=== PATIENT | female | born 1960 | race Caucasian/White ===

== ENCOUNTER → 2017-08-06 16:23 | Outpatient (CLI) | payer OTHER, SELFPAY ==
--- NOTE | 2017-08-06 16:29 | HPBI_ITS ---
MAMMOGRAPHY - BILATERAL SCREENING REASON FOR EXAM: Female, 57 years old. Routine annual screening examination. PERTINENT HISTORY: Sister with breast cancer. Mother with breast cancer. TECHNIQUE: Digital bilateral breast karina (3D mammographic acquisition) in the CC and MLO projections. 2-D mediolateral oblique (MLO) and craniocaudad (CC) views of both breasts were obtained. CAD: Full Field Digital Mammography with Computer Added Detection was performed. COMPARISON: Comparison is made with prior study dated April 19, 2016 and April 17, 2015. FINDINGS: Breast Composition: There are scattered areas of fibroglandular density. There are no dominant masses or suspicious calcifications. No other significant abnormalities are identified. There has been no significant change since the prior study. HPBI/SCREENING MAMM (CAD), BILAT IMPRESSION: Stable bilateral screening mammogram. Yearly follow-up mammogram recommended. (A) ASSESSMENT CATEGORY: BIRADS Category 1: Negative. A letter regarding these results will be sent to the patient by the facility within 30 days. Approximately 10% of breast cancers are not detected by mammography. A normal mammogram should not delay biopsy of a clinically suspicious abnormality. [id number] Electronically Signed: Jimi Castañeda MD at 8:53 EDT Tel [phone], Service support ,
== END ==
PROVIDERS: Family Provider Family Medicine; PCP Family Medicine; Visit Provider Obstetrics & Gynecology
DX: Z12.31 Encounter for screening mammogram for malignant neoplasm of breast (principal)
CPT/HCPCS: 77063; 77067

== ENCOUNTER → 2017-12-29 07:30 | Outpatient (CLI) | payer OTHER, SELFPAY ==
[2017-12-29 10:34] LABS: AST(SGOT) 52 U/L (15-37); Alanine Aminotransfer ALT/SGPT 69 U/L (13-56); Albumin, Serum 3.9 g/dL (3.2-5.0); Alkaline Phosphatase 132 U/L (45-117); Anion Gap 10 (5-15); BUN 11 mg/dL (7-18); Bilirubin, Direct 0.14 mg/dL (0.00-0.30); Calcium,Total 9.1 mg/dL (8.5-10.1); Chloride 103 mmol/L (98-107); Cholesterol 162 mg/dL (200); Creatinine, Serum 0.85 mg/dL (0.55-1.02); EST Glomerular Filtration Rate 74 mL/min (>60); Est Glom Filt Rate - Afr Amer 89 mL/min (>60); Globulin 3.8 g/dL (2.2-4.2); Glucose 133 mg/dL (74-106); High Density Lipoprotein 34 mg/dL; Potassium 4.2 mmol/L (3.5-5.1); Protein, Total 7.7 g/dL (6.4-8.2); Sodium Level 142 mmol/L (136-145); Triglycerides 146 mg/dL; Very Low Density Lipoprotein 29 mg/dL (5-40)
[2017-12-29 10:52] LABS: Microalbumin,Random Urine 16.4 mg/L (NO RANGE EST.); Microalbumin:Creatinine Ratio 16.4 mg/g CRE (<30 mg/g CRE)
== END ==
PROVIDERS: Family Provider Family Medicine; PCP Family Medicine; Visit Provider Family Medicine
DX: E11.9 Type 2 diabetes mellitus without complications (principal); Z79.4 Long term (current) use of insulin
CPT/HCPCS: 36415; 80048; 80061; 80076; 82043; 82570

== ENCOUNTER → 2018-01-01 08:51 | Outpatient (CLI) | payer OTHER, SELFPAY ==
[2018-01-01 10:27] LABS: Thyroid Stim Hormone (TSH) 0.17 uIU/mL (0.358-3.74)
[2018-01-02 08:54] LABS: Vitamin D,25 Hydroxy 26.3 ng/mL (29.95-100.01)
== END ==
PROVIDERS: Family Provider Family Medicine; PCP Family Medicine; Visit Provider Family Medicine
DX: E03.9 Hypothyroidism, unspecified (principal); E55.9 Vitamin D deficiency, unspecified
CPT/HCPCS: 36415; 82306; 84443

== ENCOUNTER → 2018-07-01 08:57 | Outpatient (CLI) | payer OTHER, SELFPAY ==
[2018-07-01 11:16] LABS: Hemoglobin A1c 8.3 % (4.2-6.3)
[2018-07-01 11:20] LABS: AST(SGOT) 122 U/L (15-37); Alanine Aminotransfer ALT/SGPT 143 U/L (13-56); Albumin, Serum 3.7 g/dL (3.2-5.0); Alkaline Phosphatase 143 U/L (45-117); Anion Gap 11 (5-15); BUN 14 mg/dL (7-18); BUN/Creat Ratio 19.1 RATIO (10-20); Bilirubin, Direct 0.14 mg/dL (0.00-0.30); Calcium,Total 9.1 mg/dL (8.5-10.1); Chloride 105 mmol/L (98-107); Cholesterol 193 mg/dL (200); Creatinine, Serum 0.73 mg/dL (0.55-1.02); EST Glomerular Filtration Rate 87 mL/min (>60); Est Glom Filt Rate - Afr Amer 105 mL/min (>60); Free T3 2.9 pg/mL (2.18-3.98); Globulin 3.6 g/dL (2.2-4.2); Glucose 107 mg/dL (74-106); High Density Lipoprotein 33 mg/dL; Potassium 4.2 mmol/L (3.5-5.1); Protein, Total 7.3 g/dL (6.4-8.2); Sodium Level 140 mmol/L (136-145); T4 Total, Thyroxin 11.2 ug/dL (4.8-13.9); Thyroid Stim Hormone (TSH) 2.25 uIU/mL (0.358-3.74); Triglycerides 152 mg/dL; Very Low Density Lipoprotein 30 mg/dL (5-40)
[2018-07-02 13:20] LABS: ANTINUCLEAR ANTIBODIES DIRECT Negative (Negative)
== END ==
PROVIDERS: Family Provider Family Medicine; PCP Family Medicine; Visit Provider Family Medicine
DX: E11.9 Type 2 diabetes mellitus without complications (principal); E03.9 Hypothyroidism, unspecified; L43.9 Lichen planus, unspecified
CPT/HCPCS: 36415; 80048; 80061; 80076; 83036; 84436; 84443; 84481; 86038

== ENCOUNTER → 2018-09-02 08:01 | Outpatient (CLI) | payer OTHER, SELFPAY ==
--- NOTE | 2018-09-02 08:03 | BI_ITS ---
MAMMOGRAPHY - BILATERAL SCREENING REASON FOR EXAM: Female, 58 years old. Routine annual screening examination. PERTINENT HISTORY: Sister with breast cancer. Mother with breast cancer. TECHNIQUE: Digital bilateral breast karina (3D mammographic acquisition) in the CC and MLO projections. 2-D mediolateral oblique (MLO) and craniocaudad (CC) views of both breasts were obtained. CAD: Full Field Digital Mammography with Computer Added Detection was performed. COMPARISON: Comparison is made with prior study dated August 06, 2017 and April 19, 2016. FINDINGS: Breast Composition: There are scattered areas of fibroglandular density. Focal architectural distortion seen in the upper lateral aspect of the left breast. The patient will be recalled for additional views including 90 degree lateral and compression spot views. Stable small bilateral axillary lymph nodes. No other significant abnormalities are identified. BI/SCREENING MAMM (CAD), BILAT IMPRESSION: Focal architectural distortion in the upper lateral aspect of the left breast as described. The patient will be recalled for additional views including 90 degree lateral and compression spot views. Recall Side: Left Breast ASSESSMENT CATEGORY: BIRADS Category 0: Incomplete. Need additional imaging evaluation. A letter regarding these results will be sent to the patient by the facility within 30 days. Approximately 10% of breast cancers are not detected by mammography. A normal mammogram should not delay biopsy of a clinically suspicious abnormality. [id number] Electronically Signed: Jimi Castañeda, at 12:48 EDT , Service support ,
== END ==
PROVIDERS: Family Provider Family Medicine; PCP Family Medicine; Referring Provider Obstetrics & Gynecology; Visit Provider Obstetrics & Gynecology
DX: Z12.31 Encounter for screening mammogram for malignant neoplasm of breast (principal)
CPT/HCPCS: 77063; 77067

== ENCOUNTER → 2018-09-08 08:50 | Outpatient (CLI) | payer OTHER, SELFPAY ==
--- NOTE | 2018-09-08 08:51 | BI_ITS ---
MAMMOGRAPHY - BILATERAL DIAGNOSTIC REASON FOR EXAM: Female, 58 years old. Abnormal screening mammogram. PERTINENT HISTORY: Sister with breast cancer. Mother with breast cancer. TECHNIQUE: Compression spot views of the left breast in the mediolateral oblique and craniocaudad views were obtained. CAD: Full Field Digital Mammography with Computer Added Detection was performed. COMPARISON: Comparison is made with prior study dated September 02, 2018. FINDINGS: Breast Composition: There are scattered areas of fibroglandular density. Persistent architectural distortion is seen in the upper lateral portion of the left breast. Correlation with ultrasound is recommended. No other significant abnormalities are identified. BI/DIAG MAMM W/CAD, BILAT IMPRESSION: Stable architectural distortion in the left breast as described. Correlation with ultrasound is recommended. ASSESSMENT CATEGORY: BIRADS Category 0: Incomplete. Need additional imaging evaluation. A letter regarding these results will be sent to the patient by the facility within 30 days. Approximately 10% of breast cancers are not detected by mammography. A normal mammogram should not delay biopsy of a clinically suspicious abnormality. Electronically Signed: Jimi Castañeda, at 11:17 EDT , Service support ,
--- NOTE | 2018-09-08 08:54 | US_ITS ---
STUDY: ULTRASOUND BREAST - LEFT REASON FOR EXAM: Female, 58 years old. Abnormal screening mammogram. TECHNIQUE: Axial and longitudinal images of the LEFT breast were performed with a high resolution ultrasound transducer. COMPARISON: Comparison is made with prior mammogram dated September 02, 2018 and September 08, 2018. FINDINGS: LEFT Breast: There is a 4 mm x 3 mm x 3 mm cyst at the 2:00 position of the breast at 4 cm from nipple. There is evidence of a 3 mm x 5 mm x 5 mm hypoechoic ill-defined nodular density at the 3:00 position of the breast at 8 cm from the nipple. There is posterior acoustical shadowing. A biopsy is recommended. US/Breast Limited Unilateral IMPRESSION: Suspicious nodule measuring 3 mm x 5 mm x 5 mm at the 3:00 position of the breast at 8 cm from nipple. A biopsy is recommended for further evaluation. ASSESSMENT CATEGORY: BIRADS Category 4: Suspicious - Biopsy Should Be Considered. A letter regarding these results will be sent to the patient by the facility within 30 days. Electronically Signed: Jimi Castañeda, at 11:15 EDT , Service support ,
== END ==
PROVIDERS: Family Provider Family Medicine; PCP Family Medicine; Referring Provider Obstetrics & Gynecology; Visit Provider Obstetrics & Gynecology
DX: R92.8 Other abnormal and inconclusive findings on diagnostic imaging of breast (principal)
CPT/HCPCS: 76642; 77066

== ENCOUNTER → 2018-09-22 11:42 | Outpatient (CLI) | payer OTHER, SELFPAY ==
[2018-09-15 07:35] VITALS: BMI 32.5
--- NOTE | 2018-09-22 | IMM_PTH ---
PATIENT: CLAUDY BAIRD LOC: [facility] U#:[id number] AGE/SX: 65/F ROOM: RE09/22/[address]: Dr. Man Olguin MD : 1960 BED: DIS: SPEC #: [id number] RECD: 09/23/18 15:12 STATUS: HOMERO REQ #: [id number] NICOLE: 09/22/18 00:[address]: Man Olguin DEPT: IMMUNOHISTOCHEMISTRY RECD BY: Kimberly Kimble ENTERED: 09/23/18 15:13 SP TYPE: IMMUNO OTHR DR: Dr. Magdiel Montilla MD Tissues: Left breast, NOS Procedures: CALPONIN-1 (add) CK5-6 (add) CK8 (add) E-CAD (add) HER2 YANG (add) KI-67 (add) P53 (add) AK (add) P40 (add) ER (initial) PHYSICIAN & INSTITUTION [facility] [phone] SPECIMEN INFORMATION: Tissue Source: Left breast biopsy Clinical Info: Abnormal left breast ultrasound Specimen Number: [id number] CPT code: 71692, 59870 x6, 87704 x3 METHODOLOGY: Deparaffinized sections of prefer/formalin-fixed tissue or PAP/DQ stained slides are incubated with monoclonal/polyclonal antibodies/oligonucleotide probes. Localization is made via biotin free immunoperoxidase method. Appropriate controls are performed and reacted as expected. Results on target cell population are indicated in the following table: RESULTS: ANTIBODY / CLONE RESULT E-Cad (ECH-6) positive CK8 (30mzquW81) positive CK5-6 (D5 & 1684) negative * Ki-67 (30-9) positive, low P53 (DO-7) negative P40 (BC28) negative * Calponin-1 (KD842S) negative * *?Positive in the area of ductal carcinoma in situ. MORPHOMETRIC ANALYSIS ER (clone 6F11) >95%, strong AK (clone 16/1E2) >95%, moderate Her-2Neu (clone CB11) 0 The prognostic test for HER2 is performed on formalin-fixed paraffin embedded tissue. A 3+ (positive) staining pattern is defined as intense, homogeneous, complete, circumferential membranous staining in >10% of contiguous tumor cells. A similar weak (2+) staining pattern is interpreted as equivocal. TALITA follow-up testing is recommended for all equivocal cases. Positivity/negativity for ER/AK is reported if > or < 1% of the tumor cells are immuno- reactive, respectively. The ASCO/CAP criteria is used for scoring. Reference: Journal of Clinical Oncology, 2013; 31:0222-4131 & 2010; 16:3015-6554. Duration of fixation: 6.5 Hrs; Sample Adequate: Yes. These assays have not been validated on decalcified tissues. Results should be interpreted with caution given the likelihood of false negativity on decalcified specimens. These tests were developed and their performance characteristics determined by [facility]. They may not have been cleared or approved by the U.S. Food and Drug Administration. The FDA has determined that such clearance or approval is not necessary. INTERPRETATION: Left breast, biopsy: Invasive ductal carcinoma. Ductal carcinoma in situ. Positive for estrogen receptors (favorable prognostic indicator). Positive for progesterone receptors (favorable prognostic indicator). Negative for overexpression of MYT7xjy. SJ:mitesh 09/24/18
--- NOTE | 2018-09-22 | BRBX_PTH ---
PATIENT: CLAUDY BAIRD LOC: [facility] U#:[id number] AGE/SX: 65/F ROOM: RE09/22/[address]: Dr. Man Olguin MD : 1960 BED: DIS: SPEC #: [id number] RECD: 09/22/18 13:07 STATUS: HOMERO NIDIA #: [id number] NICOLE: 09/22/18 00:[address]: Man Olguin DEPT: SURGICAL PATHOLOGY RECD BY: Sukumar Wright ENTERED: 09/22/18 13:26 SP TYPE: BREAST BX OTHR DR: Dr. Magdiel Montilla MD Tissues: Left breast, NOS Procedures: Surgery Specimen Level IV HEADER OPERATION: Left breast biopsy PRE-OP DIAGNOSIS: Left breast abnormal ultrasound TISSUE SUBMITTED: Left breast 3 o'clock, 8 cm from nipple - shadowing present on ultrasound ISCHEMIC TIME: 1 minute FIXATION TIME: 6.5 hours MICROSCOPIC DIAGNOSIS Left breast, 3 o'clock, 8 cm from nipple, core biopsy: Invasive ductal carcinoma, nuclear grade 1 (0.5 cm in greatest length). Ductal carcinoma in situ. See comment. MACHELLE:mitesh 09/23/18 COMMENT Ductal carcinoma in situ shows cribriform pattern, nuclear grade 1 and focal comedo necrosis and comprise about 5% of the total tumor. Immunohistochemistry ([id number]) supports the above diagnosis. ER/NH/Gdn2jvt studies are being performed on sections of tumor and the results from this study will be reported separately ([id number]). MICROSCOPIC DESCRIPTION Slides are reviewed. GROSS DESCRIPTION Received in fixative is one container labeled with the patient's name and designated left breast. The specimen consists of multiple elongated fragments of anaya-yellow fibroadipose tissue that in aggregate measure 2.5 x 1 x 0.1 cm. The entire specimen is submitted in one cassette. / MACHELLE:mitesh 09/22/18 TC:0 CPT: 01526 ADDENDUM ADDENDUM ADDENDUM ADDENDUM ADDENDUM ADDENDUM ADDENDUM ADDENDUM ADDENDUM ADDENDUM ADDENDUM 10/28/2018 10:57 ADDENDUM 10/28/2018 10:57 ADDENDUM 10/28/2018 10:57 ADDENDUM 10/28/2018 10:57 ADDENDUM 10/28/2018 10:57 This addendum is added to incorporate an outside pathology consultation report. The case was examined at [facility] (#[id number]) and the following diagnosis was rendered. Left breast, 3 o'clock, 8 cm from nipple, core biopsy: Invasive ductal carcinoma, nuclear grade 1. Ductal carcinoma in situ, cribriform type, nuclear grade 1. Please see complete above mentioned consultation report in EMR
--- NOTE | 2018-09-22 12:10 | US_ITS ---
STUDY: ULTRASOUND BREAST - LEFT REASON FOR EXAM: Female, 58 years old. Ultrasound guided biopsy of the hypoechoic nodule. TECHNIQUE: Axial and longitudinal images of the LEFT breast were performed with a high resolution ultrasound transducer. COMPARISON: Comparison is made with prior sonogram dated September 08, 2018 and prior mammogram dated September 08, 2018. FINDINGS: LEFT Breast: Under direct sonographic guidance, the surgeon performed core biopsies of the 3 mm x 5 mm x 5 mm hypoechoic solid nodule at the 3:00 position of the breast at 8 cm from the nipple. US/US Breast Biopsy 1st Lesion IMPRESSION: Successful ultrasound-guided core biopsy. ASSESSMENT CATEGORY: BIRADS Category 2: Benign. A letter regarding these results will be sent to the patient by the facility within 30 days. Electronically Signed: Jimi Castañeda, at 8:50 EDT , Service support ,
--- NOTE | 2018-09-22 15:11 | PCM.OPRPT ---
Problem List (1) Abnormal mammogram of left breast Status: Acute Report of Operation Date of Procedure: 09/22/18 Pre-Operative Diagnosis: Abnormal mammogram left breast Post-Operative Diagnosis: Same Surgery/Procedure Performed:: ultrasound-guided hand-held mammotome breast biopsy left breast Type of Anesthesia:: Local Description of Procedure: Chlorhexidine. 1% lidocaine plain was injected. Under ultrasound guidance local was injected posterior to the lesion. Under ultrasound guidance hand-held mammotome needle was directed posterior to the lesion. Under ultrasound guidance numerous biopsies of this lesion were obtained. Under ultrasound guidance a small titanium clip was placed. Steri-Strips were applied. Sterile dressings were placed. Patient tolerated the procedure well. - Admit VTE Documentation VTE Present on Admission: No VTE Mechan Device Prophylaxis: None VTE Pharm Prophylaxis ordered?: No Reason prophylaxis not ordered:: Treatment Not Indicated
== END ==
PROVIDERS: Family Provider Family Medicine; PCP Family Medicine; Referring Provider Surgery; Visit Provider Surgery
DX: R92.8 Other abnormal and inconclusive findings on diagnostic imaging of breast (principal)
CPT/HCPCS: 19083; 88305; 88341; 88342

== ENCOUNTER 2019-05-03 09:27 | Emergency (ER) | payer OTHER, SELFPAY ==
[2018-09-15 07:35] VITALS: BMI 32.5
[2019-05-03 09:28] VITALS: BP 156/72; PULSE 96; RESP 15; TEMP 37; O2SAT 98; BMI 31.4
--- NOTE | 2019-05-03 09:47 | ED.VISSUMM ---
- ER Visit Summary Date of Service: 05/03/19 Chief Complaint: Recurrent right breast infection History of Present Illness: The patient is a 59 F history of left breast cancer, diabetes, hypertension. Patient had bilateral mastectomies with implants. She developed a right breast infection. She has had multiple recurrent surgeries and implant removed. She has been on IV antibiotics including Cipro and vancomycin. And had the implant replaced in the right. Since Friday she has not felt well developed a fever on Friday and now has redness and swelling to her right breast and believes it is infected again. Physical Examination: Middle-aged female no acute distress vital signs stable afebrile. H EENT exam unremarkable. Neck nontender no lymphadenopathy. Lungs clear to auscultation bilaterally. Heart regular rhythm no murmur. Abdomen soft nontender normal bowel sounds no peritoneal signs. Extremities moves all 4. Neurovascular intact. Neurologically she is awake and alert with no focal motor deficits. Her left breast is unremarkable her right breast was examined with a nurse present in the room it is red and swollen is mildly tender. There is an incision on the undersurface of the breast. The breast appears to be infected with cellulitis. No obvious abscess. Test Results: CBC shows an elevated white blood cell count of 22,000. Normal hemoglobin. No bands. Blood cultures have been sent. Emergency Department Course and Treatment: Patient be started on IV vancomycin. Prior to IV antibiotics labs and blood cultures to be obtained. I will page the [facility] physician who took care of the patient to see if they would like her transferred there since they have been involved in her care extensively for the last several months. Treatment Plan: IV antibiotics and transfer the [facility]. I spoke to the patient's plastic surgeon at the [facility] and they have accepted her in transfer. On repeat exam patient is doing well at 10:38 AM. Disposition: Transfer Impression: Recurrent right breast infection with cellulitis History of breast CA with bilateral mastectomies and implants History of diabetes This note was generated with [employer] dictation software. It may contain incorrect words, spelling, and punctuation that were not noted in review of the chart prior to signing ED Disposition - Plan for ED Patient: Referrals: Magdiel Montilla MD [Primary Care Provider] -
[2019-05-03 10:22] LABS: Absolute Lymphocyte Count 2.07 X10^3/uL (0.83-4.51); Absolute Neutrophil Count 18.9 X10^3/uL (2.0-7.7); Basophil# 0.07 X10^3/uL; Basophil% 0.3 % (0-1); Eosinophil# 0.22 X10^3/uL; Hematocrit 41.8 % (37-47); Lymphocyte # 2.07 X10^3/ul (4.0); Lymphocyte % 9.2 % (19-41); Mean Corp Hgb Conc 33.5 g/dL (32-36); Mean Corpuscular Hgb 30.8 pg (27.0-32.0); Mean Corpuscular Volume 92.1 fL (81-99); Mean Platelet Vol. 10.7 fl (6.2-12.0); Monocyte# 1.03 X10^3/uL; Monocyte% 4.6 % (0-10); NRBC Flagged by Analyzer 0 % (0-5); Neutrophil # 18.87 X10^3/uL (2.7-7.7); Neutrophil % 84.4 % (47-70); Platelet Count 208 K/mm3 (150-450); RBC Distribution Width CV 12.7 % (11.6-14.6); RBC Distribution Width SD 42.8 fl (35.1-43.9); Red Blood Count 4.54 M/mm3 (4.2-5.4); White Blood Count 22.4 K/mm3 (4.4-11.0)
[2019-05-03] MEDS: Acetaminophen 500 MG Tablet 1000 MG PO (10:32)
[2019-05-03 10:38] LABS: Anion Gap 5 (5-15); BUN 12 mg/dL (7-18); BUN/Creat Ratio 13.3 RATIO (10-20); Calcium,Total 9.5 mg/dL (8.5-10.1); Chloride 103 mmol/L (98-107); EST Glomerular Filtration Rate 69 mL/min (>60); Est Glom Filt Rate - Afr Amer 83 mL/min (>60); Estimated Creatinine Clearance 59.55 ml/min; Glucose 199 mg/dL (74-106); Potassium 4.5 mmol/L (3.5-5.1); Sodium Level 137 mmol/L (136-145)
== END 2019-05-03 11:02 | disposition short-term general hospital (02) ==
LOC: ED 10:03
PROVIDERS: Emergency Provider Emergency Medicine; Family Provider Family Medicine; PCP Family Medicine
DX: N61.0 Mastitis without abscess (principal); Z85.3 Personal history of malignant neoplasm of breast; Z90.13 Acquired absence of bilateral breasts and nipples; I10 Essential (primary) hypertension; E11.9 Type 2 diabetes mellitus without complications; Z79.4 Long term (current) use of insulin; Z79.84 Long term (current) use of oral hypoglycemic drugs; Z79.899 Other long term (current) drug therapy
CPT/HCPCS: 80048; 85025; 87040; 96365; 99282; J7040; J7050; A4216

== ENCOUNTER → 2019-09-16 07:10 | Outpatient (CLI) | payer OTHER, SELFPAY ==
--- NOTE | 2019-09-16 14:19 | STRESSREP_ITS ---
Stress Test Report Date: 09/16/2019 Procedure: Pharmacologic stress nuclear imaging study Indications: Chest pain Consent: Per the patient Procedure: Patient initially started as an exercise nuclear stress test. She walked for 6 minutes on the Arias protocol achieving a work level of 7 METs. Patient had chest discomfort with exertion. Her maximal heart rate was 131 bpm which represents 80% of maximal age-predicted heart rate. Resting blood pressure was 144/72 which lyndon to 150/72. Since patient did not reach target heart rate she was switched to a Lexiscan stress test. The patient underwent pharmacologic (Regadenoson) evaluation with a peak heart rate of 126 beats per minute (77 %predicted maximal heart rate) and a peak blood pressure of 160/88 mmHg. The baseline ECG demonstrated normal sinus rhythm, possible prior inferior infarction. During peak exercise patient had significant ST depressions (horizontal) in leads I, aVL and V2. There was also increase in the amplitude of the T waves in the inferior leads in the recovery. Eventually the ST changes return to baseline. EKG during lexiscan infusion revealed upsloping ST depressions in the inferior leads. EKG post infusion revealed return of ST segments to baseline [There were no cardiac dysrhythmias pretest, during pharmacologic infusion, or recovery]. Patient had chest pain with exercise. The examination was discontinued secondary to completion of protocol. Impression: 1. Lexiscan stress test test is negative for Lexiscan infusion induced EKG changes of ischemia. However the stress test was positive for exercise-induced chest pain and EKG changes of ischemia. 2. Lexiscan stress test test negative for Lexiscan infusion induced chest pain. 3. Results of the nuclear portion of the test is as below Myocardial perfusion imaging study: Technique: The patient was injected with 13.5 millicuries of technetium 99m Cardiolite and subsequently rest SPECT Cardiolite nuclear imaging was obtained in the horizontal long, vertical long, and short axis views. The patient underwent pharmacologic (Regadenoson) evaluation. Please see above for details. The patient was injected with 41 millicuries of technetium 99m Cardiolite and subsequently stress SPECT Cardiolite nuclear imaging was obtained in the horizontal long, vertical long, and short axis views. A gated Cardiolite study at peak stress was obtained. Interpretation: Rest and stress SPECT Cardiolite nuclear imaging status post realignment, normalization, and attenuation correction demonstrate mildly decreased radioisotope uptake in the inferior wall on the rest images. There is severe decrease in the radioisotope uptake in the inferior wall and inferolateral wall on the stress images. These findings are suggestive of inferior and inferolateral ischemia with possible prior inferior myocardial infarction. Gated images reveal inferior hypokinesis. The reported LVEF is 49 %. Impression: 1. There is moderate to severe inferior and inferolateral ischemia. 2. Estimated ejection fraction is 49%. This note was generated with [employer] software. It may contain incorrect words, spelling, and punctuation that were not noted in checking the note before signing.
== END ==
PROVIDERS: PCP Family Medicine; Referring Provider Family Medicine; Visit Provider Family Medicine
DX: R07.9 Chest pain, unspecified (principal)
CPT/HCPCS: 78452; 93017; A9500; A4216; J2785

== ENCOUNTER → 2019-09-23 07:53 | Outpatient (CLI) | payer OTHER, SELFPAY ==
[2019-09-21 14:36] VITALS: BMI 32.1
--- NOTE | 2019-09-23 07:54 | ECHOCS_ITS ---
Reason For Study: CHEST PAIN Procedure This was a 2D Doppler, Color Flow transthoracic echocardiogram. The study was technically difficult. The exam was of poor technical quality due to Bilateral brest reconstruction. Contrast injection was performed. Exam performed in department. Left Ventricle Normal LV size. Sigmoid septum. Segmental dysfunction with preserved ejection fraction (see wall motion). The estimated ejection fraction is 60 %. Transmitral doppler flow suggestive of impaired relaxation of left ventricle. Posterior-Basal: Hypokinetic. Infero-Basal: Hypokinetic. Right Ventricle Normal RV size. Normal systolic function. Atria Normal left atrium. Normal right atrium. No doppler evidence for ASD. Mitral Valve There is mild mitral annular calcification. Normal mitral valve. Trivial mitral valve insufficiency. Tricuspid Valve Normal tricuspid valve. Trivial tricuspid valve insufficiency. Right ventricular systolic pressure estimated to be 26 mmHg. Aortic Valve Trisinus/trileaflet aortic valve. Mild focal aortic valve thickening. Pulmonic Valve The pulmonic valve is not well visualized. Great Vessels Normal sized aortic root. Pericardium/Pleural No pericardial effusion. Medication 22 gauge I.V. with prn adaptor inserted into right arm. Diluted definity 5.0ml given slow IV push to enhance endocardial definition. MMode/2D Measurements & Calculations LVIDd: 3.6 cm IVSd: 1.2 cm Ao root diam: 2.4 cm LVIDs: 2.6 cm LVPWd: 1.2 cm RVDd: 3.5 cm FS: 27.4 % LAV(MOD-bp): 24.5 ml LVAd ap4: 28.9 cm2 SV(MOD-sp4): 53.5 ml LAV(MOD-bp) Indexed: 12.9 ml/m2 EDV(MOD-sp4): 86.4 ml LAV(MOD-sp2): 23.3 ml EDV(sp4-el): 89.5 ml LAV(MOD-sp4): 18.2 ml LVAs ap4: 15.3 cm2 ESV(MOD-sp4): 32.9 ml ESV(sp4-el): 33.3 ml EF(MOD-sp4): 61.9 % EF(sp4-el): 62.8 % SV(sp4-el): 56.2 ml LA A4 area: 10.7 cm2 LA dimension(2D): 3.4 cm RA A4 area: 10.3 cm2 Time Measurements MV dec time: 0.17 sec Doppler Measurements & Calculations MV E max dale: 68.0 cm/sec Lat Peak E' Dale: 11.3 cm/sec Med Peak E' Dale: 5.0 cm/sec MV A max dale: 80.5 cm/sec E/E' lat: 6.0 E/E' med: 13.5 MV E/A: 0.85 Ao V2 max: 122.1 cm/sec LV V1 max: 108.8 cm/sec PA V2 max: 110.6 cm/sec Ao max P.0 mmHg LV V1 max P.7 mmHg TR max dale: 240.7 cm/sec TR max P.2 mmHg Interpretation Summary The study was technically difficult. Contrast injection was performed. Segmental dysfunction with preserved ejection fraction (see wall motion). The estimated ejection fraction is 60 %. There is mild mitral annular calcification. Trivial tricuspid valve insufficiency. Mild focal aortic valve thickening. Right ventricular systolic pressure estimated to be 26 mmHg. Transmitral doppler flow suggestive of impaired relaxation of left ventricle Ordering Physician: Magdiel Wheeler Referring Physician: MAGDIEL BOLAÑOS Performed By: Barbara Yoon, RDCS, RVT
--- NOTE | 2019-09-23 09:19 | RAD_ITS ---
STUDY: X-RAY CHEST REASON FOR EXAM: Female, 59 years old. 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 COMPARISON: None. FINDINGS: The patient is status post right mastectomy and axillary node dissection. 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 A fluid fluid level is seen in the right breast in keeping with the recent surgery. The lungs are clear and expanded. There is no demonstrated pleural abnormality. Normal size heart. Normal mediastinum and raz. Normal visualized pulmonary arteries. There is atherosclerotic tortuosity of the aortic arch and descending thoracic aorta. There are mild degenerative changes of the visualized thoracic spine. Normal visualized ribs, clavicles, and shoulders. There is no demonstrated abnormality of the visualized soft tissue structures of the upper abdomen. RAD/Chest PA and Lateral IMPRESSION: Status post right breast surgery. The lungs are clear. Electronically Signed: Jimi Castañeda, at 11:21 EDT , Service support ,
[2019-09-23 10:28] LABS: Absolute Lymphocyte Count 2.04 X10^3/uL (0.83-4.51); Absolute Neutrophil Count 5.5 X10^3/uL (2.0-7.7); Basophil# 0.07 X10^3/uL; Basophil% 0.8 % (0-1); Eosinophil# 0.19 X10^3/uL; Eosinophils% 2.3 % (0-5); Hematocrit 43.1 % (37-47); Lymphocyte # 2.04 X10^3/ul (4.0); Lymphocyte % 24.4 % (19-41); Mean Corp Hgb Conc 32.5 g/dL (32-36); Mean Corpuscular Hgb 29.9 pg (27.0-32.0); Mean Corpuscular Volume 91.9 fL (81-99); Mean Platelet Vol. 10.8 fl (6.2-12.0); Monocyte# 0.53 X10^3/uL; Monocyte% 6.3 % (0-10); NRBC Flagged by Analyzer 0 % (0-5); Neutrophil # 5.49 X10^3/uL (2.7-7.7); Neutrophil % 65.8 % (47-70); Platelet Count 217 K/mm3 (150-450); RBC Distribution Width CV 12.9 % (11.6-14.6); RBC Distribution Width SD 43.2 fl (35.1-43.9); Red Blood Count 4.69 M/mm3 (4.2-5.4); White Blood Count 8.4 K/mm3 (4.4-11.0)
[2019-09-23 10:37] LABS: International Normalized Ratio 1.1
[2019-09-23 10:38] LABS: Partial Thromboplast Time 31.3 Seconds (24.1-36.2)
[2019-09-23 10:39] LABS: Anion Gap 5 (5-15); BUN 9 mg/dL (7-18); BUN/Creat Ratio 12.2 RATIO (10-20); Calcium,Total 9.1 mg/dL (8.5-10.1); Chloride 101 mmol/L (98-107); Creatinine, Serum 0.74 mg/dL (0.55-1.02); EST Glomerular Filtration Rate 86 mL/min (>60); Est Glom Filt Rate - Afr Amer 104 mL/min (>60); Glucose 135 mg/dL (74-106); Potassium 4.1 mmol/L (3.5-5.1); Sodium Level 137 mmol/L (136-145)
== END ==
PROVIDERS: PCP Family Medicine; Referring Provider Internal Medicine Cardiovascular Disease; Visit Provider Internal Medicine Cardiovascular Disease
DX: R07.9 Chest pain, unspecified (principal); R06.02 Shortness of breath; R94.39 Abnormal result of other cardiovascular function study; E78.00 Pure hypercholesterolemia, unspecified; I10 Essential (primary) hypertension
CPT/HCPCS: 36415; 71046; 80048; 85025; 85610; 85730; 93306; Q9957; A4216; C8929

== ENCOUNTER 2019-09-24 08:48 | Day surgery (SDC) | payer OTHER, SELFPAY ==
--- NOTE | 2019-09-21 03:45 | HP_ITS ---
HPI HPI History of Present Illness Surgical H&P: Yes Details: This is a 59-year-old white female with concerns of chest discomfort, shortness of breath/dyspnea, and abnormal stress nuclear imaging study, superimposed upon hyperlipidemia, hypertension, diabetes mellitus, and a history of breast carcinoma status post bilateral mastectomies and reconstructive surgery who presents for cardiovascular consultation. She states that she has been noticing, mainly with exertional activity, chest discomfort. She states originally she had paresthesias in the left upper extremity. Then she began having a burning sensation in her chest. This was associated with shortness of breath and dyspnea. It was not necessarily associated with nausea, emesis, or diaphoresis. There has been no orthopnea or PND or peripheral pitting edema. There has been no near syncope or syncope. She notes that she can also have, with exertion, separate from her chest burning, shortness of breath and dyspnea. Her symptoms do appear to improve when she stops and rests. She states that potentially 10+ years ago she had a transthoracic echocardiogram performed. To the best of her knowledge this was unremarkable. She has not had one since that time. She does not recall any other cardiovascular testing. She states she has undergone her breast carcinoma bilateral mastectomy surgery and reconstructive surgery. She had recurrent infectious related issues more so with the right breast. She states she underwent 5 general anesthesia surgeries based upon her breast carcinoma history. To the best of her knowledge she had no adverse cardiovascular events from her surgeries. Recently she had an exercise tolerance test performed. The results are as noted below. She was then referred for outpatient cardiovascular consultation. It appears that on 08-27-2019 she had a lipid profile performed. Her total cholesterol was 188 with an LDL of 119 and an HDL of 27. Her triglycerides were 206. She had an ECG in the office today. She was noted to be in sinus rhythm. She has an inferior CO pattern of indeterminate age. Intake Vital Signs 09/21/19 Height 5 ft 4 in 09/21/19 Weight: 187 lb 3 oz 09/21/19 BMI 32.1 09/21/19 BP 142/78 H 09/21/19 Blood Pressure Location Rt brachial 09/21/19 Position Sitting 09/21/19 Respiration 16 09/21/19 Pulse 72 09/21/19 Pulse Source Auscultation 09/21/19 BMI 31.4 Intake Visit Reasons: BOLAÑOS REF. POSITIVE STRESS TEST. CP Rpg Programmer Required: No Accompanied by: Self Allergies hydroxychloroquine [From Plaquenil] Allergy (Severe, Verified 09/21/19 14:36) face and eye swelling Penicillins [PCN] Allergy (Verified 09/21/19 14:36) Other Medications atenolol 50 mg tablet 50 mg PO BID 09/14/18 [History Confirmed 09/21/19] insulin glargine 100 unit/mL (3 mL) subcutaneous pen 50 unit SC DAILY 09/14/18 [History Confirmed 09/21/19] insulin lispro 100 unit/mL subcutaneous half-unit pen 30.5 unit SC TID ml 09/14/18 [History Confirmed 09/21/19] levothyroxine 125 mcg capsule 125 mcg PO DAILY 09/14/18 [History Confirmed 09/21/19] lisinopril 30 mg tablet 30 mg PO DAILY 09/14/18 [History Confirmed 09/21/19] metformin 500 mg tablet 500 mg PO DAILY tab 09/14/18 [History Confirmed 09/21/19] modafinil 200 mg tablet 200 mg PO DAILY 09/14/18 [History Confirmed 09/21/19] anastrozole 1 mg tablet 1 mg PO DAILY 09/16/19 [History Confirmed 09/21/19] dulaglutide 1.5 mg/0.5 mL subcutaneous pen injector 1.5 mg SC QWEEK 09/16/19 [History Confirmed 09/21/19] pravastatin 80 mg tablet 80 mg PO QHS 09/16/19 [History Confirmed 09/21/19] trazodone 50 mg tablet 50 mg PO QHS PRN 09/16/19 [History Confirmed 09/21/19] aspirin 81 mg tablet,delayed release 81 mg PO DAILY #1 tab 09/21/19 [Rx Confirmed 09/21/19] clopidogrel 75 mg tablet 75 mg PO DAILY #30 tab 09/21/19 [Rx Confirmed 09/21/19] [facility] Medical History (Updated 09/21/19 @ 15:[address] Magdiel Wheeler MD) Type 2 diabetes mellitus (Chronic) Pure hypercholesterolemia (Chronic) Hypothyroidism (Chronic) Chest pain (Acute) Essential hypertension (Chronic) Abnormal stress test (Acute) History of left breast cancer (Chronic ~09/2018) Abnormal mammogram of left breast (Acute) Arthritis (Chronic) Hypertension (Inactive) Surgical History (Updated 09/21/19 @ 14:39 by Alley Perkins) History of bilateral mastectomy (Resolved) History of laparoscopic cholecystectomy (Resolved) History of left breast biopsy (Resolved ~09/2018) History of tubal ligation (Resolved) Family History (Updated 09/21/19 @ 14:40 by Alley Perkins) Mother Arthritis Breast cancer Diabetes Heart disease Hypertension Thyroid disorder High cholesterol Sister Breast cancer Grandmother Colon cancer Father Diabetes Heart disease Hypertension Cancer skin cancer Grandfather Cancer lung cancer Sister CAD (coronary artery disease) Presence of stent in coronary artery Social History (Updated 09/21/19 @ 15:[address] Magdiel Wheeler MD) Smoking Status: Never smoker alcohol intake: current alcohol intake frequency: a few times a month substance use type: does not use caffeine: No ROS Const Const: Positive for fatigue (increased); negative for weakness, frequent falls, excessive sweating, weight gain or weight loss Eyes Eyes: Negative for transient loss of vision, blurry vision or change in vision ENT ENT: Negative for dizziness or balance problems Cardio Chest Pain: Yes Character: other (burning) Onset: exercise Location: mid sternal (radiates to Lt arm/ear ) Duration: minutes Relieving: rest Edema: None Muscle aches with walking: None Resp Respiratory: Positive for SOB with activity (noted with CP and at times absent CP); negative for SOB at rest GI GI: Negative vomiting or vomiting blood/hematemesis : Negative for hematuria Musc Musc: Negative for muscle aches/ myalgia, muscle weakness, joint pain or balance problems Skin Skin: Negative non-healing lesions or rash Neuro Neuro: Negative for dizziness, lightheadedness, orthostatic symptoms, frequent falls, weakness or blurry vision Nestor Hematologic/Lymphatic: Negative for easy bleeding Endo Endo: Positive for fatigue (increased); negative for excessive sweating Psych Psych: Negative for anxiety or depression Allergy Allergy/Immunology: Negative for hives, Negative for rash Cardiology Exam Const Appearance: cooperative, healthy appearing, comfortable, no acute distress, well developed and well groomed Nutritional Appearance: overweight Orientation: alert, awake and oriented x3 Head Head: normal to inspection, normocephalic and atraumatic Ears: hearing grossly normal bilaterally Nose: external nose normal Face and Sinus: face symmetric Mouth: oral mucosae normal Teeth and gingiva: dentition normal Eyes Eyelids: eyelids normal Conjunctivae: conjunctivae normal Pupils: PERRL EOM: EOM intact bilaterally Neck Neck: normal visual inspection and full ROM Carotids: normal carotid upstroke Chest Chest inspection: normal inspection of the chest Auscultation: Bilateral: Clear to Auscultation Cardio Palpation: normal PMI Rate: regular rate Rhythm: regular rhythm Heart sounds: S1 normal and S2 normal GI GI: normal to inspection, soft and bowel sounds present Neuro General: alert, awake, oriented x3 and moves all extremities Skin Skin: no rashes or lesions noted Extremities Pulses: Normal: Right Radial Pulse, Left Radial Pulse Lower Extremity Edema: None: Bilateral Psych Psychological: normal affect Assessment & Plan 1. Chest pain, unspecified R07.9 Plan The patient does have multiple cardiovascular risk factors which have included her hyperlipidemia, hypertension, and diabetes mellitus. She has symptoms with exertion concerning for stable angina pectoris. She has an abnormal ECG. She has an abnormal exercise tolerance test/nuclear imaging study. From the cardiovascular standpoint the concern would be underlying CAD bringing out myocardial ischemia. Thus at the present time she was asked to initiate additional medical therapy which will include aspirin 81 mg p.o. daily, clopidogrel/Plavix at 75 mg p.o. daily, as well as undergo additional cardiovascular evaluation which would include an echocardiogram to evaluate her left ventricular wall motion and systolic function and a diagnostic cardiac catheterization to evaluate her coronary anatomy with potential revascularization therapy to follow. The above procedures and risks were discussed with her. She was agreeable to this approach. Orders Orders: 12 Lead EKG performed by BMS Today Left Heart Cath/COR/LV Percut Today Basic Metabolic Profile (BMP) Today Partial Thromboplast Time Today Prothrombin Time w/INR Today Echo Complete Today CBC W/Diff, Automated Today Chest PA and Lateral Today 2. Shortness of breath R06.02 Plan She does have shortness of breath and dyspnea with exertion. She will continue evaluation care as noted above. She will also have a chest x-ray performed. Orders Orders: Left Heart Cath/COR/LV Percut Today Basic Metabolic Profile (BMP) Today Partial Thromboplast Time Today Prothrombin Time w/INR Today Echo Complete Today CBC W/Diff, Automated Today Chest PA and Lateral Today 3. Abnormal stress test R94.39 Plan Her exercise tolerance test/imaging study was reviewed with her. She will continue evaluation and care as noted above. Orders Orders: 12 Lead EKG performed by BMS Today Left Heart Cath/COR/LV Percut Today Basic Metabolic Profile (BMP) Today Partial Thromboplast Time Today Prothrombin Time w/INR Today Echo Complete Today CBC W/Diff, Automated Today Chest PA and Lateral Today 4. Pure hypercholesterolemia E78.00 Plan She admits that she has not been on her statin therapy on a regular basis as she should be. She states she is trying to be better with respect to that. She was encouraged to continue her risk factor evaluation care. Orders Orders: Left Heart Cath/COR/LV Percut Today Basic Metabolic Profile (BMP) Today Partial Thromboplast Time Today Prothrombin Time w/INR Today Echo Complete Today CBC W/Diff, Automated Today Chest PA and Lateral Today 5. Essential hypertension I10 Plan She has a history of hypertension. She will continue her antihypertensive therapy at this time. Orders Orders: 12 Lead EKG performed by BMS Today Left Heart Cath/COR/LV Percut Today Basic Metabolic Profile (BMP) Today Partial Thromboplast Time Today Prothrombin Time w/INR Today Echo Complete Today CBC W/Diff, Automated Today Chest PA and Lateral Today Plan Detail Other Medications New: aspirin 81 mg PO DAILY 1 tab 0RF clopidogrel (Plavix) Take 4 tablets on Day 1 then 1 tablet each day 75 mg PO DAILY 30 tabs 3RF Additional Comments The above was discussed with her. She was agreeable to this approach. Thank you for allowing me to participate in the care of your patient. Please don't hesitate to call if any issues arise. This note was generated using a voice recognition system and there may be incorrect words, spelling or punctuation that were not noted when reviewing the office note prior to saving. Time spent in the patient's evaluation and care: 60 minutes Office E and M code: 22112 Follow Up 3 Months (PFM) Coding Level of Care Code Off vis,new,level 5 Diagnoses Chest pain, unspecified R07.9 ??Ischemic chest pain type: stable angina pectoris Shortness of breath R06.02 Abnormal stress test R94.39 Pure hypercholesterolemia E78.00 Essential hypertension I10 Coding Level of Care Code Off vis,new,level 5 Diagnoses Chest pain, unspecified R07.9 ??Ischemic chest pain type: stable angina pectoris Shortness of breath R06.02 Abnormal stress test R94.39 Pure hypercholesterolemia E78.00 Essential hypertension I10 Supplemental Info Supplemental Information Stress Test Report Date: 09/16/2019 Procedure: Pharmacologic stress nuclear imaging study Indications: Chest pain Consent: Per the patient Procedure: Patient initially started as an exercise nuclear stress test. She walked for 6 minutes on the Arias protocol achieving a work level of 7 METs. Patient had chest discomfort with exertion. Her maximal heart rate was 131 bpm which represents 80% of maximal age-predicted heart rate. Resting blood pressure was 144/72 which lyndon to 150/72. Since patient did not reach target heart rate she was switched to a Lexiscan stress test. The patient underwent pharmacologic (Regadenoson) evaluation with a peak heart rate of 126 beats per minute (77 %predicted maximal heart rate) and a peak blood pressure of 160/88 mmHg. The baseline ECG demonstrated normal sinus rhythm, possible prior inferior infarction. During peak exercise patient had significant ST depressions (horizontal) in leads I, aVL and V2. There was also increase in the amplitude of the T waves in the inferior leads in the recovery. Eventually the ST changes return to baseline. EKG during lexiscan infusion revealed upsloping ST depressions in the inferior leads. EKG post infusion revealed return of ST segments to baseline [There were no cardiac dysrhythmias pretest, during pharmacologic infusion, or recovery]. Patient had chest pain with exercise. The examination was discontinued secondary to completion of protocol. Impression: 1. Lexiscan stress test test is negative for Lexiscan infusion induced EKG changes of ischemia. However the stress test was positive for exercise-induced chest pain and EKG changes of ischemia. 2. Lexiscan stress test test negative for Lexiscan infusion induced chest pain. 3. Results of the nuclear portion of the test is as below Myocardial perfusion imaging study: Technique: The patient was injected with 13.5 millicuries of technetium 99m Cardiolite and subsequently rest SPECT Cardiolite nuclear imaging was obtained in the horizontal long, vertical long, and short axis views. The patient underwent pharmacologic (Regadenoson) evaluation. Please see above for details. The patient was injected with 41 millicuries of technetium 99m Cardiolite and subsequently stress SPECT Cardiolite nuclear imaging was obtained in the horizontal long, vertical long, and short axis views. A gated Cardiolite study at peak stress was obtained. Interpretation: Rest and stress SPECT Cardiolite nuclear imaging status post realignment, normalization, and attenuation correction demonstrate mildly decreased radioisotope uptake in the inferior wall on the rest images. There is severe decrease in the radioisotope uptake in the inferior wall and inferolateral wall on the stress images. These findings are suggestive of inferior and inferolateral ischemia with possible prior inferior myocardial infarction. Gated images reveal inferior hypokinesis. The reported LVEF is 49 %. Impression: 1. There is moderate to severe inferior and inferolateral ischemia. 2. Estimated ejection fraction is 49%. Labs LDL Cholesterol 130 mg/dL (0-130) 07/01/18 HDL Cholesterol 33 mg/dL (40-) L 07/01/18 Triglycerides 152 mg/dL (-199) 07/01/18 VLDL Cholesterol 30 mg/dL (5-40) 07/01/18 Diagnostics Electrocardiogram 09/21/19 Stress Test 09/16/19 09/21/19 3034 <Electronically signed by Magdiel cazares MD> Date _ Magdiel Wheeler MD I have examined the patient the following changes are noted: The patient proceeded with further noninvasive evaluation with transthoracic echocardiogram. The results are as noted below. Interpretation Summary The study was technically difficult. Contrast injection was performed. Segmental dysfunction with preserved ejection fraction (see wall motion). The estimated ejection fraction is 60 %. There is mild mitral annular calcification. Trivial tricuspid valve insufficiency. Mild focal aortic valve thickening. Right ventricular systolic pressure estimated to be 26 mmHg. Transmitral doppler flow suggestive of impaired relaxation of left ventricle The patient is scheduled for further evaluation with diagnostic cardiac catheterization this day at [facility]. The cardiac catheterization procedure and risks have been discussed with the patient. The patient agrees to proceed with further evaluation care. On 08/10/2019 the [place] Department of Health ([facility]) Public Order signed by [facility] Director Poornima Morin M.D., regarding the Management of Non-Essential Surgeries and Procedures for the purpose of preserving Personal Protective Equipment (PPE) and critical hospital capacity and resources within [place] went into effect as of 08/11/2019 at 5:00PM. According to the [facility] Public Order: This action will remain in full force and effect until the State of Emergency declared by the Governor no longer exists or the Director of the [facility] rescinds or modifies this Order. This [facility] order stated all non-essential or elective surgeries and procedures that utilize PPE should be delayed unless there is undue risk to the current or future health of a patient. After reviewing the aforementioned [facility] Public Order and the patients clinical case, I have determined that the scheduled procedure meets the criteria to go forward. Rest of permanent dysfunction of an extremity or organ if delayed: CAD; abnormal stress nuclear imaging study compatible with stress-induced myocardial ischemia This note was generated using a voice recognition system and there may be incorrect words, spelling or punctuation that were not noted when reviewing the office note prior to saving.
[2019-09-21 14:36] VITALS: BMI 32.1
[2019-09-23 10:37] VITALS: BMI 32.1
--- NOTE | 2019-09-24 11:28 | CL.D_ITS ---
Patient Name: CLAUDY BAIRD Study Date: 09/24/2019 Performing: Mgadiel Wheeler MD Ht: 64.17 inches 163 cm : 1960 Wt: 187.39 lbs 85 kg Age: 59 Gender: female BSA: 1.91 PROCEDURE(S) PERFORMED [id number]/LV CLINICAL PROFILE AND INDICATIONS Indications: Worsening Angina, Suspected CAD Heart Failure: None Stress/Imaging Date: 09/16/2019Stress Test with SPECT MPI: Positive Angina Classification Anginal Classification w/in 2 Weeks: CCS III CAD Presentations: Stable angina. CONCLUSIONS Elevated Left Ventricular End Diastolic Pressure Segmented LV systolic dysfunction- Mild LVEF: by LV gram 60 % [place] Multivessel CAD RECOMMENDATIONS Risk factor modification Medical therapy Surgery consult for coronary revascularization DESCRIPTION OF PROCEDURE The patient arrived to the procedure lab. The risks and benefits of the procedure as well as a full d escription of our services here and current unavailability of surgical backup were fully explained to the patient and/or their significant other prior to the catheterization. The Timeout was completed, verifying the correct patient and procedure. The patient's procedural site was prepped and draped in the usual fashion. Local anesthetic was given subcutaneously to right radial region with Lidocaine 2% . Using a modified Seldinger technique, arterial access was obtained via the right radial artery, a 6 Fr sheath was inserted. Right Coronary Artery selective angiography was then performed in multiple v iews using a 5 Fr. 4.0 [place] catheter. Left Coronary Artery selective angiography was performed in mu ltiple views using a 5 Fr. 4.0 [place] catheter. Left Ventriculography was performed in FOWLER projection using a 5 Fr. [place] catheter. LV to AO pullback pressures were then recorded.The arterial sheath was pulled and a TR Band was applied for hemostasis CORONARY ANGIOGRAPHY DOMINANCE: Right Dominant LEFT HEART ASSESSMENT Left Ventricular Ejection Fraction: by LV Gram 60 % Inferior Basal Akinesis Elevated Left Ventricular End Diastolic Pressure LVEDP: 23 mmHg LEFT MAIN: proximal: 25 % Stenosis LEFT ANTERIOR DESCENDING ARTERY: PROX LAD: Moderate calcification, diffuse: 25 - 50 % Stenosis MID LAD: s/p DX: 85 % Stenosis, Mild luminal irregularities DIAGONAL 1: Proximal - 75 % Stenosis SEPTAL: Mild luminal irregularities CIRCUMFLEX ARTERY: PROX CIRC: Moderate calcification, 25 - 50 % Stenosis MID CIRC: 50 - 75 % Stenosis OM 1: Proximal - 85 % Stenosis RIGHT CORONARY ARTERY: Moderate calcification PROX RCA: is occluded DISTAL RCA: and RPDA: filling from left to right collateral flow AORTIC ROOT: Angiographically normal COMPLICATIONS No Complications PROCEDURE MEDICATIONS Versed 1 mg IV Fentanyl 50 mcg IV Oxygen: 2 L/min via nasal cannula Heparin diluted in 23cc Heparinized saline. Patient given 10cc IA of this solution. 09/24/2019 10:31:2 7 Verapamil 2.5mg, Ntg 100mcgs, 2000 units of Heparin diluted in 23cc Heparinized saline. Patient give n 10cc IA of this solution. 09/24/2019 10:31:27 SUMMARY OF HEMODYNAMIC DATA Time AIR REST ECG 09:08:47 AO 116/62 (85) SA 10:35:27 LV 160/-17, 21 10:43:12 LV 156/-16, 23 10:43:18 LV 149/-12, 24 10:44:04 LVp 156/-13, 25 10:44:10 AOp 154/69 (104) 10:44:16 Signed By Magdiel Wheeler MD On 09/24/2019 11:27:33 Magdiel Wheeler MD
== END 2019-09-24 12:50 | disposition home or self-care (01) ==
PROVIDERS: PCP Family Medicine; Referring Provider Internal Medicine Cardiovascular Disease; Visit Provider Internal Medicine Cardiovascular Disease
DX: I25.118 Atherosclerotic heart disease of native coronary artery with other forms of angina pectoris (principal); I10 Essential (primary) hypertension; E78.00 Pure hypercholesterolemia, unspecified; E11.9 Type 2 diabetes mellitus without complications; E03.9 Hypothyroidism, unspecified; R07.9 Chest pain, unspecified; R06.02 Shortness of breath; R94.39 Abnormal result of other cardiovascular function study; Z79.4 Long term (current) use of insulin; Z79.82 Long term (current) use of aspirin; Z79.02 Long term (current) use of antithrombotics/antiplatelets; Z79.899 Other long term (current) drug therapy
CPT/HCPCS: 93458; 99152; 99153; J7040; Q9967; C1769; C1894

== ENCOUNTER → 2019-11-04 07:54 | Outpatient (CLI) | payer OTHER, SELFPAY ==
[2019-10-26 09:13] VITALS: BMI 31.9
--- NOTE | 2019-11-04 08:00 | CR.ITP_ITS ---
Diagnosis - General Information Admitting Diagnosis: S/P CABG x 4 VESSEL Personal Learning Style:: Audio/Visual, Written Barriers to Learning: Vision Impairment Stage of change r/t lifestyle modifications:: Action Gave educational material for:: Treating Heart Disease, Emotions & Heart Disease, Stress Management & Relaxation, Sleep Disorders & Heart Disease, How The Heart Works, What it means to have Heart Disease, How Coronary Artery Disease is Diagnosed, Heart Procedures, What Heart Medications Do, Risk Factors & Modifications, Living an Active Life, Nutrition - Education/Goals Individual Counseling: Initial Assessment: Abnormal Cholesterol Levels, High Blood Pressure, Overweight/Obesity, Diabetes, A. Fasting Blood Sugar >100 - GLUCOSE 135 A1C 8.3, C. High Triglycerides >150 - TRI 152, Hypertension, Low HDL <40/Males or <50/Females - HDL 33 Cardiac Rehabilitation Goals: 1. Maintain the individual as the primary focus of care. 2. To improve the patient's quality of life. 3. Identification of cardiac risk factors and provide cardiac risk factor management. 4. Enhance the psychosocial status of the patient. 5. Reconditioning enough to allow the patient to resume customary activities. 6. Control symptoms of cardiac disease Personal Goals: Initial Assessment: Improve energy level, Participate in home exercise program, Get back to work, or to resume activities faster, Improve muscle strength and endurance, Improve diet and eating habits (eat healthier), Control risk factors (learn risk factor modification) Scale for measuring improvement of personal goals: Enter appropriate number in Comments. 2 = Unchanged. 3 = Slightly Better. 4 = Moderate Improvement. 5 = Met my Goal - Diagnosis & Disease Process Outcomes/Goals: Pt IDs own risk factors & lifestyle modifications by Session 10, Verbalizes symptoms of angina & response by session 3., Pt independently manages Plan/Interventions: Assist Pt to ID & engage in lifestyle modification to reduce CVD risk, Instruct on individual risk factors, Review symptoms of angina & emergency actions, Review secondary diagnosis & identify educational needs. - Safety Referral to Physical Therapy: No Referral to [facility] Case Management: No Fall Risk Assessed:: Yes Assistive Devices:: None Exercise - Initial Assessment - Visit Date of Eval: 11/04/19 Session #:: 0 - INITIAL EVALUATION Mets: Pre-: >7 METS for 30 minutes by discharge - Physician Prescribed Exercise Modalities: Treadmill, Airdyne, NuStep Frequency: 3x/week for 12 weeks [36 sessions] Intensity: 60-80% of age predicted maximum heart rate reserve Current METSs:: 3.5 Target Heart Rate:: 105-138 Resting Blood Pressure: 154/80 EKG Type: SINUS RHYTHM - Outcomes & Goals Goals:: Verbalizes understanding of THR, RPE & goal METS by session 6, Documents in home exercise log/reports 30 min aerobic 5 day/wk by DC, Demonstrates accurate pulse taking by DC - Intervention & Plan Exercise Program Goals: Instruct on personal THR & RPE, Instruct on MET level & personal MET goal, Show patient to take own pulse /validate performance until accurate, Instruct on home exercise - Physical Activity Home Exercise Physical Activity - Home Exercise: Safe Exercise, Warm-up, Self-monitoring, Cool-Down, Home Exercise > 30 min Daily, Sitting Time <3 hours/daily - Outcomes & Goals Outcomes/Goals: Demonstrates correct Warm-up/exercise Cool-Down (S3) if = 2.5 METs, Verbalizes symptoms of exercise intolerance by Session 3 (S3), Demonstrate safe equipment use (S3) & follows exercise prescrition (6) - Intervention & Plan Plan/Intervention: Instruct warm-up & cool-down if exercising at > 2 METs, Instruct on symptoms of exercise intolerance & actions to take, Instruct & monitor on saf, Assess intial functional capacity & safety risk Nutrition - Initial Assessment - Program Goals Nutrition Program Goals: LDL <100 optimal. 100 - 129 Near optimal. 130 - 159 Borderline High. 160 - 189 High. Total Cholesterol <200 desirable. 200 - 239 Borderline High. >/= 240 High. HDL < 40 Low >/=60 High. Triglycerides <150 desirable. <199 optimal. VlDL 5 - 40. HgbA1C <7%. BMI <25 Patient has diagnosis of Hyperlipidemia (ICD E78)?: Yes - Visit Date of Assessment:: 11/04/19 Session #:: 0 - INITIAL EVALUATION - Cholesterol/Lipids Triglycerides (mg/dL): 152 Total Cholesterol (mg/dL): 193 LDL Cholesterol (mg/dL): 130 HDL Cholesterol (mg/dL): 33 Determine presence & major risk factors that modify LDL goal: Hypertension or hypertensive medication, Low HDL cholesterol <40 mg/dL*, Age men > 45 years; women >/= 55 years Outcomes/Goals: Pt IDs own risk factors & lifestyle modifications by Session 10, Verbalizes symptoms of angina & response by session 3., Pt independently manages Intervention/Plan: Instruct on personal lipid levels & lipid goals/NCEP guidelines, Instruct on cholesterol Referral to dietitian:: Yes - MEDICAL NUTRITION THERAPY and DSMNT & MNT, WHY WEIGHT program - Diabetes (Other Core Measures) Diabetes Type: Diagnosis Type II ICD-10 E11 Fasting blood glucose:: 135 Hgb A1C (4.2 - 6.3): 8.3 Insulin dependent injection/pump?: Yes - INSULIN TID and QHS Non-Insulin Dependent?: Yes - METFORMIN 500MG Do you monitor your blood sugar at home?: Yes Referral to Diabetic Clinic:: Yes Outcomes/Goals:: Able to state symptoms of, Able to state, Able to state Intervention/Plan:: Instruct on, Refer to, Instruct on - Weight Mgt (Other Care) Not Applicable: No Height: 5 ft 4 in Weight:: 186 lb BMI: 31.9 Diagnosis Overweight/Obesity BMI> 30% ICD-10 E66: Yes Diagnosis High BMI/Morbid Obesity BMI> 35% ICD-10 Z68: No Outcomes/Goals: Pt sets, maintains & shows weight loss goal & trend during rehab Intervention/Plan: Instruct on ideal BMI & set weight loss goal w/patient, Assist pt to ID & incorporate diet changes for weight loss by S9, Refer to Structured Weight Loss program as appropriate, Encourage goal of using 250- 300dcal per session for weight loss - Healthy Eating Habits Will attend diet classes:: Yes Outcomes/Goals:: Consume diet rich in vegs,fruits,whole grain/high fiber,fish,lean meat, Limit sat/trans fats,cholesterol & added salts & sugars Intervention/Plan:: Assess current eating habits - Education Gave educational materials for:: Signs & symptoms of hypoglycemia, Signs & symptoms of hyperglycemia, Relate diabetes to coronary artery disease, Healthy eating Medical - Initial Assessment - Visit Date of Eval: 11/04/19 Session #:: 0 - INITIAL EVALUATION - Medication Compliance Preventative Medication(s):: Aspirin, Clopidogrel/P2Y12 inhibit, Statin/lipid, Beta silvia H/O mental health issues: depression, anxiety, or addiction?: No Doesn?t believe in the benefits of treatment?: No Believes medications are unnecessary or harmful?: No Has a concern about medication side effects?: No Expresses concern over the cost of medications?: No Outcomes/Goals: Verbalizes medications,desired effect & common side effects @ DC, Pt self-reports following medication regimen, Keeps card in wallet w/medications listed by DC Interventions/plans: Instruct on medication effects & side effects, Review medication list w/patient every two weeks, Instruct importance of taking meds as ordered & assist problem solving - Tobacco Use Tobacco Use: Non-smoker - Hypertension Hypertension Diagnosis:: Hypertension ICD-10 I10 Resting Blood Pressure:: 154/80 [place] [employer] Hypertension Guidelines: [place] [employer] Hypertension Guidelines. Normal BP Less than 120/80. Elevated BP 120/80. Hy pertension Stage 1: BP 130-139/80-89. Hypertesnion Stage 2: BP 140 or higher/90 or higher. Hypertension Crisis: BP higher than 180/120 Outcomes/Goals: Able to verbalize/achieve optimal blood pressure <130/80, Incorporates diet changes & exercise for blood pressure control by DC Interventions/plan: Instruct on optimal blood pressure, hypertension & medications, Instruct on effects of sodium, alcohol, stress, exercise &hypertension - Tobacco Cessation Referral Smoking Cessation Referral:: No Individual Education/Counseling:: No Education Schedule Given:: Yes - ONLINE EDUCATION EXPLAINED TO PATIENT Psychosocial - Initial Assess - VIsit Date of Eval: 11/04/19 Session #:: 0 - INITIAL EVALUATION Not Applicable: Yes History of previous Mental disease:: No - Target Goals Target Goals: Assess presence or absence of depression. Using a valid screening tool, maximizes coping skills. Positive support system - Psychosocial Test Tool Used:: Justin Vieyra QOL Cardiac, PHQ-9 Questionnaire phq-9 Severity: Severity. 1-4 Minimal Depression. 5-9 Mild Depression. 10-14 Moderate Depression. 15-19 Moderately Sever Depression. 20-27 Severe Depression. Rule: - Referral to Behavioral Health PS - Interventions: Yes Attend Stress Management Classes, No Referral to Behavioral Health if PHQ-9 score >9:, No Referral to [facility], No Referral to Physician if PHQ-9 if score is 5-9: - Outcomes/Goals: See list Psychosocial Outcomes/Goals:: ID's personal stressors & 2 strategies to manage stress by discharge - Intervention/Plan: See List Interventions/Plan:: Assess stressors,coping strategies & signs of derpression on admission, Instruct/assist pt to develop coping & personal stress Mgt strategies, Instruct patient to recognize signs & symptoms of depression, Instruct patient to recog Patient Health Questionnaire Initial Assessment 1. Little interest or pleasure in doing things: Several days 2. Feeling down, depressed, or hopeless: Not at all 3. Trouble falling or staying asleep, or sleeping too much: Nearly every day 4. Feeling tired or having little energy: More than half the days 5. Poor appetite or overeating: Several days 6. Feeling bad about yourself -- or that you are a failure or have let yourself or your family down: Not at all 7. Trouble concentrating on things, such as reading the newspaper or watching television: Not at all 8. Moving or speaking so slowly that other people could have noticed. Or the opposite - being so fidgety or restless that you have been moving around a lot more than usual: Not at all 9. Thoughts that you would be better off , or of hurting yourself in some way: Not at all How difficult have these problems made it for you to do your work, take care of things at home, or get along with other people?: Somewhat difficult Total Score: 7 KERRI-Q SV Test - Statements CAD is a disease of the arteries in the heart: False Examples of risk factors for heart disease: True Angina is chest pain or discomfort: True The benefits of resistance training include: True Eating more meat and dairy products: False Anti-platelet medications such as aspirin are important: True The only effective way to manage stress: False An exercise warm-up slowly increases heart rate: True Prepared, processed foods usually have high sodium: True Depression is common after a heart attack: True The statin medications lower cholesterol: True To control blood pressure, lower the amount of sodium: True If someone gets chest discomfort during walking: False Transfats are partially hydrogenated vegetable oils: True Sleep apnea that is not treated increases the risk: False To control cholesterol, one should become a vegetarian: False Someone knows if he/she is exercising at the right level: True Diabetes cannot be prevented with exercise & health eating: False Stress is a large risk for heart attack: True A diet that can help lower blood pressure is rich in: True - Total Score Total Correct Responses: 20 Self-Efficacy Initial Assessment We would like to know how confident you are in doing certain activities. Please select your confidence level for:: Select your confidence level for the following using the scale 1-10 where 1 is not at all confident and 10 is totally confident. Your score is the average of all 6 responses. Fatigue: How confident are you that you can keep the fatigue caused by your disease from interfering with the things you want to do? Select Number: 6 Physical Discomfort or Pain: How confident are you that you can keep the physical discomfort or pain of your disease from interfering with the things you want to do? Select Number: 9 Emotional Distress: How confident are you that you can keep the emotional distress caused by your disease from interfering with the things you want to do? Select Number: 9 Other Symptoms or Health Problems: How confident are you that you can keep other symptoms or health problems from interfering with the things you want to do? Select Number: 8 Different Tasks and Activities: How confident are you that you can do the different tasks and activities needed to manage your health condition so as to reduce your need to see a doctor? Select Number: 7 Medication: How confident are you that you can do things other than just taking medication to reduce how much your illness affects your everyday life? Select Number: 8 Total Score:: 7 Nutrition Survey - Nutrition Survey Instructions Scoring Instructions: Scoring is as follows: Yes = 1 points. No = 0 point. Patient score that is >/=12 is considered to be at potential nutritional risk and could benefit from a referral to a registered dietitian. - Nutrition Survey Initial Have you lost >10 lbs over the past 2 months without trying?: No Are you following a special diet at home for diabetes, low fat, or low salt?: Yes Are you interested in meeting with a dietitian for help understanding your diet? : Yes Do you eat less than 3 meals a day?: Yes Do you eat fatty meats (mahoney, sausage, ribs, etc), fried foods, desserts, large amounts of salad dressings, margarine, butter, or cheese most days?: No Do you have food allergies? [Enter types in comment field]: No Do you eat in restaurants more than 3 times a week?: No Do you season food with salt, seasoning salt, or garlic salt?: Yes - sometimes Do you used canned, boxed, frozen meals, or soups, seasoning packets?: Yes - on occasion Total Score:: 5
--- NOTE | 2019-11-04 08:00 | CR.HP_ITS ---
CR - History & Physical - General Arrival date:: 11/04/19 Arrival time:: 08:00 Date of Referral:: 11/01/19 Date of CR Evaluation:: 11/04/19 Referring Physician: DR. RODNEY REDDY Primary Diagnosis: S/P CABG x 4 vessel - History of Present Cardiac Event Onset Date: Enter Onset Date of cardiac illnesses in Comment field below Coronary Artery Bypass Graft:: Yes - 10/07/2019 Type of Symptoms:: HAD SOME LEFT ARM PAIN ORIGIALLY BELIEVED TO BE NERVE PAIN RESULT OF DOUBLE MASECTOMY; EXERTIONAL CHEST PAIN and SHORTNESS OF BREATH. Interventions with present event:: ABNORMAL STRESS NUCLEAR TEST FOR SEVERE CORONARY ARTERY DISEASE, HEART CATH Were there any complications?: NONE - Medications Home Medications: Ambulatory Orders Medication Instructions Recorded insulin glargine 100 unit/mL (3 50 unit SC DAILY 09/14/18 mL) subcutaneous pen insulin lispro 100 unit/mL 30.5 unit SC TID ml 09/14/18 subcutaneous half-unit pen levothyroxine 125 mcg capsule 125 mcg PO DAILY 09/14/18 metformin 500 mg tablet 500 mg PO DAILY tab 09/14/18 modafinil 200 mg tablet 200 mg PO DAILY 09/14/18 anastrozole 1 mg tablet 1 mg PO DAILY 09/16/19 dulaglutide 1.5 mg/0.5 mL 1.5 mg SC QWEEK 09/16/19 subcutaneous pen injector pravastatin 80 mg tablet 80 mg PO QHS 09/16/19 aspirin 81 mg tablet,delayed 81 mg PO DAILY #1 tab 09/21/19 release lisinopril 5 mg tablet 5 mg PO DAILY #30 tab 10/26/19 metoprolol tartrate 25 mg tablet 25 mg PO BID #60 tab 10/26/19 Anastrozole [Arimidex] 1 mg PO DAILY 11/04/19 - Allergies Allergies/Adverse Reactions: Allergies hydroxychloroquine [From Plaquenil] Allergy (Severe, Verified 10/26/19 10:02) face and eye swelling Penicillins [PCN] Allergy (Verified 10/26/19 10:02) Other - Sleep Disorder Evaluation Hx of Sleep Apnea: No Do you snore loudly (louder than talking or can be heard through closed doors)?: Yes - DO HAVE SOEM MILD SLEEP APNEA, SEEN DR. DEE IN THE PAST. DON'T GET IN TO REM SLEEP. Do you often feel tired/ fatigued/ sleepy during daytime?: Yes Has anyone observed you stop breathing during sleep?: No History of Hypertension (for STOP score): Yes STOP Results: Positive Advanced Directives - Advanced Directives Power of Jewel Grinder: No Living Will: No Advance Directives Information Provided: Yes Advance Directives on File: No DNR Order?:: No - MOLST See MOLST form: No Past Medical History - Past Medical Illness Medical History: Past Medical History (Last Updated 10/28/19 @ 15:37 by JASMEET Nolan) CAD (coronary artery disease) (Chronic) I25.10 BENITEZ to LAD, SVG to First diagonal, SVG to first obtuse marginal, SVG to PDA 09/2019 Type 2 diabetes mellitus (Chronic) E11.9 Pure hypercholesterolemia (Chronic) E78.00 Hypothyroidism (Chronic) E03.9 Chest pain (Acute) R07.9 Essential hypertension (Chronic) I10 Abnormal stress test (Acute) R94.39 History of left breast cancer (Chronic) Onset Date: ~09/2018 Z85.3 Abnormal mammogram of left breast (Acute) R92.8 Arthritis M19.90 Hypertension I10 - Past Surgical History Surgical History: Past Surgical History (Last Updated 10/28/19 @ 15:37 by JASMEET Nolan) S/P CABG x 4 (Resolved) Z95.1 BENITEZ to LAD, SVG to First diagonal, SVG to first obtuse marginal, SVG to PDA 09/2019 History of left heart catheterization (Chronic) Onset Date: 09/24/19 Z98.890 [place] Multivessel CAD; RECOMMENDATIONS: Surgery consult for coronary revascularization. Per PFM @ [facility] [place] 09/24/2019 Hx of four vessel coronary artery bypass graft Onset Date: ~09/2019 Z95.1 History of bilateral mastectomy Z90.13 with reconstruction History of laparoscopic cholecystectomy Z90.49 History of left breast biopsy Onset Date: ~09/2018 Z98.890 History of tubal ligation Z98.51 - Family History Summary Family History: Family History (Last Reviewed 10/26/19 @ 10:25 by JAMSEET Nolan) Mother Arthritis Breast cancer Diabetes Heart disease Hypertension Thyroid disorder High cholesterol Sister Breast cancer Grandmother Colon cancer Father Diabetes Heart disease Hypertension Cancer skin cancer Grandfather Cancer lung cancer Sister CAD (coronary artery disease) Presence of stent in coronary artery Social History - Smoking History Smoking Status: Never smoker Hx Tobacco Use: No Hx Smoking Exposure: No - Alcohol Use Alcohol Usage: Yes - COUPLE TIMES PER MONTH/VERY RARE - Substance Abuse Hx Substance Use: No - Occupation Occupation (List type of work in comments):: Employed Hours worked per day:: 9 Returned to work on:: 11/15/19 - Hobbies, Recreation, Social Activities Hobbies: None, Other Recreational Activities: I am able to engage in most, but not all activities Social Environment - Status Marital Status: - Current Living Arrangements Living Environment:: Spouse - Children How many children do you have?: 2 - BOYS Do any of your children live nearby?: Yes - [place] - Safety Do you feel safe in your surroundings?: Yes - Assistance Do you need any assistance at home?: NONE Review of Systems - Review of Systems Hints: Right click = Denies (Slash). Left click = Reports (Crow) Review of Present Symptoms: Reports: Shortness of Breath with Exertion - IF DOING ALOT OF WALKING STILL GET SOMEWHAT SHORT OF BREATH., Operative Discomfort - ALOT OF TENDERNESS ACROSS THE CHEST FROM SURGERY STILL. DOES DO SOME UPPER BODY EXERCISE (R.O.M.) to help it but seems to make it worse., Fatigue - sleep disorder related, Appetite - Normal, Appetite - Special Diet - try to watch sugars, lean meats etc., Sleep - Normal. Denies: Shortness of Breath at Rest, Wound Healing, Dizziness/Lightheadedness, Heart Arrhythmia/Irregularities, Sexual Changes - Pain Is Patient Pain Free?: Yes Pain Location: chest Pain Level: 310 - where ribs connect to sternum from surgery (inflammation) Risk Factor Assessment - Chief Complaint Chief Complaint: PATIENT IS A 59 Y.O FEMALE OIF DR. RODNEY REDDY'S WHO PRESENTS TO CARDIAC REHAB TODAY FOLLOWING RECENT 4 VESSEL BYPASS AT [facility] BY DR. CARTER SANDOVAL ON 10/07/2019. - Vital Signs Temperature: 97.4 F Respiratory Rate: 18 Pulse Ox: 98 Blood Pressure: 154/80 Nailbeds:: PINK - Pulse Pulse Rate: 76 Pulse Rhythm: Regular - Hypertension Blood Pressure Sitting - Left Arm: 154/80 - Blood Cholesterol/Lipids Total Cholesterol (mg/dL) Goal = less than 200 mg/dL: 193 HDL Cholesterol (mg/dL) Goal = less than 40 mg/dL: 33 LDL Cholesterol (mg/dL) Goal = less than 70 mg/dL: 130 Triglycerides (mg/dL) Goal = less than 150 mg/dL: 152 - Diabetes Diabetic History: Type II, Medication Dependent - METFORMIN 500MG, Insulin Dependent - INSULIN TID and at HS. - Obesity Height: 5 ft 4 in Weight:: 186 lb Weight in Pounds: 186.0 lbs Weight Source: Stated by Patient Body Mass Index (BMI): 31.9 Nutritional Referral for Obesity: Yes - Risk Stratification Risk Guidelines: Lowest Risk: Risk Factor for Smoking, Risk Factor for Sedentary Lifestyle, Risk Factor for Depression, Moderate Risk: Risk Factor for Dyslipidemia, Highest Risk: Risk Factor for Diabetes - GLUCOSE 135, A1C 8.3, Risk Factor for Obesity, Risk Factor for Hypertension - For Smoking Smoking Risk Guidelines: Smoking Low Risk: None or quit greater than 6 months ago. Smoking Moderate Risk: Smoker or quit 6 months or less ago. Smoking High Risk: Smoker - For Dyslipidemia Dyslipidemia Risk Guidelines: Low Risk: Moderate Risk: High Risk: 15-25% fat 25.1-29% fat >/= 30% fat. <7% sat fat 7-9% sat fat >9% sat fat. <150 mg chol 150-299 mg chol >/= 300 mg chol. LDL <100 LDL 100-129 LDL >/= 130. Chol/HDL ratio <5.0 Chol/HDL ratio 5.0-6.0 Chol/HDL ratio >6.0. Triglycerides <100 Triglycerides 100- 149 Triglycerides >/= 150 - For Diabetes Mellitus Diabetes Risk Guidelines: Diabetes Low Risk: HgA1c <6.5% and/or FBG <120. Diabetes Moderate Risk: HgA1c 6.6-7.9% and/or FBG 120-180. Diabetes High Risk: HgA1c >/= 8% and/or FBG >180 - For Obesity/Overweight Obesity/Overweight Risk Guidelines: Obesity Low Risk: BMI <25.0. Obesity Moderate Risk: BMI 25-29.9. Obesity High Risk: BMI >/= 30.0 - For Hypertension Hypertension Risk Guidelines: Hypertension Low Risk: Systolic <120 and Diastolic <80. Hypertension Moderate Risk: Systolic 120-139 and Diastolic 80-89. Hypertension High Risk: Systolic >/= 140 and Diastolic >/= 90 - For Sedentary Lifestyle Sedentary Lifestyle Risk Guidelines: Sedentary Lifestyle Low Risk: >/= 1,500 kcal/week. Sedentary Lifestyle Moderate Risk: 700-1,499 kcal/week. Sedentary Lifestyle High Risk: < 700 kcal/week - For Depression Depression Risk Guidelines: Depression Low Risk: Not clinically depressed. Depression Moderate Risk: Mildly depressed. Depression High Risk: Clinically depressed - Family History Family History: Family History (Last Reviewed 10/26/19 @ 10:25 by JASMEET Nolan) Mother Arthritis Breast cancer Diabetes Heart disease Hypertension Thyroid disorder High cholesterol Sister Breast cancer Grandmother Colon cancer Father Diabetes Heart disease Hypertension Cancer Grandfather Cancer Sister CAD (coronary artery disease) Presence of stent in coronary artery Motivation - Motivation to Participate On a scale of 1 to 10, how prepared are you to commit to attending program?: 9 What do you see as barriers to successfully being able to complete the program?: concern of how to get it done and work. What do you see as the benefits of succesfully completing the program? In other words, what do you hope to get out of participating in the program?: healthy Are there issues you are dealing with that will interfere with completing the program?: going back to [facility] in the next week Do you have a spouse or signficant other, family or friends who will help support you to complete the program?: yes
[2019-11-04 08:33] VITALS: BP 154/80; PULSE 76; RESP 18; TEMP 36.3; O2SAT 98; BMI 31.9
[2019-11-04 09:08] VITALS: BP 154/80; BMI 31.9
== END ==
PROVIDERS: PCP Family Medicine; Referring Provider Internal Medicine Cardiovascular Disease; Visit Provider Internal Medicine Cardiovascular Disease
DX: I25.10 Atherosclerotic heart disease of native coronary artery without angina pectoris (principal); E03.9 Hypothyroidism, unspecified; E11.9 Type 2 diabetes mellitus without complications; E78.00 Pure hypercholesterolemia, unspecified; I10 Essential (primary) hypertension; Z95.1 Presence of aortocoronary bypass graft; Z85.3 Personal history of malignant neoplasm of breast; Z79.4 Long term (current) use of insulin; Z79.899 Other long term (current) drug therapy

== ENCOUNTER 2019-11-12 15:15 | Outpatient (RCR) | payer OTHER, SELFPAY ==
[2019-11-04 08:33] VITALS: BMI 31.9
[2019-11-04 09:08] VITALS: BMI 31.9
== END 2019-11-23 23:59 ==
LOC: CR 15:15
PROVIDERS: PCP Family Medicine; Referring Provider Internal Medicine Cardiovascular Disease; Visit Provider Internal Medicine Cardiovascular Disease
DX: I25.10 Atherosclerotic heart disease of native coronary artery without angina pectoris (principal); Z95.1 Presence of aortocoronary bypass graft
CPT/HCPCS: 93798

== ENCOUNTER → 2019-11-24 16:18 | Outpatient (CLI) | payer OTHER, SELFPAY ==
[2019-11-04 08:33] VITALS: BMI 31.9
[2019-11-04 09:08] VITALS: BMI 31.9
[2019-11-24 17:58] LABS: Microalbumin,Random Urine 9.5 mg/L (NO RANGE EST.); Microalbumin:Creatinine Ratio 35.5 mg/g CRE (<30 mg/g CRE)
[2019-11-24 18:03] LABS: Anion Gap 4 (5-15); BUN 12 mg/dL (7-18); Calcium,Total 8.9 mg/dL (8.5-10.1); Chloride 104 mmol/L (98-107); Cholesterol 196 mg/dL (200); Creatinine, Serum 0.71 mg/dL (0.55-1.02); EST Glomerular Filtration Rate 91 mL/min (>60); Est Glom Filt Rate - Afr Amer 110 mL/min (>60); Free T3 2.6 pg/mL (2.18-3.98); Glucose 137 mg/dL (74-106); High Density Lipoprotein 34 mg/dL; Sodium Level 137 mmol/L (136-145); T4 Total, Thyroxin 10.6 ug/dL (4.8-13.9); Thyroid Stim Hormone (TSH) 5.05 uIU/mL (0.358-3.74); Triglycerides 243 mg/dL; Very Low Density Lipoprotein 49 mg/dL (5-40)
[2019-11-24 18:05] LABS: Hemoglobin A1c 5.9 % (3.8-5.6)
== END ==
PROVIDERS: PCP Family Medicine; Visit Provider Family Medicine
DX: E03.9 Hypothyroidism, unspecified (principal); E11.65 Type 2 diabetes mellitus with hyperglycemia
CPT/HCPCS: 36415; 80048; 80061; 82043; 82570; 83036; 84436; 84443; 84481

== ENCOUNTER → 2019-12-24 09:21 | Outpatient (CLI) | payer OTHER, SELFPAY ==
[2019-11-04 09:08] VITALS: BMI 31.9
[2019-12-24 08:35] VITALS: BMI 31.4
--- NOTE | 2019-12-24 09:23 | RAD_ITS ---
STUDY: X-RAY CHEST REASON FOR EXAM: Female, 59 years old. 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 COMPARISON: 09/23/2019. FINDINGS: There are bilateral breast implants. The lungs are clear and expanded. There is no demonstrated pleural abnormality. Normal size heart. Previous median sternotomy, since prior exam. Normal mediastinum and raz. Normal visualized pulmonary arteries. Normal visualized aortic arch and descending thoracic aorta. Normal visualized thoracic spine. Normal visualized ribs, clavicles, and shoulders. There is no demonstrated abnormality of the visualized soft tissue structures of the upper abdomen. RAD/Chest PA and Lateral IMPRESSION: No definite acute or significant abnormality seen. Electronically Signed: Alfa Aj MD at 17:01 EDT , Service support ,
== END ==
PROVIDERS: PCP Family Medicine; Referring Provider Nurse Practitioner Family; Visit Provider Nurse Practitioner Family
DX: Z95.1 Presence of aortocoronary bypass graft (principal)
CPT/HCPCS: 71046

== ENCOUNTER → 2020-01-08 08:58 | Outpatient (CLI) | payer OTHER, SELFPAY ==
[2019-11-04 09:08] VITALS: BMI 31.9
[2019-12-24 08:35] VITALS: BMI 31.4
--- NOTE | 2020-01-08 08:59 | CT_ITS ---
STUDY: CT CHEST WITHOUT CONTRAST REASON FOR EXAM: Female, 59 years old. STERNAL CHEST PAIN S/P CABG 09/2019,HX BREAST CANCER, DOUBLE MASTECTOMY RADIATION DOSAGE (If Supplied By Facility): CTDIvol = ( 17.95 ) mGy, DLP = ( 600.97 ) mGycm TECHNIQUE: Transaxial imaging was performed without the administration of intravenous contrast material. Multiplanar coronal and sagittal images were reformatted. Individualized dose optimization techniques were used for this CT. COMPARISON: None. 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 There is a punctate granuloma of the left upper lobe. No noncalcified pulmonary nodules. No airspace consolidation. There is no demonstrated pleural abnormality. Heart size is normal. Sternal wires and mediastinal surgical clips compatible with prior CABG. Sternal wires are grossly unremarkable without evidence of fracture/separation. No significant bridging bone identified with persistent smoothly marginated sternal gapping. Sternotomy is noted without focal fluid collection anterior posterior to the sternotomy. Residual pacer wire along the inferior pericardium noted. Normal mediastinum. Normal hilar regions. Normal unenhanced pulmonary arteries. Normal aorta arch and descending thoracic aorta. No destructive bony process. Gallbladder surgically absent. CT/Chest without Contrast IMPRESSION: 1. Sternotomy without CT evidence of arcenio sternal dehiscence or parasternal fluid collection/abscess. 2. Lack of sternotomy fusion can be associated with normal postoperative gapping (can be seen 6 months postoperative) versus sternal nonunion. No associated fracture. 3. 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 Left breast implant. Electronically Signed: Jeremías Ochoa MD ([place]) at 14:32 EDT , Service support ,
== END ==
PROVIDERS: PCP Family Medicine; Referring Provider Nurse Practitioner Family; Visit Provider Nurse Practitioner Family
DX: R07.9 Chest pain, unspecified (principal); Z95.1 Presence of aortocoronary bypass graft
CPT/HCPCS: 71250

== ENCOUNTER → 2020-03-24 | Outpatient (CLI) | payer OTHER, SELFPAY ==
[2019-11-04 09:08] VITALS: BMI 31.9
[2020-01-26 16:00] VITALS: BMI 31.9
== END | disposition home or self-care (01) ==
PROVIDERS: PCP Family Medicine; Visit Provider Family Medicine
DX: Z20.828 Contact with and (suspected) exposure to other viral communicable diseases (principal)
CPT/HCPCS: 87635; U0003

== ENCOUNTER → 2020-03-31 17:30 | Outpatient (CLI) | payer OTHER, SELFPAY ==
[2019-11-04 09:08] VITALS: BMI 31.9
[2020-01-26 16:00] VITALS: BMI 31.9
--- NOTE | 2020-03-31 17:40 | RAD_ITS ---
STUDY: X-RAY CHEST REASON FOR EXAM: Female, 60 years old. FEVER FOR UNKNOWN REASON. TESTED NEGATIVE COVID. HX OF MASTECTOMY IN 2019 AND QUADRUPLE BYPASS IN SEPTEMBER OF THIS YEAR. TECHNIQUE: PA and lateral COMPARISON: 12/24/2019 FINDINGS: There is mild interstitial thickening in the lower lobes.. There is no demonstrated pleural abnormality. Postop change status post median sternotomy and CABG. Normal size heart. Normal mediastinum and raz. Normal visualized pulmonary arteries. Normal visualized aortic arch and descending thoracic aorta. Normal visualized thoracic spine. Normal visualized ribs, clavicles, and shoulders. There is no demonstrated abnormality of the visualized soft tissue structures of the upper abdomen. No significant change since prior study RAD/Chest PA and Lateral IMPRESSION: No acute cardiopulmonary without Electronically Signed: Alec Katz MD at 18:20 EST , Service support ,
[2020-03-31 17:46] LABS: Absolute Lymphocyte Count 1.81 X10^3/uL (0.83-4.51); Absolute Neutrophil Count 2.7 X10^3/uL (2.0-7.7); Basophil# 0.04 X10^3/uL; Basophil% 0.8 % (0-1); Eosinophil# 0.06 X10^3/uL; Eosinophils% 1.2 % (0-5); Hematocrit 36.1 % (37-47); Hemoglobin 12.1 g/dL (12.0-15.0); Lymphocyte # 1.81 X10^3/ul (4.0); Mean Corp Hgb Conc 33.5 g/dL (32-36); Mean Corpuscular Hgb 29.6 pg (27.0-32.0); Mean Corpuscular Volume 88.3 fL (81-99); Mean Platelet Vol. 9.9 fl (6.2-12.0); Monocyte# 0.29 X10^3/uL; Monocyte% 5.9 % (0-10); NRBC Flagged by Analyzer 0 % (0-5); Neutrophil # 2.67 X10^3/uL (2.7-7.7); Neutrophil % 54.7 % (47-70); POSITIVE MORPHOLOGY YES; Platelet Count 141 K/mm3 (150-450); RBC Distribution Width CV 13.4 % (11.6-14.6); RBC Distribution Width SD 43.2 fl (35.1-43.9); Red Blood Count 4.09 M/mm3 (4.2-5.4); White Blood Count 4.9 K/mm3 (4.4-11.0)
[2020-03-31 17:47] LABS: Differential Indicated SCAN CRITERIA MET
[2020-03-31 18:02] LABS: Differential Comment SCANNED
[2020-03-31 21:53] LABS: AST(SGOT) 88 U/L (15-37); Alanine Aminotransfer ALT/SGPT 108 U/L (13-56); Albumin, Serum 3.7 g/dL (3.2-5.0); Alkaline Phosphatase 149 U/L (45-117); Anion Gap 7 (5-15); BUN 7 mg/dL (7-18); BUN/Creat Ratio 8.5 RATIO (10-20); Calcium,Total 9.1 mg/dL (8.5-10.1); Chloride 102 mmol/L (98-107); Creatinine, Serum 0.82 mg/dL (0.55-1.02); EST Glomerular Filtration Rate 76 mL/min (>60); Est Glom Filt Rate - Afr Amer 92 mL/min (>60); Globulin 3.7 g/dL (2.2-4.2); Glucose 220 mg/dL (74-106); Potassium 4.5 mmol/L (3.5-5.1); Protein, Total 7.4 g/dL (6.4-8.2); Sodium Level 136 mmol/L (136-145)
== END ==
PROVIDERS: PCP Family Medicine; Visit Provider Family Medicine
DX: R50.9 Fever, unspecified (principal)
CPT/HCPCS: 36415; 71046; 80053; 85025

== ENCOUNTER → 2020-04-06 09:36 | Outpatient (CLI) | payer OTHER, SELFPAY ==
[2019-11-04 09:08] VITALS: BMI 31.9
[2020-01-26 16:00] VITALS: BMI 31.9
--- NOTE | 2020-04-06 09:40 | US_ITS ---
STUDY: ULTRASOUND BREAST - RIGHT REASON FOR EXAM: Female, 60 years old. Prior right mastectomy with right breast reconstruction and psychologist chief. TECHNIQUE: Axial and longitudinal images of the RIGHT breast were performed with a high resolution ultrasound transducer. # OF IMAGES: 62 COMPARISON: None. FINDINGS: RIGHT Breast: There is evidence of an psychologist chief in place. No abnormality is seen in the surrounding tissue. 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 No amount is seen in the surrounding tissues. ASSESSMENT CATEGORY: BIRADS Category 2: Benign. A letter regarding these results will be sent to the patient by the facility within 30 days. Electronically Signed: Jimi Castañeda, at 12:25 EST , Service support ,
--- NOTE | 2020-04-06 09:40 | US_ITS ---
STUDY: ABDOMINAL ULTRASOUND - RIGHT UPPER QUADRANT REASON FOR VISIT: Female, 60 years old elevated lfts TECHNIQUE: Ultrasound evaluation of the right upper quadrant was performed with real-time and static elder-scale imaging. TECHNICAL QUALITY: Adequate. COMPARISON: Comparison is made with prior study dated 04/26/2004. FINDINGS: Liver: The liver is enlarged and measures 19.9 cm. There is increased echogenicity consistent with fatty infiltration. The bile ducts are within normal limits. There is hepatic color flow. The direction of portal flow is hepatopetal. There is a 1.4 cm x 1.2 cm x 1.3 cm echogenic nodule in the right lobe of the liver suggestive of hemangioma. Gallbladder: The patient is status post cholecystectomy. Common Bile Duct (C.B.D.): The common bile duct measures 6.0 mm. Pancreas: Normal size of the head, body and tail of the pancreas. There is normal echogenicity of the pancreas. There is no demonstrated pancreatic mass or cyst. Right Kidney: Normal size of the right kidney. The right kidney measures 11.4 cm x 5.4 cm x 5.6 cm. Normal renal cortex. The right cortex measures 1.9 cm. There is no demonstrated renal mass or cyst. There is no right hydronephrosis. The spleen is enlarged measuring 16.8 cm x 7 cm x 8.7 cm. US/Abdomen Limited IMPRESSION: Mild hepatomegaly with fatty infiltration of the liver. Findings suggestive of a small hemangioma in the right lobe of the liver. Splenomegaly. Electronically Signed: Jimi Castañeda, at 12:05 EST , Service support ,
== END ==
PROVIDERS: PCP Family Medicine; Referring Provider Family Medicine; Visit Provider Family Medicine
DX: T85.79XA Infection and inflammatory reaction due to other internal prosthetic devices, implants and grafts, initial encounter (principal); K76.0 Fatty (change of) liver, not elsewhere classified; R94.5 Abnormal results of liver function studies
CPT/HCPCS: 76642; 76705

== ENCOUNTER → 2020-04-10 08:01 | Outpatient (CLI) | payer OTHER, SELFPAY ==
[2019-11-04 09:08] VITALS: BMI 31.9
[2020-01-26 16:00] VITALS: BMI 31.9
== END ==
PROVIDERS: PCP Family Medicine; Visit Provider Family Medicine
DX: R16.1 Splenomegaly, not elsewhere classified (principal)
CPT/HCPCS: 36415; 86664; 86665

== ENCOUNTER → 2020-04-12 14:07 | Outpatient (CLI) | payer OTHER, SELFPAY ==
[2019-11-04 09:08] VITALS: BMI 31.9
[2020-01-26 16:00] VITALS: BMI 31.9
--- NOTE | 2020-04-12 15:05 | RAD_ITS ---
HISTORY: shortness of breath, new since last CXR on 03/31/20. Hx of breast CA with double mastectomy, quadruple bypass ADDITIONAL HISTORY: None provided. COMPARISON: 03/31/2020 EXAMINATION/TECHNIQUE: XR Chest 2 Views Number of images including paperwork: 2 FINDINGS: LUNGS AND PLEURA: No consolidation, mass or pleural effusion. CARDIAC SILHOUETTE: Unremarkable. MEDIASTINUM AND ALYSON: Unremarkable. UPPER ABDOMEN: Right upper quadrant surgical clips. SKELETON AND SOFT TISSUES: No acute findings. Degenerative changes. 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 OTHER DEVICES AND HARDWARE: Sternal wires and surgical clips. RAD/Chest PA and Lateral IMPRESSION: No acute cardiopulmonary abnormality. at 0354 Reported and signed by: Carline Long MD Electronically Signed: Carline Long MD at 3:54 EST Tel , Service support ,
[2020-04-12 17:20] LABS: Absolute Lymphocyte Count 2.83 X10^3/uL (0.83-4.51); Absolute Neutrophil Count 1.8 X10^3/uL (2.0-7.7); Basophil# 0.03 X10^3/uL; Basophil% 0.6 % (0-1); Eosinophil# 0.06 X10^3/uL; Eosinophils% 1.2 % (0-5); Hematocrit 33.4 % (37-47); Hemoglobin 10.4 g/dL (12.0-15.0); Lymphocyte # 2.83 X10^3/ul (4.0); Mean Corp Hgb Conc 31.1 g/dL (32-36); Mean Corpuscular Hgb 29.3 pg (27.0-32.0); Mean Corpuscular Volume 94.1 fL (81-99); Mean Platelet Vol. 10.2 fl (6.2-12.0); Monocyte# 0.29 X10^3/uL; Monocyte% 5.7 % (0-10); NRBC Flagged by Analyzer 0 % (0-5); Neutrophil # 1.81 X10^3/uL (2.7-7.7); Neutrophil % 35.9 % (47-70); POSITIVE MORPHOLOGY YES; Platelet Count 130 K/mm3 (150-450); RBC Distribution Width CV 16.6 % (11.6-14.6); RBC Distribution Width SD 55.5 fl (35.1-43.9); Red Blood Count 3.55 M/mm3 (4.2-5.4); White Blood Count 5.1 K/mm3 (4.4-11.0)
[2020-04-12 17:35] LABS: Differential Indicated SCAN CRITERIA MET
[2020-04-12 17:37] LABS: Erythrocyte Sedimentation Rate 3 mm/hr (0-30)
[2020-04-12 17:38] LABS: Anion Gap 7 (5-15); BUN 9 mg/dL (7-18); BUN/Creat Ratio 12.2 RATIO (10-20); Calcium,Total 8.5 mg/dL (8.5-10.1); Chloride 106 mmol/L (98-107); Creatinine, Serum 0.74 mg/dL (0.55-1.02); EST Glomerular Filtration Rate 86 mL/min (>60); Est Glom Filt Rate - Afr Amer 104 mL/min (>60); Glucose 111 mg/dL (74-106); Potassium 4.1 mmol/L (3.5-5.1); Sodium Level 140 mmol/L (136-145)
[2020-04-12 17:46] LABS: BNP,B-Type NATRIURETIC PEPTIDE 125.3 pg/mL (0-100)
[2020-04-12 18:10] LABS: Reactive Lymphocyte 1+
== END ==
PROVIDERS: PCP Family Medicine; Referring Provider Internal Medicine Cardiovascular Disease; Visit Provider Internal Medicine Cardiovascular Disease
DX: R06.02 Shortness of breath (principal); R60.0 Localized edema; R07.1 Chest pain on breathing; R16.1 Splenomegaly, not elsewhere classified; R82.998 Other abnormal findings in urine
CPT/HCPCS: 36415; 71046; 80048; 83880; 85025; 85652

== ENCOUNTER → 2020-04-14 09:40 | Outpatient (CLI) | payer OTHER, SELFPAY ==
[2019-11-04 09:08] VITALS: BMI 31.9
[2020-01-26 16:00] VITALS: BMI 31.9
--- NOTE | 2020-04-14 09:43 | ECHOCS_ITS ---
Reason For Study: R/O PERICARDITIS Procedure This was a 2D Doppler, Color Flow transthoracic echocardiogram. The study was technically difficult. Contrast injection was performed. Exam performed in department. Left Ventricle Normal LV size. Segmental dysfunction with preserved ejection fraction (see wall motion). The estimated ejection fraction is 65 %. No evidence for diastolic dysfunction. No regional wall motion abnormalities noted. Right Ventricle Normal RV size. Normal systolic function. Atria Normal left atrium. Normal right atrium. No doppler evidence for ASD. Mitral Valve There is mild mitral annular calcification. Extension of the mitral annular calcification onto the base of the posterior mitral valve leaflet. Trivial mitral valve insufficiency. Tricuspid Valve Normal tricuspid valve. Trivial tricuspid valve insufficiency. Right ventricular systolic pressure estimated to be 33 mmHg. Aortic Valve The aortic valve is not well visualized. Pulmonic Valve The pulmonic valve is not well visualized. Trivial pulmonic valve insufficiency. Great Vessels Normal sized aortic root. Calcified aortic root. Pericardium/Pleural No pericardial effusion. Medication 22 gauge I.V. with prn adaptor inserted into right arm. Diluted definity 3ml given slow IV push to enhance endocardial definition. MMode/2D Measurements & Calculations LVIDd: 2.8 cm IVSd: 1.0 cm Ao root diam: 2.6 cm LVIDs: 2.0 cm LVPWd: 0.99 cm RVDd: 3.8 cm FS: 29.9 % LAV(MOD-bp): 50.4 ml LVAd ap4: 23.7 cm2 SV(MOD-sp4): 40.2 ml LAV(MOD-bp) Indexed: 26.9 ml/m2 EDV(MOD-sp4): 63.5 ml LAV(MOD-sp2): 63.6 ml EDV(sp4-el): 67.2 ml LAV(MOD-sp4): 33.9 ml LVAs ap4: 13.1 cm2 ESV(MOD-sp4): 23.2 ml ESV(sp4-el): 23.3 ml EF(MOD-sp4): 63.4 % EF(sp4-el): 65.2 % SV(sp4-el): 43.8 ml LA A4 area: 14.1 cm2 LA dimension(2D): 3.3 cm RA A4 area: 11.8 cm2 Time Measurements MV dec time: 0.23 sec Doppler Measurements & Calculations MV E max dale: 108.5 cm/sec Lat Peak E' Dale: 14.5 cm/sec Med Peak E' Dale: 8.3 cm/sec MV A max dale: 86.4 cm/sec E/E' lat: 7.5 E/E' med: 13.1 MV E/A: 1.3 Ao V2 max: 175.7 cm/sec LV V1 max: 143.0 cm/sec PA V2 max: 146.5 cm/sec Ao max P.3 mmHg LV V1 max P.2 mmHg TR max dale: 271.4 cm/sec TR max P.5 mmHg Interpretation Summary The study was technically difficult. Contrast injection was performed. Segmental dysfunction with preserved ejection fraction (see wall motion). The estimated ejection fraction is 65 %. There is mild mitral annular calcification. Extension of the mitral annular calcification onto the base of the posterior mitral valve leaflet. Trivial mitral valve insufficiency. Trivial tricuspid valve insufficiency. Trivial pulmonic valve insufficiency. Calcified aortic root. Right ventricular systolic pressure estimated to be 33 mmHg. No evidence for diastolic dysfunction. Ordering Physician: Magdiel Wheeler Referring Physician: MAGDIEL BOLAÑOS Performed By: Megan Quintero, NOÉ
== END ==
PROVIDERS: PCP Family Medicine; Referring Provider Internal Medicine Cardiovascular Disease; Visit Provider Internal Medicine Cardiovascular Disease
DX: R06.02 Shortness of breath (principal); R60.0 Localized edema; I25.10 Atherosclerotic heart disease of native coronary artery without angina pectoris; Z95.1 Presence of aortocoronary bypass graft; Z85.3 Personal history of malignant neoplasm of breast
CPT/HCPCS: 93306; Q9957; A4216; C8929

== ENCOUNTER → 2020-04-28 14:19 | Outpatient (CLI) | payer OTHER, SELFPAY ==
[2019-11-04 09:08] VITALS: BMI 31.9
[2020-04-28 13:04] VITALS: BMI 30.9
[2020-04-28 15:13] LABS: Absolute Lymphocyte Count 1.78 X10^3/uL (0.83-4.51); Absolute Neutrophil Count 2.2 X10^3/uL (2.0-7.7); Basophil# 0.07 X10^3/uL; Basophil% 1.6 % (0-1); Eosinophil# 0.11 X10^3/uL; Eosinophils% 2.5 % (0-5); Hematocrit 39.3 % (37-47); Hemoglobin 12.8 g/dL (12.0-15.0); Lymphocyte # 1.78 X10^3/ul (4.0); Lymphocyte % 40.4 % (19-41); Mean Corp Hgb Conc 32.6 g/dL (32-36); Mean Corpuscular Hgb 30.5 pg (27.0-32.0); Mean Corpuscular Volume 93.6 fL (81-99); Mean Platelet Vol. 10.2 fl (6.2-12.0); Monocyte# 0.29 X10^3/uL; Monocyte% 6.6 % (0-10); NRBC Flagged by Analyzer 0 % (0-5); Neutrophil # 2.15 X10^3/uL (2.7-7.7); Neutrophil % 48.7 % (47-70); Platelet Count 161 K/mm3 (150-450); RBC Distribution Width CV 14.8 % (11.6-14.6); RBC Distribution Width SD 51.4 fl (35.1-43.9); White Blood Count 4.4 K/mm3 (4.4-11.0)
[2020-04-28 15:51] LABS: AST(SGOT) 104 U/L (15-37); Alanine Aminotransfer ALT/SGPT 79 U/L (13-56); Albumin, Serum 3.8 g/dL (3.2-5.0); Alkaline Phosphatase 161 U/L (45-117); Bilirubin, Direct 0.15 mg/dL (0.00-0.30); Globulin 3.8 g/dL (2.2-4.2); Protein, Total 7.6 g/dL (6.4-8.2)
== END ==
PROVIDERS: PCP Family Medicine; Referring Provider Internal Medicine Endocrinology, Diabetes & Metabolism; Visit Provider Internal Medicine Endocrinology, Diabetes & Metabolism
DX: E11.9 Type 2 diabetes mellitus without complications (principal); D64.9 Anemia, unspecified
CPT/HCPCS: 36415; 80076; 85025

== ENCOUNTER → 2020-11-24 07:55 | Outpatient (CLI) | payer OTHER, SELFPAY ==
[2019-11-04 09:08] VITALS: BMI 31.9
[2020-11-13 15:44] VITALS: BMI 31.2
[2020-11-24 10:51] LABS: AST(SGOT) 152 U/L (15-37); Alanine Aminotransfer ALT/SGPT 137 U/L (13-56); Albumin, Serum 3.7 g/dL (3.2-5.0); Alkaline Phosphatase 164 U/L (45-117); Anion Gap 8 (5-15); BUN 11 mg/dL (7-18); BUN/Creat Ratio 15.5 RATIO (10-20); Bilirubin, Direct 0.11 mg/dL (0.00-0.30); Calcium,Total 9.1 mg/dL (8.5-10.1); Chloride 105 mmol/L (98-107); Cholesterol 182 mg/dL (200); Creatinine, Serum 0.71 mg/dL (0.55-1.02); EST Glomerular Filtration Rate 90 mL/min (>60); Est Glom Filt Rate - Afr Amer 109 mL/min (>60); Globulin 3.5 g/dL (2.2-4.2); Glucose 154 mg/dL (74-106); High Density Lipoprotein 29 mg/dL; Magnesium 1.9 mg/dL (1.6-2.6); Potassium 4.2 mmol/L (3.5-5.1); Protein, Total 7.2 g/dL (6.4-8.2); Sodium Level 140 mmol/L (136-145); Triglycerides 146 mg/dL; Very Low Density Lipoprotein 29 mg/dL (5-40)
== END ==
PROVIDERS: PCP Family Medicine; Referring Provider Internal Medicine Cardiovascular Disease; Visit Provider Internal Medicine Cardiovascular Disease
DX: I25.10 Atherosclerotic heart disease of native coronary artery without angina pectoris (principal); Z95.1 Presence of aortocoronary bypass graft; E78.00 Pure hypercholesterolemia, unspecified; I10 Essential (primary) hypertension
CPT/HCPCS: 36415; 80048; 80061; 80076; 83735

== ENCOUNTER → 2020-12-07 10:34 | Outpatient (CLI) | payer OTHER, SELFPAY ==
[2019-11-04 09:08] VITALS: BMI 31.9
[2020-11-13 15:44] VITALS: BMI 31.2
[2020-12-07 12:38] LABS: T4 Free Direct 1.39 ng/dL (0.76-1.46); Thyroid Stim Hormone (TSH) 0.22 uIU/mL (0.358-3.74)
== END ==
PROVIDERS: PCP Family Medicine; Referring Provider Family Medicine; Visit Provider Family Medicine
DX: E03.9 Hypothyroidism, unspecified (principal)
CPT/HCPCS: 36415; 84439; 84443; 84481

== ENCOUNTER → 2021-03-06 | Outpatient (CLI) | payer OTHER, SELFPAY ==
[2019-11-04 09:08] VITALS: BMI 31.9
== END | disposition home or self-care (01) ==
LOC: LABSPEC 15:08
PROVIDERS: PCP Family Medicine; Referring Provider Physician Assistant; Visit Provider Physician Assistant
DX: R11.10 Vomiting, unspecified (principal)
CPT/HCPCS: 87635; U0005; U0003

== ENCOUNTER → 2021-03-13 08:11 | Outpatient (CLI) | payer OTHER, SELFPAY ==
[2019-11-04 09:08] VITALS: BMI 31.9
[2021-03-13 10:27] LABS: Vitamin B12 1010 pg/mL (211-911); Vitamin D,25 Hydroxy 49.2 ng/mL
[2021-03-13 10:58] LABS: T4 Free Direct 1.28 ng/dL (0.76-1.46); Thyroid Stim Hormone (TSH) 0.13 uIU/mL (0.358-3.74)
== END ==
PROVIDERS: PCP Family Medicine; Referring Provider Nurse Practitioner Family; Visit Provider Nurse Practitioner Family
DX: E03.8 Other specified hypothyroidism (principal); E06.3 Autoimmune thyroiditis; E10.65 Type 1 diabetes mellitus with hyperglycemia
CPT/HCPCS: 36415; 82306; 82607; 84439; 84443

== ENCOUNTER → 2021-03-28 13:54 | Outpatient (CLI) | payer OTHER, SELFPAY ==
[2019-11-04 09:08] VITALS: BMI 31.9
--- NOTE | 2021-03-28 16:01 | NEURO ---
NCS and/or EMG Patient Report Ordering Doctor: cT Steel DATE OF SERVICE: 03/28/21 Rama presents for electrodiagnostic testing of the upper limbs she reports numbness and tingling in both hands, primarily the right side. Electrodiagnostic findings: Right median motor nerve demonstrates prolonged distal latency with normal amplitude and reduced conduction velocity. Left median motor nerve demonstrates normal distal latency and amplitude with borderline reduced conduction velocity. Ulnar motor response is within normal limits. Prolonged right median F wave. Prolonged right median sensory latency at the wrist. Prolonged left median sensory latency at the wrist. Normal ulnar and radial sensory responses. On needle EMG, all muscles tested in the upper limbs showed no evidence of denervation with normal motor unit action potentials. Electrodiagnostic impression: This is an abnormal study in the upper limbs 1. Electrodiagnostic findings demonstrate bilateral median mononeuropathy. This is consistent with a mild left carpal tunnel syndrome and a moderate right carpal tunnel syndrome
== END ==
PROVIDERS: PCP Family Medicine; Referring Provider Orthopaedic Surgery; Visit Provider Orthopaedic Surgery
DX: M25.531 Pain in right wrist (principal); R20.0 Anesthesia of skin; R20.2 Paresthesia of skin
CPT/HCPCS: 95886; 95912

== ENCOUNTER 2021-06-26 08:18 | Outpatient (CLI) | payer OTHER, SELFPAY ==
[2019-11-04 09:08] VITALS: BMI 31.9
[2021-06-26 10:29] LABS: AST(SGOT) 121 U/L (15-37); Alanine Aminotransfer ALT/SGPT 123 U/L (13-56); Albumin, Serum 3.8 g/dL (3.2-5.0); Alkaline Phosphatase 116 U/L (45-117); Anion Gap 4 (5-15); BUN 9 mg/dL (7-18); BUN/Creat Ratio 10.4 RATIO (10-20); Calcium,Total 9.2 mg/dL (8.5-10.1); Chloride 106 mmol/L (98-107); Cholesterol 124 mg/dL (200); Creatinine, Serum 0.86 mg/dL (0.55-1.02); EST Glomerular Filtration Rate 71 mL/min (>60); Est Glom Filt Rate - Afr Amer 86 mL/min (>60); Free T3 2.5 pg/mL (2.18-3.98); Globulin 3.8 g/dL (2.2-4.2); Glucose 123 mg/dL (74-106); High Density Lipoprotein 34 mg/dL; Potassium 4.4 mmol/L (3.5-5.1); Protein, Total 7.6 g/dL (6.4-8.2); Sodium Level 138 mmol/L (136-145); T4 Free Direct 1.05 ng/dL (0.76-1.46); Thyroid Stim Hormone (TSH) 4.06 uIU/mL (0.358-3.74); Triglycerides 132 mg/dL; Very Low Density Lipoprotein 26 mg/dL (5-40)
== END 2021-06-26 23:59 | disposition short-term general hospital (02) ==
LOC: MTLAB 08:20
PROVIDERS: Nurse Practitioner Gerontology; PCP Family Medicine; Referring Provider Family Medicine; Visit Provider Family Medicine
DX: E03.9 Hypothyroidism, unspecified (principal); E11.65 Type 2 diabetes mellitus with hyperglycemia; E78.2 Mixed hyperlipidemia; I10 Essential (primary) hypertension
CPT/HCPCS: 36415; 80053; 80061; 84439; 84443; 84481

== ENCOUNTER 2021-08-23 09:42 | Outpatient (CLI) | payer OTHER, SELFPAY ==
[2019-11-04 09:08] VITALS: BMI 31.9
[2021-08-23 12:41] LABS: T4 Free Direct 1.27 ng/dL (0.76-1.46); Thyroid Stim Hormone (TSH) 0.17 uIU/mL (0.358-3.74)
== END 2021-08-23 23:59 | disposition home or self-care (01) ==
LOC: BIMLAB 09:43
PROVIDERS: PCP Family Medicine; Referring Provider Nurse Practitioner Family; Visit Provider Nurse Practitioner Family
DX: E03.8 Other specified hypothyroidism (principal); E06.3 Autoimmune thyroiditis
CPT/HCPCS: 36415; 84439; 84443

== ENCOUNTER → 2021-10-10 | Outpatient (CLI) | payer OTHER, SELFPAY ==
[2019-11-04 09:08] VITALS: BMI 31.9
--- NOTE | 2021-10-10 15:39 | NEURO ---
NCS and/or EMG Patient Report Ordering Doctor: Fatemeh Gonzalez DATE OF SERVICE: 10/10/21 for electrodiagnostic testing of the lower limbs. She reports cramping that occurs randomly in both legs. She does report history of diabetes. Electrodiagnostic findings: Peroneal motor nerve demonstrates normal distal latency, amplitude and conduction velocity bilaterally. Normal tibial motor response bilaterally. Normal peroneal and tibial F waves. H reflex normal bilaterally. Sensory responses are within normal limits. On needle EMG, all muscles tested in the lower limbs showed no evidence of denervation with normal motor unit action potentials. Electrodiagnostic impression: There is a normal electrodiagnostic study of the lower limbs. There is no electrodiagnostic evidence for peripheral neuropathy or lumbosacral radiculopathy
== END | disposition home or self-care (01) ==
LOC: PSN 09:04
PROVIDERS: PCP Family Medicine; Referring Provider Nurse Practitioner Family; Visit Provider Nurse Practitioner Family
DX: R25.2 Cramp and spasm (principal)
CPT/HCPCS: 95886; 95911

== ENCOUNTER → 2022-01-21 | Outpatient (CLI) | payer OTHER, SELFPAY ==
[2019-11-04 09:08] VITALS: BMI 31.9
--- NOTE | 2022-01-21 16:58 | RAD_ITS ---
STUDY: X-RAY - LEFT ANKLE REASON FOR EXAM: Female, 61 years old. pain TECHNIQUE: view(s) of the ankle. COMPARISON: None. FINDINGS: Normal visualized distal tibia and fibula. Normal medial and lateral malleoli. Normal tibiotalar articulation and ankle mortise. Talus intact. Mild plantar calcaneal spurring The visualized subtalar, talonavicular, calcaneocuboid and tarsal articulations are normal. The soft tissue structures demonstrate surgical staple in distal leg medially. RAD/Ankle min 3 Views IMPRESSION: Mild plantar calcaneal spurring. Surgical staple in the soft tissues of the distal leg medially. Electronically Signed: Ariel Donaldson MD, ROSALINAD at 17:57 EDT ,
== END | disposition home or self-care (01) ==
LOC: MTRAD 16:57
PROVIDERS: PCP Family Medicine; Referring Provider Nurse Practitioner Family; Visit Provider Nurse Practitioner Family
DX: M77.32 Calcaneal spur, left foot (principal)
CPT/HCPCS: 73610

== ENCOUNTER → 2022-03-26 | Outpatient (CLI) | payer OTHER, SELFPAY ==
[2019-11-04 09:08] VITALS: BMI 31.9
[2022-03-26 10:40] LABS: AST(SGOT) 86 U/L (15-37); Alanine Aminotransfer ALT/SGPT 86 U/L (13-56); Albumin, Serum 3.5 g/dL (3.2-5.0); Alkaline Phosphatase 103 U/L (45-117); Anion Gap 8 (5-15); BUN 14 mg/dL (7-18); BUN/Creat Ratio 16.7 RATIO (10-20); Calcium,Total 9.3 mg/dL (8.5-10.1); Chloride 106 mmol/L (98-107); Cholesterol 112 mg/dL (200); Creatinine, Serum 0.84 mg/dL (0.55-1.02); EST Glomerular Filtration Rate 74 mL/min (>60); Est Glom Filt Rate - Afr Amer 89 mL/min (>60); Globulin 3.5 g/dL (2.2-4.2); Glucose 101 mg/dL (74-106); High Density Lipoprotein 30 mg/dL; Potassium 4.1 mmol/L (3.5-5.1); Sodium Level 140 mmol/L (136-145); T4 Free Direct 1.01 ng/dL (0.76-1.46); Triglycerides 147 mg/dL; Very Low Density Lipoprotein 29 mg/dL (5-40)
== END | disposition home or self-care (01) ==
LOC: MTLAB 07:47
PROVIDERS: Nurse Practitioner Family; PCP Family Medicine; Referring Provider Nurse Practitioner Gerontology; Visit Provider Nurse Practitioner Gerontology
DX: E78.2 Mixed hyperlipidemia (principal); E11.9 Type 2 diabetes mellitus without complications
CPT/HCPCS: 36415; 80053; 80061; 82248; 84439; 84443

== ENCOUNTER 2022-08-12 06:27 | Day surgery (SDC) | payer OTHER, BC, SELFPAY ==
[2019-11-04 09:08] VITALS: BMI 31.9
[2022-08-12 06:52] VITALS: BP 136/64; PULSE 67; RESP 18; TEMP 36.2; O2SAT 100; BMI 30.8
[2022-08-12] MEDS: Lactated Ringers 1,000 ML 15 ML IV (07:01)
[2022-08-12 07:25] LABS: Bedside Glucose 163 mg/dL (74-106)
--- NOTE | 2022-08-12 07:29 | PCM.HP.BLA ---
History and Physical Date of Admission: 08/12/22 Date of Service:? 07/17/22 MR#: [id number] Acct: [id number] Name:CLAUDY FATIMA Rep #: [id number] : 1960 ? ? Provider: Dr. Destiny Marie MD Age/Sex:? 62/F ? ? Location: [facility] Status: Signed Intake Vital Signs ? 07/17/2313:45 Height 5 ft 3 in Weight: 182 lb BMI 32.2 BP 126/77 H Blood Pressure Location Rt brachial Position Sitting Respiration 17 Pulse 69 Pulse Source Monitor Temp 96.2 F L Temp Source Temporal Pulse Oximetry (%) 99 Oxygen Delivery Method room air Intake Visit Reasons:?GASTRITIS, egd/colonoscopy Chief Complaint: egd/colonoscopy Is patient in pain?: No Allergies hydroxychloroquine [From Plaquenil] Allergy (Severe, Verified 07/17/22 14:47) face and eye swellingPenicillins [PCN] Allergy (Verified 07/17/22 14:47) Other Medications modafinil 200 mg tablet 200 mg PO DAILY 09/14/18 [History Confirmed 07/17/22] aspirin 81 mg tablet,delayed release 81 mg PO DAILY #1 TAB 09/21/19 [Rx Confirmed 07/17/22] levothyroxine 137 mcg tablet 137 mcg PO DAILY 07/28/20 [History Confirmed 07/17/22] amlodipine 2.5 mg tablet 2.5 mg PO DAILY #30 tabs 12/31/21 [Rx Confirmed 07/17/22] letrozole 2.5 mg tablet 2.5 mg PO DAILY 12/31/21 [History Confirmed 07/17/22] metformin 500 mg tablet,extended release 24 hr 500 mg PO DAILY 12/31/21 [History Confirmed 07/17/22] Tresiba FlexTouch U-100 100 unit/mL (3 mL) subcutaneous pen (insulin degludec) 60 unit (0.6 mL) subcut DAILY #18 mL 01/01/22 [Rx Confirmed 07/17/22] atenolol 50 mg tablet See Rx Instructions .Route .COMPLEX #180 tabs 01/15/22 [Rx Confirmed 07/17/22] evolocumab 140 mg/mL subcutaneous pen injector (Repatha SureClick) 140 mg subcut Q2W #2 mL 01/22/22 [Rx Confirmed 07/17/22] dulaglutide 4.5 mg/0.5 mL subcutaneous pen injector (Trulicity) 4.5 mg (0.5 mL) subcut QWEEK #2 mL 02/28/22 [Rx Confirmed 07/17/22] flash glucose sensor (FreeStyle Jose E 2 Sensor kit) #2 ea 03/04/22 [Rx Confirmed 07/17/22] semaglutide 14 mg tablet (Rybelsus) 14 mg PO DAILY #30 tabs 05/06/22 [Rx Confirmed 07/17/22] insulin lispro 100 unit/mL subcutaneous pen (Humalog KwikPen (U-100) Insulin) 40 unit (0.4 mL) subcut TID #54 mL 05/31/22 [Rx Confirmed 07/17/22] lisinopril 30 mg tablet 30 mg PO DAILY #90 tabs 06/07/22 [Rx Confirmed 07/17/22] famotidine 40 mg tablet 40 mg PO DAILY 07/17/22 [History Confirmed 07/17/22] omeprazole magnesium 20 mg tablet,delayed release (Prilosec OTC) 20 mg PO DAILY 07/17/22 [History Confirmed 07/17/22] pantoprazole 40 mg tablet,delayed release (Protonix) 40 mg PO DAILY #30 tabs 07/17/22 [Rx Confirmed 07/17/22] PFSH Medical History? Abnormal mammogram of left breast Abnormal stress test Arthritis Chest pain Encounter for screening for COVID-19 Essential hypertension History of left breast cancer (~09/2018) Hypertension Hypothyroidism Mixed hyperlipidemia Pure hypercholesterolemia Type 2 diabetes mellitus Surgical History? History of bilateral mastectomy History of laparoscopic cholecystectomy History of left breast biopsy (~09/2018) History of left breast implant (~07/2020) History of left heart catheterization (09/24/19) History of tubal ligation Hx of four vessel coronary artery bypass graft (~09/2019) S/P CABG x 4 Family History? Mother Arthritis Breast cancer Diabetes Heart disease Hypertension Thyroid disorder High cholesterolSister Breast cancerGrandmother Colon cancerFather Diabetes Heart disease Hypertension Cancer ?? ? skin cancerGrandfather Cancer ?? ? lung cancerSister CAD (coronary artery disease) Presence of stent in coronary artery Social History? Smoking Status:? Never smoker alcohol intake:? current alcohol intake frequency: a few times a month substance use type:? does not use caffeine:? Yes eating out:? 1-3 times/week HPI HPI HPI: 62-year-old female presents for EGD and colonoscopy.? Patient has never had a previous EGD.? Patient states that late last fall she had GERD symptoms at night where she had reflux.? Patient was started on Prilosec and famotidine.? Patient is taking 20 mg of the Prilosec and 20 mg of the famotidine.? Patient states that in May though she had increased burping as well as epigastric discomfort had some very occasional nausea/vomiting.? She thought that may be with the stomach discomfort and the diarrhea those episodes could have been more related to the flu or viral.? Patient is also never had colonoscopy.? Patient's maternal grandmother was diagnosed with colon cancer in her late 70s denies any immediate relatives.? Patient has bowel movements daily denies any blood. ROS General General: Yes breast cancer; No weight change, appetite, fatigue or colon cancer HEENT HEENT: No difficulty swallowing, eye injury, eye surgery, swollen glands or hoarseness Endo Endocrine: Yes thyroid disease and diabetes mellitus; No thyroid cancer, Hair loss, heat intolerance or cold intolerance Skin Skin: No rash or changing moles Musc Musculoskeletal: Yes arthritis; No back problems, rheumatoid arthritis, gout or joint pain Cardio Cardiovascular: Yes heart disease and high blood pressure; No murmur, pacemaker, atrial fibrillation, heart attack, heart stent, palpitations, shortness of breat with exertion or chest pain Psych Psychiatric: No depression, anxiety or hearing voices Resp Respiratory: No shortness of breath, Yes sleep apnea, No cough, No COPD, No asthma, No emphysema and No wheezing Gastro Gastrointestinal: Yes abdominal pain, Yes nausea or vomiting, Yes diarrhea, No constipation, No blood in stool, Yes acid reflux, No hemorrhoids, No ulcers, No gallbladder problem and No black,tarry stools Nestor Hematologic: No blood thinners, No blood disorders, No bleeding, No anemia and No blood clots Neuro Neurologic: No numbness and No tingling Exam Const General: cooperative, healthy appearing and no acute distress [facility] Head: normal to inspection Resp Effort & Inspection: normal respiratory effort Cardio Rate: regular rate GI Inspection: non-distended Palpation: soft, no guarding and nontender Skin General: no rashes or lesions noted Neuro General: patient oriented x3 Extrem General: no clubbing, cyanosis or edema Psych Affect: normal affect Assessment and Plan Assessment and Plan (1) GERD (gastroesophageal reflux disease): ?Status:?Acute (2) Screening for malignant neoplasm of colon: ?Status:?Acute ? ? ? Orders: Orders Colonoscopy Today ? ? EGD Today ? Medications: New pantoprazole (Protonix) 40 mg PO DAILY 30 tabs 5RF ? ? Plan Discussed with patient we will change her to Protonix 40 mg p.o. daily and she can still take the famotidine as needed as needed if needed. I have discussed the above with the patient. I have offered the patient EGD and colonoscopy for evaluation. I have explained the risks/benefits of the procedure and described the procedure.? I have discussed the risks with the patient, including but not limited to:? infection, bleeding, perforation of the GI tract requiring emergency surgery, inability to complete the procedure, injury to any internal organs, complications of anesthesia, etc. - the patient understands and agrees to proceed. I have answered all the patient's questions to the patient's satisfaction and the patient has no further questions. The patient has been given instructions for the colon cleansing preparation.? 1 day of clears, MiraLAX Dulcolax split prep. Destiny Marie M.D. Pager: [phone] [facility] [address] [place] [address], [address] [place] [address] Office: [phone] Coding Level of Care Code Off vis,new,level 4 Diagnoses GERD (gastroesophageal reflux disease)? K21.9 Screening for malignant neoplasm of colon? Z12.11 07/18/22 0909 <Electronically signed by Destiny Marie MD> Date Destiny Marie MD
--- NOTE | 2022-08-12 07:30 | EGD_PTH ---
PATIENT: CLAUDY BAIRD LOC: EN U#:[id number] AGE/SX: 62/F ROOM: RE08/12/[address]: Dr. Destiny Marie MD : 1960 BED: DIS: 08/12/2022 SPEC #: [id number] RECD: 08/12/22 11:03 STATUS: HOMERO REYumiko #: [id number] NICOLE: 08/12/22 07:[address]: Destiny Marie DEPT: SURGICAL PATHOLOGY RECD BY: Rashmi Melgoza ENTERED: 08/12/22 12:41 SP TYPE: EGD BIOPSY OT DR: Dr. Magdiel Montilla MD Tissues: A - Gastric mucous membrane B - Rectum, NOS Procedures: Surgery Specimen Level IV HEADER OPERATION: Colonoscopy with biopsy, EGD (MAC) with biopsy PRE-OP DIAGNOSIS: GERD, screening TISSUE SUBMITTED: A ? Antrum biopsy for H. pylori and path, B ? Rectum polyp biopsy MICROSCOPIC DIAGNOSIS A. Antrum, biopsy: Moderate gastritis. See microscopic description and comment. B. Rectal polyp, biopsy: Tubular adenoma. SJ:mitesh 08/13/2022 COMMENT A. The results of immunohistochemistry for Helicobacter pylori will be reported separately ([id number]). MICROSCOPIC DESCRIPTION Slides are reviewed. A. The specimen shows fragments of gastric mucosa with chronic inflammatory cell infiltrates in the lamina propria consisting of lymphocytes and plasma cells, consistent with moderate chronic gastritis. GROSS DESCRIPTION A - Received in fixative is one container labeled with the patient's name and designated gastric antrum. The specimen consists of one irregular fragment of light anaya soft tissue that measures 0.6 x 0.3 x 0.1 cm. The specimen is totally submitted in one cassette. B - Received in fixative is one container labeled with the patient's name and designated rectal polyp. The specimen consists of two irregular fragments of light anaya soft tissue that in aggregate measure 0.6 x 0.2 x 0.1 cm. The specimen is totally submitted in one cassette. / AM:mitesh 08/12/2022 TC:1 CPT: 89707 x2
--- NOTE | 2022-08-12 07:30 | IMM_PTH ---
PATIENT: CLAUDY BAIRD LOC: EN U#:[id number] AGE/SX: 62/F ROOM: RE08/12/[address]: Dr. Destiny Marie MD : 1960 BED: DIS: 08/12/2022 SPEC #: [id number] RECD: 08/12/22 13:32 STATUS: HOMERO REQ #: [id number] NICOLE: 08/12/22 07:[address]: Destiny Marie DEPT: IMMUNOHISTOCHEMISTRY RECD BY: Kimberly Kimble ENTERED: 08/12/22 13:32 SP TYPE: IMMUNO OTHR DR: Dr. Magdiel Montilla MD Tissues: A - Stomach, NOS Procedures: H Pylori (initial) PHYSICIAN & INSTITUTION [place] [address] SPECIMEN INFORMATION: Tissue Source: A ? Antrum biopsy Clinical Info: GERD, screening Specimen Number: [id number] CPT code: 14941 METHODOLOGY: Deparaffinized sections of prefer/formalin-fixed tissue or PAP/DQ stained slides are incubated with monoclonal/polyclonal antibodies/oligonucleotide probes. Localization is made via biotin free immunoperoxidase method. Appropriate controls are performed and reacted as expected. Results on target cell population are indicated in the following table: RESULTS: ANTIBODY / CLONE RESULT Block A H Pylori (polyclonal) negative These tests were developed and their performance characteristics determined by [facility]. They may not have been cleared or approved by the U.S. Food and Drug Administration. The FDA has determined that such clearance or approval is not necessary. The above immunohistochemical/dualISH markers are ordered and reviewed by the Pathologist. INTERPRETATION: A. Antrum, biopsy: Negative for Helicobacter pylori organisms. SJ:mitesh 08/13/2022
[2022-08-12 08:03] VITALS: BP 136/94; BP 90/60; PULSE 78; RESP 12; TEMP 36.1; O2SAT 94
[2022-08-12 08:05] VITALS: BP 136/94; BP 96/52; PULSE 72; RESP 12; O2SAT 95
--- NOTE | 2022-08-12 08:05 | OP.EGD_ITS ---
Patient Name: Rama Connolly Procedure Date: 08/12/2022 7:14 AM Date of : 1960 Age: 62 Procedure: Upper GI endoscopy Indications: Heartburn Providers: Destiny Marie MD Medicines: Monitored Anesthesia Care Patient Profile: This is a 62 year old female. Complications: No immediate complications. Procedure: Pre-Anesthesia Assessment: - Prior to the procedure, a History and Physical was performed, and patient medications and allergies were reviewed. The patient's tolerance of previous anesthesia was also reviewed. The risks and benefits of the procedure and the sedation options and risks were discussed with the patient. All questions were answered, and informed consent was obtained. Prior Anticoagulants: The patient has taken no previous anticoagulant or antiplatelet agents. ASA Grade Assessment: Per anesthesia. After reviewing the risks and benefits, the patient was deemed in satisfactory condition to undergo the procedure. After obtaining informed consent, the endoscope was passed under direct vision. Throughout the procedure, the patient's blood pressure, pulse, and oxygen saturations were monitored continuously. The colonoscope was introduced through the mouth, and advanced to the duodenal bulb. The upper GI endoscopy was accomplished without difficulty. The patient tolerated the procedure well. Scope In: 7:37:18 AM Scope Out: 7:40:36 AM Total Procedure Duration Time 0 hours 3 minutes 18 seconds Findings: The Z-line was variable and was found 40 cm from the incisors. The examined duodenum was normal. The cardia and gastric fundus were normal on retroflexion. Striped mildly erythematous mucosa without bleeding was found in the gastric antrum. Biopsies were taken with a cold forceps for histology. Biopsies were taken with a cold forceps for Helicobacter pylori cultures. Impression: - Z-line variable, 40 cm from the incisors. - Normal examined duodenum. - Erythematous mucosa in the antrum. Biopsied. Recommendation: - Await pathology results. - Discharge patient to home. - Resume previous diet. - Continue present medications. Procedure Code(s): --- Professional --- 67093, Esophagogastroduodenoscopy, flexible, transoral; with biopsy, single or multiple Diagnosis Code(s): --- Professional --- K22.8, Other specified diseases of esophagus K31.89, Other diseases of stomach and duodenum R12, Heartburn CPT copyright 2017 [employer]. All rights reserved. The codes documented in this report are preliminary and upon film numberer review may be revised to meet current compliance requirements. MD Destiny Anderson MD 08/12/2022 8:05:12 AM This report has been signed electronically. Number of Addenda: 0 Note Initiated On: 08/12/2022 7:14 AM
--- NOTE | 2022-08-12 08:06 | OP.CCLET_ITS ---
08/12/2022 Magdiel Montilla MD [address] [id number] Re : Upper GI endoscopy procedure for Rama Connolly Dear Dr. Montilla This procedure was performed on Friday, August 12, 2022. My impressions and recommendations are as follows: Impressions : - Z-line variable, 40 cm from the incisors. - Normal examined duodenum. - Erythematous mucosa in the antrum. Biopsied. Recommendations : - Await pathology results. - Discharge patient to home. - Resume previous diet. - Continue present medications. My findings are described in the full procedure note, which is enclosed. If I can be of further assistance, please feel free to contact me at Doctor phone number(s): , Work: . Sincerely, MD Destiny Anderson MD 08/12/2022 8:05:12 AM This report has been signed electronically.
[2022-08-12 08:10] VITALS: BP 117/73; BP 136/94; PULSE 67; PULSE 70; RESP 16; RESP 18; O2SAT 98; O2SAT 99
--- NOTE | 2022-08-12 08:13 | OP.COLON_ITS ---
Patient Name: Rama Connolly Procedure Date: 08/12/2022 7:41 AM Date of : 1960 Age: 62 Procedure: Colonoscopy Indications: Screening for colorectal malignant neoplasm Providers: Destiny Marie MD Medicines: Monitored Anesthesia Care Patient Profile: This is a 62 year old female. Last Colonoscopy: none. The patient's first colonoscopy is today. Complications: No immediate complications. Procedure: Pre-Anesthesia Assessment: - Prior to the procedure, a History and Physical was performed, and patient medications and allergies were reviewed. The patient's tolerance of previous anesthesia was also reviewed. The risks and benefits of the procedure and the sedation options and risks were discussed with the patient. All questions were answered, and informed consent was obtained. Prior Anticoagulants: The patient has taken no previous anticoagulant or antiplatelet agents. ASA Grade Assessment: Per anesthesia. After reviewing the risks and benefits, the patient was deemed in satisfactory condition to undergo the procedure. After I obtained informed consent, the scope was passed under direct vision. Throughout the procedure, the patient's blood pressure, pulse, and oxygen saturations were monitored continuously. The colonoscope was introduced through the anus and advanced to the terminal ileum. The colonoscopy was performed without difficulty. The patient tolerated the procedure well. The quality of the bowel preparation was good. Scope In: 7:42:18 AM Scope Withdrawal Time 0 hours 9 minutes 15 seconds Scope Out: 7:55:41 AM Total Procedure Duration Time 0 hours 13 minutes 23 seconds Findings: Hemorrhoids were found on perianal exam. Non-bleeding internal hemorrhoids were found. The hemorrhoids were Grade I (internal hemorrhoids that do not prolapse). Two sessile polyps were found in the rectum. The polyps were less than 5 mm in size. These polyps were removed with a cold biopsy forceps. Resection and retrieval were complete. The terminal ileum appeared normal. The exam was otherwise without abnormality. Impression: - Hemorrhoids found on perianal exam. - Non-bleeding internal hemorrhoids. - Two less than 5 mm polyps in the rectum, removed with a cold biopsy forceps. Resected and retrieved. - The examined portion of the ileum was normal. - The examination was otherwise normal. Recommendation: - Discharge patient to home. - Resume previous diet. - Continue present medications. - Await pathology results. - Repeat colonoscopy in 5-10 years for surveillance based on pathology results. Procedure Code(s): --- Professional --- 79171, PT, Colonoscopy, flexible; with biopsy, single or multiple Diagnosis Code(s): --- Professional --- Z12.11, Encounter for screening for malignant neoplasm of colon K64.0, First degree hemorrhoids K62.1, Rectal polyp CPT copyright 2017 [employer]. All rights reserved. The codes documented in this report are preliminary and upon machine wedger review may be revised to meet current compliance requirements. MD Destiny Anderson MD 08/12/2022 8:13:06 AM This report has been signed electronically. Number of Addenda: 0 Note Initiated On: 08/12/2022 7:41 AM
--- NOTE | 2022-08-12 08:14 | OP.CCLET_ITS ---
08/12/2022 Magdiel Montilla MD [address] [place] [address] Re : Colonoscopy procedure for Rama Connolly Dear Dr. Montilla This procedure was performed on Friday, August 12, 2022. My impressions and recommendations are as follows: Impressions : - Hemorrhoids found on perianal exam. - Non-bleeding internal hemorrhoids. - Two less than 5 mm polyps in the rectum, removed with a cold biopsy forceps. Resected and retrieved. - The examined portion of the ileum was normal. - The examination was otherwise normal. Recommendations : - Discharge patient to home. - Resume previous diet. - Continue present medications. - Await pathology results. - Repeat colonoscopy in 5-10 years for surveillance based on pathology results. My findings are described in the full procedure note, which is enclosed. If I can be of further assistance, please feel free to contact me at Doctor phone number(s): , Work: . Sincerely, MD Destiny Anderson MD 08/12/2022 8:13:06 AM This report has been signed electronically.
[2022-08-12 08:16] VITALS: BP 114/73; BP 136/94; PULSE 65; RESP 16; TEMP 36.2; O2SAT 98
[2022-08-12 08:28] VITALS: BP 136/94
== END 2022-08-12 08:51 | disposition home or self-care (01) ==
LOC: EN 06:27 → AC 06:28
PROVIDERS: PCP Family Medicine; Referring Provider Family Medicine; Visit Provider Surgery
PROC: 0DJD8ZZ Inspection of Lower Intestinal Tract, Via Natural or Artificial Opening Endoscopic (ICD-10-PCS; CPT 45378; principal; 2022-08-12 07:25)
DX: Z12.11 Encounter for screening for malignant neoplasm of colon (principal); Z79.4 Long term (current) use of insulin; E11.9 Type 2 diabetes mellitus without complications; K31.89 Other diseases of stomach and duodenum; D12.8 Benign neoplasm of rectum; K29.70 Gastritis, unspecified, without bleeding; K21.9 Gastro-esophageal reflux disease without esophagitis; K64.0 First degree hemorrhoids; K76.0 Fatty (change of) liver, not elsewhere classified; I25.10 Atherosclerotic heart disease of native coronary artery without angina pectoris; I10 Essential (primary) hypertension; E07.9 Disorder of thyroid, unspecified; G47.30 Sleep apnea, unspecified; Z95.1 Presence of aortocoronary bypass graft; Z79.84 Long term (current) use of oral hypoglycemic drugs; Z79.82 Long term (current) use of aspirin; Z79.899 Other long term (current) drug therapy; Z80.0 Family history of malignant neoplasm of digestive organs
CPT/HCPCS: 45380; 43239; 82962; 88305; 88342; J7120; J2405

== ENCOUNTER → 2022-09-03 | Outpatient (CLI) | payer OTHER, BC, SELFPAY ==
[2019-11-04 09:08] VITALS: BMI 31.9
[2022-09-03 15:59] LABS: Thyroid Stim Hormone (TSH) 1.06 uIU/mL (0.358-3.74)
== END | disposition home or self-care (01) ==
LOC: MTLAB 13:20
PROVIDERS: PCP Family Medicine; Referring Provider Nurse Practitioner Family; Visit Provider Nurse Practitioner Family
DX: E03.9 Hypothyroidism, unspecified (principal)
CPT/HCPCS: 36415; 84439; 84443

== ENCOUNTER → 2022-10-07 | Outpatient (CLI) | payer OTHER, BC, SELFPAY ==
[2019-11-04 09:08] VITALS: BMI 31.9
[2022-10-07 10:49] LABS: ALB/GLOB Ratio 1.3 RATIO (0.9-2.4); AST(SGOT) 63 U/L (15-37); Alanine Aminotransfer ALT/SGPT 72 U/L (13-56); Albumin, Serum 3.8 g/dL (3.2-5.0); Alkaline Phosphatase 130 U/L (45-117); Anion Gap 6 (5-15); BUN 11 mg/dL (7-18); BUN/Creat Ratio 14.4 RATIO (10-20); Bilirubin, Direct 0.19 mg/dL (0.00-0.30); Chloride 106 mmol/L (98-107); Cholesterol 109 mg/dL (200); Creatinine, Serum 0.76 mg/dL (0.55-1.02); EST Glomerular Filtration Rate 82 mL/min (>60); Est Glom Filt Rate - Afr Amer 99 mL/min (>60); Glucose 96 mg/dL (74-106); High Density Lipoprotein 36 mg/dL; Potassium 3.9 mmol/L (3.5-5.1); Protein, Total 6.8 g/dL (6.4-8.2); Sodium Level 143 mmol/L (136-145); Triglycerides 130 mg/dL; Very Low Density Lipoprotein 26 mg/dL (5-40)
== END | disposition home or self-care (01) ==
LOC: MTLAB 08:03
PROVIDERS: PCP Family Medicine; Referring Provider Nurse Practitioner Gerontology; Visit Provider Nurse Practitioner Gerontology
DX: E78.5 Hyperlipidemia, unspecified (principal)
CPT/HCPCS: 36415; 80053; 80061; 82248

== ENCOUNTER → 2023-05-02 | Outpatient (CLI) | payer OTHER, BC, SELFPAY ==
[2019-11-04 09:08] VITALS: BMI 31.9
[2023-05-02 11:03] LABS: Microalbumin,Random Urine 10.4 mg/L (NO RANGE EST.); Microalbumin:Creatinine Ratio 7.2 mg/g CRE (<30 mg/g CRE)
[2023-05-02 11:09] LABS: AST(SGOT) 55 U/L (15-37); Alanine Aminotransfer ALT/SGPT 78 U/L (13-56); Albumin, Serum 3.6 g/dL (3.2-5.0); Alkaline Phosphatase 166 U/L (45-117); Anion Gap 6 (5-15); BUN 16 mg/dL (7-18); BUN/Creat Ratio 20.1 RATIO (10-20); Bilirubin, Direct 0.14 mg/dL (0.00-0.30); Calcium,Total 8.9 mg/dL (8.5-10.1); Chloride 105 mmol/L (98-107); Cholesterol 92 mg/dL (200); EST Glomerular Filtration Rate 78 mL/min (>60); Est Glom Filt Rate - Afr Amer 94 mL/min (>60); Free T3 2.9 pg/mL (2.18-3.98); Globulin 3.7 g/dL (2.2-4.2); Glucose 112 mg/dL (74-106); High Density Lipoprotein 37 mg/dL; Potassium 4.2 mmol/L (3.5-5.1); Protein, Total 7.3 g/dL (6.4-8.2); Sodium Level 139 mmol/L (136-145); T4 Free Direct 1.38 ng/dL (0.76-1.46); Thyroid Stim Hormone (TSH) 0.09 uIU/mL (0.358-3.74); Triglycerides 174 mg/dL; Very Low Density Lipoprotein 35 mg/dL (5-40)
== END | disposition home or self-care (01) ==
LOC: MTLAB 08:01
PROVIDERS: Nurse Practitioner Gerontology; PCP Family Medicine; Referring Provider Family Medicine; Visit Provider Family Medicine
DX: E03.9 Hypothyroidism, unspecified (principal); E11.65 Type 2 diabetes mellitus with hyperglycemia; E78.2 Mixed hyperlipidemia
CPT/HCPCS: 36415; 80048; 80061; 80076; 82043; 82570; 84439; 84443; 84481

== ENCOUNTER → 2023-09-08 | Outpatient (CLI) | payer OTHER, BC, SELFPAY ==
[2019-11-04 09:08] VITALS: BMI 31.9
[2023-09-08 19:03] LABS: T4 Free Direct 1.18 ng/dL (0.76-1.46); Thyroid Stim Hormone (TSH) 2.55 uIU/mL (0.358-3.74)
== END | disposition home or self-care (01) ==
PROVIDERS: PCP Family Medicine; Referring Provider Nurse Practitioner Family; Visit Provider Nurse Practitioner Family
DX: E03.9 Hypothyroidism, unspecified (principal)
CPT/HCPCS: 36415; 84439; 84443

== ENCOUNTER → 2023-09-19 | Outpatient (CLI) | payer OTHER, BC, SELFPAY ==
[2019-11-04 09:08] VITALS: BMI 31.9
== END | disposition home or self-care (01) ==
LOC: LABSPEC 15:23
PROVIDERS: PCP Family Medicine; Referring Provider Nurse Practitioner; Visit Provider Nurse Practitioner
DX: N39.0 Urinary tract infection, site not specified (principal)
CPT/HCPCS: 87077; 87086; 87088; 87186

== ENCOUNTER → 2023-12-16 | Outpatient (CLI) | payer OTHER, BC, SELFPAY ==
[2019-11-04 09:08] VITALS: BMI 31.9
[2023-12-16 10:33] LABS: ALB/GLOB Ratio 0.9 RATIO (0.9-2.4); AST(SGOT) 105 U/L (15-37); Alanine Aminotransfer ALT/SGPT 110 U/L (13-56); Albumin, Serum 3.4 g/dL (3.2-5.0); Alkaline Phosphatase 130 U/L (45-117); Anion Gap 3 (5-15); BUN 9 mg/dL (7-18); Chloride 106 mmol/L (98-107); Cholesterol 129 mg/dL (200); Creatinine, Serum 0.82 mg/dL (0.55-1.02); EST Glomerular Filtration Rate 76 mL/min (>60); Est Glom Filt Rate - Afr Amer 91 mL/min (>60); Globulin 3.6 g/dL (2.2-4.2); Glucose 133 mg/dL (74-106); High Density Lipoprotein 35 mg/dL; Potassium 4.3 mmol/L (3.5-5.1); Sodium Level 139 mmol/L (136-145); Triglycerides 151 mg/dL; Very Low Density Lipoprotein 30 mg/dL (5-40)
== END | disposition home or self-care (01) ==
LOC: MTLAB 08:36
PROVIDERS: PCP Family Medicine; Referring Provider Family Medicine; Visit Provider Family Medicine
DX: E11.65 Type 2 diabetes mellitus with hyperglycemia (principal)
CPT/HCPCS: 36415; 80053; 80061

== ENCOUNTER → 2023-12-17 | Outpatient (CLI) | payer OTHER, BC, SELFPAY ==
[2019-11-04 09:08] VITALS: BMI 31.9
== END | disposition home or self-care (01) ==
PROVIDERS: PCP Family Medicine; Referring Provider Physician Assistant; Visit Provider Physician Assistant
DX: N39.0 Urinary tract infection, site not specified (principal)
CPT/HCPCS: 87086; 87088; 87186

== ENCOUNTER → 2024-07-24 | Outpatient (CLI) | payer BC, SELFPAY ==
[2019-11-04 09:08] VITALS: BMI 31.9
[2024-07-24 09:46] LABS: ALB/GLOB Ratio 1.4 RATIO (0.9-2.4); AST(SGOT) 104 U/L (<=31); Alanine Aminotransfer ALT/SGPT 92 U/L (<=34); Albumin, Serum 4.3 g/dL (3.4-4.8); Alkaline Phosphatase 138 U/L (35-104); Anion Gap 11 (5-15); BUN 13 mg/dL (4-19); BUN/Creat Ratio 16.5 RATIO (10-20); Calcium 10.1 mg/dL (7.6-11.0); Carbon Dioxide 24.8 mmol/L (22.0-29.0); Chloride 102 mmol/L (96-108); Cholesterol 123 mg/dL (<=200); Creatinine, Serum 0.79 mg/dL (0.70-1.20); EST Glomerular Filtration Rate 85 (>60); Globulin 3.1 g/dL (2.2-4.2); Glucose 146 mg/dL (70-99); High Density Lipoprotein 39 mg/dL; Low Density Lipoprotein Calc. 61 mg/dL; Potassium 4.6 mmol/L (3.3-5.1); Protein, Total 7.4 g/dL (5.9-8.4); Sodium Level 138 mmol/L (133-145); T3 Total - Triiodothyronine 1.18 ng/mL (0.80-2.00); Total Bilirubin 0.39 mg/dL (0.00-1.30); Triglycerides 117 mg/dL; Very Low Density Lipoprotein 23 mg/dL (5-40); cholesterol:hdl ratio screen 3.15
[2024-07-24 14:43] LABS: Microalbumin,Random Urine < 12.0 mg/L (NO RANGE EST.); Microalbumin:Creatinine Ratio UNABLE TO CALCULATE mg/g CRE
== END | disposition home or self-care (01) ==
LOC: LAB 08:24
PROVIDERS: PCP Family Medicine; Referring Provider Family Medicine; Visit Provider Family Medicine
DX: E11.65 Type 2 diabetes mellitus with hyperglycemia (principal); E03.9 Hypothyroidism, unspecified
CPT/HCPCS: 36415; 80053; 80061; 82043; 82570; 84439; 84443; 84480

== ENCOUNTER → 2025-01-05 | Outpatient (CLI) | payer BC, SELFPAY ==
[2019-11-04 09:08] VITALS: BMI 31.9
--- OUTSIDE RECORDS SUMMARY | 2025-01-05 07:15 | XMS RPT_ITS | CCD ---
Author Organization [facility]ini[facility] Care Team Providers Care [employer] Cutter Name Role Phone Magdiel Montilla Primary Care Provider [phone] Magdiel Montilla MD Primary Care Provider Milly RICHARD, Angelo Unavailable Unavailable Dr. Magdiel Montilla Primary Care Provider Dr. Magdiel Montilla Referring Provider JASMEET Kang Attending Provider Rosalio CHRISTIANSON, ALLY Sinha Attending Provider ALLY Gonzalez Attending Provider [phone] Magdiel Montilla Primary Care Provider Dr. Magdiel Montilla Referring Provider Dr. Magdiel Montilla Primary Care Provider Dr. Magdiel Montilla Referring Provider JASMEET Yeboah Attending Provider [phone] ALLY Santamaria NP Attending Provider Dr. Magdiel Montilla Primary Care Provider Dr. Magdiel Montilla Referring Provider Rosalio CHRISTIANSON NP-C Ernestine Attending Provider ALLY Gonzalez Attending Provider [phone] Magdiel Montilla MD Primary Care Provider Milly RN, Angelo Unavailable Unavailable Magdiel Montilla MD Primary Care Provider Magdiel Montilla MD Primary Care Provider Milly RN, Angelo Unavailable Unavailable Magdiel Montilla MD Primary Care Provider Magdiel Montilla MD Primary Care Provider [phone] Milly RN, Angelo Unavailable Unavailable Roldan, Dr. Veloz Primary Care Provider [phone] Magdiel Montilla Referring Provider [phone] SAMMY Gonzalez-C Fatemeh Attending Provider [phone] Magdiel Montilla Primary Care Provider [phone] Magdiel Montilla Referring Provider 1([facility])[phone] Tc Andres Attending Provider [phone] ALLY Gonzalez Attending Provider ALLY Palacio Attending Provider [phone] Roldan CASTORENA, Magdiel Parham Primary Care Provider 1([facility])[phone] ANA CASTILLO Attending Unavailable ROLDAN, MAGDIEL R Primary Care Unavailable ANA CASTILLO Attending Unavailable ANA CASTILLO Referring Unavailable ROLDAN, MAGDIEL Parham Primary Care Unavailable ROLDAN, MAGDIEL Primary Care Unavailable BIBI WALDROP Attending Unavailable YANNI VILLALOBOS Referring Unavailable Roldan CASTORENA, Dr. Veloz Primary Care Provider [phone] Roldan CASTORENA, Dr. Veloz Referring Provider [phone] Fatemeh Matias Attending Provider Dr. Tc Andres MD Attending Provider Roldan CASTORENA, Dr. Veloz Attending Provider [phone] Roldan CASTORENA, Dr. Veloz Primary Care Provider [phone] Roldan CASTORENA, Dr. Veloz Referring Provider 1([facility])[phone] Ernestine Perez Attending Provider [phone] Magdiel Montilla Referring Unavailable Tc Andres Attending Unavailable Roldan, Magdiel Primary Care Unavailable Rosalio COMPONENT LAB TECH, Ernestine Referring Unavailable Rosalio CHRISTIANSON, Ernestine Attending Unavailable Roldan, Magdiel Primary Care Unavailable Roldan, Magdiel Referring Unavailable Roldan, Magdiel Primary Care Unavailable Fatemeh Gonzalez Attending Unavailable Montilla, Magdiel Referring Unavailable Rosalio CHRISTIANSON, Ernestine Attending Unavailable Roldan, Magdiel Primary Care Unavailable Roldan, Magdiel Referring Unavailable Fatemeh Gonzalze Attending Unavailable Roldan, Magdiel Primary Care Unavailable Roldan, Magdiel Referring Unavailable Roldan, Magdiel Attending Unavailable Montilla, Magdiel Primary Care Unavailable Allergies Allergy Classification Reported Allergen(s) Allergy Type Date of Onset Reaction(s) Facility (20 sources) Hydroxychloroquine Drug Allergy 10-11-19 11 Sw[place], [place] (10 sources) Penicillins; Translations: [PENICILLINS] Propensity to adverse reactions to drug 02-17-20 19 Other [place], [place] (8 sources) Hydroxychloroquine; Translations: [HYDROXYCHLOROQUINE SULFATE] Drug Allergy 10-11-19 11 [facility] Work Phone: (2 sources) Penicillins Drug Allergy 02-17-20 19 [facility] Work Phone: (7 sources) Penicillins Allergy to substance 01-01-20 22 Other [facility] (5 sources) Penicillins Drug Allergy 02-17-20 19 [facility] Work Phone: (6 sources) Penicillins Drug Intolerance 02-17-20 19 [facility] (5 sources) Qqdrnnf-Ttk-Oua Reductase Inhibitor Propensity to adverse reactions 03-05-20 23 Severe myalgias [facility] (2 sources) HMG-CoA reductase inhibitor Drug Allergy 03-05-20 23 [facility] (1 source) Hydroxychloroquine Drug Allergy 12-14-19 25 [facility] (1 source) Penicillins Drug allergy (disorder) 12-14-19 25 [facility] (1 source) Bhkapsm-Zub-Qko Reductase Inhibitor Drug allergy (disorder) 12-14-19 25 [facility] Rep[facility] Medications Current Medications Medication Drug Class(es) Dates Sig (Normalized) Sig (Original) acetaminophen 500 mg oral tablet (10 sources) Start: 08-21-2020 take 1 tablet by mouth every six hours acetaminophen (TYLENOL) 500 MG tablet Take 1 tablet by mouth every 6 hours 20 tablet 0 08/21/2020 Active Start: 10-09-2019 End: 10-11-2019 acetaminophen (TYLENOL) tabl et 1,000 mg Start: 10-07-2019 End: 10-09-2019 take 500 mg by mouth every four hours as needed for pain, then take 4000 mg by mouth every twenty-four hours as needed for pain 500 mg, Oral, EVERY 4 HOURS PRN, Pain Mild (1-3), Fever, Fever >100.5 F (38 C), Starting [facility] 10/07/19 at 1239 Maximum dose of acetaminophen is 4000 mg from all sources in 24 hours. Post-op Comment on above: Take 500 mg by mouth every 6 hours as needed for Fever. acetaminophen 325 mg / oxyCODONE hydrochloride 5 mg oral tablet (2 sources) Opioid Agonist Start: 10-12-2019 End: 10-19-2019 take 1 tablet by mouth every six hours as needed for pain oxyCODONE-acetam inophen (PERCOCET) 5-325 MG per tablet Indications: S/P CABG x 4 Take 1 tablet by mouth every 6 hours as needed for Pain for up to 7 days. 28 tablet 0 10/12/2019 10/19/2019 Active Start: 10-11-2019 oxyCODONE-acet aminophen (PERCOCET) 5-325 MG per tablet 1 tablet amLODIPine 5 mg oral tablet (20 sources) Dihydropyridine Calcium Channel Silvia Start: 07-21-2024 take 1 tablet by mouth once daily Amlodipine 5 mg tablet Active 5 mg PO DAILY 90 3 July 21, 2024 12:12pm Start: 12-31-2021 End: 07-21-2024 take 1 tablet by mouth once daily Amlodipine 2.5 mg tablet Discontinued 2.5 mg PO DAILY 90 3 July 31, 2023 10:18am July 21, 2024 12:13pm armodafinil 150 mg oral tablet (1 source) Start: 08-11-2024 take 1 tablet by mouth once daily Armodafinil 150 mg tablet Active 150 mg PO DAILY August 11, 2024 12:00am aspirin 81 mg delayed release oral tablet (20 sources) Platelet Aggregation Inhibitor, Nonsteroidal Anti-inflammatory Drug Start: 10-07-2019 Aspirin Buf,CaCarb-MgCarb- MgO, 81 MG TABS Take by mouth 0 10/07/2019 Active Start: 09-21-2019 End: 05-12-2024 take 1 tablet by mouth once daily Aspirin 81 mg tablet,delayed release (DR/EC) Discontinued 81 mg PO DAILY 1 September 21, 2019 12:00am May 12, 2024 10:59am Comment on above: Take 1 tablet by [facility] once daily. atenolol 50 mg oral tablet (20 sources) beta-Adrenergic Silvia Start: 12-13-2024 take 1 tablet by mouth once Atenolol 50 mg tablet Active 50 mg PO ONCE December 13, 2024 10:04am Start: 01-26-2020 End: 12-13-2024 take 1 tablet by mouth twice daily Atenolol 50 mg tablet Discontinued 50 mg PO TWICE A DAY 180 3 December 22, 2023 8:04am December 13, 2024 10:05am Start: 09-14-2018 End: 10-26-2019 take 1 tablet by mouth twice daily Atenolol 50 mg tablet Discontinued 50 mg PO TWICE A DAY September 14, 2018 12:00am October 26, 2019 10:04am Comment on above: Take 50 mg by mouth twice daily. atorvastatin 80 mg oral tablet (4 sources) HMG-CoA Reductase Inhibitor Start: 10-08-19 atorvastatin (LIPITOR) 80 MG tablet Take 80 mg by mouth 0 10/08/2019 Active bisacodyl 10 mg rectal suppository (1 source) Stimulant Laxative Start: 10-07-19 take 10 mg rectal route once daily as needed for constipation 10 mg, Rectal, DAILY PRN, Constipation, Starting [facility] 10/07/19 at 1239 Second line therapy for constipation, After 24 hours, if no result from first line PRN therapy, give second line therapy in combination with first line therapy. Post-op Blood-Glucose Sensor (Dexcom G7 Sensor) device (3 sources) Start: 11-30-19 25 Blood-Glucose Sensor (Dexcom G7 Sensor) device Active 0 .Route 3 November 29, 2024 8:19am Diabetes mellitus Type 1 diabetes mellitus with hyperglycemia 1 sensor q 10 days Start: 05-12-2024 End: 11-29-2024 Blood-Glucose Sensor (Dexcom G7 Sensor) device Discontinued 0 .Route 3 May 12, 2024 1:00am November 29, 2024 8:19am Diabetes mellitus Type 1 diabetes mellitus with hyperglycemia 1 sensor q 10 days Start: 05-12-2024 Blood-Glucose Sensor (Dexcom G7 Sensor) device Active 0 .Route May 12, 2024 1:00am 1 sensor q 10 days Calcium (7 sources) Phosphate Binder, Calcium CALCIU M ORAL Take 1 tablet by mouth as needed. Active CALCIUM ORAL Zack e 1 tablet by mouth as needed. 0 Active take 1 tablet by mouth once nakul y CALCIUM ORAL Take 1 tablet by mouth once daily. 0 Active Comment on above: Take 1 tablet by susan th once daily. Take 1 tablet by susan th as needed. cholecalciferol, vitamin D3, (VITAMIN D3 ORAL) (7 sources) cholecalciferol, vitamin D3, (VITAMIN D3 ORAL) Take 1 tablet by mouth as needed. Take two gummies by mouth once daily. Active cholecalciferol, vitamin D3, (VITAMIN D3 ORAL) Take 1 tablet by mouth as needed. Take two gummies by mouth once daily. 0 Active cholecalciferol, vitamin D3, (VITAMIN D3 ORAL) Take two gummies by mouth once daily. 0 Active Comment on above: Take two gummies by mouth once daily. Take 1 tablet by susan th as needed. Take two gummies by mouth once daily. Continuous Blood Gluc Sensor (FREESTYLE AARTI 2 SENSOR SYSTM) [facility] (4 sources) Start: 04-28-2020 Continuous Blood Gluc Sensor (FREESTYLE AARTI 2 SENSOR SYSTM) [facility] Flash Glucose Sensor (Freestyle Aarti 2 Sensor) kit Flash Glucose Sensor (Freestyle Aarti 2 Sensor) kit Active 0 .ROUTE .MEDSUPPLY 2 April 28, 2020 2:13pm As directed 04-28-2020 [facility] ([id number]) 0 04/28/2020 Active Continuous Blood Gluc Sensor (FreeStyle Aarti 2 Sensor) [facility] (6 sources) Start: 04-20-2022 Continuous Blood Gluc Sensor (FreeStyle Aarti 2 Sensor) [facility] USE 1 SENSOR EVERY 14 DAYS 04/20/2022 Active Start: 04-20-2022 Continuous Blo od Gluc Sensor (FreeStyle Aarti 2 Sensor) [facility] USE 1 SENSOR EVERY 14 DAYS 0 04/20/2022 Active docusate sodium 50 mg / sennosides, custodial 8.6 mg oral tablet (5 sources) Start: 10-07-2019 take 2 tablets by mouth once daily sennosides-docusate sodium (SENOKOT-S) 8.6-50 MG tablet Take 2 tablets by mouth nightly For stool softener 0 10/12/2019 Active empagliflozin 25 mg oral tablet (1 source) Sodium-Glucose Cotransporter 2 Inhibitor Start: 08-11-2024 take 1 tablet by mouth once daily Empagliflozin (Jardiance) 25 mg tablet Active 25 mg PO daily 30 August 11, 2024 12:00am Diabetes mellitus Type 1 diabetes mellitus with hyperglycemia glucagon (rdna) 1 mg injection (1 source) Antihypoglycemic Agent Start: 10-07-2019 take 1 mL intravenous route every hour 1 mg, Intramuscular, PRN, Low blood sugar, Blood glucose less than 70 mg/dL and patient NOT ALERT or NPO and does not have IV access., Starting [facility] 10/07/19 at 1239 After administration, attempt intravenous access and start D5W at 100 mL/hr. Repeat blood glucose in 15 minutes x2 and notify provider. glucose 0.4 mg/mg oral gel (3 sources) Start: 10-07-2019 15 g, Oral, PRN, Low blood sugar, Starting [facility] 10/07/19 at 1239 If blood glucose less than 50 mg/dL and patient ALERT and TOLERATING PO, give 2 tubes glucose gel. If blood glucose less than 70 mg/dL and patient ALERT and TOLERATING PO, give 1 tube glucose gel. Repeat blood glucose in 15 minutes. If blood glucose is less than 70 mg/dL, repeat treatment and recheck blood glucose in 15 minutes x2 and notify provider. Post-op Start: 10-07-2019 12.5 g, Intrav enous, PRN, Low blood sugar, Blood glucose less than 70 mg/dL and patient NOT ALERT or NPO., Starting [facility] 10/07/19 at 1239 If patient does not respond within 5 minutes, repeat dose x1. Start D5W at 100 mL/hour until ordering provider can be reached. Repeat blood glucose in 15 minutes. If blood glucose is less than 70 mg/dL, repeat treatment and recheck blood glucose in 15 minutes x2. If using Glucostabilizer, dose as instructed per system. Post-op Start: 10-07-2019 100 mL/hr, Int ravenous, at 100 mL/hr, PRN, Low blood sugar, Starting [facility] 10/07/19 at 1239 Start infusion following administration of dextrose 50% or glucagon. Post-op 1 ml heparin sodium, porcine 5000 unt/ml prefilled syringe (1 source) Unfractionated Heparin, Anti-coagulant Start: 10-11-2019 heparin (porcine) injection 5,000 Units ibuprofen 200 mg oral tablet (1 source) Nonsteroidal Anti-inflammatory Drug Start: 08-21-2020 take 2 tablets by mouth every six hours ibuprofen (ADVIL) 200 MG tablet Take 2 tablets by mouth every 6 hours 20 tablet 0 08/21/2020 Active 3 ml insulin aspart, human 100 unt/ml pen injector (2 sources) Insulin Analog Start: 04-06-2024 Insulin Aspart U-100 (Novolog Flexpen U-100 Insulin) 100 unit/mL (3 mL) insulin pen Active 40 U SC THREE TIMES A DAY 108 April 06, 2024 1:00am 3 ml insulin degludec 100 unt/ml pen injector (20 sources) Insulin Analog Start: 03-20-2023 Tresiba FlexTouch 100 UNIT/ML injection 03/20/2023 Active Start: 03-26-2022 End: 04-04-2023 inject 40 [IU] by subcutaneous injection once daily TRESIBA FLEXTOUCH U-100 100 unit/mL (3 mL) injection pen Inject 40 Units subcutaneously once daily. 0 03/26/2022 04/04/2023 Discontinued Start: 12-31-2021 End: 01-01-2022 Insulin Degludec (Tresiba Flextouch U-100) 100 unit/mL (3 mL) insulin pen Discontinued 40 U SC DAILY December 31, 2021 12:00am January 01, 2022 1:16pm Start: 08-23-2021 End: 08-07-2022 Insulin Degludec (Tresiba Flextouch U-100) 100 unit/mL (3 mL) insulin pen Discontinued 60 U SC DAILY 10 11January 01, 2022 1:14pm August 07, 2022 2:22pm Comment on above: Inject 40 Units subc utaneously once daily. 3 ml insulin glargine 100 unt/ml pen injector (20 sources) Insulin Analog Start: 04-06-2024 End: 10-20-2024 Insulin Glargine (Lantus Solostar U-100 Insulin) 100 unit/mL (3 mL) insulin pen Active 45 U SC EVERY EVENING 45 October 20, 2024 4:17pm Start: 04-28-2020 End: 12-31-2021 Insulin Glargine (Lantus Delmy ostar U-100 Insulin) 100 unit/mL (3 mL) insulin pen Discontinued 30 U SC DAILY April 28, 2020 2:07pm December 31, 2021 3:38pm Start: 03-04-2020 End: 05-15-2023 inject 45 [IU] by subcutaneous injection once daily insulin glargine (Lantus) 100 UNIT/ML injection INJECT 45 UNITS SUBCUTANEOUSLY NIGHTLY 0 03/04/2020 05/15/2023 Discontinued (Med list cleanup) Start: 10-12-2019 insulin glargi ne (LANTUS) 100 UNIT/ML injection vial Inject 45 Units into the skin nightly 1 vial 3 10/12/2019 Active Start: 10-11-2019 insulin glargi ne (LANTUS) injection vial 45 Units Start: 10-10-2019 insulin glargi ne (LANTUS) injection vial 6 Units Start: 10-09-2019 End: 10-10-2019 insulin glargine (LANTUS) injection vial 50 Units Start: 09-14-2018 End: 04-28-2020 Insulin Glargine (Lantus Delmy ostar U-100 Insulin) 100 unit/mL (3 mL) insulin pen Discontinued 50 U SC DAILY September 14, 2018 12:00am April 28, 2020 2:08pm End: 10-12-2019 insulin glargine (LANTUS) 10 0 UNIT/ML injection vial Inject 40 Units into the skin nightly 0 10/12/2019 Discontinued (REORDER) L.Acidoph, Paracasei,B. Lact is (Digestive Advantage Advanced) 10 billion cell capsule (3 sources) Start: 09-18-2022 L.Acidoph, Par acasei,B. Lactis (Digestive Advantage Advanced) 10 billion cell capsule Active CELL PO September 18, 2022 12:00am Start: 09-18-2022 L.Acidoph, Par acasei,B. Lactis (Digestive Advantage Advanced) 10 billion cell capsule Active CELL PO September 17, 2022 11:00pm levothyroxine sodium 0.125 mg oral capsule (20 sources) l-Thyroxine Start: 06-20-2023 take 1 capsule by mouth once daily Levothyroxine 125 mcg capsule Active 125 ug PO DAILY June 20, 2023 1:00am Start: 04-29-2020 End: 06-20-2023 take 1 tablet by mouth once daily Levothyroxine 137 mcg tablet Discontinued 137 ug PO DAILY July 28, 2020 1:00am June 20, 2023 3:36pm Start: 01-26-2020 End: 11-13-2020 Levothyroxine 125 mcg capsul e Discontinued 137 ug PO DAILY January 26, 2020 3:53pm November 13, 2020 3:50pm Start: 10-10-2019 levothyroxine (SYNTHROID) tablet 125 mcg Start: 09-14-2018 End: 01-26-2020 take 1 capsule by mouth once daily Levothyroxine 125 mcg capsule Discontinued 125 ug PO DAILY September 14, 2018 12:00am January 26, 2020 3:55pm Comment on above: Take 137 mcg by mout h once daily. lidocaine 0.04 mg/mg medicated patch (2 sources) Antiarrhythmic, Amide Local Anesthetic Start: 10-07-19 lidocaine 4 % external patch 1 patch magnesium hydroxide 80 mg/ml oral suspension (1 source) Start: 10-07-19 take 30 mL by mouth once daily as needed for constipation 30 mL, Oral, DAILY PRN, Constipation, Starting [facility] 10/07/19 at 1239 First line therapy for constipation. Post-op 50 ml magnesium sulfate 40 mg/ml injection (1 source) Start: 10-07-19 2 g, Intravenous, at 25 mL/hr, Administer over 2 Hours, PRN, Other, hypomagnesemia, Starting [facility] 10/07/19 at 1239 Via central line - If patient has acute/chronic renal failure do not initiate protocol, call MD for management. Mag level &nbs p; Dose Less than or equal to 1.0 &nb sp; Give 2 grams at 1 gm/hr. Call MD. Monitor BP and EKG. Repeat Magnesium level 60 minutes post infusion. 1.1 - 1.5 &nb sp; &nb sp; &nb sp; &nb sp; &nb sp; Give 2 grams at 1 gm/hr. Repeat Magnesium level 60 minutes post infusion 1.6 - 1.9 &nb sp; &nbsp ; &n bsp; &nbsp ; &n bsp; &nbsp ; &n bsp; &nbsp ; Give 2 grams at 1 gm/hr. Repeat Magnesium level 60 minutes post infusion Greater than 1.9 &nb sp; &nb sp; &nb sp; No coverage Post-op Melatonin (1 source) Start: 10-11-19 20 melatonin ER tablet 2 mg MOUNJARO 7.5 mg/0.5 mL pen injector (4 sources) Start: 09-18-19 23 inject 1 dose by subcutaneous injection every week MOUNJARO 7.5 mg/0.5 mL pen injector INJECT 1 DOSE (7.5MG) SUBCUTANEOUSLY ONCE A WEEK 09/17/2022 Active Start: 09-17-2022 inject 1 dose by sub cutaneous injection every week MOUNJARO 7.5 mg/0.5 mL pen injector INJECT 1 DOSE (7.5MG) SUBCUTANEOUSLY ONCE A WEEK 0 09/17/2022 Active Comment on above: INJECT 1 DOSE (7.5MG ) SUBCUTANEOUSLY ONCE A WEEK ondansetron 4 mg disintegrating oral tablet (2 sources) Serotonin-3 Receptor Antagonist Start: 021 take 1 tablet by mouth every eight hours as needed for nausea ondansetron (ZOFRAN-ODT) 4 MG disintegrating tablet Take 1 tablet by mouth every 8 hours as needed for Nausea or Vomiting 10 tablet 1 08/21/2020 Active Start: 10-07-2019 4 mg, Intraven ous, EVERY 8 HOURS PRN, Nausea, Starting [facility] 10/07/19 at 1239, Post-op oxyCODONE hydrochloride 5 mg oral tablet (2 sources) Opioid Agonist Start: 08-21-2020 take 1 tablet by mouth every six hours as needed for pain oxyCODONE (ROXICODONE) 5 MG immediate release tablet TAKE 1 TABLET BY MOUTH EVERY 6 HOURS NEEDED FOR PAIN 0 08/21/2020 Active Start: 10-09-2019 End: 10-11-2019 oxyCODONE (ROXICODONE) immed iate release tablet 5 mg petrolatum 0.41 mg/mg topica l ointment (1 source) Start: 08-28-2020 mineral oil-hy drophilic petrolatum (HYDROPHOR) ointment Apply topically as needed. 1 Tube 1 08/28/2020 Active 50 ml potassium chloride 0.4 meq/ml injection (2 sources) Start: 10-07-2019 20 mEq, Oral, PRN, hypokalemia, Starting [facility] 10/07/19 at 1239 If patient is intubated or not tolerating PO use PRN IV replacement protocol Potassium level Dose < 3.0 = Give 20 mEq x 3 doses 3.0-3.6 = Give 20 mEq x 2 doses Recheck potassium level 2 hour after replacement given, place order for lab under [place] If potassium level < 3 after 1st replacement: Call surgeon. Do not crush or break. Post-op Start: 10-07-2019 20 mEq, Intrav enous, at 50 mL/hr, Administer over 60 Minutes, PRN, Other, hypokalemia, Starting [facility] 10/07/19 at 1239 Via central line - do not use if urine output below 30 mL/hr or if patient is on total parental nutrition, peritoneal or hemodialysis. Potassium Level Dose: Less than or equal to 3.5-Give 20mEq x 2 doses. Less than or equal to 2-Call provider. Repeat potassium level 2 hour post-infusion and follow protocol as indicated. Post-op 3 ml sodium chloride 9 mg/ml injection (5 sources) Start: 10-07-2019 10 mL, Intrave nous, EVERY 12 HOURS SCHEDULED (2 times per day), First dose on [facility] 10/07/19 at 2100, Post-op Start: 10-07-2019 take 10 mL intravenous route o nce 10 mL, Intravenous, PRN, Line Care, Starting [facility] 10/07/19 at 1239 After every IV line use Post-op Start: 10-07-2019 End: 10-11-2019 Intravenous, at 20 mL/hr, CONTINUOUS, Starting [facility] 10/07/19 at 1300 20 ml/hr to SP(introducer) and WT on [place] Eliana Catheter; once [place] discontinued run at 20 ml/hr through SP(introducer) Post-op Start: 10-07-2019 End: 10-07-2019 250 mL (2.95 mL/kg), Intrave nous, at 1,500 mL/hr, Administer over 10 Minutes, PRN, 2nd fluid bolus challenge: PAD below goal (18) and Low CI (less than 2.0) and/or Low BP (less than 90 SBP and/or less than 60 MAP) and/or Low urine output (less than 30ml/hr) per hemodynamic goals, Starting [facility] 10/07/19 at 1239, For 1 dose If first fluid bolus challenge unsuccessful at reaching hemodynamic goals use second fluid bolus challenge if hgb greater than 7.5 and PAD below goal (18) and Low CI (less than 2.0) and/or Low BP (less than 90 SBP and/or less than 60 MAP) and/or Low urine output (less than 30ml/hr) per hemodynamic goals Notify surgeon for further orders if bolus does not help reach hemodynamic goals If hgb less than 7.5 notify surgeon for orders. Post-op Start: 10-07-2019 End: 10-11-2019 0.9 % sodium chloride infusi on Tirzepatide (Mounjaro) 10 MG/0.5ML solution pen-injector (1 source) Start: 03-05-2023 Tirzepatide ([place] cranenjaro) 10 MG/0.5ML solution pen-injector 10 mg. 0 03/05/2023 Active Completed/Discontinued Medications Medication Drug Class(es) Dates Sig (Normalized) Sig (Original) 20 ml albumin human, custodial 250 mg/ml injection (2 sources) Human Serum Albumin Start: 10-07-2019 End: 10-07-2019 25 g, Intravenous, PRN, Other, first fluid bolus challenge PRN: PAD below goal (18) and Low CI (less than 2.0) and/or Low BP (less than 90 SBP and/or less than 60 MAP) and/or Low urine output (less than 30ml/hr) per hemodynamic goals, Starting [facility] 10/07/19 at 1239, For 1 dose Use if hgb greater than 7.5 and PAD below goal (18) and Low CI (less than 2.0) and/or Low BP (less than 90 SBP and/or less than 60 MAP) and/or Low urine output (less than 30ml/hr) per hemodynamic goals If hemodynamic goals unattained, proceed to second fluid bolus challenge. &nb sp; If hgb less than 7.5 notify surgeon for orders. Post-op Start: 10-07-2019 End: 10-07-2019 albumin human 25 % IV soluti on anastrozole 1 mg oral tablet (20 sources) Aromatase Inhibitor Start: 09-16-2019 End: 11-13-2020 take 1 tablet by mouth once daily Anastrozole 1 MG tablet Discontinued 1 mg PO DAILY November 04, 2019 12:00am December 24, 2019 8:53am Blood-Glucose Meter,Continuous (Dexcom G6 [employer]or) misc (4 sources) Start: 08-28-2022 End: 03-05-2023 Blood-Glucose Meter,Continuous (Dexcom G6 [employer]) misc Discontinued 0 .Route 1 August 28, 2022 12:00am March 05, 2023 8:13am As directed Start: 08-28-2022 End: 03-05-2023 Blood-Glucose Meter,Continuo us (Dexcom G6 [employer]) misc Discontinued 0 .Route 1 August 27, 2022 11:00pm March 05, 2023 7:13am As directed Blood-Glucose Sensor (Dexcom G6 Sensor) device (10 sources) Start: 02-06-2023 End: 02-06-2023 Blood-Glucose Sensor (Dexcom G6 Sensor) device Discontinued 0 .Route 3 February 06, 2023 3:13pm February 06, 2023 4:00pm Diabetes mellitus Type 2 diabetes mellitus without complications 1 sensor q 10 days Start: 02-06-2023 End: 02-06-2023 Blood-Glucose Sensor (Dexcom G6 Sensor) device Discontinued 0 .Route 3 February 06, 2023 3:13pm February 06, 2023 4:00pm 1 sensor q 10 days Start: 02-06-2023 End: 02-06-2023 Blood-Glucose Sensor (Dexcom G6 Sensor) device Discontinued 0 .Route 3 February 06, 2023 2:13pm February 06, 2023 3:00pm 1 sensor q 10 days Start: 08-28-2022 End: 02-06-2023 Blood-Glucose Sensor (Dexcom G6 Sensor) device Discontinued 0 .Route 3 August 28, 2022 12:00am February 06, 2023 3:13pm Diabetes mellitus Type 2 diabetes mellitus without complications 1 sensor q 10 days Start: 08-28-2022 End: 02-06-2023 Blood-Glucose Sensor (Dexcom G6 Sensor) device Discontinued 0 .Route 3 August 28, 2022 12:00am February 06, 2023 3:13pm 1 sensor q 10 days Start: 08-28-2022 End: 02-06-2023 Blood-Glucose Sensor (Dexcom G6 Sensor) device Discontinued 0 .Route 3 August 27, 2022 11:00pm February 06, 2023 2:13pm 1 sensor q 10 days Blood-Glucose Sensor (Freest yle Aarti 3 Sensor) device (11 sources) Start: 11-25-2023 End: 05-12-2024 Blood-Glucose Sensor (Freest yle Aarti 3 Sensor) device Discontinued 0 .Route 2 November 25, 2023 3:30pm May 12, 2024 11:52am Diabetes mellitus Type 2 diabetes mellitus without complications 1 sensor q 14 days Start: 11-25-2023 End: 05-12-2024 Blood-Glucose Sensor (Freest yle Aarti 3 Sensor) device Discontinued 0 .Route 2 November 25, 2023 3:30pm May 12, 2024 11:52am 1 sensor q 14 days Start: 06-19-2023 End: 11-25-2023 Blood-Glucose Sensor (Freest yle Aarti 3 Sensor) device Discontinued 0 .Route 2 June 19, 2023 9:01am November 25, 2023 3:30pm Diabetes mellitus Type 2 diabetes mellitus without complications 1 sensor q 14 days Start: 06-19-2023 End: 11-25-2023 Blood-Glucose Sensor (Freest yle Aarti 3 Sensor) device Discontinued 0 .Route 2 June 19, 2023 9:01am November 25, 2023 3:30pm 1 sensor q 14 days Start: 06-19-2023 Blood-Glucose Sensor (Freestyle Aarti 3 Sensor) device Active 0 .Route 2 June 19, 2023 9:01am 1 sensor q 14 days Start: 03-05-2023 End: 06-19-2023 Blood-Glucose Sensor (Freest yle Aarti 3 Sensor) device Discontinued 0 .Route 2 March 05, 2023 12:00am June 19, 2023 9:01am Diabetes mellitus Type 2 diabetes mellitus without complications 1 sensor q 14 days Start: 03-05-2023 End: 06-19-2023 Blood-Glucose Sensor (Freest yle Aarti 3 Sensor) device Discontinued 0 .Route 2 March 05, 2023 12:00am June 19, 2023 9:01am 1 sensor q 14 days Start: 03-05-2023 Blood-Glucose Sensor (Freestyle Aarti 3 Sensor) device Active 0 .Route 2 March 04, 2023 11:00pm 1 sensor q 14 days Blood-Glucose Transmitter (Dexcom G6 Transmitter) device (5 sources) Start: 08-28-2022 End: 03-05-2023 Blood-Glucose Transmitter (Dexcom G6 Transmitter) device Discontinued 0 .Route 1 August 28, 2022 12:00am March 05, 2023 8:13am Diabetes mellitus Type 2 diabetes mellitus without complications 1 transmitter q 90 days Start: 08-28-2022 End: 03-05-2023 Blood-Glucose Transmitter (D excom G6 Transmitter) device Discontinued 0 .Route 1 August 28, 2022 12:00am March 05, 2023 8:13am 1 transmitter q 90 days Start: 08-28-2022 End: 03-05-2023 Blood-Glucose Transmitter (D excom G6 Transmitter) device Discontinued 0 .Route 1 August 27, 2022 11:00pm March 05, 2023 7:13am 1 transmitter q 90 days Blood-Glucose,Parcel Contractor,Cont (Dexcom G6 Parcel Contractor) misc (1 source) Start: 08-28-2022 End: 03-05-2023 Blood-Glucose,Parcel Contractor,Cont (Dexcom G6 Parcel Contractor) misc Discontinued 0 .Route 1 August 28, 2022 12:00am March 05, 2023 8:13am Diabetes mellitus Type 2 diabetes mellitus without complications As directed calcium gluconate 2 g in sodium chloride 0.9 % 100 mL IVPB (1 source) Start: 10-07-2019 2 g, Intravenous, PRN, Starting Teagan 10/07/19 at 1239, Until Discontinued Via central line. Infuse over 2 hours, Repeat serum ionized calcium 2 [address] infusion completed. Place order for recheck under surgeon Post-op ceFAZolin 2000 mg injection (1 source) Cephalospo rin Antibacter ial Start: 10-07-2019 End: 10-08-2019 2 g, Intravenous, EVERY 8 HOURS, 5 doses, First dose on Fri10/07/19 at 1300, Last dose on Fri10/08/19 at 2100, Post-op cephalexin 500 mg oral capsule (7 sources) Cephalospo rin Antibacter ial Start: 11-06-2021 End: 11-16-2021 take 1 capsule by mouth every twelve hours Cephalexin 500 mg capsule Discontinued 500 mg PO Q12H 20 10 0 November 06, 2021 12:00am November 15, 2021 12:00am November 16, 2021 12:03am chlorhexidine gluconate 1.2 mg/ml mouthwash (3 sources) Start: 10-07-2019 End: 10-10-2019 take 15 mL by mouth twice daily 15 mL, Mouth/Throat, 2 TIMES DAILY, First dose on Fri10/07/19 at 1300, For 7 days Rinse and spit. Do not swallow. Post-op Start: 10-07-2019 End: 10-07-2019 chlorhexidine (PERIDEX) 0.12 % solution 15 mL Start: 09-28-2019 End: 09-28-2019 take 15 mL by mouth once at bedtime chlorhexidine (PERIDEX) 0.12 % solution Take 15 mLs by mouth once for 1 dose Swish and spit after brushing/flossing teeth prior to bedtime. 118 mL 0 09/28/2019 09/28/2019 ciprofloxacin 500 mg oral tablet (5 sources) Quinolone Antimicrobial Start: 12-17-2023 End: 05-12-2024 take 1 tablet by mouth twice daily Ciprofloxacin Hcl 500 mg tablet Discontinued 500 mg PO TWICE A DAY 10 0 December 17, 2023 12:00am May 12, 2024 10:59am Start: 09-22-2023 End: 09-27-2023 take 1 tablet by mouth every twelve hours Ciprofloxacin Hcl 250 mg tablet Discontinued 250 mg PO Q12H 10 5 0 September 22, 2023 12:00am September 26, 2023 12:00am September 27, 2023 12:15am clopidogrel 75 mg oral tablet (12 sources) P2Y12 Platelet Inhibitor Start: 09-21-2019 End: 09-24-2019 Clopidogrel (Plavix) 75 mg tablet Discontinued 75 mg PO DAILY 30 3 September 21, 2019 12:00am September 24, 2019 11:10am Take 4 tablets on Day 1 then 1 tablet each day End: 10-12-2019 take 1 tablet by mouth once daily clopidogrel (PLAVIX) 75 MG tablet Take 75 mg by mouth daily Patient stopped taking on September 23 prior to surgery. 0 10/12/2019 Discontinued (Stop Taking at Discharge) Dulaglutide (20 sources) GLP-1 Receptor Agonist Start: 08-07-2022 End: 09-17-2022 Dulaglutide (Trulicity) 4.5 mg/0.5 mL pen injector Discontinued 4.5 mg SC MO August 07, 2022 2:22pm September 17, 2022 11:10am Start: 08-07-2022 End: 09-17-2022 Dulaglutide (Trulicity) 4.5 mg/0.5 mL pen injector Discontinued 4.5 MG SC MO August 07, 2022 2:22pm September 17, 2022 11:10am Start: 08-07-2022 End: 09-17-2022 Dulaglutide (Trulicity) 4.5 mg/0.5 mL pen injector Discontinued 4.5 MG SC MO August 07, 2022 1:22pm September 17, 2022 10:10am Start: 02-28-2022 End: 08-07-2022 Dulaglutide (Trulicity) 4.5 mg/0.5 mL pen injector Discontinued 4.5 mg SC EVERY WEEK 2 February 28, 2022 12:00am August 07, 2022 2:22pm Diabetes mellitus Type 2 diabetes mellitus without complications Start: 02-28-2022 End: 08-07-2022 Dulaglutide (Trulicity) 4.5 mg/0.5 mL pen injector Discontinued 4.5 mg SC EVERY WEEK 2 February 28, 2022 12:00am August 07, 2022 2:22pm Start: 02-28-2022 End: 08-07-2022 Dulaglutide (Trulicity) 4.5 mg/0.5 mL pen injector Discontinued 4.5 MG SC EVERY WEEK 2 February 28, 2022 12:00am August 07, 2022 2:22pm Start: 02-28-2022 End: 08-07-2022 Dulaglutide (Trulicity) 4.5 mg/0.5 mL pen injector Discontinued 4.5 MG SC EVERY WEEK 2 February 27, 2022 11:00pm August 07, 2022 1:22pm Start: 02-28-2022 Dulaglutide (T rulicity) 4.5 mg/0.5 mL pen injector Active 4.5 MG SC EVERY WEEK 2 February 27, 2022 11:00pm Start: 11-08-2021 End: 02-28-2022 Dulaglutide (Trulicity) 3 mg /0.5 mL pen injector Discontinued 3 mg SC EVERY WEEK 2 3 November 08, 2021 1:49pm February 28, 2022 8:31am Start: 11-08-2021 End: 02-28-2022 Dulaglutide (Trulicity) 3 mg /0.5 mL pen injector Discontinued 3 mg SC EVERY WEEK 2 November 08, 2021 1:49pm February 28, 2022 8:31am Start: 11-08-2021 End: 02-28-2022 Dulaglutide (Trulicity) 3 mg /0.5 mL pen injector Discontinued 3 MG SC EVERY WEEK 2 November 08, 2021 1:49pm February 28, 2022 8:31am Start: 11-08-2021 End: 02-28-2022 Dulaglutide (Trulicity) 3 mg /0.5 mL pen injector Discontinued 3 MG SC EVERY WEEK 2 November 08, 2021 12:49pm February 28, 2022 7:31am Start: 11-08-2021 Dulaglutide (T rulicity) 3 mg/0.5 mL pen injector Active 3 MG SC EVERY WEEK 2 November 08, 2021 1:49pm Start: 07-05-2021 End: 11-08-2021 Dulaglutide (Trulicity) 3 mg /0.5 mL pen injector Discontinued 3 mg SC EVERY WEEK 2 3 July 05, 2021 6:08pm November 08, 2021 1:50pm Start: 07-05-2021 End: 11-08-2021 Dulaglutide (Trulicity) 3 mg /0.5 mL pen injector Discontinued 3 mg SC EVERY WEEK 2 July 05, 2021 6:08pm November 08, 2021 1:50pm Start: 07-05-2021 End: 11-08-2021 Dulaglutide (Trulicity) 3 mg /0.5 mL pen injector Discontinued 3 MG SC EVERY WEEK 2 July 05, 2021 5:08pm November 08, 2021 12:50pm Start: 07-05-2021 End: 11-08-2021 Dulaglutide (Trulicity) 3 mg /0.5 mL pen injector Discontinued 3 MG SC EVERY WEEK 2 July 05, 2021 6:08pm November 08, 2021 1:50pm Start: 07-05-2021 Dulaglutide (T rulicity) 3 mg/0.5 mL pen injector Active 3 MG SC EVERY WEEK 2 July 05, 2021 6:08pm Start: 02-23-2021 End: 07-05-2021 Dulaglutide (Trulicity) 3 mg /0.5 mL pen injector Discontinued 3 MG SC EVERY WEEK 2 February 23, 2021 8:41am July 05, 2021 6:08pm Start: 02-23-2021 End: 07-05-2021 Dulaglutide (Trulicity) 3 mg /0.5 mL pen injector Discontinued 3 mg SC EVERY WEEK 2 3 February 23, 2021 12:00am July 05, 2021 6:08pm Start: 02-23-2021 End: 07-05-2021 Dulaglutide (Trulicity) 3 mg /0.5 mL pen injector Discontinued 3 mg SC EVERY WEEK 2 February 23, 2021 12:00am July 05, 2021 6:08pm Start: 02-23-2021 End: 07-05-2021 Dulaglutide (Trulicity) 3 mg /0.5 mL pen injector Discontinued 3 MG SC EVERY WEEK 2 February 22, 2021 11:00pm July 05, 2021 5:08pm Start: 02-23-2021 End: 07-05-2021 Dulaglutide (Trulicity) 3 mg /0.5 mL pen injector Discontinued 3 MG SC EVERY WEEK 2 February 23, 2021 12:00am July 05, 2021 6:08pm Start: 05-20-2019 End: 10-04-2022 Dulaglutide (Trulicity) 1.5 mg/0.5 mL pen injector Discontinued 1.5 mg SC EVERY WEEK September 16, 2019 12:00am February 23, 2021 8:43am Comment on above: Inject 1.5 mg subcut aneously one time a week. 1 ml evolocumab 140 mg/ml auto-injector (20 sources) PCSK9 Inhibitor Start: 021 End: 024 inject 140 mg by subcutaneous injection every other week Evolocumab (Repatha Sureclick) 140 mg/mL pen injector Discontinued 0 .ROUTE .COMPLEX 2 April 23, 2023 9:09am May 13, 2024 11:07am INJECT 140MG SUBCUTANEOUSLY EVERY TWO WEEKS Start: 01-27-2020 End: 04-04-2020 Evolocumab (Repatha Syringe) 140 mg/mL syringe Discontinued 140 mg SC every 2 weeks 06 06January 27, 2020 12:00am April 04, 2020 5:18pm evolocumab (REPA JASON SURECLICK SUBCUTANEOUS) One subcutaneous injection every 2 weeks. Active evolocumab (REPA JASON SURECLICK SUBCUTANEOUS) One subcutaneous injection every 2 weeks. 0 Active Comment on above: One subcutaneous inj ection every 2 weeks. exemestane 25 mg oral tablet (13 sources) Aromatase Inhibitor Start: 2 End: 3 take 1 tablet by mouth after mealtime Exemestane 25 mg Tablet Discontinued 25 mg PO AT BEDTIME August 07, 2022 12:00am March 05, 2023 8:12am must administer after a meal Comment on above: Take 1 tablet by susan th once daily. TAKE AFTER A MEAL. famotidine 40 mg oral tablet (6 sources) Histamine-2 Receptor Antagonist Start: 2 End: 4 take 1 tablet by mouth once daily famotidine (Pepcid) 40 MG tablet Take 40 mg by mouth daily. 04/11/2022 05/13/2024 Discontinued (Med list cleanup) Flash Glucose Sensor (Freestyle Aarti 2 Sensor) kit (20 sources) Start: 3 End: 4 Flash Glucose Sensor (Freestyle Aarti 2 Sensor) kit Discontinued 0 .ROUTE .MEDSUPPLY 2 February 06, 2023 4:00pm May 12, 2024 10:59am 1 sensor q 14 days Start: 02-06-2023 End: 05-12-2024 Flash Glucose Sensor (Freest yle Aarti 2 Sensor) kit Discontinued 0 .ROUTE .MEDSUPPLY 2 February 06, 2023 4:00pm May 12, 2024 10:59am 1 sensor q 14 days Start: 02-06-2023 Flash Glucose Sensor (Freestyle Aarti 2 Sensor) kit Active 0 .ROUTE .MEDSUPPLY 2 February 06, 2023 4:00pm 1 sensor q 14 days Start: 02-06-2023 Flash Glucose Sensor (Freestyle Aarti 2 Sensor) kit Active 0 .ROUTE .MEDSUPPLY 2 February 06, 2023 3:00pm 1 sensor q 14 days Start: 03-04-2022 End: 02-06-2023 Flash Glucose Sensor (Freest yle Aarti 2 Sensor) kit Discontinued 0 .ROUTE .MEDSUPPLY 2 March 04, 2022 1:58pm February 06, 2023 4:00pm 1 sensor q 14 days Start: 03-04-2022 End: 02-06-2023 Flash Glucose Sensor (Freest yle Aarti 2 Sensor) kit Discontinued 0 .ROUTE .MEDSUPPLY 2 March 04, 2022 1:58pm February 06, 2023 4:00pm 1 sensor q 14 days Start: 03-04-2022 End: 02-06-2023 Flash Glucose Sensor (Freest yle Aarti 2 Sensor) kit Discontinued 0 .ROUTE .MEDSUPPLY 2 March 04, 2022 12:58pm February 06, 2023 3:00pm 1 sensor q 14 days Start: 03-04-2022 Flash Glucose Sensor (Freestyle Aarti 2 Sensor) kit Active 0 .ROUTE .MEDSUPPLY 2 March 04, 2022 12:58pm 1 sensor q 14 days Start: 03-26-2021 End: 03-04-2022 Flash Glucose Sensor (Freest yle Aarti 2 Sensor) kit Discontinued 0 .ROUTE .MEDSUPPLY 2 March 26, 2021 9:22am March 04, 2022 1:58pm As directed Start: 03-26-2021 End: 03-04-2022 Flash Glucose Sensor (Freest yle Aarti 2 Sensor) kit Discontinued 0 .ROUTE .MEDSUPPLY 2 March 26, 2021 9:22am March 04, 2022 1:58pm As directed Start: 03-26-2021 End: 03-04-2022 Flash Glucose Sensor (Freest yle Aarti 2 Sensor) kit Discontinued 0 .ROUTE .MEDSUPPLY 2 March 26, 2021 8:22am March 04, 2022 12:58pm As directed Start: 03-26-2021 Flash Glucose Sensor (Freestyle Aarti 2 Sensor) kit Active 0 .ROUTE .MEDSUPPLY 2 March 26, 2021 9:22am As directed Start: 04-28-2020 End: 03-26-2021 Flash Glucose Sensor (Freest yle Aarti 2 Sensor) kit Discontinued 0 .ROUTE .MEDSUPPLY 2 April 28, 2020 3:13pm March 26, 2021 9:22am As directed Start: 04-28-2020 End: 03-26-2021 Flash Glucose Sensor (Freest yle Aarti 2 Sensor) kit Discontinued 0 .ROUTE .MEDSUPPLY 2 April 28, 2020 1:00am March 26, 2021 9:22am As directed Start: 04-28-2020 End: 03-26-2021 Flash Glucose Sensor (Freest yle Aarti 2 Sensor) kit Discontinued 0 .ROUTE .MEDSUPPLY 2 April 28, 2020 12:00am March 26, 2021 8:22am As directed Start: 04-28-2020 End: 03-26-2021 Flash Glucose Sensor (Freest yle Aarti 2 Sensor) kit Discontinued 0 .ROUTE .MEDSUPPLY 2 April 28, 2020 1:00am March 26, 2021 9:22am As directed 4 ml furosemide 10 mg/ml injection (1 source) Loop Diuretic Start: 10-09-2019 End: 10-09-2019 furosemide (LASIX) injection 40 mg Insulin Degludec (Tresiba Flextouch U-100) 100 unit/mL (3 mL) insulin pen (16 sources) Start: 03-30-2024 End: 04-06-2024 Insulin Degludec (Tresiba Flextouch U-100) 100 unit/mL (3 mL) insulin pen Discontinued 45 U SC AT BEDTIME 45 March 30, 2024 3:42pm April 06, 2024 9:05am Diabetes mellitus Type 1 diabetes mellitus with hyperglycemia Start: 03-30-2024 End: 04-06-2024 Insulin Degludec (Tresiba Fl extouch U-100) 100 unit/mL (3 mL) insulin pen Discontinued 45 U SC AT BEDTIME 45 March 30, 2024 3:42pm April 06, 2024 9:05am Start: 08-29-2023 End: 03-30-2024 Insulin Degludec (Tresiba Fl extouch U-100) 100 unit/mL (3 mL) insulin pen Discontinued 45 U SC AT BEDTIME 45 August 29, 2023 5:30pm March 30, 2024 3:42pm Diabetes mellitus Type 1 diabetes mellitus with hyperglycemia Start: 08-29-2023 End: 03-30-2024 Insulin Degludec (Tresiba Fl extouch U-100) 100 unit/mL (3 mL) insulin pen Discontinued 45 U SC AT BEDTIME August 29, 2023 5:30pm March 30, 2024 3:42pm Start: 08-29-2023 Insulin Deglud ec (Tresiba Flextouch U-100) 100 unit/mL (3 mL) insulin pen Active 45 UNIT SC AT BEDTIME 45 August 29, 2023 5:30pm Start: 10-24-2022 End: 08-29-2023 Insulin Degludec (Tresiba Fl extouch U-100) 100 unit/mL (3 mL) insulin pen Discontinued 45 U SC AT BEDTIME 45 October 24, 2022 1:02pm August 29, 2023 5:30pm Diabetes mellitus Type 1 diabetes mellitus with hyperglycemia Start: 10-24-2022 End: 08-29-2023 Insulin Degludec (Tresiba Fl extouch U-100) 100 unit/mL (3 mL) insulin pen Discontinued 45 U SC AT BEDTIME October 24, 2022 1:02pm August 29, 2023 5:30pm Start: 10-24-2022 End: 08-29-2023 Insulin Degludec (Tresiba Fl extouch U-100) 100 unit/mL (3 mL) insulin pen Discontinued 45 UNIT SC AT BEDTIME October 24, 2022 1:02pm August 29, 2023 5:30pm Start: 10-24-2022 Insulin Deglud ec (Tresiba Flextouch U-100) 100 unit/mL (3 mL) insulin pen Active 45 UNIT SC AT BEDTIME October 24, 2022 12:02pm Start: 08-07-2022 End: 10-24-2022 Insulin Degludec (Tresiba Fl extouch U-100) 100 unit/mL (3 mL) insulin pen Discontinued 40 U SC AT BEDTIME August 07, 2022 2:22pm October 24, 2022 1:04pm Start: 08-07-2022 End: 10-24-2022 Insulin Degludec (Tresiba Fl extouch U-100) 100 unit/mL (3 mL) insulin pen Discontinued 40 UNIT SC AT BEDTIME August 07, 2022 2:22pm October 24, 2022 1:04pm Start: 08-07-2022 End: 10-24-2022 Insulin Degludec (Tresiba Fl extouch U-100) 100 unit/mL (3 mL) insulin pen Discontinued 40 UNIT SC AT BEDTIME August 07, 2022 1:22pm October 24, 2022 12:04pm insulin glargine,hum.rec.anlog (LANTUS SOLOSTAR U-100 INSULIN SUBCUTANEOUS) (3 sources) End: 04-12-2022 inject 40-50 [IU] by subcutaneous injection once daily at bedtime insulin glargine,hum.rec.anlog (LANTUS SOLOSTAR U-100 INSULIN SUBCUTANEOUS) Inject 40-50 Units subcutaneously daily at bedtime. 0 04/12/2022 Discontinued inject 40-50 [IU] by subcutaneous injection once daily at bedtime insulin glargine,hum.rec.anlog (LANTUS SOLOSTAR U-100 INSULIN SUBCUTANEOUS) Inject 40-50 Units subcutaneously daily at bedtime. 0 Active Comment on above: Inject 40-50 Units s ubcutaneously daily at bedtime. 3 ml insulin lispro 100 unt/ml pen injector (20 sources) Insulin Analog Start: 12-31-2021 End: 04-06-2024 Insulin Lispro (Humalog Kwikpen Insulin) 100 unit/mL insulin pen Discontinued 40 U SC THREE TIMES A DAY 108 December 19, 2023 8:47am April 06, 2024 9:05am Start: 09-06-2021 End: 12-31-2021 Insulin Lispro (Humalog Kwik pen Insulin) 100 unit/mL insulin pen Discontinued 60 U SC THREE TIMES A DAY 54 September 06, 2021 12:00am December 31, 2021 3:41pm Start: 09-03-2021 End: 09-06-2021 Insulin Lispro (Humalog U-10 0 Insulin) 100 unit/mL solution Discontinued 60 U SC THREE TIMES A DAY 50 3 September 03, 2021 12:00am September 06, 2021 4:27pm Start: 08-28-2021 End: 09-06-2021 Insulin Lispro (Humalog Kwik pen Insulin) 200 unit/mL (3 mL) insulin pen Discontinued 60 U SC 3 times per day with meals 27 August 28, 2021 12:00am September 06, 2021 4:26pm Start: 08-23-2021 End: 08-28-2021 Insulin Lispro (Humalog Kwik pen Insulin) 100 unit/mL insulin pen Discontinued 60 U SC .TIDCM 18 August 23, 2021 12:00am August 28, 2021 8:07am Start: 08-15-2020 inject 40 [IU] by lopez bcutaneous injection three times daily insulin lispro (HumaLOG) 100 UNIT/ML injection INJECT 40 UNITS SUBCUTANEOUSLY THREE TIMES DAILY 08/15/2020 Active Start: 04-28-2020 End: 08-28-2021 Insulin Lispro (Humalog Teo or Kwikpen U-100) 100 unit/mL insulin pen, half-unit Discontinued 40 U SC THREE TIMES A DAY April 28, 2020 2:07pm August 28, 2021 8:07am 40,20,40 Start: 04-24-2020 End: 04-28-2020 Insulin Lispro (Humalog Teo or Kwikpen U-100) 100 unit/mL insulin pen, half-unit Discontinued 30 U SC THREE TIMES A DAY April 24, 2020 4:52pm April 28, 2020 2:08pm Start: 10-12-2019 insulin lispro (HUMALOG) 100 UNIT/ML injection vial Inject 18 Units into the skin 3 times daily (before meals) Plus medium dose Sliding Scale 1 vial 3 10/12/2019 Active Start: 10-09-2019 End: 10-12-2019 insulin lispro (HUMALOG) inj ection vial 0-12 Units Start: 10-09-2019 insulin lispro (HUMALOG) injection vial 18 Units Start: 10-09-2019 insulin lispro (HUMALOG) injection vial 10 Units Start: 09-14-2018 End: 04-24-2020 Insulin Lispro (Humalog Teo or Kwikpen U-100) 100 unit/mL insulin pen, half-unit Discontinued 30.5 U SC THREE TIMES A DAY September 14, 2018 12:00am April 24, 2020 4:52pm Comment on above: Inject 30 Units subc utaneously three times daily before meals. Inject 30 Units subc utaneously three times a day before meals. Sliding scale insulin regular (MYXREDLIN) 100 units in sodium chloride 0.9 % 100 ml infusion (1 source) Start: End: take 1 [IU] intravenous route every hour 1 Units/hr (1 mL/hr), Intravenous, at 1 mL/hr, CONTINUOUS, Starting [facility] 10/07/19 at 1300 Target glucose 90-120mg/dl; if glucose <40 or >500 draw confirmation and send to lab; While on insulin drip follow hypoglycemic orders as outlined below. o Blood Glucose Initial Administration Rate/Additional IV Insulin Bolus protocol > 90-120mg/dl - 1 unit/hr 121-150mg/dl - 2 units/hr 150-180mg/dl - 2.5 units/hr 181- 240mg/dl - 3.5 units/hr + 4 unit bolus 241-300mg/dl - 5 units/hr + 6 unit bolus 301-360mg/dl - 6.5 units/hr + 8 unit bolus > 360mg/dl - 8 units/hr + 10 unit bolus o Glucose by finger stick 30 minutes after infusion has started, then per Floor Blood Glucose guidelines below o When BGT is between 90-120mg/dl with < 15mg/dl change and insulin rate remains unchanged x 3 hours, then may test every 2 hours. o Adjust insulin infusion rate in response to blood glucose levels as follows: o < 60mg/dl: BGT check in 30 minutes: 1. Stop infusion. 2. Give 25ml dextrose 50% IVP, recheck BG in 30 mins When BG is > 80 and < 120mg/dl, restart drip at 50% of the previous rate, recheck in 30 minutes. If BG > 120, restart drip at 75% of the previous rate, recheck in 30 minutes o 60-69mg/dl: BGT check in 30 minutes: 1. Stop infusion. If previous BG > 100mg/dl give 25ml dextrose 50% IVP, recheck BG in 30 minutes. When BG > 80 and < 120mg/dl, restart drip at 50% of previous rate, recheck BG in 30 minutes. If BG > 120mg/dl or more restart drip at 75% of the previous rate, recheck BG in 30 minutes. o 70-89mg/dl: BGT check every 1 hour. Has BG dropped > 10mg/dl from the last BG? Yes: Decrease rate by 50% Has BG dropped from the last BG < 10mg/dl or = to 10mg/dl? Yes: decrease the rate by 0.5units/hr. If BG greater than or equal to the last test, maintain same rate. o 90-120mg/dl: BGT check in 1 hour. TITRATE DRIP RATE TO MAINTAIN THIS RANGE Has BG increased > 10mg/dl from the last BG? Yes: increase rate by 0.5units/hr. Has BG dropped from the last BG by more than 10mg/dl? Yes: decrease the rate by 0.5 units/hr: No: Same rate. o 121-150mg/dl: BGT check in 1 hour Has BG dropped 20-50mg/dl from last BG? Yes: Same rate. Has BG increased from last BG by > 20mg/dl? Yes: increase rate by 1.5 units/hr. Has BG dropped by more than 50mg/dl? Yes: decrease rate by 50%. Is BG within 20mg/dl of the last test? Yes: increase rate by 1 unit/hr. o 151-180mg/dl: BGT check every 1 hour Has BG dropped > 30mg/dl? Yes: same rate Has BG dropped from last BG by < 30 mg/dl OR is BG higher than the last test? Yes: increase rate by 1.5 units/hr. o 181-240mg/dl: BGT check in 1 hour Is BG 50-100mg/dl lower from the last BG? Yes: continue at the same rate. Is BG lower than the last BG by >100mg/dl? Yes: decrease rate by 25%. Is BG lower than the last BG by < 50mg/dl OR higher than the last test? Yes: bolus with 4 units insulin IV and increase rate by 2 units/hr. Note: If BG 181-240mg/dl and has not dropped after 3 consecutive increases in insulin, then bolus with 4 units and double the insulin rate. o > 240mg/dl: BGT check in 30 minutes Has BG dropped > 100mg/dl from last BG? Yes: same rate Is BG lower than the last test by < 100mg/dl OR higher than the last test? Yes: IV Bolus with regular insulin as per IV infusion Bolus dosage scale and double insulin drip rate. o > 300mg/dl: Continue to follow the appropriate interventions based on BGT and call the Pneumatic Tester. o Maximum insulin infusion drip rate may not exceed 30 units/hr; Insulin drip may NOT be discontinued unless approved by Pneumatic Tester. Discontinue all subcutaneous Insulin orders (if patient is on subcutaneous insulin). Post-op 24 hr isosorbide mononitrate 30 mg extended release oral tablet (12 sources) Nitrate Vasodilator Start: End: take 1 tablet by mouth once daily, then take 1 tablet by mouth every twenty-four hours Isosorbide Mononitrate 30 mg tablet extended release 24 hr Discontinued 30 mg PO DAILY 30 September 24, 2019 12:00am October 26, 2019 10:07am 1 ml ketorolac tromethamine 15 mg/ml cartridge (2 sources) Nonsteroidal Anti-inflammatory Drug, Cyclooxygenase Inhibitor Start: End: ketorolac (TORADOL) injection 15 mg L.Acidoph,Paracasei ,B.Animalis (Digestive Advantage Advanced) 10 billion cell capsule (2 sources) Start: 023 End: L.Acidoph,Paracasei, B.Animalis (Digestive Advantage Advanced) 10 billion cell capsule Discontinued NMA PO September 18, 2022 12:00am May 12, 2024 10:59am letrozole 2.5 mg oral tablet (20 sources) Aromatase Inhibitor Start: 021 End: Letrozole 2.5 mg tablet Discontinued NMA PO March 06, 2021 12:00am December 31, 2021 3:41pm Start: 07-28-2020 End: 11-13-2020 take 1 tablet by mouth once daily Letrozole 2.5 mg tablet Discontinued 2.5 mg PO DAILY July 28, 2020 1:00am November 13, 2020 3:50pm Comment on above: Take 1 tablet by suasn once daily. linezolid 600 mg oral tablet (9 sources) Oxazolidinone Antibacterial Start: 0 End: 0 take 1 tablet by mouth twice daily Linezolid 600 mg tablet Discontinued 600 mg PO TWICE A DAY September 16, 2019 12:00am September 21, 2019 2:37pm lisinopril 30 mg oral tablet (20 sources) Angiotensin Converting Enzyme Inhibitor Start: 4 take 1 tablet by mouth once daily Lisinopril Active 0 .ROUTE .COMPLEX 90 July 18, 2023 9:03am Take 1 tablet by mouth once daily Start: 06-08-2021 End: 07-21-2024 take 1 tablet by mouth once daily Lisinopril 30 mg tablet Discontinued 0 .ROUTE .COMPLEX 90 3 July 18, 2023 9:03am July 21, 2024 12:26pm Take 1 tablet by mouth once daily Start: 04-29-2020 End: 06-08-2021 take 1 tablet by mouth once daily Lisinopril 20 mg tablet Discontinued 20 mg PO DAILY July 28, 2020 1:00am June 08, 2021 3:07pm Start: 12-24-2019 End: 11-13-2020 take 2 tablets by mouth once daily Lisinopril 10 mg tablet Discontinued 20 mg PO DAILY December 24, 2019 8:32am November 13, 2020 3:51pm Start: 12-24-2019 End: 11-13-2020 take 20 mg by mouth once daily Lisinopril Discontinued 20 MG PO DAILY December 24, 2019 8:32am November 13, 2020 3:51pm Start: 11-09-2019 End: 12-24-2019 take 1 tablet by mouth once daily Lisinopril 10 mg tablet Discontinued 10 mg PO DAILY 24 04November 09, 2019 10:32am December 24, 2019 8:33am Start: 10-26-2019 End: 11-09-2019 take 1 tablet by mouth once daily Lisinopril 5 mg tablet Discontinued 5 mg PO DAILY 24 04October 26, 2019 12:00am November 09, 2019 10:32am Start: 09-14-2018 End: 10-26-2019 take 1 tablet by mouth once daily Lisinopril 30 mg tablet Discontinued 30 mg PO DAILY September 14, 2018 12:00am October 26, 2019 10:05am Comment on above: Take 20 mg by mouth once daily. 24 hr metFORMIN hydrochloride 500 mg extended release oral tablet (20 sources) Biguanide Start: 2 End: 2 take 1 tablet by mouth twice daily at mealtime Metformin 500 mg tablet Discontinued 500 mg PO 2 times per day with meals 60 6 August 23, 2021 9:37am December 31, 2021 3:40pm Start: 03-12-2020 End: 05-13-2024 take 1 tablet by mouth once daily Metformin 500 mg tablet extended release 24 hr Discontinued 500 mg PO DAILY December 31, 2021 12:00am May 12, 2024 10:59am Start: 09-14-2018 End: 04-12-2024 take 1 tablet by mouth once daily Metformin 500 mg tablet Discontinued 500 mg PO DAILY September 14, 2018 12:00am August 23, 2021 9:38am Comment on above: Take 500 mg by mouth daily with breakfast. metoprolol tartrate 25 mg oral tablet (20 sources) beta-Adrenergic Silvia Start: 0 End: 0 take 1 tablet by mouth twice daily Metoprolol Tartrate 25 mg tablet Discontinued 25 mg PO TWICE A DAY January 26, 2020 3:53pm January 26, 2020 4:14pm Start: 12-27-2019 End: 01-26-2020 take 2 tablets by mouth twice daily Metoprolol Tartrate 25 mg tablet Discontinued 50 mg PO TWICE A DAY 60 December 27, 2019 4:03pm January 26, 2020 3:55pm Start: 12-27-2019 End: 01-26-2020 take 50 mg by mouth twice daily Metoprolol Tartrate Di scontinued 50 MG PO TWICE A DAY 60 December 27, 2019 4:03pm January 26, 2020 3:55pm Start: 10-11-2019 End: 12-27-2019 take 1 tablet by mouth twice daily Metoprolol Tartrate 25 mg tablet Discontinued 25 mg PO TWICE A DAY 60 October 26, 2019 10:31am December 27, 2019 4:03pm Start: 10-08-2019 End: 10-11-2019 metoprolol tartrate (LOPRESS OR) tablet 12.5 mg modafinil 200 mg oral tablet (20 sources) Sympathomimetic-like Agent Start: 09-14-2018 End: 08-11-2024 take 1 tablet by mouth once daily Modafinil 200 mg tablet Discontinued 200 mg PO DAILY September 14, 2018 12:00am August 11, 2024 10:14am modafinil (PROVI ROVERTO) 100 mg tablet Take one tablet by mouth at noon if needed Active Comment on above: Take 200 mg by mouth once daily. Take one tablet by m outh at noon if needed mupirocin 0.02 mg/mg topical ointment (3 sources) RNA Synthetase Inhibitor Antibacterial Start: 10-07-2019 End: 10-10-2019 Nasal, 2 TIMES DAILY, First dose on [facility] 10/07/19 at 1300, For 4 days, Post-op Start: 09-28-2019 End: 10-05-2019 mupirocin (BACTROBAN) 2 % oi ntment Apply liberal amount of ointment on end of q tip and swab to each nostril the night before surgery 22 g 0 09/28/2019 10/05/2019 Active nitrofurantoin, macrocrystals 100 mg oral capsule (3 sources) Nitrofuran Antibacterial Start: 09-19-2023 End: 09-22-2023 take 1 capsule by mouth twice daily at mealtime Nitrofurantoin Macrocrystal 100 mg capsule Discontinued 100 mg PO TWICE A DAY 10 5 0 September 19, 2023 12:00am September 23, 2023 12:00am September 22, 2023 10:59am Cystitis Cystitis, unspecified without hematuria must administer with a meal/food nitrofurantoin, macrocrystals 25 mg / nitrofurantoin, monohydrate 75 mg oral capsule (2 sources) Nitrofuran Antibacterial Start: 12-17-2023 End: 12-17-2023 take 1 capsule by mouth every twelve hours at mealtime Nitrofurantoin Monohyd/M-Cryst (Macrobid) 100 mg capsule Discontinued 100 mg PO Q12H 10 5 0 December 17, 2023 12:00am December 21, 2023 12:00am December 17, 2023 3:18pm must administer with a meal/food nitroPRUSSide (NIPRIDE) 50 mg in dextrose 5 % 250 mL infusion (1 source) Start: 10-07-2019 End: 10-11-2019 0.1 mcg/kg/min 84.8 kg (2.544 mL/hr, rounded to 2.5 mL/hr), Intravenous, at 2.5 mL/hr, CONTINUOUS PRN, Initiate if SBP greater 130 mmHg, Starting [facility] 10/07/19 at 1239 Initial rate: 0.1 mcg/kg/min Max rate: 2 mcg/kg/min Tit rate by 0.25 mcg/kg/min no faster than 15 minutes to maintain goal SBP less than 130 mmHg but greater than 90 mmHg Infusion Titrations: If SBP falls below 90 mmHg, wean drip by 0.25 mcg/kg/min no faster than 15 minutes to achieve hemodynamic goals (SBP greater than 90 but less than 130). May titrate outside of defined titration parameters (increments and frequency) under direction of provider. If hemodynamic goal unattained at instructed max dose, notify provider. Post-op pantoprazole 40 mg delayed release oral tablet (10 sources) Proton Pump Inhibitor Start: 07-17-2022 End: 07-21-2024 take 1 tablet by mouth at bedtime Pantoprazole (Protonix) 40 mg tablet,delayed release (DR/EC) Discontinued 40 mg PO AT BEDTIME August 07, 2022 2:22pm July 21, 2024 12:00pm polyethylene glycol [id number] mg powder for oral solution (1 source) Osmotic Laxative Start: 10-07-2019 End: 10-11-2019 17 g, Oral, DAILY, First dose on [facility] 10/07/19 at 1300, Post-op pravastatin sodium 80 mg oral tablet (20 sources) HMG-CoA Reductase Inhibitor Start: 11-24-2020 End: 03-06-2021 Pravastatin 80 mg tablet Discontinued 40 mg PO AT BEDTIME November 24, 2020 4:05pm March 06, 2021 2:14pm Start: 11-24-2020 End: 03-06-2021 take 40 mg by mouth at bedtime Pravastatin Discontinue d 40 MG PO AT BEDTIME November 24, 2020 4:05pm March 06, 2021 2:14pm Start: 07-28-2020 End: 11-24-2020 take 1 tablet by mouth at bedtime Pravastatin 80 mg tablet Discontinued 80 mg PO AT BEDTIME November 13, 2020 3:51pm November 24, 2020 4:08pm Start: 07-28-2020 End: 11-13-2020 Pravastatin 80 mg tablet Discontinued {tbl} PO July 28, 2020 1:00am November 13, 2020 3:51pm Start: 09-16-2019 End: 01-27-2020 take 1 tablet by mouth at bedtime Pravastatin 80 mg tablet Discontinued 80 mg PO AT BEDTIME September 16, 2019 12:00am January 27, 2020 2:33pm 100 ml propofol 10 mg/ml injection (1 source) General Anesthetic Start: 10-07-2019 End: 10-07-2019 10 mcg/kg/min 84.8 kg (5.088 mL/hr, rounded to 5.1 mL/hr), Intravenous, at 5.1 mL/hr, CONTINUOUS, Starting [facility] 10/07/19 at 1300 For sedation, titrate to RASS +1 to -1 Dose Range: 5 to 50 mcg/kg/min Max dose: 50 mcg/kg/min Contact physician if max dose does not achieve desired response If RASS 1 point below goal - decrease rate by 5mcg/kg/min no faster than every 5 min If RASS 2 points below goal- decrease rate by 10mcg/kg/min no faster than every 5 min If RASS at goal, continue current rate If RASS 2 or more points above goal - increase rate by 10mcg/kg/min no faster than every 5 min If RASS 1 point above goal - increase rate by 5mcg/kg/min no faster than every 5 min If after titration rate change patient exhibits adverse hemodynamic response, next titration rate change may be adjusted by one-half of the previous rate change If patient fails sedation interruption, resume propofol titration at 50% of previous rate Do not administer through the same I.V. catheter with blood or plasma. Tubing and any unused portions of propofol vials should be discarded after 12 hours. Post-op Semaglutide (2 sources) Start: 01-08-2024 End: 04-06-2024 Semaglutide (Ozempic) 0.25 m g or 0.5 mg (2 mg/3 mL) pen injector Discontinued 0.5 mg SC EVERY WEEK 3 3 January 08, 2024 12:00am April 06, 2024 9:08am Start: 01-08-2024 End: 04-06-2024 Semaglutide (Ozempic) 0.25 m g or 0.5 mg (2 mg/3 mL) pen injector Discontinued 0.5 mg SC EVERY WEEK 3 January 08, 2024 12:00am April 06, 2024 9:08am Tirzepatide (Mounjaro) 10 mg/0.5 mL pen injector (8 sources) Start: 09-22-2023 End: 12-11-2023 Tirzepatide (Mounjaro) 10 mg /0.5 mL pen injector Discontinued 10 mg SC EVERY WEEK 2 3 September 22, 2023 12:00am December 11, 2023 11:33am Start: 09-22-2023 End: 12-11-2023 Tirzepatide (Mounjaro) 10 mg /0.5 mL pen injector Discontinued 10 mg SC EVERY WEEK 2 September 22, 2023 12:00am December 11, 2023 11:33am Start: 09-22-2023 Tirzepatide (M ounjaro) 10 mg/0.5 mL pen injector Active 10 MG SC EVERY WEEK 2 September 22, 2023 12:00am Start: 03-05-2023 End: 07-28-2023 Tirzepatide (Mounjaro) 10 mg /0.5 mL pen injector Discontinued 10 mg SC EVERY WEEK 2 March 05, 2023 12:00am July 28, 2023 1:48pm Diabetes mellitus Type 2 diabetes mellitus without complications Start: 03-05-2023 End: 07-28-2023 Tirzepatide (Mounjaro) 10 mg /0.5 mL pen injector Discontinued 10 mg SC EVERY WEEK 2 March 05, 2023 12:00am July 28, 2023 1:48pm Start: 03-05-2023 End: 07-28-2023 Tirzepatide (Mounjaro) 10 mg /0.5 mL pen injector Discontinued 10 MG SC EVERY WEEK 2 March 05, 2023 12:00am July 28, 2023 1:48pm Start: 03-05-2023 Tirzepatide (M ounjaro) 10 mg/0.5 mL pen injector Active 10 MG SC EVERY WEEK March 04, 2023 11:00pm Tirzepatide (Mounjaro) 10 MG/0.5ML solution pen-injector (1 source) Start: 03-05-2023 End: 05-13-2024 Tirzepatide (Mounjaro) 10 MG/0.5ML solution pen-injector 10 mg. 03/05/2023 05/13/2024 Discontinued (Med list cleanup) Tirzepatide (Mounjaro) 12.5 mg/0.5 mL pen injector (8 sources) Start: 07-30-2023 End: 12-11-2023 Tirzepatide (Mounjaro) 12.5 mg/0.5 mL pen injector Discontinued 12.5 mg SC EVERY WEEK 2 July 30, 2023 2:17pm December 11, 2023 11:33am Type 2 diabetes mellitus Type 2 diabetes mellitus with hyperglycemia prison (current) use of insulin Start: 07-30-2023 End: 12-11-2023 Tirzepatide (Mounjaro) 12.5 mg/0.5 mL pen injector Discontinued 12.5 mg SC EVERY WEEK 2 July 30, 2023 2:17pm December 11, 2023 11:33am Start: 07-30-2023 Tirzepatide (M ounjaro) 12.5 mg/0.5 mL pen injector Active 12.5 MG SC EVERY WEEK 2 July 30, 2023 2:17pm Start: 07-28-2023 End: 07-30-2023 Tirzepatide (Mounjaro) 12.5 mg/0.5 mL pen injector Discontinued 12.5 mg SC EVERY WEEK 2 July 28, 2023 1:00am July 30, 2023 2:18pm Start: 07-28-2023 End: 07-30-2023 Tirzepatide (Mounjaro) 12.5 mg/0.5 mL pen injector Discontinued 12.5 mg SC EVERY WEEK 2 July 28, 2023 1:00am July 30, 2023 2:18pm Start: 07-28-2023 End: 07-30-2023 Tirzepatide (Mounjaro) 12.5 mg/0.5 mL pen injector Discontinued 12.5 MG SC EVERY WEEK 2 July 28, 2023 1:00am July 30, 2023 2:18pm Tirzepatide (Mounjaro) 2.5 mg/0.5 mL pen injector (12 sources) Start: 05-12-2024 End: 06-01-2024 Tirzepatide (Mounjaro) 2.5 mg/0.5 mL pen injector Discontinued 2.5 mg SC EVERY WEEK 2 3 May 12, 2024 1:00am June 01, 2024 1:57pm Diabetes mellitus Type 1 diabetes mellitus with hyperglycemia for 4 weeks Start: 05-12-2024 End: 06-01-2024 Tirzepatide (Mounjaro) 2.5 m g/0.5 mL pen injector Discontinued 2.5 mg SC EVERY WEEK 2 May 12, 2024 1:00am June 01, 2024 1:57pm for 4 weeks Start: 10-24-2022 End: 10-24-2022 Tirzepatide (Mounjaro) 2.5 m g/0.5 mL pen injector Discontinued 2.5 mg SC EVERY WEEK 2 3 October 24, 2022 1:03pm October 24, 2022 3:26pm Diabetes mellitus Type 1 diabetes mellitus with hyperglycemia Start: 10-24-2022 End: 10-24-2022 Tirzepatide (Mounjaro) 2.5 m g/0.5 mL pen injector Discontinued 2.5 mg SC EVERY WEEK 2 October 24, 2022 1:03pm October 24, 2022 3:26pm Start: 10-24-2022 End: 10-24-2022 Tirzepatide (Mounjaro) 2.5 m g/0.5 mL pen injector Discontinued 2.5 MG SC EVERY WEEK 2 October 24, 2022 1:03pm October 24, 2022 3:26pm Start: 10-24-2022 End: 10-24-2022 Tirzepatide (Mounjaro) 2.5 m g/0.5 mL pen injector Discontinued 2.5 MG SC EVERY WEEK 2 October 24, 2022 12:03pm October 24, 2022 2:26pm Start: 09-18-2022 End: 10-24-2022 Tirzepatide (Mounjaro) 2.5 m g/0.5 mL pen injector Discontinued 2.5 mg SC EVERY WEEK September 18, 2022 12:00am October 24, 2022 1:04pm Start: 09-18-2022 End: 10-24-2022 Tirzepatide (Mounjaro) 2.5 m g/0.5 mL pen injector Discontinued 2.5 MG SC EVERY WEEK September 18, 2022 12:00am October 24, 2022 1:04pm Start: 09-18-2022 End: 10-24-2022 Tirzepatide (Mounjaro) 2.5 m g/0.5 mL pen injector Discontinued 2.5 MG SC EVERY WEEK September 17, 2022 11:00pm October 24, 2022 12:04pm Tirzepatide (Mounjaro) 5 mg/ 0.5 mL pen injector (7 sources) Start: 06-01-2024 End: 07-21-2024 Tirzepatide (Mounjaro) 5 mg/ 0.5 mL pen injector Discontinued 5 mg SC EVERY WEEK 2 2 June 01, 2024 1:00am July 21, 2024 12:00pm Start: 06-01-2024 End: 07-21-2024 Tirzepatide (Mounjaro) 5 mg/ 0.5 mL pen injector Discontinued 5 mg SC EVERY WEEK 2 June 01, 2024 1:00am July 21, 2024 12:00pm Start: 08-28-2022 End: 09-17-2022 Tirzepatide (Mounjaro) 5 mg/ 0.5 mL pen injector Discontinued 5 mg SC EVERY WEEK 2 3 August 28, 2022 12:00am September 17, 2022 11:10am Type 2 diabetes mellitus Type 2 diabetes mellitus without complications Start: 08-28-2022 End: 09-17-2022 Tirzepatide (Mounjaro) 5 mg/ 0.5 mL pen injector Discontinued 5 mg SC EVERY WEEK 2 August 28, 2022 12:00am September 17, 2022 11:10am Start: 08-28-2022 End: 09-17-2022 Tirzepatide (Mounjaro) 5 mg/ 0.5 mL pen injector Discontinued 5 MG SC EVERY WEEK 2 August 28, 2022 12:00am September 17, 2022 11:10am Start: 08-28-2022 End: 09-17-2022 Tirzepatide (Mounjaro) 5 mg/ 0.5 mL pen injector Discontinued 5 MG SC EVERY WEEK 2 August 27, 2022 11:00pm September 17, 2022 10:10am Tirzepatide (Mounjaro) 7.5 mg/0.5 mL pen injector (14 sources) Start: 04-06-2024 End: 05-12-2024 Tirzepatide (Mounjaro) 7.5 mg/0.5 mL pen injector Discontinued 7.5 mg SC EVERY WEEK 2 3 April 06, 2024 1:00am May 12, 2024 10:59am Start: 04-06-2024 End: 05-12-2024 Tirzepatide (Mounjaro) 7.5 m g/0.5 mL pen injector Discontinued 7.5 mg SC EVERY WEEK 2 April 06, 2024 1:00am May 12, 2024 10:59am Start: 12-11-2023 End: 01-08-2024 Tirzepatide (Mounjaro) 7.5 m g/0.5 mL pen injector Discontinued 7.5 mg SC EVERY WEEK 2 December 11, 2023 12:00am January 08, 2024 7:24am Diabetes mellitus Type 1 diabetes mellitus with hyperglycemia Start: 12-11-2023 End: 01-08-2024 Tirzepatide (Mounjaro) 7.5 m g/0.5 mL pen injector Discontinued 7.5 mg SC EVERY WEEK 2 December 11, 2023 12:00am January 08, 2024 7:24am Start: 10-24-2022 End: 03-05-2023 Tirzepatide (Mounjaro) 7.5 m g/0.5 mL pen injector Discontinued 7.5 mg SC EVERY WEEK 2 October 24, 2022 12:00am March 05, 2023 8:29am Diabetes mellitus Type 1 diabetes mellitus with hyperglycemia Start: 10-24-2022 End: 03-05-2023 Tirzepatide (Mounjaro) 7.5 m g/0.5 mL pen injector Discontinued 7.5 mg SC EVERY WEEK 2 October 24, 2022 12:00am March 05, 2023 8:29am Start: 10-24-2022 End: 03-05-2023 Tirzepatide (Mounjaro) 7.5 m g/0.5 mL pen injector Discontinued 7.5 MG SC EVERY WEEK 2 October 24, 2022 12:00am March 05, 2023 8:29am Start: 10-24-2022 End: 03-05-2023 Tirzepatide (Mounjaro) 7.5 m g/0.5 mL pen injector Discontinued 7.5 MG SC EVERY WEEK 2 October 23, 2022 11:00pm March 05, 2023 7:29am Start: 09-17-2022 End: 09-18-2022 Tirzepatide (Mounjaro) 7.5 m g/0.5 mL pen injector Discontinued 7.5 mg SC EVERY WEEK 2 September 17, 2022 12:00am September 18, 2022 3:00pm Start: 09-17-2022 End: 09-18-2022 Tirzepatide (Mounjaro) 7.5 m g/0.5 mL pen injector Discontinued 7.5 mg SC EVERY WEEK 2 September 17, 2022 12:00am September 18, 2022 3:00pm Start: 09-17-2022 End: 09-18-2022 Tirzepatide (Mounjaro) 7.5 m g/0.5 mL pen injector Discontinued 7.5 MG SC EVERY WEEK 2 September 17, 2022 12:00am September 18, 2022 3:00pm Start: 09-17-2022 End: 09-18-2022 Tirzepatide (Mounjaro) 7.5 m g/0.5 mL pen injector Discontinued 7.5 MG SC EVERY WEEK 2 September 16, 2022 11:00pm September 18, 2022 2:00pm traZODone hydrochloride 50 mg oral tablet (15 sources) Serotonin Reuptake Inhibitor Start: 09-16-2019 End: 10-26-2019 take 1 tablet by mouth at bedtime as needed for pain Trazodone 50 mg tablet Discontinued 50 mg PO AT BEDTIME as needed for Pain Or Fever September 16, 2019 12:00am October 26, 2019 10:07am Problems Active Problems Problem Classification Problem Date Documented Date Episodic/Chronic Cancer of breast (20 sources) Malignant neoplasm of central part of female breast; Translations: [Malignant neoplasm of female breast] Onset: 10-23-2018 07-27-2020 Chronic Coronary atherosclerosis and other heart disease (20 sources) Multi vessel coronary artery disease; Translations: [Coronary arteriosclerosis in [place] artery] Onset: 10-07-2019 Resolved: 03-28-2020 10-07-2019 Chronic Coronary atherosclerosis and other heart disease (11 sources) History of coronary artery bypass grafting; Translations: [Presence of aortocoronary bypass graft] Onset: 10-07-2019 10-07-2019 Episodic Diabetes mellitus with complications (3 sources) Hyperglycemia due to type 2 diabetes mellitus; Translations: [Type 2 diabetes mellitus with hyperglycemia] Onset: 10-07-2019 03-09-2022 Chronic Diabetes mellitus without complication (20 sources) Type 2 diabetes mellitus; Translations: [Type 2 diabetes mellitus without complication] Onset: 07-07-2018 10-07-2019 Chronic Disorders of lipid metabolism (20 sources) Mixed hyperlipidemia; Translations: [Pure hypercholesterolemia] Onset: 10-23-2018 03-30-2020 Chronic Esophageal disorders (5 sources) Gastroesophageal reflux disease; Translations: [Gastro-esophageal reflux disease without esophagitis] 07-18-2022 Chronic Essential hypertension (20 sources) Essential hypertension; Translations: [Essential (primary) hypertension] Onset: 10-23-2018 03-30-2020 Chronic Immunizations and screening for infectious disease (14 sources) Patient encounter status; Translations: [Encounter for screening for COVID-19] 03-06-2021 Episodic Menopausal disorders (7 sources) Menopausal symptom; Translations: [Menopausal and female climacteric states] Onset: 03-07-2008 03-07-2008 Chronic Nausea and vomiting (9 sources) Vomiting; Translations: [Vomiting, unspecified] 03-06-2021 Episodic Nonmalignant breast conditions (11 sources) Lump in lower outer quadrant of left breast; Translations: [Unspecified lump in the left breast, lower outer quadrant] Onset: 03-07-2008 Resolved: 10-10-2010 Episodic Nonmalignant breast conditions (2 sources) Lump in lower outer quadrant of left breast; Translations: [Mass of lower outer quadrant of left breast] Nonspecific chest pain (9 sources) Chest pain; Translations: [Chest pain, unspecified] 09-21-2019 Episodic Other aftercare (2 sources) Encounter for follow-up examination after completed treatment for malignant neoplasm; Translations: [Encounter for follow-up examination after completed treatment for malignant neoplasm] Onset: 05-13-2024 Episodic Other connective tissue disease (9 sources) Cramp; Translations: [Cramp and spasm] 02-28-2022 Episodic Other connective tissue disease (3 sources) Cramp and spasm; Translations: [Cramp of limb] Episodic Other liver diseases (10 sources) Steatosis of liver; Translations: [Fatty (change of) liver, not elsewhere classified] 05-04-2020 Chronic Other nutritional; endocrine; and metabolic disorders (20 sources) Obesity; Translations: [Other obesity due to excess calories] Onset: 10-23-2018 03-30-2020 Chronic Other nutritional; endocrine; and metabolic disorders (6 sources) Obesity, unspecified; Translations: [Obesity, unspecified] Chronic Other nutritional; endocrine; and metabolic disorders (6 sources) Obesity caused by energy imbalance; Translations: [Other obesity due to excess calories] Onset: 10-23-2018 03-09-2022 Chronic Other screening for suspected conditions (not mental disorders or infectious disease) (20 sources) Other specified abnormal findings of blood chemistry; Translations: [Elevated liver function tests] 11-24-2020 Episodic Other upper respiratory disease (9 sources) Nasal congestion; Translations: [Nasal congestion] 05-24-2021 Episodic Other upper respiratory infections (8 sources) Acute sinusitis; Translations: [Acute sinusitis, unspecified] Episodic Residual codes; unclassified (14 sources) Hypersomnia; Translations: [Hypersomnia, unspecified] Onset: 10-23-2018 03-30-2020 Chronic Residual codes; unclassified (2 sources) History of bilateral mastectomy; Translations: [H/O bilateral mastectomy] Episodic Residual codes; unclassified (2 sources) Acquired absence of bilateral breasts and nipples; Translations: [Acquired absence of bilateral breasts and nipples] Onset: 05-13-2024 Episodic Thyroid disorders (20 sources) Acquired hypothyroidism; Translations: [Hypothyroidism] Onset: 01-01-2018 10-07-2019 Chronic Unclassified (1 source) Preprocedural examination done; Translations: [Pre-op evaluation] Unclassified (3 sources) History of cardiac catheterization; Translations: [History of cardiac catheterization] Onset: 09-24-2019 03-30-2020 Unclassified (3 sources) History of breast reconstruction; Translations: [History of breast reconstruction] Onset: 07-19-2019 03-30-2020 Urinary tract infections (4 sources) Cystitis; Translations: [Cystitis, unspecified without hematuria] 09-19-2023 Episodic Viral infection (10 sources) Viral disease; Translations: [Viral infection, unspecified] Episodic Past or Other Problems Problem Classification Problem Date Documented Date Episodic/Chronic Cancer of breast (20 sources) History of malignant neoplasm of breast; Translations: [Personal history of malignant neoplasm of breast] Onset: 05-26-2018 03-30-2020 Episodic Complication of device; implant or graft (7 sources) Infection of breast implant; Translations: [Infection and inflammatory reaction due to other internal prosthetic devices, implants and grafts, initial encounter] Onset: 05-03-2019 05-05-2019 Episodic Other aftercare (1 source) 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; Translations: [prison (current) use of insulin] Onset: 08-11-2024 Episodic Other female genital disorders (17 sources) Cyst of vagina; Translations: [Other specified noninflammatory disorders of vagina] Onset: 10-10-2010 03-30-2020 Episodic Other skin disorders (17 sources) Hirsutism; Translations: [Hirsutism] Onset: 10-10-2010 03-30-2020 Episodic Residual codes; unclassified (3 sources) Hypersomnia; Translations: [Hypersomnia] Onset: 10-23-2018 03-30-2020 Episodic Residual codes; unclassified (17 sources) Family history of breast cancer; Translations: [Family history of malignant neoplasm of breast] Onset: 03-29-2009 03-30-2020 Episodic Residual codes; unclassified (14 sources) History of breast reconstruction; Translations: [Other specified postprocedural states] Onset: 07-19-2019 03-30-2020 Episodic Residual codes; unclassified (16 sources) History of cardiac catheterization; Translations: [Other specified postprocedural states] Onset: 09-24-2019 03-30-2020 Episodic Comment on above: [place] Multivessel C AD; RECOMMENDATIONS: Surgery consult for coronary revascularization. Per PFM @ [facility] 09/24/2019 Skin and subcutaneous tissue infections (7 sources) Cellulitis; Translations: [Cellulitis, unspecified] Onset: 02-16-2019 02-22-2019 Episodic Results Test Name Value Interpretation Reference Range Facility Cardiology Visit Reporton Cardiology Visit Report [facility] [address] [place] [address] OFFICE VISIT Date of Service: 12/13/24 MR#: [id number] Acct: [id number] Name: RAMA BAIRD Rep #: [id number] : 1960 Provider: ALLY shepard Age/Sex: 64/F [place] [facility] [place] Status: Signed HPI HPI History of Present Illness Details: Patient is a 64-year-old white female who presents to the office today for a cardiovascular follow- up visit. Patient has a history of bypass graft surgery in September 2019. She received a BENITEZ to LAD a vein graft to diagonal vein graft to the OM1 branch of circumflex and a vein graft to the PDA of the right. Her presenting complaint was exertional left arm discomfort. She has had no recurrence of the symptoms. She has a history of hypertension, hyperlipidemia, and Type 2 diabetes. The patient status post bilateral mastectomy for breast cancer she did not receive any radiation treatment or chemo she had a multiple surgeries for breast reconstruction surgery back in 2018. From a cardiac standpoint, the patient is doing well. She denies any palpitations, chest pain, pressure or heaviness. She denies SOB, Orthopnea, and PND. She does not have bleeding issues; no blood in urine, stool, or nosebleeds. She denies any decrease in energy level, myalgias, or claudication. She does not have edema, or sudden weight gain. She denies lightheadedness, dizziness, syncopal or near syncopal episodes, and headaches. Intake Vital Signs 08/11/24 10:12/13/24 07:21 Height 5 ft 4 in 5 ft 4 in Weight: 174 lb BMI 29.8 BP 132/79 H Blood Pressure Location Lt brachial Position Sitting Respiration 18 Pulse 52 L Pulse Source Monitor Pulse Oximetry (%) 100 Intake Visit Reasons: 2 M FU Pathology Laboratory Technologist Required: No Is patient in pain?: No Allergies hydroxychloroquine (From Plaquenil) Allergy (Severe, Verified 12/13/24 10:09) face and eye swelling Penicillins (PCN) Allergy (Verified 12/13/24 10:09) Other Fdavnjz-VJS-XoC Reductase Inhibitor Adverse Reaction (Severe, Verified 12/13/24 10:09) Severe myalgias Medications ???Medication ???Instructions ???Recorded ???Confirmed ???Type levothyroxine 125 mcg capsule 125 mcg PO DAILY 06/20/23 12/13/24 History Novolog FlexPen U-100 Insulin 100 40 unit (0.4 mL) subcut TID #108 mL 04/06/24 12/13/24 Rx unit/mL (3 mL) subcutaneous (insulin aspart U-100) evolocumab 140 mg/mL subcutaneous See Rx Instructions .Route 12/13/24 Rx pen injector (Repatha Sofiaick) .COMPLEX #2 mL amlodipine 5 mg tablet 5 mg PO DAILY #90 tabs 07/21/24 Rx lisinopril 30 mg tablet See Rx Instructions .Route 5 12/13/24 Rx .COMPLEX #90 TABLETS armodafinil 150 mg tablet 150 mg PO DAILY 08/11/24 12/13/24 History empagliflozin 25 mg tablet 25 mg PO QDAY #30 tabs 08/11/24 Rx (Jardiance) Lantus Solostar U-100 Insulin 100 45 unit (0.45 mL) subcut QPM #45 mL 10/20/24 12/13/24 Rx unit/mL (3 mL) subcutaneous pen (insulin glargine) blood-glucose sensor (Dexcom G7 #3 ea 11/29/24 12/13/24 Rx Sensor device) atenolol 50 mg tablet 50 mg PO ONCE 12/13/24 12/13/24 Hi story Ejection fraction %: 65 Have you fallen in the past year?: No PFSH Medical History Post-menopausal Cancer Alcohol use Thyroid disease Diabetes Fatty liver Dietary restriction History of IBS Gastric reflux Non-smoker Leg cramps Hypertension History of echocardiogram History of stress test Cardiology follow-up encounter Positional vertigo Encounter for screening for COVID-19 Mixed hyperlipidemia Type 2 diabetes mellitus Pure hypercholesterolemia Hypothyroidism Chest pain Essential hypertension Abnormal stress test History of left breast cancer ( 09/2018) Abnormal mammogram of left breast Arthritis Surgical History History of cardiac catheterization History of left breast implant ( 07/2020) S/P CABG x 4 Hx of four vessel coronary artery bypass graft ( 09/2019) History of left heart catheterization (09/24/19) History of bilateral mastectomy History of left breast biopsy ( 09/2018) History of laparoscopic cholecystectomy History of tubal ligation Family History Mother Arthritis Breast cancer Diabetes Heart disease Hypertension Thyroid disorder High cholesterol Sister Breast cancer Grandmother Colon cancer Father Diabetes Heart disease Hypertension Cancer skin cancer Grandfather Cancer lung cancer Sister CAD (coronary artery disease) Presence of stent in coronary artery Social History ... Normal [facility] Endocrinology Visit Reporton 08-11-2024 Endocrinology Visit Report [facility] [address] [place] [address] [address] [place] [address] OFFICE VISIT Date of Service: 08/11/24 MR#: [id number] Acct: [id number] Name: RAMA BAIRD Rep #: [id number] : 1960 Provider: ALLY narvaez Age/Sex: 64/F [place] [facility] [place]: Signed Intake Vital Signs 05/12/24 09:59 07/21/24 10:57 08/11/24 10:09 Height 5 ft 4 in 5 ft 4 in 5 ft 4 in Weight: 182 lb 181 lb BMI 31.2 31.0 BP 162/79 H 128/79 H Blood Pressure Location Lt brachial Lt brachial Position Sitting Sitting Pulse 63 63 Pulse Source Monitor Monitor Pulse Oximetry (%) 97 97 Oxygen Delivery Method room air room air Intake Visit Reasons: 3 M FU Chief Complaint: f/u diabetes/hypothyroid Pathology Laboratory Technologist Required: No Accompanied by: Self Is patient in pain?: No Allergies hydroxychloroquine (From Plaquenil) Allergy (Severe, Verified 08/11/24 10:13) face and eye swelling Penicillins (PCN) Allergy (Verified 08/11/24 10:13) Other Tufllls-CJN-WlR Reductase Inhibitor Adverse Reaction (Severe, Verified 08/11/24 10:13) Severe myalgias Medications ???Medication ???Instructions ???Recorded ???Confirmed ???Type levothyroxine 125 mcg capsule 125 mcg PO DAILY 06/20/23 08/11/24 History atenolol 50 mg tablet 50 mg PO BID #180 tabs 12/22/23 Rx Lantus Solostar U-100 Insulin 100 45 unit (0.45 mL) subcut QPM #45 mL 04/06/24 08/11/24 Rx unit/mL (3 mL) subcutaneous pen (insulin glargine) Novolog FlexPen U-100 Insulin 100 40 unit (0.4 mL) subcut TID #108 mL 04/06/24 08/11/24 Rx unit/mL (3 mL) subcutaneous (insulin aspart U-100) blood-glucose sensor (Dexcom G7 #3 ea 05/12/24 08/11/24 Rx Sensor device) evolocumab 140 mg/mL subcutaneous See Rx Instructions .Route 08/11/24 Rx pen injector (Sonja Hill) .COMPLEX #2 mL amlodipine 5 mg tablet 5 mg PO DAILY #90 tabs 07/21/24 Rx lisinopril 30 mg tablet See Rx Instructions .Route 5 08/11/24 Rx .COMPLEX #90 TABLETS armodafinil 150 mg tablet 150 mg PO DAILY 08/11/24 08/11/24 History empagliflozin 25 mg tablet 25 mg PO QDAY #30 tabs 08/11/24 Rx (Jardiance) PFSH Medical History Post-menopausal Cancer Alcohol use Thyroid disease Diabetes Fatty liver Dietary restriction History of IBS Gastric reflux Non-smoker Leg cramps Hypertension History of echocardiogram History of stress test Cardiology follow-up encounter Positional vertigo Encounter for screening for COVID-19 Mixed hyperlipidemia Type 2 diabetes mellitus Pure hypercholesterolemia Hypothyroidism Chest pain Essential hypertension Abnormal stress test History of left breast cancer ( 09/2018) Abnormal mammogram of left breast Arthritis Surgical History History of cardiac catheterization History of left breast implant ( 07/2020) S/P CABG x 4 Hx of four vessel coronary artery bypass graft ( 09/2019) History of left heart catheterization (09/24/19) History of bilateral mastectomy History of left breast biopsy ( 09/2018) History of laparoscopic cholecystectomy History of tubal ligation Family History Mother Arthritis Breast cancer Diabetes Heart disease Hypertension Thyroid disorder High cholesterol Sister Breast cancer Grandmother Colon cancer Father Diabetes Heart disease Hypertension Cancer skin cancer Grandfather Cancer lung cancer Sister CAD (coronary artery disease) Presence of stent in coronary artery Social History Smoking Status: Never smoker alcohol intake: current alcohol intake frequency: a few times a month substance use type: does not use caffeine: No HPI HPI Chief Complaint: f/u diabetes/hypothyroid Details: RAMA BAIRD, is a 64 F who presents to the office today for evaluation and management of diabetes and hypothyroid. A1C today is 7.5%, improved from 05/12/24 at 8.6%. However; 90 day GMI is 8.6% Weight is stable. Currently taking Lantus once daily and Humalog 045-58 u TIDCM. She was previously on Mounjaro; however, it became unaffordable. She did trial other GLP-1s but continued to experience GI upset with use. CGM downloaded and reviewed- she is having post meal elevations. She denies any significantly episode of hypoglycemia that has required assistance from others. BP today is improved. Currently taking amlodipine 5 mg once daily, atenolol 50 mg BID, and Lisinopril 30 mg once daily. Amlodipine dose recently increased by cardiology. She is hypothyroid. Currently taking levothyroxine 125 mcg once (more content not included)... Normal [facility] Albumin DL <= 20 mg/L (U) [M ass/Vol]Ordered By: Magdiel Montilla on 07-24-2024 Urine Random Microalbumin < 12.0 mg/L NO RANGE EST. [facility] BUN/creatinine ratioOrdered By: Magdiel Montilla on 07-24-2024 Urea nitrogen/Creatinine [Mass ratio] 16.5 mg/mg 10-20 [facility] Bilirubin, totalOrdered By: Magdiel Montilla on 07-24-2024 Bilirubin [Mass/Vol] 0.39 mg/dL 0.00-1.30 [facility] Calculated very low density lipoprotein (VLDL) cholesterol measurementOrdered By: Magdiel Montilla on 07-24-2024 VLDL Cholesterol 23 mg/dL 5-40 [facility] Carbon dioxide measurementOr dered By: Magdiel Montilla on 07-24-2024 CO2 [Moles/Vol] 24.8 mmol/L 22.0-29.0 [facility] Chloride measurementOrdered By: Magdiel Montilla on 07-24-2024 Chloride [Moles/Vol] 102 mmol/L 96-108 [facility] Comprehensive Metabolic Prof ilon 07-24-2024 Albumin [Mass/Vol] 4.3 g/dL Normal 3.4-4.8 [facility] Comment on above: Performed By: #### L 501.9187, L500.4100, L502.0250, L501.9520, L506.0400, L500.4050 #### [facility] [address] [place], [place], [id number] [phone] Albumin/Globulin [Mass ratio] 1.4 {ratio} Normal 0.9-2.4 [facility] Comment on above: Performed By: #### L 501.9187, L500.4100, L502.0250, L501.9520, L506.0400, L500.4050 #### [facility] [address] [place], [address] ALK PHOS 138 U/L High 35-104 [facility] Comment on above: Performed By: #### L 501.9187, L500.4100, L502.0250, L501.9520, L506.0400, L500.4050 #### [facility] [address] [place], [address] ALT [Catalytic activity/Vol] 92 U/L High <=34 [facility] Comment on above: Performed By: #### L 501.9187, L500.4100, L502.0250, L501.9520, L506.0400, L500.4050 #### [facility] [address] [place], [address] Anion gap [Moles/Vol] 11 mmol/L Normal 5-15 [facility] Comment on above: Performed By: #### L 501.9187, L500.4100, L502.0250, L501.9520, L506.0400, L500.4050 #### [facility] [address] [place], [address] AST [Catalytic activity/Vol] 104 U/L High <=31 [facility] Comment on above: Performed By: #### L 501.9187, L500.4100, L502.0250, L501.9520, L506.0400, L500.4050 #### [facility] [address] [place], [address] Bilirubin [Mass/Vol] 0.39 mg/dL Normal 0.00-1.30 [facility] Comment on above: Performed By: #### L 501.9187, L500.4100, L502.0250, L501.9520, L506.0400, L500.4050 #### [facility] [address] [place], [address] BUN/CRE 16.5 RATIO Normal 10-20 [facility] Comment on above: Performed By: #### L 501.9187, L500.4100, L502.0250, L501.9520, L506.0400, L500.4050 #### [facility] [address] [place], [address] Calcium [Mass/Vol] 10.1 mg/dL Normal 7.6-11.0 [facility] Comment on above: Performed By: #### L 501.9187, L500.4100, L502.0250, L501.9520, L506.0400, L500.4050 #### [facility] [address] [place], [address] Chloride [Moles/Vol] 102 mmol/L Normal 96-108 [facility] Comment on above: Performed By: #### L 501.9187, L500.4100, L502.0250, L501.9520, L506.0400, L500.4050 #### [facility] [address] [place], [address] CO2 [Moles/Vol] 24.8 mmol/L Normal 22.0-29.0 [facility] Comment on above: Performed By: #### L 501.9187, L500.4100, L502.0250, L501.9520, L506.0400, L500.4050 #### [facility] [address] [place], [address] Creatinine [Mass/Vol] 0.79 mg/dL Normal 0.70-1.20 [facility] Comment on above: Performed By: #### L 501.9187, L500.4100, L502.0250, L501.9520, L506.0400, L500.4050 #### [facility] [address] [place], [address] GFR/1.73 sq M.predicted among non-blacks MDRD (S/P/Bld) [Vol rate/Area] 85 mL/min/{1.73_m2} Normal >60 [facility] Comment on above: Result Comment: mL/m in/1.73m2 CKD-EPI Creatinine Equation (2020) Performed By: #### L 501.9187, L500.4100, L502.0250, L501.9520, L506.0400, L500.4050 #### [facility] [address] [place], [address] Globulin (S) [Mass/Vol] 3.1 g/dL Normal 2.2-4.2 [facility] Comment on above: Performed By: #### L 501.9187, L500.4100, L502.0250, L501.9520, L506.0400, L500.4050 #### [facility] [address] [place], [address] Glucose [Mass/Vol] 146 mg/dL High 70-99 [facility] Comment on above: Performed By: #### L 501.9187, L500.4100, L502.0250, L501.9520, L506.0400, L500.4050 #### [facility] [address] [place], [address] Potassium [Moles/Vol] 4.6 mmol/L Normal 3.3-5.1 [facility] Comment on above: Performed By: #### L 501.9187, L500.4100, L502.0250, L501.9520, L506.0400, L500.4050 #### [facility] [address] [place], [address] Sodium [Moles/Vol] 138 mmol/L Normal 133-145 [facility] Comment on above: Performed By: #### L 501.9187, L500.4100, L502.0250, L501.9520, L506.0400, L500.4050 #### [facility] [address] [place], [address] T PROT 7.4 g/dL Normal 5.9-8.4 [facility] Comment on above: Performed By: #### L 501.9187, L500.4100, L502.0250, L501.9520, L506.0400, L500.4050 #### [facility] [address] [place], [address] Urea nitrogen [Mass/Vol] 13 mg/dL Normal 4-19 [facility] Comment on above: Performed By: #### L 501.9187, L500.4100, L502.0250, L501.9520, L506.0400, L500.4050 #### [facility] [address] [place], [address] Creatinine Unsp time (U) [Ma ss/Vol]Ordered By: Magdiel Montilla on 07-24-2024 Creatinine (U) [Mass/Vol] 106.00 mg/dL 28-217 [facility] GFR/1.73 sq M.predicted juli g non-blacks MDRD (S/P/Bld) [Vol rate/Area]Ordered By: Magdiel Montilla on 07-24-2024 Estimated GFR (MDRD) Non-Af Amer 85 >60 [facility] Comment on above: mL/min/1.73m2 CKD-EP I Creatinine Equation (2020) L501.9187on 07-24-2024 T3 Total 1.18 ng/mL Normal 0.80-2.00 [facility] Comment on above: Performed By: #### L 501.9187, L500.4100, L502.0250, L501.9520, L506.0400, L500.4050 #### [facility] [address] [place], [address] LDL calc ser/plasOrdered By: Magdiel Montilla on 07-24-2024 LDL Cholesterol, Calculated 61 mg/dL [facility] Comment on above: Socbyapzwy=048-715 m g/dL & Higher Ltjq=080 mg/dL or greater Laboratory - Chemistry and C hemistry - challengeOrdered By: Magdiel Montilla on 07-24-2024 AST [Catalytic activity/Vol] 104 U/L High <32 [facility] Lipid Profileon 07-24-2024 CHOL:HDL 3.15 Normal [facility] Comment on above: Performed By: #### L 501.9187, L500.4100, L502.0250, L501.9520, L506.0400, L500.4050 #### [facility] [address] [place], [address] Cholesterol [Mass/Vol] 123 mg/dL Normal <=200 [facility] Comment on above: Result Comment: Chol esterol level, Desirable <200 mg/dL Borderline high cholesterol 200-239 mg/dL High cholesterol >=240 mg/dL Recommendations of the NCEP Adult Treatment Panel for the following risk-cutoff thresholds for the [place] population. Performed By: #### L 501.9187, L500.4100, L502.0250, L501.9520, L506.0400, L500.4050 #### [facility] [address] [place], [address] Cholesterol in HDL [Mass/Vol] 39 mg/dL Low [facility] Comment on above: Result Comment: Miryam onal Cholesterol Education Program (NCEP) guidelines: <40 mg/dL: Low HDL-cholesterol (major risk factor for CHD) >= 60 mg/dL: High HDL-cholesterol (negative risk factor for CHD) HDL-cholesterol is affected by a number of factors, e.g. smoking, exercise, hormones, sex and age. Performed By: #### L 501.9187, L500.4100, L502.0250, L501.9520, L506.0400, L500.4050 #### [facility] [address] [place], [address] Cholesterol in LDL [Mass/Vol] 61 mg/dL Normal [facility] Comment on above: Result Comment: Bord xgcmim=080-923 mg/dL Higher Cous=234 mg/dL or greater Performed By: #### L 501.9187, L500.4100, L502.0250, L501.9520, L506.0400, L500.4050 #### [facility] [address] [place], [address] Cholesterol in VLDL [Mass/Vol] 23 mg/dL Normal 5-40 [facility] Comment on above: Performed By: #### L 501.9187, L500.4100, L502.0250, L501.9520, L506.0400, L500.4050 #### [facility] [address] [place], [address] Triglyceride [Mass/Vol] 117 mg/dL Normal [facility] Comment on above: Result Comment: The drugs N-Acetylcysteine and Metamizole may falsely depress this assay. Normal range: <150 mg/dL Borderline High: 150-199 mg/dL High: 200-499 mg/dL Very High: >500 mg/dL Performed By: #### L 501.9187, L500.4100, L502.0250, L501.9520, L506.0400, L500.4050 #### [facility] [address] [place], [address] Microalb:Creat Ratio,Random URon 07-24-2024 Creatinine [Mass/Vol] 106.00 mg/dL Normal 28-217 [facility] Comment on above: Performed By: #### L 501.9187, L500.4100, L502.0250, L501.9520, L506.0400, L500.4050 #### [facility] [address] [place], [address] MALB:CREAT UNABLE TO CALCULATE Normal [facility] Comment on above: Performed By: #### L 501.9187, L500.4100, L502.0250, L501.9520, L506.0400, L500.4050 #### [facility] [address] [place], [address] MICROALBUMIN,UR < 12.0 Normal NO RANGE EST. [facility] Comment on above: Performed By: #### L 501.9187, L500.4100, L502.0250, L501.9520, L506.0400, L500.4050 #### [facility] [address] [place], [address] Microalbumin/creat ratio urO rdered By: Magdiel Montilla on 07-24-2024 Urine Microalbumin/Creatini ne Ratio UNABLE TO CALCULATE mg/g CRE [facility] No Panel InformationOrdered By: Magdiel Montilla on 07-24-2024 Total Triiodothyronine 1.18 ng/mL 0.80-2.00 [facility] Screening total cholesterol/ high density lipoprotein (HDL) cholesterol ratioOrdered By: Magdiel Montilla on 07-24-2024 Cholesterol.total/Cho lesterol in HDL [Mass ratio] 3.15 {ratio} [facility] Serum creatinine measurement (mass/volume)Ordered By: Magdiel Montilla on 07-24-2024 Creatinine [Mass/Vol] 0.79 mg/dL 0.70-1.20 [facility] Serum globulin measurementOr dered By: Magdiel Montilla on 07-24-2024 Globulin (S) [Mass/Vol] 3.1 g/dL 2.2-4.2 [facility] Serum glucose measurement (m ass/volume)Ordered By: Magdiel Montilla on 07-24-2024 Glucose [Mass/Vol] 146 mg/dL High 70-99 [facility] Serum or plasma alanine cruz otransferase (ALT) measurementOrdered By: Magdiel Montilla on 07-24-2024 ALT [Catalytic activity/Vol] 92 U/L High <35 [facility] Serum or plasma albumin zhou urement (mass/volume)Ordered By: Magdiel Montilla on 07-24-2024 Albumin [Mass/Vol] 4.3 g/dL 3.4-4.8 [facility] Serum or plasma albumin/glob ulin mass ratioOrdered By: Magdiel Montilla on 07-24-2024 Albumin/Globulin [Mass ratio] 1.4 {ratio} 0.9-2.4 [facility] Serum or plasma alkaline suad sphatase measurementOrdered By: Magdiel Montilla on 07-24-2024 ALP [Catalytic activity/Vol] 138 U/L High 35-104 [facility] Serum or plasma anion gap de termination (moles/volume)Ordered By: Magdiel Montilla on 07-24-2024 Anion gap [Moles/Vol] 11 mmol/L 5-15 [facility] Serum or plasma calcium zhou urement (mass/volume)Ordered By: Magdiel Montilla on 07-24-2024 Calcium [Mass/Vol] 10.1 mg/dL 7.6-11.0 [facility] Serum or plasma cholesterol in HDL measurement (mass/volume)Ordered By: Magdiel Montilla on 07-24-2024 Cholesterol in HDL [Mass/Vol] 39 mg/dL Low >40 [facility] Comment on above: National Cholesterol Education Program (NCEP) guidelines:<40 mg/dL: Low HDL-cholesterol (major risk factor for CHD)>= 60 mg/dL: High HDL-cholesterol (negative risk factor for CHD)HDL-cholesterol is affected by a number of factors, e.g. smoking, exercise, hormones, sex and age. Serum or plasma cholesterol measurement (mass/volume)Ordered By: Magdiel Montilla on 07-24-2024 Cholesterol [Mass/Vol] 123 mg/dL <201 [facility] Comment on above: Cholesterol level, D esirable <200 mg/dLBorderline high cholesterol 200-239 mg/dLHigh cholesterol >=240 mg/dLRecommendations of the NCEP Adult Treatment Panel for the following risk-cutoff thresholds for the [place] population. Serum or plasma potassium me asurementOrdered By: Magdiel Montilla on 07-24-2024 Potassium [Moles/Vol] 4.6 mmol/L 3.3-5.1 [facility] Serum or plasma sodium measu rement (moles/volume)Ordered By: Magdiel Montilla on 07-24-2024 Sodium [Moles/Vol] 138 mmol/L 133-145 [facility] Serum or plasma urea nitroge n measurement (mass/volume)Ordered By: Magdiel Montilla on 07-24-2024 Urea nitrogen [Mass/Vol] 13 mg/dL 4-19 [facility] T4 Free Directon 07-24-2024 T4 FREE DIRECT 1.30 ng/dL Normal 0.76-1.46 [facility] Comment on above: Performed By: #### L 501.9187, L500.4100, L502.0250, L501.9520, L506.0400, L500.4050 #### [facility] [address] [place], [address] T4 freeOrdered By: Magdiel borjas on 07-24-2024 Free T4 [Mass/Vol] 1.30 ng/dL 0.76-1.46 [facility] TSH DL <= 0.005 mIU/L QnOrde red By: Magdiel Montilla on 07-24-2024 Thyroid Stimulating Hormone (TSH) 1.410 uIU/mL 0.300-4.200 [facility] Thyroid Stim Hormone (TSH)on 07-24-2024 TSH 1.410 uIU/mL Normal 0.300-4.200 [facility] Comment on above: Performed By: #### L 501.9187, L500.4100, L502.0250, L501.9520, L506.0400, L500.4050 #### [facility] [address] [place], [place], [id number] Total proteinOrdered By: Enedina Montilla on 07-24-2024 Protein [Mass/Vol] 7.4 g/dL 5.9-8.4 [facility] Triglycerides measurementOrd ered By: Magdiel Montilla on 07-24-2024 Triglyceride [Mass/Vol] 117 mg/dL <199 [facility] Comment on above: The drugs N-Acetylcy steine and Metamizole may falsely depress this assay. Normal range: <150 mg/dLBorderline High: 150-199 mg/dLHigh: 200-499 mg/dLVery High: >500 mg/dL Cardiology Visit Reporton Cardiology Visit Report [facility] [address] [place], [place] [address] OFFICE VISIT Date of Service: 07/21/24 MR#: [id number] Acct: [id number] Name: RAMA BAIRD Rep #: [id number] : 1960 Provider: Dr. Tc rodas MD Age/Sex: 64/F Location: [facility] [facility] Status: Signed HPI HPI History of Present Illness Details: Patient is a 64-year-old white female that comes in today for monitoring of her coronary disease. Patient has a history of bypass graft surgery in September 2019. She received a BENITEZ to LAD a vein graft to diagonal vein graft to the OM1 branch of circumflex and a vein graft to the PDA of the right. Her presenting complaint was exertional left arm discomfort. She has had no recurrence of the symptoms. The patient's lipids are well-controlled on Repatha she is intolerant of statin therapy. Patient has a history of hypertension her blood pressure has been drifting up in her home environment she is on amlodipine lisinopril and atenolol. Her diabetes is also been somewhat difficult to control as she could not tolerate Mounjaro. Hemoglobin A1c in April 2024 was 8.6 she is due to follow-up with her bladder tier in the next month. She also has a history of a low T4. The patient status post bilateral mastectomy for breast cancer she did not receive any radiation treatment or chemo she had a multiple surgeries for breast reconstruction surgery back in 2018. All in all the patient is doing very well she recently retired and is bored. She is aerobically active without any recurrence of her anginal symptoms she denies any PND orthopnea denies any lower extremity edema denies any syncope or near syncope. Intake Vital Signs 05/12/24 09:59 07/21/24 10:57 Height 5 ft 4 in 5 ft 4 in Weight: 182 lb 178 lb BMI 31.2 30.5 BP 162/79 H 159/82 H Blood Pressure Location Lt brachial Rt brachial Position Sitting Sitting Respiration 16 Pulse 63 56 L Pulse Source Monitor Monitor Pulse Oximetry (%) 97 97 Oxygen Delivery Method room air room air Intake Visit Reasons: 1 Y FU Pathology Laboratory Technologist Required: No Accompanied by: Self Is patient in pain?: No Allergies hydroxychloroquine (From Plaquenil) Allergy (Severe, Verified 07/21/24 10:58) face and eye swelling Penicillins (PCN) Allergy (Verified 07/21/24 10:58) Other Tbfyisp-VRL-YcR Reductase Inhibitor Adverse Reaction (Severe, Verified 07/21/24 10:58) Severe myalgias Medications ???Medication ???Instructions ???Recorded ???Confirmed ???Type modafinil 200 mg tablet 200 mg PO DAILY 09/14/18 07/21/24 History levothyroxine 125 mcg capsule 125 mcg PO DAILY 06/20/23 07/21/24 History atenolol 50 mg tablet 50 mg PO BID #180 tabs 12/22/23 Rx Lantus Solostar U-100 Insulin 100 45 unit (0.45 mL) subcut QPM #45 mL 04/06/24 07/21/24 Rx unit/mL (3 mL) subcutaneous pen (insulin glargine) Novolog FlexPen U-100 Insulin 100 40 unit (0.4 mL) subcut TID #108 mL 04/06/24 07/21/24 Rx unit/mL (3 mL) subcutaneous (insulin aspart U-100) blood-glucose sensor ([employer] G7 #3 ea 05/12/24 05/12/24 Rx Sensor device) evolocumab 140 mg/mL subcutaneous See Rx Instructions .Route 07/21/24 Rx pen injector (Repatha SureClick) .COMPLEX #2 mL amlodipine 5 mg tablet 5 mg PO DAILY #90 tabs 07/21/24 Rx lisinopril 30 mg tablet See Rx Instructions .Route 5 07/21/24 Rx .COMPLEX #90 TABLETS Ejection fraction %: 65 Have you fallen in the past year?: No PFSH Medical History Post-menopausal Cancer Alcohol use Thyroid disease Diabetes Fatty liver Dietary restriction History of IBS Gastric reflux Non-smoker Leg cramps Hypertension History of echocardiogram History of stress test Cardiology follow-up encounter Positional vertigo Encounter for screening for COVID-19 Mixed hyperlipidemia Type 2 diabetes mellitus Pure hypercholesterolemia Hypothyroidism Chest pain Essential hypertension Abnormal stress test History of left breast cancer ( 09/2018) Abnormal mammogram of left breast Arthritis Surgical History History of cardiac catheterization History of left breast implant ( 07/2020) S/P CABG x 4 Hx of four vessel coronary artery bypass graft ( 09/2019) History of left heart catheterization (09/24/19) History of bilateral mastectomy History of left breast biopsy ( 09/2018) History of laparoscopic cholecystectomy History of tubal ligation Family History Mother Arthritis Breast cancer Diabetes Heart disease Hypertension Thyroid disorder High cholesterol Sister Breast cancer Grandmother Colon cancer (more content not included)... Normal [facility] Office Visiton 05-13-2024 Follow-up visit [id number] Lisha Baird 1960 F Date Provider Department Center 05/13/2024 [id number] WALDR[facility] None Family History Problem Relation Age of Onset Diabetes Mother Hypertension Mother Breast cancer Mother Hyperlipidemia Mother Heart disease Mother Arthritis Mother Thyroid disease Mother Heart disease Father Diabetes Father Hypertension Father Breast cancer Sister 50 Colon cancer Maternal Grandmother Lung cancer Paternal Grandfather Coronary artery disease Other Thyroid cancer Niece Family Status - Relation Status Age at Mother Alive Father 81 Sister 58 Sister Alive Son Alive Son Alive Mother's Brother Maternal Grandmother Maternal Grandfather Paternal Grandmother Paternal Grandfather Other Niece Alive Level of Service:70715 CO OFFICE/OUTPATIENT ESTABLISHED LOW MDM 20 MIN Reason for Visit and Comments: 1 Year Follow-up [670] Survivorship [620] - Denies any new breast concerns or pain today. Has questions regarding imaging tests Normal [facility] Progress Noteon 05-13-2024 Progress Note HPI: Rama Baird is a 64 y.o. female who presents for survivorship visit. Breast History She was diagnosed with LEFT breast cancer in 09/2018. It was IDC, stage IA, T1, N0, M0, G2, ER+, CO+, HER2 - Treatments include: Surgery- She had bilateral nipple sparing mastectomies with immediate implant reconstruction with AlloDerm mfd-wzqdujxe-5/10/19 Chemotherapy- none, Oncotype was 5 Radiation therapy- none Endocrine therapy- Arimidex- started November 2018., Changed to femara, Stopped femara October 2020.Re-started femara end of 2020. Took inconsistently. Stopped again in January 2022. Stopped aromasin d/t leg cramping in October 2022. - She follows with Hem/Onc in [place] (Ana Castillo CNP & ) Last DEXA 6/16/19. Results: Osteopenia in the lumbar spine and left hip Genetics: Ambry cancer next-negative She had multiple implant infections on the prophylactic right side and she has had several implants replaced over the last 3 years. She had her RT breast implant replaced by Dr. Bello in July 2020. LEFT breast US guided biopsy 07/2020: -LEFT BREAST, 3:30 9 CM FROM NIPPLE, NEEDLE CORE BIOPSY - FIBROADIPOSE TISSUE WITH FAT NECROSIS AND ASSOCIATED CALCIFICATION Breast concerns: Denies new breast mass or skin change Body image: She is not satisfied with the cosmetic outcome but does not wish to have more surgery at this point in time. Lymphedema: none Musculoskeletal symptoms: No current concerns Menopausal symptoms/Fertility: Postmenopausal Nutrition: Tries to eat healthy. She is a diabetic. Exercise: She plans to start exercising soon. Weight: She has gained some weight, BMI 31.07 ETOH: Occasional Smoking: None She recently retired. S/p CABG x4 on October 07, 2019-Dr. Duarte LEFT BREAST US 03/18/23 Findings: SHORT-TERM FOLLOW-UP. 63-year-old. The patient is being followed for a mass on the left which was initially evaluated on 07/27/2020. The patient is status post BILATERAL mastectomy with implant reconstruction with a history of left breast malignancy. Multiple grayscale sonographic images were obtained of the left reconstructed breast by the electromechanical technologist with color and Doppler flow imaging. At the 2:30 position 5 cm from the nipple a resolving complicated cyst measures 0.5 x 0.4 x 0.1 cm with initial measurement on 07/27/2020 of 0.7 x 0.8 x 0.2 cm. No follow-up necessary. The patient's implant is visible posterior to this region. IMPRESSION: 1. Resolving LEFT breast complicated cyst. 2. Left breast mastectomy with implant reconstruction. ASSESSMENT: Category 2 Benign -No further follow-up is needed of her left breast. Medical History includes: has a past medical history of Abnormal stress test, Acute arthritis, Cancer (CMS/HCC) (HCC), Chest pain, Coronary artery disease involving [place] coronary artery of [place] heart without angina pectoris, Diabetes mellitus (HCC), Heart disease, History of left breast cancer, Hypercholesterolemia, Hypertension, Hypothyroidism, and Sleep apnea. She has no past medical history of History of blood transfusion, blood clots, or MDRO (multiple drug resistant organisms) resistance. Surgical History includes : Past Surgical History: Procedure Laterality Date BREAST BIOPSY CARDIAC CATHETERIZATION 09/24/2019 CHOLECYSTECTOMY CORONARY ARTERY BYPASS GRAFT N/A 09/2019 EYE SURGERY MASTECTOMY 11/02/2018 with reconstruction OTHER SURGICAL HISTORY mid urethral sling OTHER SURGICAL HISTORY Right 08/21/2020 Exchange Tissue Clinical Haematologist Right Breast SKIN BIOPSY TUBAL LIGATION Medications include: Current Outpatient Medications Medication Sig Dispense Refill amLODIPine (Norvasc) 2.5 MG tablet Take 2.5 mg by mouth daily. aspirin 81 MG EC tablet Take 81 mg by mouth in the morning. atenolol (Tenormin) 50 MG tablet Take 50 mg by mouth in the morning and 50 mg in the evening. Continuous Blood Gluc Sensor (FreeStyle Aarti 2 Sensor) [facility] [place] [place] USE 1 SENSOR EVERY 14 DAYS insulin lispro (HumaLOG) 100 UNIT/ML injection INJECT 40 UNITS SUBCUTANEOUSLY THREE TIMES DAILY levothyroxine (Synthroid, Levoxyl) 137 MCG tablet Take 137 mcg by mouth in the morning. lisinopril 20 MG tablet Take 1 tablet by mouth daily. modafinil (Provigil) 200 MG tablet Take 200 mg by mouth in the morning. Tresiba FlexTouch 100 UNIT/ML injection No current facility-administered medications for this visit. Allergies include: Allergies as of 05/13/2024 - Reviewed 05/13/2024 Allergen Reaction Noted Hydroxychloroquine Swelling 10/10/2010 Statins 03/05/2023 Penicillins Hives 02/16/2019 Family history includes: She does a family history of breast cancer in her mother at age 55, bilateral and her sister at age 45 who had a recurrence Review of Systems Constitutional: Negative for activity change, appetite change, chills, fatigue, fever and unexpected weight change. Eyes: Negative for visual disturbance. Respiratory: Negative for (more content not included)... Normal [facility] Endocrinology Visit Reporton 05-12-2024 Endocrinology Visit Report [facility] [address] [place] [address]. [address] [place] [address] OFFICE VISIT Date of Service: 05/12/24 MR#: [id number] Acct: [id number] Name: RAMA BAIRD Rep #: [id number] : 1960 Provider: ALLY narvaez Age/Sex: 64/F [place] [facility] Status: Signed Intake Vital Signs 12/11/23 11:17 05/12/24 09:59 Height 5 ft 4 in 5 ft 4 in Weight: 182 lb BMI 31.2 BP 162/79 H Blood Pressure Location Lt brachial Position Sitting Pulse 63 Pulse Source Monitor Pulse Oximetry (%) 97 Oxygen Delivery Method room air Intake Visit Reasons: 3 M FU Chief Complaint: f/u diabetes/hypothyroid Pathology Laboratory Technologist Required: No Accompanied by: Self Is patient in pain?: No Allergies hydroxychloroquine (From Plaquenil) Allergy (Severe, Verified 05/12/24 09:58) face and eye swelling Penicillins (PCN) Allergy (Verified 05/12/24 09:58) Other Vkayhex-GLF-UfS Reductase Inhibitor Adverse Reaction (Severe, Verified 05/12/24 09:58) Severe myalgias Medications ???Medication ???Instructions ???Recorded ???Confirmed ???Type modafinil 200 mg tablet 200 mg PO DAILY 09/14/18 05/12/24 History pantoprazole 40 mg tablet,delayed 40 mg PO QHS 08/07/22 05/12/24 History release (Protonix) evolocumab 140 mg/mL subcutaneous See Rx Instructions .Route 04/23/23 05/12/24 Rx pen injector (Sonja Hill) .COMPLEX #2 mL levothyroxine 125 mcg capsule 125 mcg PO DAILY 06/20/23 05/12/24 History lisinopril 30 mg tablet See Rx Instructions .Route 07/18/23 05/12/24 Rx .COMPLEX #90 TABLETS amlodipine 2.5 mg tablet 2.5 mg PO DAILY #90 tabs 07/31/23 05/12/24 Rx atenolol 50 mg tablet 50 mg PO BID #180 tabs 12/22/23 05/12/24 Rx Lantus Solostar U-100 Insulin 100 45 unit (0.45 mL) subcut QPM #45 mL 04/06/24 05/12/24 Rx unit/mL (3 mL) subcutaneous pen (insulin glargine) Novolog FlexPen U-100 Insulin 100 40 unit (0.4 mL) subcut TID #108 mL 04/06/24 05/12/24 Rx unit/mL (3 mL) subcutaneous (insulin aspart U-100) blood-glucose sensor ([employer] G7 #3 ea 05/12/24 05/12/24 Rx Sensor device) tirzepatide 2.5 mg/0.5 mL 2.5 mg (0.5 mL) subcut QWEEK #2 mL 05/12/24 05/12/24 Rx subcutaneous pen injector (Taurus) [facility] Medical History Post-menopausal Cancer Alcohol use Thyroid disease Diabetes Fatty liver Dietary restriction History of IBS Gastric reflux Non-smoker Leg cramps Hypertension History of echocardiogram History of stress test Cardiology follow-up encounter Positional vertigo Encounter for screening for COVID-19 Mixed hyperlipidemia Type 2 diabetes mellitus Pure hypercholesterolemia Hypothyroidism Chest pain Essential hypertension Abnormal stress test History of left breast cancer ( 09/2018) Abnormal mammogram of left breast Arthritis Surgical History History of cardiac catheterization History of left breast implant ( 07/2020) S/P CABG x 4 Hx of four vessel coronary artery bypass graft ( 09/2019) History of left heart catheterization (09/24/19) History of bilateral mastectomy History of left breast biopsy ( 09/2018) History of laparoscopic cholecystectomy History of tubal ligation Family History Mother Arthritis Breast cancer Diabetes Heart disease Hypertension Thyroid disorder High cholesterol Sister Breast cancer Grandmother Colon cancer Father Diabetes Heart disease Hypertension Cancer skin cancer Grandfather Cancer lung cancer Sister CAD (coronary artery disease) Presence of stent in coronary artery Social History Smoking Status: Never smoker alcohol intake: current alcohol intake frequency: a few times a month substance use type: does not use caffeine: No HPI HPI Chief Complaint: f/u diabetes/hypothyroid Details: RAMA BAIRD is a 64 F who presents to the office today for evaluation and management of diabetes. A1C today is 8.6%, increased significantly from 12/11/23 at 7.1%. She has gained 3 lbs. Currently taking Lantus 40 u once daily and Humalog 40 u TIDCM. She was previously on metformin but dc'ed use d/t GI side effects. She was also previously on Mounjaro; however, it became unaffordable. 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 She would like to resume Mounjaro if able. CGM tracings reviewed- she is having baseline elevation with post meal elevations. She is having occasional lows during sleeping hours. Denies any significant episodes of hypoglycemia that have required assistance from others. She is hypothyroid. Currently t (more content not included)... Normal [facility] Laboratory - Hematology and Cell countson 05-12-2024 HbA1c (Bld) [Mass fraction] 8.6 % High 4.2-6.3 [facility] CNOVSPon 04-12-2024 CNOVSP Visit (SP) Office (JO ANN) ----- RAMA BAIRD ([id number]) 1960 F Date Time Provider Department 04/12/24 9:00 AM ANA CASTILLO During your visit today, we recorded the following information about you: Temperature Pulse Blood pressure Weight 83 degrees 58/minute 163/80 81.9 kg Ana Castillo APRN.CNP 04/13/2024 9:32 AM Signed Chief Complaint Patient presents with: Established Patient HPI: Rama Hudson Baird is a 64 year old female who presents here today for follow up breast cancer. Per Dr. Silver's previous note: H/o essential hypertension, mixed hyperlipidemia, hypothyroidism, type 2 diabetes who was noted to have focal architectural distortion in the upper lateral aspect the left breast on a screening mammogram performed on 09/02/2018. Ultrasound demonstrated a 3 x 5 x 5 mm ill-defined nodular density at the 3:00 position of the left breast. It was approximately 8 cm from the nipple. Additionally there was probable 4 mm cyst at the 2:00 position 4 cm from the nipple. Ultrasound-guided core biopsy performed by Dr. Olguin on 09/22/2018 demonstrated an invasive ductal carcinoma, nuclear grade 1. ER 95%, CO 95%, HER-2 negative. Patient was seen by genetic counselor in 2013 based on her mother and sister's history of breast cancer. Sister was BRCA negative and therefore no further genetic testing was recommended for the patient. Patient underwent a left nipple sparing mastectomy along with sentinel lymph node biopsy and right prophylactic nipple sparing mastectomy along with immediate left breast reconstruction with implant and Acellular Dermal Matrix (ADM) sling (16 cm x 20 cm) Right breast reconstruction with implant and Acellular Dermal Matrix (ADM) sling (16 cm x 20 cm) Pre pectoral placement on 11/02/2018. Pathology: FINAL DIAGNOSIS 1. Left axillary sentinel lymph node, excision (A) - Two lymph nodes, negative for metastatic carcinoma ((0/2). 2. Left breast tissue, nipple-sparing mastectomy (B) - Invasive ductal carcinoma, See comment. - Ductal carcinoma in situ, solid type, nuclear grade 2. - Two biopsy sites and clips identified. - Unremarkable skin. 3. Right breast, nipple-sparing mastectomy (C) - Unremarkable skin and underlying breast parenchyma. SYNOPTIC REPORT OF HAN PATHOLOGIC FINDINGS LEFT BREAST TISSUE: BREAST INVASIVE CARCINOMA WORKSHEET Part: B Procedure: Total mastectomy (including nipple-sparing and skin-sparing mastectomy) Specimen Laterality: Left Tumor size: Size of largest invasive carcinoma: Greatest dimension of largest focus of invasion >1 mm: 18 mm Tumor Focality: Single focus of invasive carcinoma Histologic Type of Invasive Carcinoma: Invasive carcinoma of no special type (ductal, not otherwise specified) Histologic Grade: Glandular (Acinar) / Tubular Differentiation: Score 3 Nuclear Pleomorphism: Score 2 Mitotic Rate: Score 1 (<=3 mitosis per mm2) Overall Grade: Grade II Ductal Carcinoma In Situ: DCIS is present in specimen Architectural Patterns: Architectural Pattern:Solid DCIS Nuclear Grade: Grade II (intermediate) DCIS Necrosis: Present, central (expansive comedo necrosis) Tumor Extension: Skin: Uninvolved Nipple: Not applicable Skeletal muscle: Not applicable Invasive Carcinoma Margins: Margins uninvolved by invasive carcinoma Distance from closest margin: 7 mm Closest margin: superior radial DCIS Margins: Margins uninvolved by DCIS Distance from closest margin: 4 mm Closest margin: inferior radial Lymph Nodes: Uninvolved by tumor cells Number of lymph nodes examined: 2 Number of sentinel lymph nodes examined: 2 Treatment Effect: No known presurgical therapy Lymph-Vascular Invasion: Not identified Pathologic Stage Classification (pTNM,AJCC 8th ed) TNM Descriptor(s): Not applicable Primary Tumor (Invasive Carcinoma) (pT): pT1c Regional Lymph Nodes (pN): Modifier: (sn): [place] node(s) evaluated Category (pN): pN0 Distant metastasis: Distant Metastasis (pM) Not applicable/Not confirmed pathologically in this case Estrogen AND progesterone receptors: Previously performed and reported as follows: Estrogen receptor: 95% positive Progesterone receptor: 95% positive Specimen number #: [id number] (HER2) ERBB2 Status: Previously performed and reported as follows: HER2:negative 0 Mother--Breast cancer diagnosed age 55; had mastectomy followed by chemotherapy. New contralateral breast cancer at age 75 managed with lumpectomy and radiation. Alive now at age 81. Sister--Breast cancer diagnosed age 45; b/l mastectomy; chemotherapy. Developed metastatic disease ~10 years later; bone metastases. about 3-4 years later. Last menses about 7 years ago. No hot flashes. Current therapy:None Aromasin-pt. self discontinued October 2022. Previous t (more content not included)... Normal [facility] CNOVSPon 10-10-2023 CNOVSP Visit (SP) Office (JO ANN) ----- RAMA BAIRD Hudson ([id number]) 1960 F Date Time Provider Department 10/10/23 8:00 AM ANA CASTILLO During your visit today, we recorded the following information about you: Temperature Pulse Blood pressure Weight 98.5 degrees 69/minute 149/84 80.1 kg Ana Castillo APRN.EXPLOSIVE EXPERT 10/10/2023 8:47 AM Signed Chief Complaint Patient presents with: Established Patient HPI: Rama Hudson Baird is a 63 year old female who presents here today for follow up breast cancer. Per Dr. Silver's previous note: H/o essential hypertension, mixed hyperlipidemia, hypothyroidism, type 2 diabetes who was noted to have focal architectural distortion in the upper lateral aspect the left breast on a screening mammogram performed on 09/02/2018. Ultrasound demonstrated a 3 x 5 x 5 mm ill-defined nodular density at the 3:00 position of the left breast. It was approximately 8 cm from the nipple. Additionally there was probable 4 mm cyst at the 2:00 position 4 cm from the nipple. Ultrasound-guided core biopsy performed by Dr. Olguin on 09/22/2018 demonstrated an invasive ductal carcinoma, nuclear grade 1. ER 95%, CO 95%, HER-2 negative. Patient was seen by genetic counselor in 2012 based on her mother and sister's history of breast cancer. Sister was BRCA negative and therefore no further genetic testing was recommended for the patient. Patient underwent a left nipple sparing mastectomy along with sentinel lymph node biopsy and right prophylactic nipple sparing mastectomy along with immediate left breast reconstruction with implant and Acellular Dermal Matrix (ADM) sling (16 cm x 20 cm) Right breast reconstruction with implant and Acellular Dermal Matrix (ADM) sling (16 cm x 20 cm) Pre pectoral placement on 11/02/2018. Pathology: FINAL DIAGNOSIS 1. Left axillary sentinel lymph node, excision (A) - Two lymph nodes, negative for metastatic carcinoma ((0/2). 2. Left breast tissue, nipple-sparing mastectomy (B) - Invasive ductal carcinoma, See comment. - Ductal carcinoma in situ, solid type, nuclear grade 2. - Two biopsy sites and clips identified. - Unremarkable skin. 3. Right breast, nipple-sparing mastectomy (C) - Unremarkable skin and underlying breast parenchyma. SYNOPTIC REPORT OF HAN PATHOLOGIC FINDINGS LEFT BREAST TISSUE: BREAST INVASIVE CARCINOMA WORKSHEET Part: B Procedure: Total mastectomy (including nipple-sparing and skin-sparing mastectomy) Specimen Laterality: Left Tumor size: Size of largest invasive carcinoma: Greatest dimension of largest focus of invasion >1 mm: 18 mm Tumor Focality: Single focus of invasive carcinoma Histologic Type of Invasive Carcinoma: Invasive carcinoma of no special type (ductal, not otherwise specified) Histologic Grade: Glandular (Acinar) / Tubular Differentiation: Score 3 Nuclear Pleomorphism: Score 2 Mitotic Rate: Score 1 (<=3 mitosis per mm2) Overall Grade: Grade II Ductal Carcinoma In Situ: DCIS is present in specimen Architectural Patterns: Architectural Pattern:Solid DCIS Nuclear Grade: Grade II (intermediate) DCIS Necrosis: Present, central (expansive comedo necrosis) Tumor Extension: Skin: Uninvolved Nipple: Not applicable Skeletal muscle: Not applicable Invasive Carcinoma Margins: Margins uninvolved by invasive carcinoma Distance from closest margin: 7 mm Closest margin: superior radial DCIS Margins: Margins uninvolved by DCIS Distance from closest margin: 4 mm Closest margin: inferior radial Lymph Nodes: Uninvolved by tumor cells Number of lymph nodes examined: 2 Number of sentinel lymph nodes examined: 2 Treatment Effect: No known presurgical therapy Lymph-Vascular Invasion: Not identified Pathologic Stage Classification (pTNM,AJCC 8th ed) TNM Descriptor(s): Not applicable Primary Tumor (Invasive Carcinoma) (pT): pT1c Regional Lymph Nodes (pN): Modifier: (sn): [place] node(s) evaluated Category (pN): pN0 Distant metastasis: Distant Metastasis (pM) Not applicable/Not confirmed pathologically in this case Estrogen AND progesterone receptors: Previously performed and reported as follows: Estrogen receptor: 95% positive Progesterone receptor: 95% positive Specimen number #: [id number] (HER2) ERBB2 Status: Previously performed and reported as follows: HER2:negative 0 Mother--Breast cancer diagnosed age 55; had mastectomy followed by chemotherapy. New contralateral breast cancer at age 75 managed with lumpectomy and radiation. Alive now at age 83. Sister--Breast cancer diagnosed age 45; b/l mastectomy; chemotherapy. Developed metastatic disease ~10 years later; bone metastases. about 3-4 years later. Last menses about 7 years ago. No hot flashes. Current therapy:None Aromasin-pt. self discontinued October 2022. Previous t (more content not included)... Normal [facility] Culture, urineOrdered By: Adrianne Palacio on 09-19-2023 Bacteria identified Cx Nom (U) Klebsiella pneumoniae sp pneum [facility] Laboratory - Chemistry and C hemistry - challengeon 09-19-2023 Bilirubin Ql (U) Negative [facility] Glucose Ql (U) Negative [facility] Ketones Ql (U) Negative [facility] pH (U) 6.5 [pH] [facility] Specific gravity (U) [Rel density] 1.010 [facility] Urobilinogen (U) [Mass/Vol] Negative [facility] Laboratory - Hematology and Cell countson 09-19-2023 Hemoglobin Ql (U) Negative [facility] Laboratory - Specimen inform ationon 09-19-2023 Clarity (U) Clear [facility] Color (U) DARK YELLOW [facility] Laboratory - Urinalysison Nitrite Ql (U) Positive [facility] Protein Ql (U) Negative [facility] No Panel Informationon 09-18 Urine Leukocytes Positive [facility] Urine Non-Hemolyzed Blood [facility] Serum or plasma thyroid stim ulating hormone (TSH) measurement (units/volume)Ordered By: Fatemeh Gonzalez on 09-08-2023 TSH Qn 2.55 uIU/mL 0.358-3.74 [facility] Thin prep Papanicolaou smear with manual screeningOrdered By: Fatemeh Gonzalez on 09-08-2023 Thin prep Papanicolaou smear with manual screening 1.18 ng/dL 0.76-1.46 [facility] Basophil percentageOrdered B y: Ernestine Santamaria on 05-02-2023 Bilirubin [Mass/Vol] 0.40 mg/dL 0.20-1.00 [facility] Comment on above: For patients on eltr ombopag therapy, use of Dimension [place] TBIL is not recommended. Chloride [Moles/Vol] 105 mmol/L 98-107 [facility] Cholesterol [Mass/Vol] 92 mg/dL <200 [facility] Comment on above: <200 mg/dL Desirable 200-240 mg/dL Borderline >240 mg/dL High Risk Glucose [Mass/Vol] 112 mg/dL 74-106 [facility] Comment on above: Fasting Glucose resu lt from 100 to 125 mg/dL suggests IMPAIRED HOMEOSTASIS per A.D.A. criteria. Potassium [Moles/Vol] 4.2 mmol/L 3.5-5.1 [facility] Protein [Mass/Vol] 7.3 g/dL 6.4-8.2 [facility] Sodium [Moles/Vol] 139 mmol/L 136-145 [facility] Triglyceride [Mass/Vol] 174 mg/dL <199 [facility] Comment on above: The drugs N-Acetylcy steine and Metamizole may falsely depress this assay.Serum Triglycerides Reference Interval Normal <150 mg/dL Borderline high 150 - 199 mg/dL High 200 - 499 mg/dL Very High > or = 500 mg/dL Direct bilirubinOrdered By: Ernestine Santamaria on 05-02-2023 Bilirubin.direct [Mass/Vol] 0.14 mg/dL 0.00-0.30 [facility] Laboratory - Chemistry and C hemistry - challengeOrdered By: Ernestine Santamaria on 05-02-2023 ALP [Catalytic activity/Vol] 166 U/L 45-117 [facility] ALT [Catalytic activity/Vol] 78 U/L 13-56 [facility] CO2 [Moles/Vol] 28.0 mmol/L 21.0-32.0 [facility] Free T4 [Mass/Vol] 1.38 ng/dL 0.76-1.46 [facility] Globulin (S) [Mass/Vol] 3.7 g/dL 2.2-4.2 [facility] Urea nitrogen/Creatinine [Mass ratio] 20.1 mg/mg 10-20 [facility] No Panel InformationOrdered By: Ernestine Santamaria on 05-02-2023 Urine Microalbumin/Creatini ne Ratio 7.2 mg/g CRE <30 [facility] Estimated GFR (MDRD) Amer 94 mL/min >60 [facility] Comment on above: GFR Calc Estimated GFR (MDRD) Non-Af Amer 78 mL/min >60 [facility] Comment on above: Non- GFR Calc Free Triiodothyronine (T3) pg/dL 2.9 pg/mL 2.18-3.98 [facility] Thyroid Stimulating Hormone (TSH) 0.09 uIU/mL 0.358-3.74 [facility] Serum or plasma albumin zhou urement (mass/volume)Ordered By: Ernestine Santamaria on 05-02-2023 Albumin [Mass/Vol] 3.6 g/dL 3.2-5.0 [facility] Serum or plasma calcium zhou urement (mass/volume)Ordered By: Ernestine Santamaria on 05-02-2023 Calcium [Mass/Vol] 8.9 mg/dL 8.5-10.1 [facility] Serum or plasma cholesterol in HDL measurement (mass/volume)Ordered By: Ernestine Santamaria on 05-02-2023 Cholesterol in HDL [Mass/Vol] 37 mg/dL >40 [facility] Comment on above: The drugs N-Acetylcy steine and Metamizole may falsely depress this assay. Reference Range HDL <40 mg/dL Low HDL Cholesterol HDL >or= 60 mg/dL High HDL Cholesterol Serum or plasma cholesterol in VLDL measurement (mass/volume)Ordered By: Ernestine Santamaria on 05-02-2023 Cholesterol in VLDL [Mass/Vol] 35 mg/dL 5-40 [facility] Serum or plasma creatinine m easurement (mass/volume)Ordered By: Ernestine Santamaria on 05-02-2023 Creatinine [Mass/Vol] 0.80 mg/dL 0.55-1.02 [facility] Comment on above: The validity of the calculated GFR & GFRAA in patients over 70 years has not been determined. Clinical correlation is essential. Serum or plasma low density lipoprotein (LDL) cholesterol measurement (mass/volume)Ordered By: Ernestine Santamaria on 05-02-2023 Cholesterol in LDL [Mass/Vol] 20 mg/dL 0-130 [facility] Serum or plasma urea nitroge n measurement (mass/volume)Ordered By: Ernestine Santamaria on 05-02-2023 Urea nitrogen [Mass/Vol] 16 mg/dL 7-18 [facility] Thin prep Papanicolaou smear with manual screeningOrdered By: Ernestine Santamaria on 05-02-2023 Thin prep Papanicolaou smear with manual screening 10.4 mg/L NO RANGE EST. [facility] Thin prep Papanicolaou smear with manual screening 55 U/L 15-37 [facility] Thin prep Papanicolaou smear with manual screening 6 5-15 [facility] Urine creatinine measurement (mass/volume)Ordered By: Ernestine Santamaria on 05-02-2023 Creatinine (U) [Mass/Vol] 145.00 mg/dL NO RANGE EST. [facility] US Breast - left limitedon 1 1. Resolving LEFT br east complicated cyst. 2. Left breast mastectomy with implant reconstruction. ASSESSMENT: Category 2 Benign RECOMMENDATION: Clinical correlation Left Report Dictated on Electronically Signed By: Ria Pierce MD Electronically Signed Date/Time: 03/18/2023 2:41 PM [employer] [facility] Patient Name: AISLINN KAY : 1960 Exam Date/Time: 03/18/2023 14:42 Procedure: BI US BREAST LIMITED LEFT Ordering Provider: WALDROP ASHLEY Reason For Exam: 6-month follow-up Prior study Comparisons: Targeted breast ultrasounds 07/27/2020 and 02/06/2021 and 09/06/2021 and 09/12/2022; ultrasound-guided biopsy 08/03/2020 Findings: SHORT-TERM FOLLOW-UP. 63-year-old. The patient is being followed for a mass on the left which was initially evaluated on 07/27/2020. The patient is status post BILATERAL mastectomy with implant reconstruction with a history of left breast malignancy. Multiple grayscale sonographic images were obtained of the left reconstructed breast by the electromechanical technologist with color and Doppler flow imaging. At the 2:30 position 5 cm from the nipple a resolving complicated cyst measures 0.5 x 0.4 x 0.1 cm with initial measurement on 07/27/2020 of 0.7 x 0.8 x 0.2 cm. No follow-up necessary. The patient's implant is visible posterior to this region. [facility] Ria Pierce MD - 03/18/2023 [facility] 1960 [id number] Exam Date/Time: 03/18/2023 14:42 Procedure: BI US BREAST LIMITED LEFT Ordering Provider: WALDROP ASHLEY Reason For Exam: 6-month follow-up Prior study Comparisons: Targeted breast ultrasounds 07/27/2020 and 02/06/2021 and 09/06/2021 and 09/12/2022; ultrasound-guided biopsy 08/03/2020 Findings: SHORT-TERM FOLLOW-UP. 63-year-old. The patient is being followed for a mass on the left which was initially evaluated on 07/27/2020. The patient is status post BILATERAL mastectomy with implant reconstruction with a history of left breast malignancy. Multiple grayscale sonographic images were obtained of the left reconstructed breast by the electromechanical technologist with color and Doppler flow imaging. At the 2:30 position 5 cm from the nipple a resolving complicated cyst measures 0.5 x 0.4 x 0.1 cm with initial measurement on 07/27/2020 of 0.7 x 0.8 x 0.2 cm. No follow-up necessary. The patient's implant is visible posterior to this region. IMPRESSION: 1. Resolving LEFT breast complicated cyst. 2. Left breast mastectomy with implant reconstruction. ASSESSMENT: Category 2 Benign RECOMMENDATION: Clinical correlation Left Report Dictated on Electronically Signed By: Ria Pierce MD Electronically Signed Date/Time: 03/18/2023 2:41 PM EDT [facility] Study observation (narrative) [facility] US Breast - left limitedOrde red By: Ria Pierce on 03-18-2023 [facility] Work Phone: Laboratory - Hematology and Cell countson 03-05-2023 HbA1c (Bld) [Mass fraction] 6.6 % 4.2-6.3 [facility] US Breast - left limitedon 0 09-12-2022 Stable left breast m ass. Continued follow-up recommended. ASSESSMENT: Category 3 Probably benign RECOMMENDATION: Breast ultrasound in 6 months Left Report Dictated on Electronically Signed By: Jan Ceja Electronically Signed Date/Time: 09/12/2022 3:01 PM EDT [email or web address] [facility] Patient Name: RAMA JOY : 1960 Exam Date/Time: 09/12/2022 15:01 Procedure: BI US BREAST LIMITED LEFT Ordering Provider: WALDROP ASHLEY Reason For Exam: 1 yr follow up lt breast mass Prior study Comparisons: 2021; 2020 Findings: The patient presented for surveillance of a left breast lesion. Again seen at 2:30, 5 cm from nipple, is a 0.7 x 0.2 x 0.8 cm avascular hypoechoic mass. There has been no significant interval change. [email or web address] [facility] Jan Ceja MD - 09/12/2022 Patient Name: RAMA BAIRD : 1960 Exam Date/Time: 09/12/2022 15:01 Procedure: BI US BREAST LIMITED LEFT Ordering Provider: WALDROP ASHLEY Reason For Exam: 1 yr follow up lt breast mass Prior study Comparisons: 2021; 2020 Findings: The patient presented for surveillance of a left breast lesion. Again seen at 2:30, 5 cm from nipple, is a 0.7 x 0.2 x 0.8 cm avascular hypoechoic mass. There has been no significant interval change. IMPRESSION: Stable left breast mass. Continued follow-up recommended. ASSESSMENT: Category 3 Probably benign RECOMMENDATION: Breast ultrasound in 6 months Left Report Dictated on Electronically Signed By: Jan Ceja Electronically Signed Date/Time: 09/12/2022 3:01 PM EDT [facility] Radiology Study observation (narrative) [facility] US Breast - left limitedOrde red By: Jan Ceja on 09-12-2022 [facility] Work Phone: Basophil percentageon 2021 Bilirubin [Mass/Vol] 0.30 mg/dL 0.20-1.00 [facility] Work Phone: Comment on above: For patients on eltr ombopag therapy, use of Dimension [place] TBIL is not recommended. Chloride [Moles/Vol] 106 mmol/L 98-107 [facility] Work Phone: Cholesterol [Mass/Vol] 112 mg/dL <200 [facility] Work Phone: Comment on above: <200 mg/dL Desirable 200-240 mg/dL Borderline >240 mg/dL High Risk Glucose [Mass/Vol] 101 mg/dL 74-106 [facility] Work Phone: Comment on above: Fasting Glucose resu lt from 100 to 125 mg/dL suggests IMPAIRED HOMEOSTASIS per A.D.A. criteria. Potassium [Moles/Vol] 4.1 mmol/L 3.5-5.1 [facility] Work Phone: Protein [Mass/Vol] 7.0 g/dL 6.4-8.2 [facility] Work Phone: [phone] Sodium [Moles/Vol] 140 mmol/L 136-145 [facility] Work Phone: [phone] Triglyceride [Mass/Vol] 147 mg/dL <199 [facility] Work Phone: [phone] Comment on above: The drugs N-Acetylcy steine and Metamizole may falsely depress this assay.Serum Triglycerides Reference Interval Normal <150 mg/dL Borderline high 150 - 199 mg/dL High 200 - 499 mg/dL Very High > or = 500 mg/dL Direct bilirubinon Bilirubin.direct [Mass/Vol] 0.10 mg/dL 0.00-0.30 [facility] Work Phone: [phone] Laboratory - Chemistry and C hemistry - challengeon 03-26-2022 ALP [Catalytic activity/Vol] 103 U/L 45-117 [facility] Work Phone: [phone] ALT [Catalytic activity/Vol] 86 U/L 13-56 [facility] Work Phone: [phone] CO2 [Moles/Vol] 26.0 mmol/L 21.0-32.0 [facility] Work Phone: [phone] Free T4 [Mass/Vol] 1.01 ng/dL 0.76-1.46 [facility] Work Phone: [phone] Globulin (S) [Mass/Vol] 3.5 g/dL 2.2-4.2 [facility] Work Phone: [phone] Urea nitrogen/Creatinine [Mass ratio] 16.7 mg/mg 10-20 [facility] Work Phone: No Panel Informationon 03-26 Estimated GFR (MDRD) Amer 89 mL/min >60 [facility] Work Phone: [phone] Comment on above: GFR Calc Estimated GFR (MDRD) Non-Af Amer 74 mL/min >60 [facility] Work Phone: [phone] Comment on above: Non- GFR Calc Thyroid Stimulating Hormone (TSH) 16.20 uIU/mL 0.358-3.74 [facility] Work Phone: Serum or plasma albumin zhou urement (mass/volume)on 03-26-2022 Albumin [Mass/Vol] 3.5 g/dL 3.2-5.0 [facility] Work Phone: Serum or plasma albumin/glob ulin mass ratioon 03-26-2022 Albumin/Globulin [Mass ratio] 1.0 {ratio} 0.9-2.4 [facility] Work Phone: Serum or plasma calcium zhou urement (mass/volume)on 03-26-2022 Calcium [Mass/Vol] 9.3 mg/dL 8.5-10.1 [facility] Work Phone: Serum or plasma cholesterol in HDL measurement (mass/volume)on 03-26-2022 Cholesterol in HDL [Mass/Vol] 30 mg/dL >40 [facility] Work Phone: Comment on above: The drugs N-Acetylcy steine and Metamizole may falsely depress this assay. Reference Range HDL <40 mg/dL Low HDL Cholesterol HDL >or= 60 mg/dL High HDL Cholesterol Serum or plasma cholesterol in VLDL measurement (mass/volume)on 03-26-2022 Cholesterol in VLDL [Mass/Vol] 29 mg/dL 5-40 [facility] Work Phone: Serum or plasma creatinine m easurement (mass/volume)on 03-26-2022 Creatinine [Mass/Vol] 0.84 mg/dL 0.55-1.02 [facility] Work Phone: Comment on above: The validity of the calculated GFR & GFRAA in patients over 70 years has not been determined. Clinical correlation is essential. Serum or plasma low density lipoprotein (LDL) cholesterol measurement (mass/volume)on 03-26-2022 Cholesterol in LDL [Mass/Vol] 53 mg/dL 0-130 [facility] Work Phone: Serum or plasma urea nitroge n measurement (mass/volume)on 03-26-2022 Urea nitrogen [Mass/Vol] 14 mg/dL 7-18 [facility] Work Phone: Thin prep Papanicolaou smear with manual screeningon 03-26-2022 Thin prep Papanicolaou smear with manual screening 86 U/L 15-37 [facility] Work Phone: Thin prep Papanicolaou smear with manual screening 8 5-15 [facility] Work Phone: Laboratory - Hematology and Cell countson 02-28-2022 HbA1c (Bld) [Mass fraction] 6.6 % [facility] Work Phone: Laboratory - Microbiology an d Antimicrobial susceptibilityon 11-05-2021 SARS-CoV-2 (COVID-19) RNA RIC+probe Ql (Unsp spec) Not detected [facility] Work Phone: No Panel Informationon 11-05 Influenza Types A,B Rapid (Clinic) Not detected [facility] Work Phone: US Breast Limited Lefton US Breast Limited Left Patient Name: RAMA BAIRD Ultrasound ACCESSION EXAM DATE/TIME PROCEDURE ORDERING PROVIDER [id number] 09/06/2021 15:30 EDT US Breast Limited Left Nora MICHELLE VICTORIA CPT code 01375 Reason For Exam (US Breast Limited Left) 6mo f/u Report REASON FOR EXAM: follow-up at short interval from prior study. PROCEDURE: US BREAST LIMITED LEFT: SEPTEMBER 06, 2021 - . FINDINGS: The patient presents for short-term follow-up for probably benign left breast mass. Ultrasound: Targeted sonographic evaluation left breast was performed using Doppler. At the 2:30 position, 5 cm from nipple there is redemonstration of a circumscribed hypoechoic mass measuring 0.7 x 0.2 x 0.8 cm. There is no evidence of internal vascularity. Continued short-term follow-up is recommended. IMPRESSION: Probably benign left breast mass. ASSESSMENT: Category 3 Probably benign RECOMMENDATION: Ultrasound of the left breast in 1 year. . Report Dictated on Final Signed Date and Time: 09/06/2021 3:57 pm Signed by: DO GARCIA RACHEL Normal [facility] Laboratory - Chemistry and C hemistry - challengeon 08-23-2021 Free T4 [Mass/Vol] 1.27 ng/dL 0.76-1.46 [facility] Work Phone: Laboratory - Hematology and Cell countson 08-23-2021 HbA1c (Bld) [Mass fraction] 7.3 % [facility] Work Phone: No Panel Informationon 08-23 Thyroid Stimulating Hormone (TSH) 0.17 uIU/mL 0.358-3.74 [facility] Work Phone: Basophil percentageon 2021 Bilirubin [Mass/Vol] 0.70 mg/dL 0.20-1.00 [facility] Work Phone: Comment on above: For patients on eltr ombopag therapy, use of Dimension [place] TBIL is not recommended. Chloride [Moles/Vol] 106 mmol/L 98-107 [facility] Work Phone: [phone] Cholesterol [Mass/Vol] 124 mg/dL <200 [facility] Work Phone: [phone] Comment on above: <200 mg/dL Desirable 200-240 mg/dL Borderline >240 mg/dL High Risk Glucose [Mass/Vol] 123 mg/dL 74-106 [facility] Work Phone: Comment on above: Fasting Glucose resu lt from 100 to 125 mg/dL suggests IMPAIRED HOMEOSTASIS per A.D.A. criteria. Potassium [Moles/Vol] 4.4 mmol/L 3.5-5.1 [facility] Work Phone: [phone] Protein [Mass/Vol] 7.6 g/dL 6.4-8.2 [facility] Work Phone: [phone] Sodium [Moles/Vol] 138 mmol/L 136-145 [facility] Work Phone: [phone] Triglyceride [Mass/Vol] 132 mg/dL [facility] Work Phone: [phone] Comment on above: The drugs N-Acetylcy steine and Metamizole may falsely depress this assay.Serum Triglycerides Reference Interval Normal <150 mg/dL Borderline high 150 - 199 mg/dL High 200 - 499 mg/dL Very High > or = 500 mg/dL Laboratory - Chemistry and C hemistry - challengeon 06-26-2021 ALP [Catalytic activity/Vol] 116 U/L 45-117 [facility] Work Phone: [phone] ALT [Catalytic activity/Vol] 123 U/L 13-56 [facility] Work Phone: [phone] CO2 [Moles/Vol] 28.0 mmol/L 21.0-32.0 [facility] Work Phone: [phone] Free T4 [Mass/Vol] 1.05 ng/dL 0.76-1.46 [facility] Work Phone: [phone] Globulin (S) [Mass/Vol] 3.8 g/dL 2.2-4.2 [facility] Work Phone: [phone] Urea nitrogen/Creatinine [Mass ratio] 10.4 mg/mg 10-20 [facility] Work Phone: [phone] No Panel Informationon 06-26 Estimated GFR (MDRD) Amer 86 mL/min >60 [facility] Work Phone: [phone] Comment on above: GFR Calc Estimated GFR (MDRD) Non-Af Amer 71 mL/min >60 [facility] Work Phone: [phone] Comment on above: Non- GFR Calc Free Triiodothyronine (T3) pg/dL 2.5 pg/mL 2.18-3.98 [facility] Work Phone: [phone] Thyroid Stimulating Hormone (TSH) 4.06 uIU/mL 0.358-3.74 [facility] Work Phone: [phone] Serum or plasma albumin zhou urement (mass/volume)on 06-26-2021 Albumin [Mass/Vol] 3.8 g/dL 3.2-5.0 [facility] Work Phone: [phone] Serum or plasma albumin/glob ulin mass ratioon 06-26-2021 Albumin/Globulin [Mass ratio] 1.0 {ratio} 0.9-2.4 [facility] Work Phone: Serum or plasma calcium zhou urement (mass/volume)on 06-26-2021 Calcium [Mass/Vol] 9.2 mg/dL 8.5-10.1 [facility] Work Phone: Serum or plasma cholesterol in HDL measurement (mass/volume)on 06-26-2021 Cholesterol in HDL [Mass/Vol] 34 mg/dL [facility] Work Phone: Comment on above: The drugs N-Acetylcy steine and Metamizole may falsely depress this assay. Reference Range HDL <40 mg/dL Low HDL Cholesterol HDL >or= 60 mg/dL High HDL Cholesterol Serum or plasma cholesterol in VLDL measurement (mass/volume)on 06-26-2021 Cholesterol in VLDL [Mass/Vol] 26 mg/dL 5-40 [facility] Work Phone: [phone] Serum or plasma creatinine m easurement (mass/volume)on 06-26-2021 Creatinine [Mass/Vol] 0.86 mg/dL 0.55-1.02 [facility] Work Phone: Comment on above: The validity of the calculated GFR & GFRAA in patients over 70 years has not been determined. Clinical correlation is essential. Serum or plasma low density lipoprotein (LDL) cholesterol measurement (mass/volume)on 06-26-2021 Cholesterol in LDL [Mass/Vol] 64 mg/dL 0-130 [facility] Work Phone: [phone] Serum or plasma urea nitroge n measurement (mass/volume)on 06-26-2021 Urea nitrogen [Mass/Vol] 9 mg/dL 7-18 [facility] Work Phone: [phone] Thin prep Papanicolaou smear with manual screeningon 06-26-2021 Thin prep Papanicolaou smear with manual screening 121 U/L 15-37 [facility] Work Phone: [phone] Thin prep Papanicolaou smear with manual screening 4 5-15 [facility] Work Phone: [phone] No Panel Informationon 05-24 POC SARS CoV-2 Antigen Negative [facility] Work Phone: US BREAST LIMITED LEFTOrdere d By: Yanni Villalobos on 02-06-2021 [id number] ACCESSION EXAM DATE/TIME PROCEDURE ORDERING PROVIDER [id number] 02/06/2021 15:42 EDT US Breast Limited Left Nora MICHELLE VICTORIA CPT code 30079 Reason For Exam (US Breast Limited Left) 6 month f/u Report REASON FOR EXAM: follow-up at short interval from prior study. PROCEDURE: US BREAST LIMITED LEFT: 2020 - Prior study comparison: July 27, 2020, left breast US breast limited left performed at [facility]. . FINDINGS: The patient is a 60-year-old who presents for short-term follow-up following a benign biopsy of the left breast. Additionally probable benign lesions were noted in the left breast. The patient has had a left mastectomy with implant reconstruction. Implant integrity is not evaluated. At the 3:30 position 9 cm from the nipple there is an oval circumscribed hypoechoic mass measuring 0.6 x 0.2 x 0.5 cm. There has been no suspicious change. This was found to be benign at prior biopsy. A tissue marker was not placed due to the superficial nature of the lesion. At the 3:00 position 5 cm from the nipple, no discrete solid or cystic masses are identified. At the 2:30 position 5 cm from the nipple there is a oval circumscribed hypoechoic mass measuring 0.6 x 0.2 x 0.6 cm. There is been no suspicious change. The patient also complains of hardness in the lower outer quadrant. Survey of the area of the palpable hardening reveals no discrete solid or cystic masses. IMPRESSION: Probable benign findings in the left breast. Continued short-term follow-up is recommended. ASSESSMENT: Category 3 Probably benign RECOMMENDATION: Ultrasound of the left breast in 6 months. . Ultrasound Report Report Dictated on --- Final --- Signed Date and Time: 02/06/2021 3:52 pm Signed by: MD LÓPEZ, MELODY Moss [facility] Work Phone: Sami, [facility] Incoming Radiology Results From [employer] - 02/06/2021 3:56 PM EDT Patient Name: RAMA BAIRD Ultrasound ACCESSION EXAM DATE/TIME PROCEDURE ORDERING PROVIDER [id number] 02/06/2021 15:42 EDT US Breast Limited Left Nora MICHELLE VICTORIA CPT code 01499 Reason For Exam (US Breast Limited Left) 6 month f/u Report REASON FOR EXAM: follow-up at short interval from prior study. PROCEDURE: US BREAST LIMITED LEFT: 2020 - Prior study comparison: July 27, 2020, left breast US breast limited left performed at [facility]. . FINDINGS: The patient is a 60-year-old who presents for short-term follow-up following a benign biopsy of the left breast. Additionally probable benign lesions were noted in the left breast. The patient has had a left mastectomy with implant reconstruction. Implant integrity is not evaluated. At the 3:30 position 9 cm from the nipple there is an oval circumscribed hypoechoic mass measuring 0.6 x 0.2 x 0.5 cm. There has been no suspicious change. This was found to be benign at prior biopsy. A tissue marker was not placed due to the superficial nature of the lesion. At the 3:00 position 5 cm from the nipple, no discrete solid or cystic masses are identified. At the 2:30 position 5 cm from the nipple there is a oval circumscribed hypoechoic mass measuring 0.6 x 0.2 x 0.6 cm. There is been no suspicious change. The patient also complains of hardness in the lower outer quadrant. Survey of the area of the palpable hardening reveals no discrete solid or cystic masses. IMPRESSION: Probable benign findings in the left breast. Continued short-term follow-up is recommended. ASSESSMENT: Category 3 Probably benign RECOMMENDATION: Ultrasound of the left breast in 6 months. . Ultrasound Report Report Dictated on --- Final --- Signed Date and Time: 02/06/2021 3:52 pm Signed by: MD LÓPEZ, MELODY Moss [facility] Work Phone: [facility] Work Phone: US Breast Limited Lefton US Breast Limited Left [facility]: [id number] ACCESSION EXAM DATE/TIME PROCEDURE ORDERING PROVIDER [id number] 02/06/2021 15:42 EDT US Breast Limited Left Nora MICHELLE VICTORIA CPT code 08891 Reason For Exam (US Breast Limited Left) 6 month f/u Report REASON FOR EXAM: follow-up at short interval from prior study. PROCEDURE: US BREAST LIMITED LEFT: 2020 - Prior study comparison: July 27, 2020, left breast US breast limited left performed at [facility]. . FINDINGS: The patient is a 60-year-old who presents for short-term follow-up following a benign biopsy of the left breast. Additionally probable benign lesions were noted in the left breast. The patient has had a left mastectomy with implant reconstruction. Implant integrity is not evaluated. At the 3:30 position 9 cm from the nipple there is an oval circumscribed hypoechoic mass measuring 0.6 x 0.2 x 0.5 cm. There has been no suspicious change. This was found to be benign at prior biopsy. A tissue marker was not placed due to the superficial nature of the lesion. At the 3:00 position 5 cm from the nipple, no discrete solid or cystic masses are identified. At the 2:30 position 5 cm from the nipple there is a oval circumscribed hypoechoic mass measuring 0.6 x 0.2 x 0.6 cm. There is been no suspicious change. The patient also complains of hardness in the lower outer quadrant. Survey of the area of the palpable hardening reveals no discrete solid or cystic masses. IMPRESSION: Probable benign findings in the left breast. Continued short-term follow-up is recommended. ASSESSMENT: Category 3 Probably benign RECOMMENDATION: Ultrasound of the left breast in 6 months. . Ultrasound Report Report Dictated on Final Signed Date and Time: 02/06/2021 3:52 pm Signed by: MD DAWN LAUREN B Normal [facility] Basic Metabolic Panelon 03-2 Anion gap [Moles/Vol] 9 mmol/L 3 - 13 mmol/L [facility] Work Phone: [phone] Calcium [Mass/Vol] 10.0 mg/dL 8.4 - 10. 4 mg/dL [facility] Work Phone: [phone] Chloride [Moles/Vol] 102 mmol/L 98 - 10 7 mmol/L [facility] Work Phone: [phone] CO2 [Moles/Vol] 28 mmol/L 22 - 30 mmol/L [facility] Work Phone: [phone] Creatinine [Mass/Vol] 0.59 mg/dL 0.52 - 1.25 mg/dL [facility] Work Phone: [phone] EGFR IF NonAfrican Bolivian >90.0 >60 mL/min [facility] Work Phone: [phone] Comment on above: KDIGO guidelines pro vide the following GFR categories: Stage GFR(ml/min/1.73 m2) Terms G1 >=90 Normal or high G2 60-89 Mildly decreased* G3a 45-59 Mildly to moderately decreased G3b 30-44 Moderately to severely decreased G4 15-29 Severely decreased G5 <15 Kidney failure *Relative to young adult level. In the absence of evidence of kidney damage, neither GFR category G1 nor G2 fulfill the criteria for CKD. The CKD-EPI equation is validated in individuals 18 years of age and older. Currently the best equation for estimating glomerular filtration rate (GFR) from serum creatinine in children is the Bedside Hillman equation. It is less accurate in patients with extremes of muscle mass, restriction of dietary protein, ingestion of creatine, extra-renal metabolism of creatinine, or treatment with medications that affect renal tubular creatinine secretion. GFR/1.73 sq M predicted among blacks MDRD (S/P/Bld) [Vol rate/Area] mL/min/{1.73_m2} >60 mL/min [facility] Work Phone: [phone] Glucose [Mass/Vol] 123 mg/dL High 70 - 100 mg/dL [facility] Work Phone: [phone] Potassium [Moles/Vol] 4.7 mmol/L 3.5 - 5.1 mmol/L [facility] Work Phone: [phone] Sodium [Moles/Vol] 139 mmol/L 135 - 145 mmol/L [facility] Work Phone: [phone] Urea nitrogen [Mass/Vol] 13 mg/dL 7 - 20 mg/dL [facility] Work Phone: 1 CBC Auto Differentialon 07-25 Absolute Baso # 0.0 10*3/uL 0.0 - 0.2 10*3/uL [facility] Work Phone: 1 Absolute Neut # 3.7 10*3/uL 1.8 - 7.0 10*3/uL [facility] Work Phone: [phone] Basophils/100 WBC (Bld) 0.6 % 0.0 - 2.0 % [facility] Work Phone: 1 Eosinophils (Bld) [#/Vol] 0.2 10*3/uL 0.0 - 0.5 10*3/uL [facility] Work Phone: 1 Eosinophils/100 WBC (Bld) 3.6 % 1.0 - 6.0 % [facility] Work Phone: 1 Erythrocyte distribution width (RBC) [Ratio] 14.0 % 11.5 - 14.5 % [facility] Work Phone: Granulocytes/100 WBC (Bld) 60.1 % 40.0 - 80.0 % [facility] Work Phone: Hematocrit (Bld) [Volume fraction] 41.1 % 35.0 - 47.0 % [facility] Work Phone: Hemoglobin (Bld) [Mass/Vol] 14.0 g/dL 11.7 - 16.0 g/dL [facility] Work Phone: Lymphocytes (Bld) [#/Vol] 1.8 10*3/uL 1.0 - 4.3 10*3/uL [facility] Work Phone: 22 Lymphocytes/100 WBC (Bld) 29.4 % 20.0 - 40.0 % [facility] Work Phone: 1 MCH (RBC) [Entitic mass] 30.1 pg 26.0 - 34.0 pg [facility] Work Phone: 22 MCHC (RBC) [Mass/Vol] 34.0 % 32.0 - 36.0 % [facility] Work Phone: 1 MCV (RBC) [Entitic vol] 88.3 fL 79.0 - 98.0 fL [facility] Work Phone: Monocytes (Bld) [#/Vol] 0.4 10*3/uL 0.0 - 0.8 10*3/uL [facility] Work Phone: Monocytes/100 WBC (Bld) 6.3 % 2.0 - 10.0 % [facility] Work Phone: Platelet mean volume (Bld) [Entitic vol] 8.5 fL 7.4 - 10.4 fL [facility] Work Phone: Platelets (Bld) [#/Vol] 191 10*3/uL 140 - 440 10*3/uL [facility] Work Phone: RBC (Bld) [#/Vol] 4.66 10*6/uL 3.80 - 5.2 0 10*6/uL [facility] Work Phone: WBC (Bld) [#/Vol] 6.1 10*3/uL 3.6 - 10.7 10*3/uL [facility] Work Phone: Test Performed by [facility], [address] [place] [id number] [facility] Work Phone: Hepatic Function Panelon Albumin [Mass/Vol] 4.6 g/dL 3.5 - 5.0 g/dL [facility] Work Phone: ALP [Catalytic activity/Vol] 119 U/L 38 - 126 U/L [facility] Work Phone: ALT [Catalytic activity/Vol] 137 U/L High 0 - 34 U/L [facility] Work Phone: Comment on above: The ALT test is perf ormed by an updated assay method. Please note that the reference intervals have been changed and are now sex specific. AST [Catalytic activity/Vol] 146 U/L High 15 - 46 U/L [facility] Work Phone: Bilirubin Ql (U) 0.5 mg/dL 0.2 - 1.3 mg/dL [facility] Work Phone: [phone] Bilirubin.direct [Mass/Vol] 0.0 mg/dL 0.0 - 0.3 mg/dL [facility] Work Phone: [phone] Protein [Mass/Vol] 7.8 g/dL 6.3 - 8.2 g/dL [facility] Work Phone: [phone] Otheron 08-14-2020 Interpretation and review of laboratory results Abnormal [facility] Work Phone: [phone] Performed by [employer], [place] [address] [facility] Work Phone: [phone] Protime/INR & PTTon 08-15-19 aPTT Coag (Bld) [Time] 25.4 s 20.0 - 30.5 s [facility] Work Phone: [phone] Comment on above: NOTE: The therapeuti c time for Heparin anticoagulation, based on Xa activity inhibition, is an APTT of 46-80 seconds. INR Coag (PPP) [Relative time] 1.1 {INR} [facility] Work Phone: [phone] Comment on above: Recommended Anticoag ulant Therapy: SEE BELOW ----- INR of 2.0 - 3.0 : - Prophylaxis of Venous Thrombosis (high-risk surgery) - Treatment of Venous Thrombosis - Treatment of Pulmonary Embolism (Includes tissue heart valves, Acute Myocardial Infarction to prevent systemic embolism, Valvular Heart Disease, and Atrial Fibrillation) ----- INR of 2.5 - 3.5 : - Mechanical Prosthetic Valves (high risk) - If oral anticoagulant therapy is used to prevent Myocardial Infarction PT Coag (PPP) [Time] 11.4 s 9.0 - 12.0 s [facility] Work Phone: Comment on above: . Test Performed by [employer], [place] [address] [facility] Work Phone: [phone] XR CHEST 1 VWon 08-14-2020 [facility] In[facility] Rad[facility] Results From [facility] - 08/14/2020 3:54 PM EDT Patient Name: RAMA BAIRD Diagnostic Radiology ACCESSION EXAM DATE/TIME PROCEDURE ORDERING PROVIDER [id number] 08/14/2020 10:16 EDT CR Chest 1 View Jesus Manuel BELLO MD, WILMER MYERS CPT code 48777 Reason For Exam (CR Chest 1 View Frontal) Preoperative evaluation Report CLINICAL INFORMATION: Preoperative chest x-ray for breast surgery. History of coronary artery disease with coronary artery bypass graft. Chest x-ray, single view: A single frontal view is compared to the prior examination of 10/12/2019. The examination is underpenetrated. The patient is slightly rotated to the left. There are median sternotomy wires. There is no abnormality of the mediastinum or cardiac silhouette. No pleural effusion, of vascular congestion, focal consolidation or pneumothorax is seen. IMPRESSION: Underpenetration and slight patient rotation. Prior CABG. No evidence of acute cardiopulmonary process or significant interval change. Report Dictated on --- Final --- Dictated: 08/14/2020 3:51 pm Dictating Physician: MD PRADO HARLAN Signed Date and Time: 08/14/2020 3:52 pm Signed by: MD PRADO HARLAN Transcribed Date and Time: 08/14/2020 3:51 [facility] Work Phone: Patient Name: RAMA JOY Diagnostic Radiology ACCESSION EXAM DATE/TIME PROCEDURE ORDERING PROVIDER [id number] 08/14/2020 10:16 EDT CR Chest 1 View Jesus Manuel BELLO MD, WILMER MYERS CPT code 07001 Reason For Exam (CR Chest 1 View Frontal) Preoperative evaluation Report CLINICAL INFORMATION: Preoperative chest x-ray for breast surgery. History of coronary artery disease with coronary artery bypass graft. Chest x-ray, single view: A single frontal view is compared to the prior examination of 10/12/2019. The examination is underpenetrated. The patient is slightly rotated to the left. There are median sternotomy wires. There is no abnormality of the mediastinum or cardiac silhouette. No pleural effusion, of vascular congestion, focal consolidation or pneumothorax is seen. IMPRESSION: Underpenetration and slight patient rotation. Prior CABG. No evidence of acute cardiopulmonary process or significant interval change. Report Dictated on --- Final --- Dictated: 08/14/2020 3:51 pm Dictating Physician: MD PRADO HARLAN Signed Date and Time: 08/14/2020 3:52 pm Signed by: MD PRADO HARLAN Transcribed Date and Time: 08/14/2020 3:51 [facility] Work Phone: US GUIDED LEFT BREAST BIOPSY on 08-03-2020 Patient Name: AISLINN KAY RAMA Ultrasound ACCESSION EXAM DATE/TIME PROCEDURE ORDERING PROVIDER [id number] 08/03/2020 10:58 EST US BX Breast 1st Lesion Nora MICHELLE, Image LT YANNI CPT code 13681 Reason For Exam (US BX Breast 1st Lesion Image LT) palpable area 1 cm in recontstruced breast, hx L breast cancer Report PROCEDURE: US BX BREAST 1ST LESION IMAGE LT: LEFT BREAST - AUGUST 03, 2020 - Prior study comparison: July 27, 2020, left breast US breast limited left performed at [facility]. REASON FOR EXAMINATION: The patient is status post mastectomy with implant placement. There are several suspicious hypoechoic masses overlying the implant. CONSENT: The patient presents for ultrasound-guided core biopsy of the left breast. Prior to the procedure red rules were performed which included patient name, date of , and procedure type. Risks, benefits and alternatives were explained to the patient and informed consent was obtained. The patient's prior imaging dated 07/27/2020 was reviewed. PROCEDURE: An audible time out was performed. I washed my hands and wore sterile gloves. The patient was scanned and the lesion in the left breast was redemonstrated. The patient was prepped in the usual sterile fashion. 7 mL of 1% Lidocaine was administered for local anesthesia. A leslee was made in the skin and a 18-gauge Bard SoCloz core biopsy device was advanced into the lesion with ultrasound guidance. 3 core specimens were obtained. A biopsy marker was not placed given the superficial location of the mass. The patient tolerated the procedure without immediate complications. Home-going instructions were given and the patient was discharged in good condition. IMPRESSION: Technically successful US guided biopsy of the left breast. MAMMOGRAM: Mammography was not performed Markings on images: BB's = Nipples; skin lesions Open gambell = Palpable Line = Scar Ultrasound Report Report Dictated on PATHOLOGY RESULTS: PENDING --- Final --- Signed Date and Time: 08/03/2020 1:26 pm Signed by: MD REINIER, JARRETT GRAF Work Phone: [facility] Incoming Radiology Results From [facility] - 08/03/2020 2:04 PM EST Patient Name: RAMA BAIRD Ultrasound ACCESSION EXAM DATE/TIME PROCEDURE ORDERING PROVIDER [id number] 08/03/2020 10:58 EST US BX Breast 1st Lesion Nora MICHELLE, Image LT YANNI CPT code 00434 Reason For Exam (US BX Breast 1st Lesion Image LT) palpable area 1 cm in recontstruced breast, hx L breast cancer Report PROCEDURE: US BX BREAST 1ST LESION IMAGE LT: LEFT BREAST - AUGUST 03, 2020 - Prior study comparison: July 27, 2020, left breast US breast limited left performed at [facility]. REASON FOR EXAMINATION: The patient is status post mastectomy with implant placement. There are several suspicious hypoechoic masses overlying the implant. CONSENT: The patient presents for ultrasound-guided core biopsy of the left breast. Prior to the procedure red rules were performed which included patient name, date of , and procedure type. Risks, benefits and alternatives were explained to the patient and informed consent was obtained. The patient's prior imaging dated 07/27/2020 was reviewed. PROCEDURE: An audible time out was performed. I washed my hands and wore sterile gloves. The patient was scanned and the lesion in the left breast was redemonstrated. The patient was prepped in the usual sterile fashion. 7 mL of 1% Lidocaine was administered for local anesthesia. A leslee was made in the skin and a 18-gauge Bard Paterson core biopsy device was advanced into the lesion with ultrasound guidance. 3 core specimens were obtained. A biopsy marker was not placed given the superficial location of the mass. The patient tolerated the procedure without immediate complications. Home-going instructions were given and the patient was discharged in good condition. IMPRESSION: Technically successful US guided biopsy of the left breast. MAMMOGRAM: Mammography was not performed Markings on images: BB's = Nipples; skin lesions Open gambell = Palpable Line = Scar Ultrasound Report Report Dictated on PATHOLOGY RESULTS: PENDING --- Final --- Signed Date and Time: 08/03/2020 1:26 pm Signed by: MD REINIER, JARRETT GRAF Work Phone: US BREAST LIMITED LEFTon Patient Name: RAMA JOY Ultrasound ACCESSION EXAM DATE/TIME PROCEDURE ORDERING PROVIDER [id number] 07/27/2020 12:07 EST US Breast Limited Left Nora MICHELLE VICTORIA CPT code 98081 Reason For Exam (US Breast Limited Left) eval areas lateral left reconstructed breast Report REASON FOR EXAM: clinical finding. INDICATED PROBLEM: Indicated problem(s): left breast palpable abnormality for 2 months. PROCEDURE: US BREAST LIMITED LEFT: JULY 27, 2020 - . FINDINGS: 52-year-old female who had a history of left breast cancer with a left mastectomy and implant reconstruction with a prophylactic right mastectomy and implant reconstruction. There are areas of palpable concern in her left reconstructed breast. Sonographic images were obtained of the left breast in the areas of concern. These areas include the 2:30 position, 5 cm from the nipple, 3:00 position 5 cm the nipple, and 3:30 position 9 cm from the nipple. There are 3 similar-appearing masses identified in these locations. They are old oval well-circumscribed hypoechoic without internal vascularity. They appear to be oriented like a string of beads. The largest of these is at the 3:30 position. It measures 1.0 x 0.9 x 0.4 cm. The finding at the 2:30 position measures 0.8 x 0.7 x 0.2 cm. The finding at the 3:00 position is more tubular in morphology but is otherwise similar in its sonographic characteristics. IMPRESSION: Multiple masses are identified in the area of concern. These are indeterminant. They could represent fat necrosis. Recommend biopsy of the largest finding, the 3:30 position. If the results are benign the other areas are amenable to ultrasound follow-up. The findings and recommendations discussed the patient. The patient is known to Dr. Michlele. She'll be scheduled for ultrasound biopsy. ASSESSMENT: Category 4 Suspicious RECOMMENDATION: Ultrasound guided core biopsy of the left breast. . Ultrasound Report Report Dictated on --- Final --- Signed Date and Time: 07/27/2020 2:58 pm Signed by: MD JOSE, RAFY GRAF Work Phone: [facility], [facility] Incoming Radiology Results From [facility] - 07/27/2020 3:13 PM EST Patient Name: RAMA BAIRD Ultrasound ACCESSION EXAM DATE/TIME PROCEDURE ORDERING PROVIDER [id number] 07/27/2020 12:07 EST US Breast Limited Left Nora MICHELLE VICTORIA CPT code 26115 Reason For Exam (US Breast Limited Left) eval areas lateral left reconstructed breast Report REASON FOR EXAM: clinical finding. INDICATED PROBLEM: Indicated problem(s): left breast palpable abnormality for 2 months. PROCEDURE: US BREAST LIMITED LEFT: JULY 27, 2020 - . FINDINGS: 52-year-old female who had a history of left breast cancer with a left mastectomy and implant reconstruction with a prophylactic right mastectomy and implant reconstruction. There are areas of palpable concern in her left reconstructed breast. Sonographic images were obtained of the left breast in the areas of concern. These areas include the 2:30 position, 5 cm from the nipple, 3:00 position 5 cm the nipple, and 3:30 position 9 cm from the nipple. There are 3 similar-appearing masses identified in these locations. They are old oval well-circumscribed hypoechoic without internal vascularity. They appear to be oriented like a string of beads. The largest of these is at the 3:30 position. It measures 1.0 x 0.9 x 0.4 cm. The finding at the 2:30 position measures 0.8 x 0.7 x 0.2 cm. The finding at the 3:00 position is more tubular in morphology but is otherwise similar in its sonographic characteristics. IMPRESSION: Multiple masses are identified in the area of concern. These are indeterminant. They could represent fat necrosis. Recommend biopsy of the largest finding, the 3:30 position. If the results are benign the other areas are amenable to ultrasound follow-up. The findings and recommendations discussed the patient. The patient is known to Dr. Michelle. She'll be scheduled for ultrasound biopsy. ASSESSMENT: Category 4 Suspicious RECOMMENDATION: Ultrasound guided core biopsy of the left breast. . Ultrasound Report Report Dictated on --- Final --- Signed Date and Time: 07/27/2020 2:58 pm Signed by: MD GARCIA TOM A [facility] Work Phone: Basic Metabolic Panelon 05- Anion gap [Moles/Vol] 9 mmol/L [place], [place] Calcium [Mass/Vol] 8.8 mg/dL 8.4 - 10. 4 mg/dL [place], [place] Chloride [Moles/Vol] 100 mmol/L 98 - 10 7 mmol/L [place] CO2 [Moles/Vol] 27 mmol/L 22 - 30 mmol/L [place] Creatinine [Mass/Vol] 0.57 mg/dL 0.52 - 1.25 mg/dL [place] EGFR IF NonAfrican [place]ian >90.0 >60 mL/min [place], [place] Comment on above: KDIGO guidelines pro vide the following GFR categories: Stage GFR(ml/min/1.73 m2) Terms G1 >=90 Normal or high G2 60-89 Mildly decreased* G3a 45-59 Mildly to moderately decreased G3b 30-44 Moderately to severely decreased G4 15-29 Severely decreased G5 <15 Kidney failure *Relative to young adult level. In the absence of evidence of kidney damage, neither GFR category G1 nor G2 fulfill the criteria for CKD. The CKD-EPI equation is validated in individuals 18 years of age and older. Currently the best equation for estimating glomerular filtration rate (GFR) from serum creatinine in children is the Bedside Hillman equation. It is less accurate in patients with extremes of muscle mass, restriction of dietary protein, ingestion of creatine, extra-renal metabolism of creatinine, or treatment with medications that affect renal tubular creatinine secretion. GFR/1.73 sq M predicted among blacks MDRD (S/P/Bld) [Vol rate/Area] mL/min/{1.73_m2} >60 mL/min [place], [place] Glucose [Mass/Vol] 137 mg/dL High 70 - 100 mg/dL [place] Interpretation and review of laboratory results Abnormal [place] Potassium [Moles/Vol] 3.9 mmol/L 3.5 - 5.1 mmol/L [place] Sodium [Moles/Vol] 136 mmol/L 135 - 145 mmol/L [place] Urea nitrogen [Mass/Vol] 11 mg/dL 7 - 20 mg/dL [place] Test Performed by [address] [address] [place], [place] [facility] 10-12-2019 Erythrocyte distribution width (RBC) [Ratio] 13.3 % 11.5 - 14.5 % [place] Hematocrit (Bld) [Volume fraction] 28.9 % Low 35 - 47 % [place] Hemoglobin (Bld) [Mass/Vol] 10.0 g/dL Low 11.7 - 16 g/dL [place] Interpretation and review of laboratory results Abnormal [place] MCH (RBC) [Entitic mass] 31.8 pg 26 - 34 pg [place] MCHC (RBC) [Mass/Vol] 34.7 % 32 - 36 % [place] MCV (RBC) [Entitic vol] 91.8 fL 79 - 98 fL [place] Platelet mean volume (Bld) [Entitic vol] 8.1 fL 7.4 - 10.4 fL [place] Platelets (Bld) [#/Vol] 249 10*3/uL 140 - 440 10*3/uL [place] RBC (Bld) [#/Vol] 3.15 10*6/uL Low 3.8 - 5.2 10*6/uL [place] WBC (Bld) [#/Vol] 10.9 10*3/uL High 3.6 - 10.7 10*3/uL [facility] by [facility], [address] [facility] [place] [address] [facility] POCT Glucoseon 10-12-2019 Glucose [Mass/Vol] 156 mg/dL High 70 - 100 mg/dL [facility] Comment on above: Test performed by gl ucose meter. Results may be 10%-15% lower than serum/plasma values. (CLIA ID [id number]) Interpretation and review of laboratory results Abnormal [facility] Test Performed by [facility], [address] [place] [address] [facility] [place] XR CHEST PORTABLEon 10-12-19 Patient Name: RAMA JOY ---Diagnostic Radiology--- Exam Date/Time 10/12/2019 06:14:00 EDT Exam CR Chest Portable Ordering Physician CARTER DUARTE Accession Number [id number] CPT4 Codes 40032 () Reason For Exam post op Report PORTABLE CHEST: INDICATION: Postop COMPARISON: 10/11/2019 Obtained at 0532 hours. A single portable AP radiograph of the chest was obtained. The heart is enlarged. The mediastinal silhouette is normal. There is linear atelectasis of the left lung base. Mild congestion is present. Lungs otherwise are clear. There is biapical pleural thickening. Arthritic changes of the spine and shoulders are present. IMPRESSION: Mild congestion and linear atelectasis of left base. Borderline cardiomegaly. Report Dictated on Workstation: [id number] --- Final --- Dictated: 10/12/2019 6:18 am Dictating Physician: DO GONZALEZ ALFRED Signed Date and Time: 10/12/2019 6:19 am Signed by: DO GONZALEZ ALFRED Transcribed Date and Time: 10/12/2019 6:18 [facility] 10[facility]12/2019 6:20 AM EDT Patient Name: RAMA BAIRD ---Diagnostic Radiology--- Exam Date/Time 10/12/2019 06:14:00 EDT Exam CR Chest Portable Ordering Physician CARTER DUARTE Accession Number [id number] CPT4 Codes 24295 () Reason For Exam post op Report PORTABLE CHEST: INDICATION: Postop COMPARISON: 10/11/2019 Obtained at 0532 hours. A single portable AP radiograph of the chest was obtained. The heart is enlarged. The mediastinal silhouette is normal. There is linear atelectasis of the left lung base. Mild congestion is present. Lungs otherwise are clear. There is biapical pleural thickening. Arthritic changes of the spine and shoulders are present. IMPRESSION: Mild congestion and linear atelectasis of left base. Borderline cardiomegaly. Report Dictated on Workstation: [id number] --- Final --- Dictated: 10/12/2019 6:18 am Dictating Physician: DO GONZALEZ ALFRED Signed Date and Time: 10/12/2019 6:19 am Signed by: DO GONZALEZ ALFRED Transcribed Date and Time: 10/12/2019 6:18 [place], [place] Basic Metabolic Panelon 05- Anion gap [Moles/Vol] 5 mmol/L [place] Calcium [Mass/Vol] 8.7 mg/dL 8.4 - 10. 4 mg/dL [place] Chloride [Moles/Vol] 103 mmol/L 98 - 10 7 mmol/L [place] CO2 [Moles/Vol] 28 mmol/L 22 - 30 mmol/L [place] Creatinine [Mass/Vol] 0.49 mg/dL Low 0.52 - 1.25 mg/dL [place] EGFR IF NonAfrican [place] >90.0 >60 mL/min [place] Comment on above: KDIGO guidelines pro vide the following GFR categories: Stage GFR(ml/min/1.73 m2) Terms G1 >=90 Normal or high G2 60-89 Mildly decreased* G3a 45-59 Mildly to moderately decreased G3b 30-44 Moderately to severely decreased G4 15-29 Severely decreased G5 <15 Kidney failure *Relative to young adult level. In the absence of evidence of kidney damage, neither GFR category G1 nor G2 fulfill the criteria for CKD. The CKD-EPI equation is validated in individuals 18 years of age and older. Currently the best equation for estimating glomerular filtration rate (GFR) from serum creatinine in children is the Bedside Hillman equation. It is less accurate in patients with extremes of muscle mass, restriction of dietary protein, ingestion of creatine, extra-renal metabolism of creatinine, or treatment with medications that affect renal tubular creatinine secretion. GFR/1.73 sq M predicted among blacks MDRD (S/P/Bld) [Vol rate/Area] mL/min/{1.73_m2} >60 mL/min [place] Glucose [Mass/Vol] 111 mg/dL High 70 - 100 mg/dL [place] Interpretation and review of laboratory results Abnormal [place] Potassium [Moles/Vol] 4.1 mmol/L 3.5 - 5.1 mmol/L [place] Sodium [Moles/Vol] 136 mmol/L 135 - 145 mmol/L [place], [place] Urea nitrogen [Mass/Vol] 11 mg/dL 7 - 20 mg/dL [place] CBCon 10-11-2019 Erythrocyte distribution width (RBC) [Ratio] 13.1 % 11.5 - 14.5 % [place] Hematocrit (Bld) [Volume fraction] 29.7 % Low 35 - 47 % [place] Hemoglobin (Bld) [Mass/Vol] 10.3 g/dL Low 11.7 - 16 g/dL [place] Interpretation and review of laboratory results Abnormal [place] MCH (RBC) [Entitic mass] 31.9 pg 26 - 34 pg [place] MCHC (RBC) [Mass/Vol] 34.7 % 32 - 36 % [place] MCV (RBC) [Entitic vol] 91.9 fL 79 - 98 fL [place] Platelet mean volume (Bld) [Entitic vol] 8.4 fL 7.4 - 10.4 fL [place] Platelets (Bld) [#/Vol] 191 10*3/uL 140 - 440 10*3/uL [place] RBC (Bld) [#/Vol] 3.23 10*6/uL Low 3.8 - 5.2 10*6/uL [facility], [place] WBC (Bld) [#/Vol] 9.9 10*3/uL 3.6 - 10.7 10*3/uL [facility], [place] Test Performed by [facility], [address] [place] [address] [facility], [place] Magnesiumon 10-11-2019 Magnesium [Mass/Vol] 2.0 mg/dL 1.6 - 2 .3 mg/dL [facility], [place] Otheron 10-11-2019 Test Performed by [facility], [address] [place] [address] [place], [place] POCT Glucoseon 10-11-2019 Glucose [Mass/Vol] 102 mg/dL High 70 - 100 mg/dL [place], [place] Comment on above: Test performed by gl ucose meter. Results may be 10%-15% lower than serum/plasma values. (CLIA ID [id number]) Interpretation and review of laboratory results Abnormal [facility] [place], [place] Test Performed by [facility], [address] [place] [address] [place], [place] Glucose [Mass/Vol] 152 mg/dL High 70 - 100 mg/dL [place], [place] Comment on above: Test performed by gl ucose meter. Results may be 10%-15% lower than serum/plasma values. (CLIA ID [id number]) Interpretation and review of laboratory results Abnormal [facility] [employer] [place], [place] Test Performed by [facility], [address] [place] [address] [place], [place] Glucose [Mass/Vol] 191 mg/dL High 70 - 100 mg/dL [place] Comment on above: Test performed by gl ucose meter. Results may be 10%-15% lower than serum/plasma values. (CLIA ID [id number]) Interpretation and review of laboratory results Abnormal [facility]- [place], [place] Test Performed by [facility], [address] [place] [address] [place] XR CHEST PORTABLEon 10-11-19 20 Sami, [facility] Incoming Radiology Results From [facility] - 10/11/2019 6:46 AM EDT Patient Name: RAMA BAIRD ---Diagnostic Radiology--- Exam Date/Time 10/11/2019 06:27:36 EDT Exam CR Chest Portable Ordering Physician CARTER DUARTE Accession Number [id number] CPT4 Codes 44117 () Reason For Exam POST OP OPEN HEART SOB Report PORTABLE CHEST: INDICATION: Status post open heart COMPARISON: 10/10/2019 Obtained at 0524 hours. A single portable AP radiograph of the chest was obtained. The study is limited as the apices were not included. The heart is borderline in size. The mediastinal silhouette is normal. Left basal atelectasis is again noted. There are no effusions. There is no pleural thickening. The osseous structures are unremarkable. IMPRESSION: Limited evaluation as the lung apices were excluded. Left basal atelectasis. Report Dictated on Workstation: [id number] --- Final --- Dictated: 10/11/2019 6:43 am Dictating Physician: DO GONZALEZ ALFRED Signed Date and Time: 10/11/2019 6:44 am Signed by: DO GONZALEZ ALFRED Transcribed Date and Time: 10/11/2019 6:43 [place], [place] Patient Name: RAMA JOY ---Diagnostic Radiology--- Exam Date/Time 10/11/2019 06:27:36 EDT Exam CR Chest Portable Ordering Physician CARTER DUARTE Accession Number [id number] CPT4 Codes 46137 () Reason For Exam POST OP OPEN HEART SOB Report PORTABLE CHEST: INDICATION: Status post open heart COMPARISON: 10/10/2019 Obtained at 0524 hours. A single portable AP radiograph of the chest was obtained. The study is limited as the apices were not included. The heart is borderline in size. The mediastinal silhouette is normal. Left basal atelectasis is again noted. There are no effusions. There is no pleural thickening. The osseous structures are unremarkable. IMPRESSION: Limited evaluation as the lung apices were excluded. Left basal atelectasis. Report Dictated on Workstation: [id number] --- Final --- Dictated: 10/11/2019 6:43 am Dictating Physician: DO GONZALEZ ALFRED Signed Date and Time: 10/11/2019 6:44 am Signed by: DO GONZALEZ ALFRED Transcribed Date and Time: 10/11/2019 6:43 [place] Basic Metabolic Panelon 09-23 Anion gap [Moles/Vol] 6 mmol/L [place] Calcium [Mass/Vol] 8.7 mg/dL 8.4 - 10. 4 mg/dL [place] Chloride [Moles/Vol] 101 mmol/L 98 - 10 7 mmol/L [place] CO2 [Moles/Vol] 28 mmol/L 22 - 30 mmol/L [place] Creatinine [Mass/Vol] 0.54 mg/dL 0.52 - 1.25 mg/dL [place] EGFR IF NonAfrican [place] >90.0 >60 mL/min [place] Comment on above: KDIGO guidelines pro vide the following GFR categories: Stage GFR(ml/min/1.73 m2) Terms G1 >=90 Normal or high G2 60-89 Mildly decreased* G3a 45-59 Mildly to moderately decreased G3b 30-44 Moderately to severely decreased G4 15-29 Severely decreased G5 <15 Kidney failure *Relative to young adult level. In the absence of evidence of kidney damage, neither GFR category G1 nor G2 fulfill the criteria for CKD. The CKD-EPI equation is validated in individuals 18 years of age and older. Currently the best equation for estimating glomerular filtration rate (GFR) from serum creatinine in children is the Bedside Hillman equation. It is less accurate in patients with extremes of muscle mass, restriction of dietary protein, ingestion of creatine, extra-renal metabolism of creatinine, or treatment with medications that affect renal tubular creatinine secretion. GFR/1.73 sq M predicted among blacks MDRD (S/P/Bld) [Vol rate/Area] mL/min/{1.73_m2} >60 mL/min [place] Glucose [Mass/Vol] 145 mg/dL High 70 - 100 mg/dL [place] Interpretation and review of laboratory results Abnormal [place] Potassium [Moles/Vol] 4.2 mmol/L 3.5 - 5.1 mmol/L [place] Sodium [Moles/Vol] 135 mmol/L 135 - 145 mmol/L [place] Urea nitrogen [Mass/Vol] 14 mg/dL 7 - 20 mg/dL [place] CBCon 10-10-2019 Erythrocyte distribution width (RBC) [Ratio] 13.2 % 11.5 - 14.5 % [place] Hematocrit (Bld) [Volume fraction] 28.8 % Low 35 - 47 % [place] Hemoglobin (Bld) [Mass/Vol] 9.8 g/dL Low 11.7 - 16 g/dL [place] Interpretation and review of laboratory results Abnormal [place] MCH (RBC) [Entitic mass] 31.3 pg 26 - 34 pg [place] MCHC (RBC) [Mass/Vol] 33.9 % 32 - 36 % [place] MCV (RBC) [Entitic vol] 92.1 fL 79 - 98 fL [place] Platelet mean volume (Bld) [Entitic vol] 8.3 fL 7.4 - 10.4 fL [place] Platelets (Bld) [#/Vol] 167 10*3/uL 140 - 440 10*3/uL [place] RBC (Bld) [#/Vol] 3.13 10*6/uL Low 3.8 - 5.2 10*6/uL [place] WBC (Bld) [#/Vol] 11.8 10*3/uL High 3.6 - 10.7 10*3/uL [place] Test Performed by [place] [address] [place] [address] [place], [place] Magnesiumon 10-10-2019 Magnesium [Mass/Vol] 1.9 mg/dL 1.6 - 2 .3 mg/dL [place] Otheron 10-10-2019 Test Performed by [place] [address] [place] [address] [place], [place] POCT Glucoseon 10-10-2019 Glucose [Mass/Vol] 139 mg/dL High 70 - 100 mg/dL [facility], [place] Comment on above: Test performed by gl ucose meter. Results may be 10%-15% lower than serum/plasma values. (CLIA ID [id number]) Interpretation and review of laboratory results Abnormal [facility] Test Performed by [employer] [facility], [address] [place] [address] [facility] [place] Glucose [Mass/Vol] 120 mg/dL High 70 - 100 mg/dL [facility] Comment on above: Test performed by gl ucose meter. Results may be 10%-15% lower than serum/plasma values. (CLIA ID [id number]) Interpretation and review of laboratory results Abnormal [facility] Test Performed by [employer] [facility], [address] [place] [address] [employer] [facility]- [place] Glucose [Mass/Vol] 184 mg/dL High 70 - 100 mg/dL [facility] [place] Comment on above: Test performed by gl ucose meter. Results may be 10%-15% lower than serum/plasma values. (CLIA ID [id number]) Interpretation and review of laboratory results Abnormal [facility]- [place] Test Performed by [employer] [facility], [address] [place] [address] [employer] [facility]- [place] XR CHEST PORTABLEon 10-10-19 20 [facility], [facility] Incoming Radiology Results From [facility] - 10/10/2019 6:09 AM EDT Patient Name: RAMA BAIRD ---Diagnostic Radiology--- Exam Date/Time 10/10/2019 05:57:12 EDT Exam CR Chest Portable Ordering Physician CARTER DUARTE Accession Number [id number] CPT4 Codes 34516 () Reason For Exam post op Report PORTABLE CHEST: INDICATION: Postop COMPARISON: 10/09/2019 Obtained at 0529 hours. A single portable AP radiograph of the chest was obtained. The heart is normal in size. The mediastinal silhouette is normal. There is bibasal atelectasis. There are no effusions or infiltrates. There is biapical pleural thickening. Arthritic changes of the spine are present. IMPRESSION: No acute process. Report Dictated on Workstation: [id number] --- Final --- Dictated: 10/10/2019 6:07 am Dictating Physician: DO GONZALZE ALFRED Signed Date and Time: 10/10/2019 6:08 am Signed by: DO GONZALEZ ALFRED Transcribed Date and Time: 10/10/2019 6:07 [place] Patient Name: RAMA JOY ---Diagnostic Radiology--- Exam Date/Time 10/10/2019 05:57:12 EDT Exam CR Chest Portable Ordering Physician CARTER DUARTE Accession Number [id number] CPT4 Codes 49960 () Reason For Exam post op Report PORTABLE CHEST: INDICATION: Postop COMPARISON: 10/09/2019 Obtained at 0529 hours. A single portable AP radiograph of the chest was obtained. The heart is normal in size. The mediastinal silhouette is normal. There is bibasal atelectasis. There are no effusions or infiltrates. There is biapical pleural thickening. Arthritic changes of the spine are present. IMPRESSION: No acute process. Report Dictated on Workstation: [id number] --- Final --- Dictated: 10/10/2019 6:07 am Dictating Physician: DO GONZALEZ ALFRED Signed Date and Time: 10/10/2019 6:08 am Signed by: DO GONZALEZ ALFRED Transcribed Date and Time: 10/10/2019 6:07 [place] Basic Metabolic Panelon 05- Anion gap [Moles/Vol] 7 mmol/L [place] Calcium [Mass/Vol] 8.6 mg/dL 8.4 - 10. 4 mg/dL [place] Chloride [Moles/Vol] 102 mmol/L 98 - 10 7 mmol/L [place] CO2 [Moles/Vol] 25 mmol/L 22 - 30 mmol/L [place] Creatinine [Mass/Vol] 0.58 mg/dL 0.52 - 1.25 mg/dL [place] EGFR IF NonAfrican [place] >90.0 >60 mL/min [place] Comment on above: KDIGO guidelines pro vide the following GFR categories: Stage GFR(ml/min/1.73 m2) Terms G1 >=90 Normal or high G2 60-89 Mildly decreased* G3a 45-59 Mildly to moderately decreased G3b 30-44 Moderately to severely decreased G4 15-29 Severely decreased G5 <15 Kidney failure *Relative to young adult level. In the absence of evidence of kidney damage, neither GFR category G1 nor G2 fulfill the criteria for CKD. The CKD-EPI equation is validated in individuals 18 years of age and older. Currently the best equation for estimating glomerular filtration rate (GFR) from serum creatinine in children is the Bedside Hillman equation. It is less accurate in patients with extremes of muscle mass, restriction of dietary protein, ingestion of creatine, extra-renal metabolism of creatinine, or treatment with medications that affect renal tubular creatinine secretion. GFR/1.73 sq M predicted among blacks MDRD (S/P/Bld) [Vol rate/Area] mL/min/{1.73_m2} >60 mL/min [place] Glucose [Mass/Vol] 94 mg/dL 70 - 100 mg/dL [place] Interpretation and review of laboratory results Abnormal [place] Potassium [Moles/Vol] 4.2 mmol/L 3.5 - 5.1 mmol/L [place] Sodium [Moles/Vol] 134 mmol/L Low 135 - 145 mmol/L [place] Urea nitrogen [Mass/Vol] 13 mg/dL 7 - 20 mg/dL [place] CBCon 10-09-2019 Erythrocyte distribution width (RBC) [Ratio] 13.7 % 11.5 - 14.5 % [place] Hematocrit (Bld) [Volume fraction] 28.2 % Low 35 - 47 % [place] Hemoglobin (Bld) [Mass/Vol] 9.5 g/dL Low 11.7 - 16 g/dL [place] Interpretation and review of laboratory results Abnormal [place] MCH (RBC) [Entitic mass] 31.4 pg 26 - 34 pg [place] MCHC (RBC) [Mass/Vol] 33.8 % 32 - 36 % [place] MCV (RBC) [Entitic vol] 92.6 fL 79 - 98 fL [facility], [place] Platelet mean volume (Bld) [Entitic vol] 9.2 fL 7.4 - 10.4 fL [facility], [place] Platelets (Bld) [#/Vol] 147 10*3/uL 140 - 440 10*3/uL [facility], [place] RBC (Bld) [#/Vol] 3.05 10*6/uL Low 3.8 - 5.2 10*6/uL [facility], [place] WBC (Bld) [#/Vol] 14.2 10*3/uL High 3.6 - 10.7 10*3/uL [facility], [place] Test Performed by [facility], [address] [place] [id number] [place] [address], [place] ECHO Transesophagealon 10-08 Sami, [facility] Cardiology Results From [facility] - 10/09/2019 11:46 AM EDT TRANSESOPHAGEAL ECHOCARDIOGRAM Intraoperative-Pre Pump Only PATIENT: Rama Baird STUDY DATE: 10/07/2019 : 1960 AGE: 59 HT/WT: 162.6 cm (64 85 kg (187 in) lb) GENDER: F BP: 153 / 85 LOCATION: [facility] PATIENT Inpatient main STATUS: *ORDERING PHYSICIAN: * Carter Duarte MD *READING PHYSICIAN: * Júnior, *RN OBSERVATION: * Lorraine Arevalo MD RDCS, AE INDICATIONS: CABG. CONCLUSIONS SUMMARY: 1. Left ventricle: Systolic function is normal. The estimated ejection fraction is >55%. 2. Mild to moderate Mitral regurgitation STUDY DATA: Operative transesophageal echocardiogram. Procedure: The procedure was performed with the patient intubated under general anesthesia on the operating table. A complete pre-operative MAC was performed. Image quality was good. A transesophageal probe was inserted by the anesthesiologistwithout difficulty. Complete 2D, complete spectral Doppler, and color flow Doppler images were acquired and archived for permanent storage and are available for subsequent review. Study status: Routine. Patient status: Inpatient. Location: Operating room. FINDINGS LEFT VENTRICLE: The cavity size is normal. There is mild concentric hypertrophy. Systolic function is normal. The estimated ejection fraction is >55%. RIGHT VENTRICLE: The cavity size is normal. Systolic function is normal. VENTRICULAR SEPTUM: There is no evidence of a ventricular septal defect. LEFT ATRIUM: The atrium is normal in size. There is no evidence of a thrombus in the atrial cavity or appendage. No spontaneous echo contrast is observed. The appendage is of normal size. Emptying velocity is normal. RIGHT ATRIUM: The atrium is normal in size. ATRIAL SEPTUM: No evidence of patent foramen ovale or atrial septal defect. MITRAL VALVE: Structurally normal valve. Leaflet separation is normal. Doppler: There is mild-moderate, 1-2+ regurgitation. AORTIC VALVE: Structurally normal valve. Trileaflet. Cusp separation is normal. Doppler: There is no stenosis. There is trivial, less than 1+ regurgitation. TRICUSPID VALVE: Structurally normal valve. Leaflet separation is normal. Doppler: There is trivial, less than 1+ regurgitation. PULMONIC VALVE: No thickening. Cusp separation is normal. Doppler: There is trivial, less than 1+ regurgitation. AORTA: There is no atheroma. There is no evidence for aneurysm. There is no evidence for dissection. Aortic root: The aortic root is not dilated. PERICARDIUM: There is no pericardial effusion. Electronically signed by Mickey Callejas MD 10/09/2019 11:44 Prior Signatures: [employer] [facility] [place] TRANSESOPHAGEAL ECHOCARDIOGRAM Intraoperative-Pre Pump Only PATIENT: Rama Baird STUDY DATE: 10/07/2019 : 1960 AGE: 59 HT/WT: 162.6 cm (64 85 kg (187 in) lb) GENDER: F BP: 153 / 85 LOCATION: [facility] PATIENT Inpatient main STATUS: *ORDERING PHYSICIAN: * Carter Duarte MD *READING PHYSICIAN: * Júnior, *RN OBSERVATION: * Lorraine Arevalo MD RDCS, AE INDICATIONS: CABG. CONCLUSIONS SUMMARY: 1. Left ventricle: Systolic function is normal. The estimated ejection fraction is >55%. 2. Mild to moderate Mitral regurgitation STUDY DATA: Operative transesophageal echocardiogram. Procedure: The procedure was performed with the patient intubated under general anesthesia on the operating table. A complete pre-operative MAC was performed. Image quality was good. A transesophageal probe was inserted by the anesthesiologistwithout difficulty. Complete 2D, complete spectral Doppler, and color flow Doppler images were acquired and archived for permanent storage and are available for subsequent review. Study status: Routine. Patient status: Inpatient. Location: Operating room. FINDINGS LEFT VENTRICLE: The cavity size is normal. There is mild concentric hypertrophy. Systolic function is normal. The estimated ejection fraction is >55%. RIGHT VENTRICLE: The cavity size is normal. Systolic function is normal. VENTRICULAR SEPTUM: There is no evidence of a ventricular septal defect. LEFT ATRIUM: The atrium is normal in size. There is no evidence of a thrombus in the atrial cavity or appendage. No spontaneous echo contrast is observed. The appendage is of normal size. Emptying velocity is normal. RIGHT ATRIUM: The atrium is normal in size. ATRIAL SEPTUM: No evidence of patent foramen ovale or atrial septal defect. MITRAL VALVE: Structurally normal valve. Leaflet separation is normal. Doppler: There is mild-moderate, 1-2+ regurgitation. AORTIC VALVE: Structurally normal valve. Trileaflet. Cusp separation is normal. Doppler: There is no stenosis. There is trivial, less than 1+ regurgitation. TRICUSPID VALVE: Structurally normal valve. Leaflet separation is normal. Doppler: There is trivial, less than 1+ regurgitation. PULMONIC VALVE: No thickening. Cusp separation is normal. Doppler: There is trivial, less than 1+ regurgitation. AORTA: There is no atheroma. There is no evidence for aneurysm. There is no evidence for dissection. Aortic root: The aortic root is not dilated. PERICARDIUM: There is no pericardial effusion. Electronically signed by Mickey Callejas MD 10/09/2019 11:44 Prior Signatures: [facility]- [place], [place] EKG 12 leadon 10-09-2019 [facility] [email or web address] Test Date: 2019-10-09 Pat Name: Rama Baird Department: 1A[facility] Room: [facility] Gender: F Record Changer Tester: CHAVEZ : 1960 Requested By: CARTER DUARTE Order Number: [id number] Reading MD: Ariel Martell Measurements Intervals [place] Rate: 78 P: 51 CO: 144 QRS: -10 QRSD: 83 T: -4 QT: 367 QTc: 419 Interpretive Statements Sinus rhythm Probable inferior infarct, age indeterminate Lateral infarct, acute Borderline ST elevation, anterior leads Electronically Signed On 10-09-2019 9:51:10 EDT by [facility], [facility], [facility] Incoming [facility] 10/09/2019 9:52 AM EDT [facility] [employer] [facility] Test Date: 2019-10-09 Pat Name: Rama Baird [facility] Room: [facility] Gender: F Record Changer Tester: [facility] : 1960 Requested By: CARTER DUARTE Order Number: [id number] Reading MD: Ariel Martell Measurements Intervals [place] Rate: 78 P: 51 CO: 144 QRS: -10 QRSD: 83 T: -4 QT: 367 QTc: 419 Interpretive Statements Sinus rhythm Probable inferior infarct, age indeterminate Lateral infarct, acute Borderline ST elevation, anterior leads Electronically Signed On 10-09-2019 9:51:10 EDT by [facility], [facility], [facility] Incoming Cardiology Results From [facility] - 10/09/2019 7:22 AM EDT [facility] [employer] [facility] Test Date: 2019-10-08 Pat Name: Rama Baird [facility] Room: [facility] Gender: F Record Changer Tester: SUNG : 1960 Requested By: CARTERWir3sDUARTE Order Number: [id number] Reading MD: Marzena Thomas Measurements Intervals [place] Rate: 77 P: 52 CO: 157 QRS: -8 QRSD: 83 T: -24 QT: 375 QTc: 425 Interpretive Statements Sinus rhythm Lateral infarct, acute Borderline ST elevation, anterior leads Electronically Signed On 10-09-2019 7:21:34 EDT by Marzena Thomas [place] [employer] [facility] Test Date: 2019-10-08 Pat Name: Rama Baird Department: 1AU Room: [facility] Gender: F Record Changer Tester: [facility] : 1960 Requested By: CARTER DUARTE Order Number: [id number] Reading MD: Marzena Martha Measurements Intervals [place] Rate: 77 P: 52 CO: 157 QRS: -8 QRSD: 83 T: -24 QT: 375 QTc: 425 Interpretive Statements Sinus rhythm Lateral infarct, acute Borderline ST elevation, anterior leads Electronically Signed On 10-09-2019 7:21:34 EDT by [facility] [place] [place] Magnesiumon 10-09-2019 Magnesium [Mass/Vol] 2.1 mg/dL 1.6 - 2 .3 mg/dL [facility] [place] Otheron 10-09-2019 Interpretation and review of laboratory results Abnormal [employer]- [place] Test Performed by [employer] [employer] [facility], [address] [place] [address] [place] Test Performed by [facility], [facility] [place] [address] [place] POCT Glucoseon 10-09-2019 Glucose [Mass/Vol] 162 mg/dL High 70 - 100 mg/dL [facility] [place] Comment on above: Test performed by gl ucose meter. Results may be 10%-15% lower than serum/plasma values. (CLIA ID [id number]) Interpretation and review of laboratory results Abnormal [place] Test Performed by [employer] [facility], [facility] [place] [address] Glucose [Mass/Vol] 136 mg/dL High 70 - 100 mg/dL [facility] [place] Comment on above: Test performed by gl ucose meter. Results may be 10%-15% lower than serum/plasma values. (CLIA ID [id number]) Interpretation and review of laboratory results Abnormal [place] Test Performed by [employer] [facility], [address] [place] [address] [facility] [place] Glucose [Mass/Vol] 144 mg/dL High 70 - 100 mg/dL [facility] [place] Comment on above: Test performed by gl ucose meter. Results may be 10%-15% lower than serum/plasma values. (CLIA ID [id number]) Interpretation and review of laboratory results Abnormal [employer] Test Performed by [employer] [facility], [address] [place] [address] [facility] Glucose [Mass/Vol] 149 mg/dL High 70 - 100 mg/dL [facility] Comment on above: Test performed by gl ucose meter. Results may be 10%-15% lower than serum/plasma values. (CLIA ID [id number]) Interpretation and review of laboratory results Abnormal [facility] [place] Test Performed by [facility], [address] [address] [facility] [place] Glucose [Mass/Vol] 132 mg/dL High 70 - 100 mg/dL [facility] Comment on above: Test performed by gl ucose meter. Results may be 10%-15% lower than serum/plasma values. (CLIA ID [id number]) Glucose [Mass/Vol] 134 mg/dL High 70 - 100 mg/dL [facility] Comment on above: Test performed by gl ucose meter. Results may be 10%-15% lower than serum/plasma values. (CLIA ID [id number]) Glucose [Mass/Vol] 130 mg/dL High 70 - 100 mg/dL [facility], [place] Comment on above: Test performed by gl ucose meter. Results may be 10%-15% lower than serum/plasma values. (CLIA ID [id number]) Interpretation and review of laboratory results Abnormal [facility] Test Performed by [employer] [facility], [address] [place] [address] [facility], [place] Glucose [Mass/Vol] 110 mg/dL High 70 - 100 mg/dL [facility], [place] Comment on above: Test performed by gl ucose meter. Results may be 10%-15% lower than serum/plasma values. (CLIA ID [id number]) Interpretation and review of laboratory results Abnormal [facility] [place] Test Performed by [employer] [facility], [address] [place] [address] [facility], [place] Glucose [Mass/Vol] 86 mg/dL 70 - 100 mg/dL [facility], [place] Comment on above: Test performed by gl ucose meter. Results may be 10%-15% lower than serum/plasma values. (CLIA ID [id number]) Test Performed by [facility], [address] [place] [address] [facility] Glucose [Mass/Vol] 115 mg/dL High 70 - 100 mg/dL [facility] Comment on above: Test performed by gl ucose meter. Results may be 10%-15% lower than serum/plasma values. (CLIA ID [id number]) Interpretation and review of laboratory results Abnormal [facility] Test Performed by [facility], [address] [place] [address] [facility] [place] Glucose [Mass/Vol] 100 mg/dL 70 - 100 mg/dL [facility] Comment on above: Test performed by gl ucose meter. Results may be 10%-15% lower than serum/plasma values. (CLIA ID [id number]) Test Performed by [facility], [address] [place] [address] [facility] Glucose [Mass/Vol] 103 mg/dL High 70 - 100 mg/dL [facility] Comment on above: Test performed by gl ucose meter. Results may be 10%-15% lower than serum/plasma values. (CLIA ID [id number]) Interpretation and review of laboratory results Abnormal [facility] Test Performed by [facility], [address] [place] [address] [facility] XR CHEST PORTABLEon 10-09-19 [facility] Incoming Radiology Results From [facility] - 10/09/2019 6:35 AM EDT Patient Name: RAMA BAIRD ---Diagnostic Radiology--- Exam Date/Time 10/09/2019 06:17:00 EDT Exam CR Chest Portable Ordering Physician CARTER DUARTE Accession Number [id number] CPT4 Codes 97805 () Reason For Exam POST OP OPEN HEART Report PORTABLE CHEST: INDICATION: Postop COMPARISON: 10/08/2019 Obtained at 0515 hours. A single portable AP radiograph of the chest was obtained. The heart is enlarged. The mediastinal silhouette is widened. There are changes associated with recent open heart surgery. Bilateral chest tubes are present as is a mediastinal tube. There is no pneumothorax. Bibasal atelectasis is present. There is mild vascular congestion. There is no pleural thickening. The osseous structures are unremarkable. [place]-Eliana catheter have been removed. IMPRESSION: Postoperative changes. Mild vascular congestion. Report Dictated on Workstation: [id number] --- Final --- Dictated: 10/09/2019 6:33 am Dictating Physician: DO GONZALEZ ALFRED Signed Date and Time: 10/09/2019 6:34 am Signed by: DO GONZALEZ ALFRED Transcribed Date and Time: 10/09/2019 6:33 [place], [place] Patient Name: AISLINN KAY RAMA ---Diagnostic Radiology--- Exam Date/Time 10/09/2019 06:17:00 EDT Exam CR Chest Portable Ordering Physician CARTER DUARTE Accession Number [id number] CPT4 Codes 13864 () Reason For Exam POST OP OPEN HEART Report PORTABLE CHEST: INDICATION: Postop COMPARISON: 10/08/2019 Obtained at 0515 hours. A single portable AP radiograph of the chest was obtained. The heart is enlarged. The mediastinal silhouette is widened. There are changes associated with recent open heart surgery. Bilateral chest tubes are present as is a mediastinal tube. There is no pneumothorax. Bibasal atelectasis is present. There is mild vascular congestion. There is no pleural thickening. The osseous structures are unremarkable. [place]-Eliana catheter have been removed. IMPRESSION: Postoperative changes. Mild vascular congestion. Report Dictated on Workstation: [id number] --- Final --- Dictated: 10/09/2019 6:33 am Dictating Physician: DO GONZALEZ ALFRED Signed Date and Time: 10/09/2019 6:34 am Signed by: DO GONZALEZ ALFRED Transcribed Date and Time: 10/09/2019 6:33 [place], [place] Basic Metabolic Panelon 09-23 Anion gap [Moles/Vol] 8 mmol/L [place] Calcium [Mass/Vol] 8.4 mg/dL 8.4 - 10. 4 mg/dL [place] Chloride [Moles/Vol] 106 mmol/L 98 - 10 7 mmol/L [place] CO2 [Moles/Vol] 22 mmol/L 22 - 30 mmol/L [place] Creatinine [Mass/Vol] 0.48 mg/dL Low 0.52 - 1.25 mg/dL [place] EGFR IF NonAfrican [place] >90.0 >60 mL/min [place] Comment on above: KDIGO guidelines pro vide the following GFR categories: Stage GFR(ml/min/1.73 m2) Terms G1 >=90 Normal or high G2 60-89 Mildly decreased* G3a 45-59 Mildly to moderately decreased G3b 30-44 Moderately to severely decreased G4 15-29 Severely decreased G5 <15 Kidney failure *Relative to young adult level. In the absence of evidence of kidney damage, neither GFR category G1 nor G2 fulfill the criteria for CKD. The CKD-EPI equation is validated in individuals 18 years of age and older. Currently the best equation for estimating glomerular filtration rate (GFR) from serum creatinine in children is the Bedside Hillman equation. It is less accurate in patients with extremes of muscle mass, restriction of dietary protein, ingestion of creatine, extra-renal metabolism of creatinine, or treatment with medications that affect renal tubular creatinine secretion. GFR/1.73 sq M predicted among blacks MDRD (S/P/Bld) [Vol rate/Area] mL/min/{1.73_m2} >60 mL/min [place] Glucose [Mass/Vol] 96 mg/dL 70 - 100 mg/dL [place] Interpretation and review of laboratory results Abnormal [place] Potassium [Moles/Vol] 4.4 mmol/L 3.5 - 5.1 mmol/L [place] Sodium [Moles/Vol] 135 mmol/L 135 - 145 mmol/L [place] Urea nitrogen [Mass/Vol] 10 mg/dL 7 - 20 mg/dL [place] CBCon 10-08-2019 Erythrocyte distribution width (RBC) [Ratio] 13.3 % 11.5 - 14.5 % [place] Hematocrit (Bld) [Volume fraction] 27.5 % Low 35 - 47 % [place] Hemoglobin (Bld) [Mass/Vol] 9.5 g/dL Low 11.7 - 16 g/dL [place] Interpretation and review of laboratory results Abnormal [place] MCH (RBC) [Entitic mass] 31.5 pg 26 - 34 pg [place] MCHC (RBC) [Mass/Vol] 34.4 % 32 - 36 % [place] MCV (RBC) [Entitic vol] 91.5 fL 79 - 98 fL [place] Platelet mean volume (Bld) [Entitic vol] 8.8 fL 7.4 - 10.4 fL [place] Platelets (Bld) [#/Vol] 95 10*3/uL Low 140 - 440 10*3/uL [place] RBC (Bld) [#/Vol] 3.00 10*6/uL Low 3.8 - 5.2 10*6/uL [place] WBC (Bld) [#/Vol] 8.4 10*3/uL 3.6 - 10.7 10*3/uL [place] Test Performed by [facility], [address] [place] [id number] [place] [address] Magnesiumon 10-08-2019 Magnesium [Mass/Vol] 1.9 mg/dL 1.6 - 2 .3 mg/dL [place] Otheron 10-08-2019 Interpretation and review of laboratory results Abnormal [place] Test Performed by [facility], [facility] [place], [place] [id number] [place] [address] Test Performed by [facility], [facility] [place], [place] [id number] [place] [address] POCT Glucoseon 10-08-2019 Glucose [Mass/Vol] 108 mg/dL High 70 - 100 mg/dL [place] Comment on above: Test performed by ucose meter. Results may be 10%-15% lower than serum/plasma values. (CLIA ID [id number]) Interpretation and review of laboratory results Abnormal [place] Test Performed by [facility], [facility] [address] [place] [address] [facility] Glucose [Mass/Vol] 81 mg/dL 70 - 100 mg/dL [facility] Comment on above: Test performed by gl ucose meter. Results may be 10%-15% lower than serum/plasma values. (CLIA ID [id number]) Test Performed by [facility], [address] [place] [address] [facility] Glucose [Mass/Vol] 88 mg/dL 70 - 100 mg/dL [facility] [place] Comment on above: Test performed by gl ucose meter. Results may be 10%-15% lower than serum/plasma values. (CLIA ID [id number]) Test Performed by [facility], [address], [place] [address] [facility] Glucose [Mass/Vol] 124 mg/dL High 70 - 100 mg/dL [facility] [place] Comment on above: Test performed by gl ucose meter. Results may be 10%-15% lower than serum/plasma values. (CLIA ID [id number]) Interpretation and review of laboratory results Abnormal [facility] Test Performed by [facility], [address] [place] [address] [facility] Glucose [Mass/Vol] 141 mg/dL High 70 - 100 mg/dL [facility] [place] Comment on above: Test performed by gl ucose meter. Results may be 10%-15% lower than serum/plasma values. (CLIA ID [id number]) Interpretation and review of laboratory results Abnormal [facility] Test Performed by [employer], [address] [place] [address] [facility] Glucose [Mass/Vol] 110 mg/dL High 70 - 100 mg/dL [facility] [place] Comment on above: Test performed by gl ucose meter. Results may be 10%-15% lower than serum/plasma values. (CLIA ID [id number]) Interpretation and review of laboratory results Abnormal [facility] Test Performed by [employer] [facility], [address] [place] [address] [facility] Glucose [Mass/Vol] 111 mg/dL High 70 - 100 mg/dL [facility] Comment on above: Test performed by gl ucose meter. Results may be 10%-15% lower than serum/plasma values. (CLIA ID [id number]) Interpretation and review of laboratory results Abnormal [facility] Test Performed by [employer] [facility], [address] [place] [address] [facility] Glucose [Mass/Vol] 102 mg/dL High 70 - 100 mg/dL [facility] Comment on above: Test performed by gl ucose meter. Results may be 10%-15% lower than serum/plasma values. (CLIA ID [id number]) Interpretation and review of laboratory results Abnormal [facility] Test Performed by [employer] [facility], [address] [place] [address] [facility] Glucose [Mass/Vol] 126 mg/dL High 70 - 100 mg/dL [facility] Comment on above: Test performed by gl ucose meter. Results may be 10%-15% lower than serum/plasma values. (CLIA ID [id number]) Interpretation and review of laboratory results Abnormal [facility] Test Performed by [employer] [facility], [address] [place] [address] [facility] Glucose [Mass/Vol] 117 mg/dL High 70 - 100 mg/dL [facility] Comment on above: Test performed by gl ucose meter. Results may be 10%-15% lower than serum/plasma values. (CLIA ID [id number]) Interpretation and review of laboratory results Abnormal [facility] Test Performed by [employer], [address] [place] [address] [facility] Glucose [Mass/Vol] 128 mg/dL High 70 - 100 mg/dL [facility] Comment on above: Test performed by gl ucose meter. Results may be 10%-15% lower than serum/plasma values. (CLIA ID [id number]) Interpretation and review of laboratory results Abnormal [facility] Test Performed by [employer] [facility], [address] [place] [address] [facility], [place] Glucose [Mass/Vol] 94 mg/dL 70 - 100 mg/dL [facility], [place] Comment on above: Test performed by gl ucose meter. Results may be 10%-15% lower than serum/plasma values. (CLIA ID [id number]) Test Performed by [facility], [address] [place] [address] [facility], [place] Glucose [Mass/Vol] 118 mg/dL High 70 - 100 mg/dL [facility], [place] Comment on above: Test performed by gl ucose meter. Results may be 10%-15% lower than serum/plasma values. (CLIA ID [id number]) Glucose [Mass/Vol] 123 mg/dL High 70 - 100 mg/dL [facility], [place] Comment on above: Test performed by gl ucose meter. Results may be 10%-15% lower than serum/plasma values. (CLIA ID [id number]) Glucose [Mass/Vol] 119 mg/dL High 70 - 100 mg/dL [place] Comment on above: Test performed by gl ucose meter. Results may be 10%-15% lower than serum/plasma values. (CLIA ID [id number]) Interpretation and review of laboratory results Abnormal [facility] Test Performed by [facility], [address] [place] [address] [facility], [place] Glucose [Mass/Vol] 138 mg/dL High 70 - 100 mg/dL [place] Comment on above: Test performed by gl ucose meter. Results may be 10%-15% lower than serum/plasma values. (CLIA ID [id number]) Interpretation and review of laboratory results Abnormal [facility] Test Performed by [facility], [address] [place] [address] [facility], [place] Glucose [Mass/Vol] 145 mg/dL High 70 - 100 mg/dL [facility], [place] Comment on above: Test performed by gl ucose meter. Results may be 10%-15% lower than serum/plasma values. (CLIA ID [id number]) Interpretation and review of laboratory results Abnormal [facility] Test Performed by [facility], [address] [place] [address] [facility] Glucose [Mass/Vol] 139 mg/dL High 70 - 100 mg/dL [facility] Comment on above: Test performed by gl ucose meter. Results may be 10%-15% lower than serum/plasma values. (CLIA ID [id number]) Interpretation and review of laboratory results Abnormal [facility] Test Performed by [facility], [address] [place] [address] [facility] Glucose [Mass/Vol] 109 mg/dL High 70 - 100 mg/dL [facility] Comment on above: Test performed by gl ucose meter. Results may be 10%-15% lower than serum/plasma values. (CLIA ID [id number]) Interpretation and review of laboratory results Abnormal [facility] Test Performed by [facility], [address] [address] [facility] Glucose [Mass/Vol] 109 mg/dL High 70 - 100 mg/dL [facility] Comment on above: Test performed by gl ucose meter. Results may be 10%-15% lower than serum/plasma values. (CLIA ID [id number]) Interpretation and review of laboratory results Abnormal [facility] Test Performed by [facility], [address] [address] [facility] Glucose [Mass/Vol] 94 mg/dL 70 - 100 mg/dL [facility] Comment on above: Test performed by gl ucose meter. Results may be 10%-15% lower than serum/plasma values. (CLIA ID [id number]) Test Performed by [employer] [facility], [address] [place] [address] [facility] Glucose [Mass/Vol] 83 mg/dL 70 - 100 mg/dL [facility] Comment on above: Test performed by gl ucose meter. Results may be 10%-15% lower than serum/plasma values. (CLIA ID [id number]) Test Performed by [facility], [address] [place] [address] [facility] Glucose [Mass/Vol] 94 mg/dL 70 - 100 mg/dL [facility], [place] Comment on above: Test performed by gl ucose meter. Results may be 10%-15% lower than serum/plasma values. (CLIA ID [id number]) Test Performed by [facility], [address] [place] [address] [facility] [place] Glucose [Mass/Vol] 104 mg/dL High 70 - 100 mg/dL [facility] [place] Comment on above: Test performed by gl ucose meter. Results may be 10%-15% lower than serum/plasma values. (CLIA ID [id number]) Interpretation and review of laboratory results Abnormal [facility] Test Performed by [facility], [address] [address] [facility] [place] Glucose [Mass/Vol] 104 mg/dL High 70 - 100 mg/dL [facility], [place] Comment on above: Test performed by gl ucose meter. Results may be 10%-15% lower than serum/plasma values. (CLIA ID [id number]) Interpretation and review of laboratory results Abnormal [facility] Test Performed by [facility], [address] [place] [address] [facility], [place] XR CHEST PORTABLEon 10-08-19 Patient Name: AISLINN KAY [facility]: [id number] ---Diagnostic Radiology--- Exam Date/Time 10/08/2019 06:00:09 EDT Exam CR Chest Portable Ordering Physician CARTER DUARTE Accession Number [id number] CPT4 Codes 40638 () Reason For Exam post op Report PORTABLE CHEST: INDICATION: Postop COMPARISON: 10/07/2019 Obtained at 0523 hours. A single portable AP radiograph of the chest was obtained. The heart is enlarged. The mediastinal silhouette is prominent, postsurgical in nature. There are changes associated with recent open heart surgery. Bilateral chest tubes are present as is a mediastinal tube. There is no pneumothorax. There is bibasal atelectasis. There is no pleural thickening. The osseous structures are unremarkable. A right internal jugular [place]-Eliana catheter is present with the tip overlying the main pulmonary artery. IMPRESSION: Postoperative changes. Bibasal atelectasis. Report Dictated on Workstation: [id number] --- Final --- Dictated: 10/08/2019 5:52 am Dictating Physician: DO GNOZALEZ ALFRED Signed Date and Time: 10/08/2019 5:54 am Signed by: DO GONZALEZ ALFRED Transcribed Date and Time: 10/08/2019 5:52 [place] [facility] Incoming Radiology Results From [facility] - 10/08/2019 6:00 AM EDT Patient Name: RAMA BAIRD ---Diagnostic Radiology--- Exam Date/Time 10/08/2019 06:00:09 EDT Exam CR Chest Portable Ordering Physician CARTER DUARTE Accession Number [id number] CPT4 Codes 21739 () Reason For Exam post op Report PORTABLE CHEST: INDICATION: Postop COMPARISON: 10/07/2019 Obtained at 0523 hours. A single portable AP radiograph of the chest was obtained. The heart is enlarged. The mediastinal silhouette is prominent, postsurgical in nature. There are changes associated with recent open heart surgery. Bilateral chest tubes are present as is a mediastinal tube. There is no pneumothorax. There is bibasal atelectasis. There is no pleural thickening. The osseous structures are unremarkable. A right internal jugular [place]-Eliana catheter is present with the tip overlying the main pulmonary artery. IMPRESSION: Postoperative changes. Bibasal atelectasis. Report Dictated on Workstation: [id number] --- Final --- Dictated: 10/08/2019 5:52 am Dictating Physician: DO GONZALEZ ALFRED Signed Date and Time: 10/08/2019 5:54 am Signed by: DO GONZALEZ ALFRED Transcribed Date and Time: 10/08/2019 5:52 [place] Basic Metabolic Panel 09-23 Anion gap [Moles/Vol] 10 mmol/L [place] Calcium [Mass/Vol] 9.8 mg/dL 8.4 - 10. 4 mg/dL [place] Chloride [Moles/Vol] 109 mmol/L High 98 - 10 7 mmol/L [place] CO2 [Moles/Vol] 20 mmol/L Low 22 - 30 mmol/L [place] Creatinine [Mass/Vol] 0.61 mg/dL 0.52 - 1.25 mg/dL [place] EGFR IF NonAfrican [place] >90.0 >60 mL/min [place] Comment on above: KDIGO guidelines pro vide the following GFR categories: Stage GFR(ml/min/1.73 m2) Terms G1 >=90 Normal or high G2 60-89 Mildly decreased* G3a 45-59 Mildly to moderately decreased G3b 30-44 Moderately to severely decreased G4 15-29 Severely decreased G5 <15 Kidney failure *Relative to young adult level. In the absence of evidence of kidney damage, neither GFR category G1 nor G2 fulfill the criteria for CKD. The CKD-EPI equation is validated in individuals 18 years of age and older. Currently the best equation for estimating glomerular filtration rate (GFR) from serum creatinine in children is the Bedside Hillman equation. It is less accurate in patients with extremes of muscle mass, restriction of dietary protein, ingestion of creatine, extra-renal metabolism of creatinine, or treatment with medications that affect renal tubular creatinine secretion. GFR/1.73 sq M predicted among blacks MDRD (S/P/Bld) [Vol rate/Area] mL/min/{1.73_m2} >60 mL/min [place] Glucose [Mass/Vol] 131 mg/dL High 70 - 100 mg/dL [place] Potassium [Moles/Vol] 4.4 mmol/L 3.5 - 5.1 mmol/L [place] Sodium [Moles/Vol] 139 mmol/L 135 - 145 mmol/L [place] Urea nitrogen [Mass/Vol] 9 mg/dL 7 - 20 mg/dL [place] Blood Gas, Arterialon 2019 Base Excess, Arterial -2.3 mmol/L -3 - 3 mmol/L [place] Comment on above: INTERPRET RESULTS WI TH CAUTION; SPECIMEN RECEIVED ON ICE HCO3, Arterial 21.8 mmol/L 21 - 25 mmol/L [place] Comment on above: INTERPRET RESULTS WI CAUTION; SPECIMEN RECEIVED ON ICE Hemoglobin (Bld) [Mass/Vol] 11 g/dL ScreenOnly [place] Comment on above: INTERPRET RESULTS [facility] CAUTION; SPECIMEN RECEIVED ON ICE Oxygen saturation in Blood 99.1 % 95 - 100 % [place] Comment on above: INTERPRET RESULTS [facility] CAUTION; SPECIMEN RECEIVED ON ICE pCO2, Arterial 35.3 mm[Hg] 35 - 45 mm[Hg] [place] Comment on above: INTERPRET RESULTS [facility] CAUTION; SPECIMEN RECEIVED ON ICE pH, Arterial 7.409 [place] Comment on above: INTERPRET RESULTS [facility] CAUTION; SPECIMEN RECEIVED ON ICE pO2, Arterial 229.1 mm[Hg] High 80 - 100 mm[Hg] [place] Comment on above: INTERPRET RESULTS [facility] CAUTION; SPECIMEN RECEIVED ON ICE Sodium [Moles/Vol] No data [place] TCO2, Arterial 22.9 mmol/L Low 23 - 27 mmol/L [place] Comment on above: INTERPRET RESULTS [facility] CAUTION; SPECIMEN RECEIVED ON ICE CBCon 10-07-2019 Erythrocyte distribution width (RBC) [Ratio] 13.1 % 11.5 - 14.5 % [place] Hematocrit (Bld) [Volume fraction] 30.0 % Low 35 - 47 % [place] Hemoglobin (Bld) [Mass/Vol] 10.3 g/dL Low 11.7 - 16 g/dL [place] MCH (RBC) [Entitic mass] 31.3 pg 26 - 34 pg [place] MCHC (RBC) [Mass/Vol] 34.2 % 32 - 36 % [place] MCV (RBC) [Entitic vol] 91.5 fL 79 - 98 fL [place] Platelet mean volume (Bld) [Entitic vol] 8.8 fL 7.4 - 10.4 fL [place] Platelets (Bld) [#/Vol] 184 10*3/uL 140 - 440 10*3/uL [place] RBC (Bld) [#/Vol] 3.28 10*6/uL Low 3.8 - 5.2 10*6/uL [place] WBC (Bld) [#/Vol] 22.6 10*3/uL High 3.6 - 10.7 10*3/uL [place] Calcium, Ionizedon 0 Ionized Ca 5.00 mg/dL 4.3 - 5.2 mg/dL [place] Comment on above: INTERPRET RESULTS WI TH CAUTION; SPECIMEN RECEIVED ON ICE pH (Bld) 7.42 [pH] [place] Comment on above: INTERPRET RESULTS WI TH CAUTION; SPECIMEN RECEIVED ON ICE Magnesiumon 10-07-2019 Magnesium [Mass/Vol] 3.2 mg/dL High 1.6 - 2 .3 mg/dL [place] Otheron 10-07-2019 Interpretation and review of laboratory results Abnormal [place] Test Performed by [facility], [facility] [address] Interpretation and review of laboratory results Abnormal [place] Test Performed by [facility], [facility] [address] Interpretation and review of laboratory results Abnormal [facility], [place] Test Performed by [facility], [facility] [address] Test Performed by [facility], [facility] [address] Interpretation and review of laboratory results Abnormal [place] Test Performed by [facility], [facility] [address] POCT Glucoseon 10-07-2019 Glucose [Mass/Vol] 113 mg/dL High 70 - 100 mg/dL [place] Comment on above: Test performed by ucose meter. Results may be 10%-15% lower than serum/plasma values. (CLIA ID [id number]) Interpretation and review of laboratory results Abnormal [facility], [place] Test Performed by [facility], [facility] [address] Glucose [Mass/Vol] 127 mg/dL High 70 - 100 mg/dL [facility] Comment on above: Test performed by gl ucose meter. Results may be 10%-15% lower than serum/plasma values. (CLIA ID [id number]) Interpretation and review of laboratory results Abnormal [facility] Test Performed by [facility], [address] [place] [address] [facility] Glucose [Mass/Vol] 125 mg/dL High 70 - 100 mg/dL [facility] [place] Comment on above: Test performed by gl ucose meter. Results may be 10%-15% lower than serum/plasma values. (CLIA ID [id number]) Interpretation and review of laboratory results Abnormal [facility] Test Performed by [facility], [address] [place] [address] [facility] Glucose [Mass/Vol] 133 mg/dL High 70 - 100 mg/dL [facility] [place] Comment on above: Test performed by gl ucose meter. Results may be 10%-15% lower than serum/plasma values. (CLIA ID [id number]) Interpretation and review of laboratory results Abnormal [facility] [place] Test Performed by [employer] [facility], [address] [place] [address] [facility] Glucose [Mass/Vol] 155 mg/dL High 70 - 100 mg/dL [facility] [place] Comment on above: Test performed by gl ucose meter. Results may be 10%-15% lower than serum/plasma values. (CLIA ID [id number]) Glucose [Mass/Vol] 148 mg/dL High 70 - 100 mg/dL [facility] Comment on above: Test performed by gl ucose meter. Results may be 10%-15% lower than serum/plasma values. (CLIA ID [id number]) Glucose [Mass/Vol] 154 mg/dL High 70 - 100 mg/dL [facility] [place] Comment on above: Test performed by gl ucose meter. Results may be 10%-15% lower than serum/plasma values. (CLIA ID [id number]) Interpretation and review of laboratory results Abnormal [facility] [place] Test Performed by [facility], [address] [place] [address] [facility] [place] Glucose [Mass/Vol] 177 mg/dL High 70 - 100 mg/dL [facility] [place] Comment on above: Test performed by gl ucose meter. Results may be 10%-15% lower than serum/plasma values. (CLIA ID [id number]) Interpretation and review of laboratory results Abnormal [facility] [place] Test Performed by [facility], [address] [place] [address] [facility] [place] Glucose [Mass/Vol] 175 mg/dL High 70 - 100 mg/dL [facility] [place] Comment on above: Test performed by gl ucose meter. Results may be 10%-15% lower than serum/plasma values. (CLIA ID [id number]) Interpretation and review of laboratory results Abnormal [facility] [place] Test Performed by [facility], [address] [place] [place] [address] [facility] [place] Glucose [Mass/Vol] 153 mg/dL High 70 - 100 mg/dL [facility] [place] Comment on above: Test performed by gl ucose meter. Results may be 10%-15% lower than serum/plasma values. (CLIA ID [id number]) Interpretation and review of laboratory results Abnormal [facility] [place] Test Performed by [facility], [address] [place] [place] [address] [facility] [place] Glucose [Mass/Vol] 148 mg/dL High 70 - 100 mg/dL [facility] [place] Comment on above: Test performed by gl ucose meter. Results may be 10%-15% lower than serum/plasma values. (CLIA ID [id number]) Interpretation and review of laboratory results Abnormal [facility] [place] Test Performed by [facility], [address] [place] [address] [facility] [place] Glucose [Mass/Vol] 119 mg/dL High 70 - 100 mg/dL [facility] [place] Comment on above: Test performed by gl ucose meter. Results may be 10%-15% lower than serum/plasma values. (CLIA ID [id number]) Interpretation and review of laboratory results Abnormal [place] Glucose [Mass/Vol] 170 mg/dL High 70 - 100 mg/dL [place] Comment on above: Test performed by ucose meter. Results may be 10%-15% lower than serum/plasma values. (CLIA ID [id number]) Phosphoruson 10-07-2019 Phosphate [Mass/Vol] 3.1 mg/dL 2.5 - 4 .5 mg/dL [place] Protime/INR & PTTon 10-07-19 20 aPTT Coag (Bld) [Time] 22 s 20 - 30.5 s [place] Comment on above: NOTE: The therapeuti c time for Heparin anticoagulation, based on Xa activity inhibition, is an APTT of 46-80 seconds. INR Coag (PPP) [Relative time] 1.2 {INR} [place] Comment on above: Recommended Anticoag ulant Therapy: SEE BELOW ----- INR of 2.0 - 3.0 : - Prophylaxis of Venous Thrombosis (high-risk surgery) - Treatment of Venous Thrombosis - Treatment of Pulmonary Embolism (Includes tissue heart valves, Acute Myocardial Infarction to prevent systemic embolism, Valvular Heart Disease, and Atrial Fibrillation) ----- INR of 2.5 - 3.5 : - Mechanical Prosthetic Valves (high risk) - If oral anticoagulant therapy is used to prevent Myocardial Infarction PT Coag (PPP) [Time] 13.3 s High 9 - 12 s [place] Comment on above: . T4, FREEon 10-07-2019 Free T4 [Mass/Vol] 1.04 ng/dL 0.78 - 2. 19 ng/dL [place] Test Performed by [facility], [facility] [place] [address] [place] TSH without Reflexon 020 Interpretation and review of laboratory results Abnormal [place] TSH Qn 7.937 u[IU]/mL High 0.465 - 4.68 u[IU]/mL [place] Test Performed by [facility], [facility] [place] [address] [place] XR CHEST PORTABLEon 10-07-19 20 [facility], [facility] - 10/07/2019 1:58 PM EDT Patient Name: RAMA BAIDR ---Diagnostic Radiology--- Exam Date/Time 10/07/2019 12:59:39 EDT Exam CR Chest Portable Ordering Physician CARTER DUARTE Accession Number [id number] CPT4 Codes 35841 () Reason For Exam ETT placement Report PORTABLE CHEST Clinical indication: ETT placement Comparison: None. Endotracheal tube tip projects about a centimeter above the paulette. Oral gastric tube extends below the diaphragm and off the lower margin of the image. Right internal jugular [place] catheter tip projects at the distal main pulmonary artery. Bilateral chest tubes are present at the thoracic base and there is a chest tube superimposed on the mediastinum. Sternotomy wires and surgical clips are present. Surgical clips and journeyman mechanic or prosthesis are noted in the right breast. The cardiac silhouette is upper normal in size. Postsurgical changes are noted in the mediastinum. There is mild atelectasis in the left lung diffusely and in the right lung base. Lung volumes overall are shallow. A tiny pneumothorax is present on the left. IMPRESSION: Multiple life support tubes following median sternotomy with postsurgical changes of the mediastinum and mild atelectasis Report Dictated on --- Final --- Dictated: 10/07/2019 1:50 pm Dictating Physician: MD BLUM DIANE Signed Date and Time: 10/07/2019 1:56 pm Signed by: MD BLUM DIANE Transcribed Date and Time: 10/07/2019 1:50 [place] Patient Name: RAMA JOY ---Diagnostic Radiology--- Exam Date/Time 10/07/2019 12:59:39 EDT Exam CR Chest Portable Ordering Physician CARTER DUARTE Accession Number [id number] CPT4 Codes 85539 () Reason For Exam ETT placement Report PORTABLE CHEST Clinical indication: ETT placement Comparison: None. Endotracheal tube tip projects about a centimeter above the paulette. Oral gastric tube extends below the diaphragm and off the lower margin of the image. Right internal jugular [place] catheter tip projects at the distal main pulmonary artery. Bilateral chest tubes are present at the thoracic base and there is a chest tube superimposed on the mediastinum. Sternotomy wires and surgical clips are present. Surgical clips and journeyman mechanic or prosthesis are noted in the right breast. The cardiac silhouette is upper normal in size. Postsurgical changes are noted in the mediastinum. There is mild atelectasis in the left lung diffusely and in the right lung base. Lung volumes overall are shallow. A tiny pneumothorax is present on the left. IMPRESSION: Multiple life support tubes following median sternotomy with postsurgical changes of the mediastinum and mild atelectasis Report Dictated on --- Final --- Dictated: 10/07/2019 1:50 pm Dictating Physician: MD BLUM DIANE Signed Date and Time: 10/07/2019 1:56 pm Signed by: MD BLUM DIANE Transcribed Date and Time: 10/07/2019 1:50 [place] COVID-19on 10-06-2019 SARS-CoV-2 Not Detected Expected Result: Not Detected _ Real-time, RT-PCR performed on the [employer] by the [facility]. Negative results do not preclude SARS-CoV-2 infection and should not be used as the sole basis for treatment or other patient management decisions. This assay was developed and its performance characteristics determined by the [facility]. This test has been developed under an Emergency Use Authorization (EUA) granted by the FDA for the qualitative detection of SARS-CoV-2 nucleic acid (validation review pending). [place] Test Performed by [facility], [address] [place] [id number] [place] Comprehensive Metabolic Pane jamie 09-28-2019 Albumin [Mass/Vol] 4.5 g/dL 3.5 - 5 g/dL [place] ALP [Catalytic activity/Vol] 105 U/L 38 - 126 U/L [place] ALT [Catalytic activity/Vol] 78 U/L High 0 - 34 U/L [place] Comment on above: The ALT test is perf ormed by an updated assay method. Please note that the reference intervals have been changed and are now sex specific. Anion gap [Moles/Vol] 10 mmol/L [place] AST [Catalytic activity/Vol] 101 U/L High 15 - 46 U/L [place] Bilirubin Ql (U) 0.3 mg/dL 0.2 - 1.3 mg/dL [place] Calcium [Mass/Vol] 9.3 mg/dL 8.4 - 10. 4 mg/dL [place] Chloride [Moles/Vol] 102 mmol/L 98 - 10 7 mmol/L [place] CO2 [Moles/Vol] 26 mmol/L 22 - 30 mmol/L [place] Creatinine [Mass/Vol] 0.52 mg/dL 0.52 - 1.25 mg/dL [place] EGFR IF NonAfrican [place] >60.0 >60 mL/min [place] Comment on above: Source- MDRD equatio n with creatinine calibration to IDMS(NKDEP) eGFR not recommended for drug dose adjustment GFR/1.73 sq M predicted among blacks MDRD (S/P/Bld) [Vol rate/Area] mL/min/{1.73_m2} >60 mL/min [place] Glucose [Mass/Vol] 164 mg/dL High 70 - 100 mg/dL [place] Interpretation and review of laboratory results Abnormal [place] Potassium [Moles/Vol] 4.4 mmol/L 3.5 - 5.1 mmol/L [place] Protein [Mass/Vol] 7.4 g/dL 6.3 - 8.2 g/dL [place] Sodium [Moles/Vol] 138 mmol/L 135 - 145 mmol/L [place] Urea nitrogen [Mass/Vol] 10 mg/dL 7 - 20 mg/dL [place] Test Performed by [facility], [address] [place] [address] [place] Hemoglobin A1Con 09-28-2019 eAG 171 mg/dL [place] HbA1c (Bld) [Mass fraction] 7.6 % High 4 - 5.7 % [place] Comment on above: --HgbA1C levels may not be accurate in patients who have renal disease, received recent blood transfusions, are anemic, or who have dyshemoglobinemia. Interpretation and review of laboratory results Abnormal [facility], [place] Test Performed by [place] [address] [place], [place] [id number] [place] [address] TYPE AND SCREENon 09-28-2019 Sodium [Moles/Vol] Positive [facility] Sodium [Moles/Vol] O [facility] Sodium [Moles/Vol] Negative [facility] Test Performed by [id number] [place] [address] Urinalysison 09-28-2019 Appearance (U) Clear Clear NA [facility] Bacteria, UA Few Negative /[HPF] [facility] Bilirubin Urine Negative Negative mg/dL [place] Color (U) Light-Yellow Lt. Yellow NA [place] Glucose, Ur Normal Normal (<70) mg/dL [place] Ketones Ql (U) Negative Negative mg/dL [facility] LEUKOCYTES, UA 250 Negative Griselda/uL [facility] Mucous Threads Few Negative /[LPF] [facility] Nitrite, Urine Negative Negative NA [place] Occult Blood,Urine Negative Negative mg/dL [place] pH (U) 6.5 [pH] [facility] Protein (U) [Mass/Vol] Negative Negative mg/dL [facility] RBC (U) [#/Vol] 0-2 0 - 2 /[HPF] [facility] Specific [place], Urine 1.011 [place] Urobilinogen, Urine Normal Normal ( 0-1) mg/dL [place] WBC, UA 26-50 0 - 5 /[HPF] [facility] Test Performed by [address] [place] [address] Vital Signs Date Time Vital Sign Value Performing Clinician Facility 12-13-2024 07:21-0400 Body mass index (BMI) [Ratio] 29.8 kg/m2 Dr. Magdiel Montilla MD Work Phone: [facility] 12-13-2024 07:21-0400 Body weight 78.[address] Magdiel Montilla MD Work Phone: [facility] 12-13-2024 07:21-0400 Diastolic blood pressure 79 mm[Hg] Dr. Magdiel Montilla MD Work Phone: [facility] 12-13-2024 07:21-0400 Heart rate 52 /min Dr. Magdiel Montilla MD Work Phone: [facility] 12-13-2024 07:21-0400 Respiratory rate 18 /min Dr. Magdiel Montilla MD Work Phone: [facility] 12-13-2024 07:21-0400 SaO2% (BldA) [Mass fraction] 100 % Dr. Magdiel Montilla MD Work Phone: [facility] 12-13-2024 07:21-0400 Systolic blood pressure 132 mm[Hg] Dr. Magdiel Montilla MD Work Phone: [facility] 07-21-2024 10:57-0500 Body height 162.[address] Magdiel Montilla MD Work Phone: [facility] 07-21-2024 10:57-0500 Body mass index (BMI) [Ratio] 30.5 kg/m2 Dr. Magdiel Montilla MD Work Phone: [facility] 07-21-2024 10:57-0500 Body weight 80.[address] Magdiel Montilla MD Work Phone: [facility] 07-21-2024 10:57-0500 Diastolic blood pressure 82 mm[Hg] Dr. Magdiel Montilla MD Work Phone: [facility] 07-21-2024 10:57-0500 Heart rate 56 /min Dr. Magdiel Montilla MD Work Phone: [facility] 07-21-2024 10:57-0500 Respiratory rate 16 /min Dr. Magdiel Montilla MD Work Phone: [facility] 07-21-2024 10:57-0500 SaO2% (BldA) [Mass fraction] 97 % Dr. Magdiel Montilla MD Work Phone: [facility] 07-21-2024 10:57-0500 Systolic blood pressure 159 mm[Hg] Dr. Magdiel Montilla MD Work Phone: [facility] 05-13-2024 14:52-0500 Body height 162.6 cm Bibidawit Waldrop HALL MANAGER - EXPLOSIVE EXPERT Work Phone: [facility] 05-13-2024 14:52-0500 Body mass index (BMI) [Ratio] 31.07 kg/m2 Bibidawit Carterard HALL MANAGER - EXPLOSIVE EXPERT Work Phone: [facility] 05-13-2024 14:52-0500 Body temperature 98.4 [degF] Bibi Waldrop HALL MANAGER - EXPLOSIVE EXPERT Work Phone: [facility] 05-13-2024 14:52-0500 Body weight 82.1 kg Bibidawit NelsonWaldrop HALL MANAGER - EXPLOSIVE EXPERT Work Phone: [facility] 05-13-2024 14:52-0500 Diastolic blood pressure 73 mm[Hg] Bibidawit NelsonWaldrop HALL MANAGER - EXPLOSIVE EXPERT Work Phone: [facility] 05-13-2024 14:52-0500 Heart rate 64 /min Bibi Waldrop HALL MANAGER - EXPLOSIVE EXPERT Work Phone: [facility] 05-13-2024 14:52-0500 Systolic blood pressure 139 mm[Hg] Bibi Waldrop HALL MANAGER - EXPLOSIVE EXPERT Work Phone: [facility] 05-12-2024 09:59-0500 Body mass index (BMI) [Ratio] 31.2 kg/m2 Dr. Magdiel Montilla MD Work Phone: [facility] 05-12-2024 09:59-0500 Body weight 82.[address] Magdiel Montilla MD Work Phone: [facility] 05-12-2024 09:59-0500 Diastolic blood pressure 79 mm[Hg] Dr. Magdiel Montilla MD Work Phone: [facility] 05-12-2024 09:59-0500 Heart rate 63 /min Dr. Magdiel Montilla MD Work Phone: [facility] 05-12-2024 09:59-0500 SaO2% (BldA) [Mass fraction] 97 % Dr. Magdiel Montilla MD Work Phone: [facility] 05-12-2024 09:59-0500 Systolic blood pressure 162 mm[Hg] Dr. Magdiel Montilla MD Work Phone: [facility] 04-12-2024 09:45-0500 Diastolic blood pressure 80 mm[Hg] Glen Wild Castillo HALL MANAGER.EXPLOSIVE EXPERT Work Phone: [facility] 04-12-2024 09:45-0500 Systolic blood pressure 163 mm[Hg] Glen Wild Castillo HALL MANAGER.EXPLOSIVE EXPERT Work Phone: [facility] 04-12-2024 09:20-0500 Body mass index (BMI) [Ratio] 32.4 kg/m2 Glen Wild Castillo HALL MANAGER.EXPLOSIVE EXPERT Work Phone: [facility] 04-12-2024 09:20-0500 Body temperature 82.99 [degF] Glen Wild Castillo HALL MANAGER.EXPLOSIVE EXPERT Work Phone: [facility] 04-12-2024 09:20-0500 Body weight 81.9 kg Glen Wild Castillo HALL MANAGER.EXPLOSIVE EXPERT Work Phone: [facility] 04-12-2024 09:20-0500 Heart rate 58 /min Ana Castillo HALL MANAGER.EXPLOSIVE EXPERT Work Phone: [facility] 04-12-2024 09:20-0500 SaO2% (BldA) [Mass fraction] 96 % Ana Castillo HALL MANAGER.EXPLOSIVE EXPERT Work Phone: [facility] 10-10-2023 08:17-0400 Body mass index (BMI) [Ratio] 31.67 kg/m2 Ana Castillo HALL MANAGER.EXPLOSIVE EXPERT Work Phone: [facility] 10-10-2023 08:17-0400 Body temperature 98.49 [degF] Ana Castillo HALL MANAGER.EXPLOSIVE EXPERT Work Phone: [facility] 10-10-2023 08:17-0400 Body weight 80.06 kg Ana Castillo HALL MANAGER.EXPLOSIVE EXPERT Work Phone: [facility] 10-10-2023 08:17-0400 Diastolic blood pressure 84 mm[Hg] Ana Castillo HALL MANAGER.EXPLOSIVE EXPERT Work Phone: [facility] 10-10-2023 08:17-0400 Heart rate 69 /min Ana Castillo HALL MANAGER.EXPLOSIVE EXPERT Work Phone: [facility] 10-10-2023 08:17-0400 SaO2% (BldA) [Mass fraction] 98 % Ana Castlilo HALL MANAGER.EXPLOSIVE EXPERT Work Phone: [facility] 10-10-2023 08:17-0400 Systolic blood pressure 149 mm[Hg] Ana Castillo HALL MANAGER.EXPLOSIVE EXPERT Work Phone: [facility] 09-19-2023 13:00-0400 Body temperature 97.8 [degF] Dr. Magdiel Montilla Work Phone: [facility] 09-19-2023 13:00-0400 Diastolic blood pressure 64 mm[Hg] Dr. Magdiel Montilla Work Phone: [facility] 09-19-2023 13:00-0400 Heart rate 68 /min Dr. Magdiel Montilla Work Phone: [facility] 09-19-2023 13:00-0400 Respiratory rate 16 /min Dr. Magdiel Montilla Work Phone: [facility] 09-19-2023 13:00-0400 SaO2% (BldA) [Mass fraction] 98 % Dr. Magdiel Montilla Work Phone: [facility] 09-19-2023 13:00-0400 Systolic blood pressure 138 mm[Hg] Dr. Magdiel Montilla Work Phone: [facility] 09-03-2023 08:07-0400 Body height 162.[address] Magdiel Montilla Work Phone: [facility] 09-03-2023 08:07-0400 Body mass index (BMI) [Ratio] 30.9 kg/m2 Dr. Magdiel Montilla Work Phone: [facility] 09-03-2023 08:07-0400 Body temperature 98.2 [degF] Dr. Magdiel Montilla Work Phone: [facility] 09-03-2023 08:07-0400 Body weight 81.[address] Magdiel Montilla Work Phone: [facility] 09-03-2023 08:07-0400 Diastolic blood pressure 82 mm[Hg] Dr. Magdiel Montilla Work Phone: [facility] 09-03-2023 08:07-0400 Heart rate 49 /min Dr. Magdiel Montilla Work Phone: [facility] 09-03-2023 08:07-0400 Systolic blood pressure 154 mm[Hg] Dr. Magdiel Montilla Work Phone: [facility] 06-20-2023 14:35-0500 Body mass index (BMI) [Ratio] 29.5 kg/m2 Dr. Magdiel Montilla Work Phone: [facility] 06-20-2023 14:35-0500 Body weight 78.[address] Magdiel Montilla Work Phone: [facility] 06-20-2023 14:35-0500 Diastolic blood pressure 77 mm[Hg] Dr. Magdiel Montilla Work Phone: [facility] 06-20-2023 14:35-0500 Heart rate 72 /min Dr. Magdiel Montilla Work Phone: [facility] 06-20-2023 14:35-0500 Respiratory rate 18 /min Dr. Magdiel Montilla Work Phone: [facility] [facility]-2023 14:35-0500 Systolic blood pressure 123 mm[Hg] Dr. Magdiel Montilla Work Phone: [facility] 05-15-2023 14:08-0500 Body height 162.6 cm Bibi Waldrop HALL MANAGER - EXPLOSIVE EXPERT Work Phone: [facility] 05-15-2023 14:08-0500 Body mass index (BMI) [Ratio] 29.35 kg/m2 Bibidawit Carterard HALL MANAGER - EXPLOSIVE EXPERT Work Phone: [facility] 05-15-2023 14:08-0500 Body weight 77.56 kg Bibidawit Waldrop HALL MANAGER - EXPLOSIVE EXPERT Work Phone: [facility] 05-15-2023 14:08-0500 Diastolic blood pressure 66 mm[Hg] Bibi Carterard HALL MANAGER - EXPLOSIVE EXPERT Work Phone: [facility] 05-15-2023 14:08-0500 Systolic blood pressure 116 mm[Hg] Bibi Carterard HALL MANAGER - EXPLOSIVE EXPERT Work Phone: [facility] 04-04-2023 08:02-0500 Body height 159 cm Ana Castillo HALL MANAGER.EXPLOSIVE EXPERT Work Phone: [facility] 04-04-2023 08:02-0500 Body temperature 99.81 [degF] Ana Castillo HALL MANAGER.EXPLOSIVE EXPERT Work Phone: [facility] 04-04-2023 08:02-0500 Body weight 78.02 kg Glen Wild Castillo HALL MANAGER.EXPLOSIVE EXPERT Work Phone: [facility] 04-04-2023 08:02-0500 Diastolic blood pressure 78 mm[Hg] Glen Wild Castillo HALL MANAGER.EXPLOSIVE EXPERT Work Phone: [facility] 04-04-2023 08:02-0500 Heart rate 74 /min Ana Castillo HALL MANAGER.EXPLOSIVE EXPERT Work Phone: [facility] 04-04-2023 08:02-0500 SaO2% (BldA) [Mass fraction] 99 % Glen Wild Castillo HALL MANAGER.EXPLOSIVE EXPERT Work Phone: [facility] 04-04-2023 08:02-0500 Systolic blood pressure 128 mm[Hg] Ana Castillo HALL MANAGER.EXPLOSIVE EXPERT Work Phone: [facility] 03-05-2023 08:10-0400 Body height 162.[address] Magdiel Montilla Work Phone: [facility] 03-05-2023 08:10-0400 Body mass index (BMI) [Ratio] 30.4 kg/m2 Dr. Magdiel Montilla Work Phone: [facility] 03-05-2023 08:10-0400 Body temperature 97.6 [degF] Dr. Magdiel Montilla Work Phone: [facility] 03-05-2023 08:10-0400 Body weight 80.[address] Magdiel Montilla Work Phone: [facility] 03-05-2023 08:10-0400 Diastolic blood pressure 82 mm[Hg] Dr. Magdiel Montilla Work Phone: [facility] 03-05-2023 08:10-0400 Heart rate 72 /min Dr. Magdiel Montilla Work Phone: [facility] 03-05-2023 08:10-0400 Respiratory rate 16 /min Dr. Magdiel Montilla Work Phone: [facility] 03-05-2023 08:10-0400 SaO2% (BldA) [Mass fraction] 98 % Dr. Magdiel Montilla Work Phone: [facility] 03-05-2023 08:10-0400 Systolic blood pressure 134 mm[Hg] Dr. Magdiel Montilla Work Phone: [facility] 10-04-2022 08:08-0400 Body height 160 cm Ana Castillo HALL MANAGER.EXPLOSIVE EXPERT Work Phone: [facility] 10-04-2022 08:08-0400 Body temperature 98.2 [degF] Ana Castillo HALL MANAGER.EXPLOSIVE EXPERT Work Phone: [facility] 10-04-2022 08:08-0400 Body weight 81.19 kg Glen Wild Castillo HALL MANAGER.EXPLOSIVE EXPERT Work Phone: [facility] 10-04-2022 08:08-0400 Diastolic blood pressure 76 mm[Hg] Glen Wild Castillo HALL MANAGER.EXPLOSIVE EXPERT Work Phone: [facility] 10-04-2022 08:08-0400 Heart rate 63 /min Glen Wild Castillo HALL MANAGER.EXPLOSIVE EXPERT Work Phone: [facility] 10-04-2022 08:08-0400 Systolic blood pressure 123 mm[Hg] Glen Wild Castillo HALL MANAGER.EXPLOSIVE EXPERT Work Phone: [facility] 04-12-2022 11:32-0500 Body temperature 98.71 [degF] Glen Wild Castillo HALL MANAGER.EXPLOSIVE EXPERT Work Phone: [facility] 04-12-2022 11:32-0500 Body weight 82.33 kg Ana Castillo HALL MANAGER.EXPLOSIVE EXPERT Work Phone: [facility] 04-12-2022 11:32-0500 Diastolic blood pressure 70 mm[Hg] Glen Wild Castillo HALL MANAGER.EXPLOSIVE EXPERT Work Phone: [facility] 04-12-2022 11:32-0500 Heart rate 72 /min Ana Castillo HALL MANAGER.EXPLOSIVE EXPERT Work Phone: [facility] 04-12-2022 11:32-0500 Systolic blood pressure 127 mm[Hg] Glen Wild Acstillo HALL MANAGER.EXPLOSIVE EXPERT Work Phone: [facility] 02-28-2022 08:12-0400 Body height 160.[address] Magdiel Montilla Work Phone: [facility] Work Phone: 02-28-2022 08:12-0400 Body mass index (BMI) [Ratio] 32.3 kg/m2 Dr. Magdiel Montilla Work Phone: [facility] Work Phone: 02-28-2022 08:12-0400 Body temperature 95.8 [degF] Dr. Magdiel Montilla Work Phone: [facility] Work Phone: 02-28-2022 08:12-0400 Body weight 82.[address] Magdiel Montilla Work Phone: [facility] Work Phone: 02-28-2022 08:12-0400 Diastolic blood pressure 74 mm[Hg] Dr. Magdiel Montilla Work Phone: [facility] Work Phone: 02-28-2022 08:12-0400 Heart rate 68 /min Dr. Magdiel Montilla Work Phone: [facility] Work Phone: 02-28-2022 08:12-0400 Respiratory rate 18 /min Dr. Magdiel Montilla Work Phone: [facility] Work Phone: 02-28-2022 08:12-0400 SaO2% (BldA) [Mass fraction] 98 % Dr. Magdiel Montilla Work Phone: [facility] Work Phone: 02-28-2022 08:12-0400 Systolic blood pressure 131 mm[Hg] Dr. Magdiel Montilla Work Phone: [facility] Work Phone: 12-31-2021 15:29-0400 Body height 160.[address] Magdiel Montilla Work Phone: [facility] Work Phone: 12-31-2021 15:29-0400 Body mass index (BMI) [Ratio] 32.4 kg/m2 Dr. Magdiel Montilla Work Phone: [facility] Work Phone: 12-31-2021 15:29-0400 Body weight [address] Magdiel Montilla Work Phone: [facility] Work Phone: 12-31-2021 15:29-0400 Diastolic blood pressure 75 mm[Hg] Dr. Magdiel Montilla Work Phone: [facility] Work Phone: 12-31-2021 15:29-0400 Heart rate 66 /min Dr. Magdiel Montilla Work Phone: [facility] Work Phone: 12-31-2021 15:29-0400 Respiratory rate 16 /min Dr. Magdiel Montilla Work Phone: [facility] Work Phone: 12-31-2021 15:29-0400 Systolic blood pressure 152 mm[Hg] Dr. Magdiel Montilla Work Phone: [facility] Work Phone: 11-05-2021 17:07-0400 Body temperature 98.7 [degF] Dr. Magdiel Montilla Work Phone: [facility] Work Phone: 11-05-2021 17:07-0400 Diastolic blood pressure 84 mm[Hg] Dr. Magdiel Montilla Work Phone: [facility] Work Phone: 11-05-2021 17:07-0400 Heart rate 73 /min Dr. Magdiel Montilla Work Phone: [facility] Work Phone: 11-05-2021 17:07-0400 Respiratory rate 14 /min Dr. Magdiel Montilla Work Phone: [facility] Work Phone: 11-05-2021 17:07-0400 SaO2% (BldA) [Mass fraction] 99 % Dr. Magdiel Montilla Work Phone: [facility] Work Phone: 11-05-2021 17:07-0400 Systolic blood pressure 148 mm[Hg] Dr. Magdiel Montilla Work Phone: [facility] Work Phone: 08-31-2021 08:33-0400 Body temperature 98.1 [degF] Ana Castillo HALL MANAGER.EXPLOSIVE EXPERT Work Phone: [facility] 08-31-2021 08:33-0400 Body weight 83.01 kg Ana Duongenter HALL MANAGER.EXPLOSIVE EXPERT Work Phone: [facility] 08-31-2021 08:33-0400 Diastolic blood pressure 81 mm[Hg] nAa Castillo HALL MANAGER.EXPLOSIVE EXPERT Work Phone: [facility] 08-31-2021 08:33-0400 Heart rate 61 /min Ana Castillo HALL MANAGER.EXPLOSIVE EXPERT Work Phone: [facility] 08-31-2021 08:33-0400 Systolic blood pressure 142 mm[Hg] Ana Duongenter HALL MANAGER.EXPLOSIVE EXPERT Work Phone: [facility] 08-23-2021 08:50-0400 Body height 160.[address] Magdiel Montilla Work Phone: [facility] Work Phone: 08-23-2021 08:50-0400 Body mass index (BMI) [Ratio] 33 kg/m2 Dr. Magdiel Montilla Work Phone: [facility] Work Phone: 08-23-2021 08:50-0400 Body temperature 96.7 [degF] Dr. Magdiel Montilla Work Phone: [facility] Work Phone: 08-23-2021 08:50-0400 Body weight 84.[address] Magdiel Motnilla Work Phone: [facility] Work Phone: 08-23-2021 08:50-0400 Diastolic blood pressure 88 mm[Hg] Dr. Magdiel Montilla Work Phone: [facility] Work Phone: 08-23-2021 08:50-0400 Heart rate 63 /min Dr. Magdiel Montilla Work Phone: [facility] Work Phone: 08-23-2021 08:50-0400 Respiratory rate 18 /min Dr. Magdiel Montilla Work Phone: [facility] Work Phone: 08-23-2021 08:50-0400 SaO2% (BldA) [Mass fraction] 98 % Dr. Magdiel Montilla Work Phone: [facility] Work Phone: 08-23-2021 08:50-0400 Systolic blood pressure 130 mm[Hg] Dr. Magdiel Montilla Work Phone: [facility] Work Phone: 06-08-2021 12:53-0500 Body mass index (BMI) [Ratio] 32.5 kg/m2 Dr. Magdiel Montilla Work Phone: [facility] Work Phone: 06-08-2021 12:53-0500 Body weight 83.[address] Magdiel Montilla Work Phone: [facility] Work Phone: 06-08-2021 12:53-0500 Diastolic blood pressure 88 mm[Hg] Dr. Magdiel Montilla Work Phone: [facility] Work Phone: 06-08-2021 12:53-0500 Heart rate 74 /min Dr. Magdiel Montilla Work Phone: [facility] Work Phone: 06-08-2021 12:53-0500 Respiratory rate 18 /min Dr. Magdiel Montilla Work Phone: [facility] Work Phone: 06-08-2021 12:53-0500 SaO2% (BldA) [Mass fraction] 100 % Dr. Magdiel Montilla Work Phone: [facility] Work Phone: 06-08-2021 12:53-0500 Systolic blood pressure 146 mm[Hg] Dr. Magdiel Montilla Work Phone: [facility] Work Phone: 05-24-2021 10:14-0500 Body temperature 97.6 [degF] Dr. Magdiel Montilla Work Phone: [facility] Work Phone: 05-24-2021 10:14-0500 Diastolic blood pressure 78 mm[Hg] Dr. Magdiel Montilla Work Phone: [facility] Work Phone: 05-24-2021 10:14-0500 Heart rate 78 /min Dr. Magdiel Montilla Work Phone: [facility] Work Phone: 05-24-2021 10:14-0500 Respiratory rate 16 /min Dr. Magdiel Montilla Work Phone: [facility] Work Phone: 05-24-2021 10:14-0500 SaO2% (BldA) [Mass fraction] 96 % Dr. Magdiel Montilla Work Phone: [facility] Work Phone: 05-24-2021 10:14-0500 Systolic blood pressure 142 mm[Hg] Dr. Magdiel Montilla Work Phone: [facility] Work Phone: 08-14-2020 08:59-0400 BMI (Body Mass Index) 31.07 kg/m2 Wilmer Said [facility] Work Phone: 08-14-2020 08:59-0400 Body Temperature 97.7 [degF] Shirleyeb Said [facility] Work Phone: 08-14-2020 08:59-0400 Body weight 82.1 kg Shirleyeb Said [facility] Work Phone: 08-14-2020 08:59-0400 BP Diastolic 89 mm[Hg] Moheb Said [facility] Work Phone: 08-14-2020 08:59-0400 BP Systolic 150 mm[Hg] Moheb Said [facility] Work Phone: 08-14-2020 08:59-0400 Height 162.6 cm Wilmer Bello [facility] Work Phone: 08-14-2020 08:59-0400 Pulse (Heart Rate) 74 /min Wilmer Bello [facility] Work Phone: 08-14-2020 08:59-0400 Pulse Oximetry 99 % [facility] [place] [facility] Work Phone: 10-12-2019 11:00-0400 Pulse (Heart Rate) 69 /min Carter Duarte [facility] [place] [place] 10-12-2019 08:26-0400 Body Temperature 98.91 [degF] [place] Duarte [facility] [place] 10-12-2019 08:26-0400 BP Diastolic 73 mm[Hg] Carter Duarte [facility] [place] 10-12-2019 08:26-0400 BP Systolic 120 mm[Hg] Carter Duarte [facility] [place] 10-12-2019 08:26-0400 Pulse Oximetry 97 % Carter Duarte [facility] [place] 10-12-2019 08:26-0400 Respiratory Rate 17 /min Carter Duarte [facility] [place] 10-10-2019 05:00-0400 BMI (Body Mass Index) 31.58 kg/m2 Carter Duarte [facility] [place] 10-10-2019 05:00-0400 Body weight 83.46 kg Carter Duarte [facility] [place] 10-10-2019 05:00-0400 Height 162.6 cm Carter Duarte [facility] [place] 09-28-2019 11:54-0400 Height 162.6 cm Carter Duarte [facility] [place] 09-28-2019 11:45-0400 BMI (Body Mass Index) 32.22 kg/m2 Carter Duarte [facility] [place] 09-28-2019 11:45-0400 Body Temperature 97.7 [degF] [place] Duarte [facility] [place] 09-28-2019 11:45-0400 Body weight 85.14 kg Carter Duarte [facility] [place] [facility] [place] 09-28-2019 11:45-0400 BP Diastolic 73 mm[Hg] [facility] [place] [facility] [place] 09-28-2019 11:45-0400 BP Systolic 119 mm[Hg] Carter Duarte [facility] [place] [facility] [place] 09-28-2019 11:45-0400 Pulse (Heart Rate) 67 /min Carter Duarte [facility] [place] [place] 09-28-2019 11:45-0400 Pulse Oximetry 97 % Carter Duarte [facility] [place] [facility] [place] 09-28-2019 11:45-0400 Respiratory Rate 16 /min [facility] [place] [place] Encounters Encounter Date Encounter Type Care Provider Facility Start: 01-05-2025 ambulatory Ernestine Santamaria COMPONENT LAB TECH Facili ty:[facility] Start: 12-13-2024 End: 12-13-2024 Patient encounter procedure Ernestine Santamaria NP-C -[facility] Work Phone: Start: 12-13-2024 End: 12-13-[address] Magdiel Montilla MD Work Phone: -[facility] Start: 08-11-2024 End: 08-11-2024 ambulatory Magdiel Montilla [place] [place]: 07-24-2024 End: 07-24-[address] Magdiel Montilla MD Work Phone: [facility] Work Phone: Start: 07-24-2024 End: 07-24-[address] Magdiel Montilla MD -Laboratory Work Phone: Start: 07-24-2024 End: 07-24-2024 ambulatory Magdiel Montilla Facility:[facility] Start: 07-21-2024 End: 07-21-[address] Tc Andres MD -[facility] Work Phone: Start: 07-21-2024 End: 07-21-2024 [facility] Start: 05-13-2024 End: 05-13-2024 Office outpatient visit 15 minutes Bibi Waldrop APRN - EXPLOSIVE EXPERT Work Phone: [facility] Comment on above: S/P mastectomy, bila teral (Primary Dx); Encounter for follow-up surveillance of breast cancer; Fat necrosis of right breast Start: 05-13-2024 End: 05-13-2024 ambulatory MAGDIEL MONTILLA [facility] Start: 05-12-2024 End: 05-12-2024 Patient encounter procedure Fatemeh Gonzalez COMPONENT LAB TECH-C -[facility] Work Phone: Start: 05-12-2024 End: 05-12-2024 ambulatory Magdiel Montilla [place] Start: 04-12-2024 End: 04-12-2024 ambulatory ANA CASTILLO Facility:[facility] Start: 04-12-2024 End: 04-12-2024 Follow-up encounter Ana Castillo HALL MANAGER.EXPLOSIVE EXPERT Work Phone: Hematology/Oncology Comment on above: Encounter for follow -up surveillance of breast cancer (Primary Dx) Start: 04-12-2024 End: 04-12-2024 Patient encounter procedure Ana Castillo HALL MANAGER.EXPLOSIVE EXPERT Work Phone: Hematology/Oncology Start: 10-10-2023 End: 10-10-2023 ambulatory Ana Castillo HALL MANAGER.EXPLOSIVE EXPERT Work Phone: Hematology/Oncology Comment on above: Malignant neoplasm o f left breast in female, estrogen receptor positive, unspecified site of breast (HCC) (Primary Dx) Start: 10-10-2023 End: 10-10-2023 Patient encounter procedure Ana Castillo HALL MANAGER.EXPLOSIVE EXPERT Work Phone: Hematology/Oncology Start: 09-19-2023 End: 09-19-[address] Magdiel Montilla Work Phone: [facility] Work Phone: Start: 09-19-2023 End: 09-19-[address] Magdiel Montilla Work Phone: [facility]-Laboratory, Specimen Work Phone: Start: 09-19-2023 End: 09-19-[address] Magdiel Montilla Work Phone: [facility] Work Phone: Start: 09-08-2023 End: 09-08-[address] Magdiel Montilla Work Phone: [facility] Work Phone: Start: 09-08-2023 End: 09-08-[address] Magdiel Montilla Work Phone: [facility] Work Phone: Start: 09-03-2023 End: 09-03-[address] Magdiel Montilla Work Phone: [facility] Work Phone: Start: 06-20-2023 End: 06-20-[address] Magdiel Montilla Work Phone: [facility] Work Phone: Start: 05-15-2023 End: 05-15-2023 Office outpatient visit 25 minutes Bibi Waldrop APRN - EXPLOSIVE EXPERT Work Phone: [facility] [place] Comment on above: S/P mastectomy, bila teral (Primary Dx); Encounter for follow-up surveillance of breast cancer; Fat necrosis of right breast Start: 05-02-2023 End: 05-02-[address] Magdiel Montilla Work Phone: [facility] Work Phone: Start: 05-02-2023 End: 05-02-[address] Magdiel Montilla Work Phone: [facility] Work Phone: Start: 04-04-2023 End: 04-04-2023 ambulatory Ana Castillo APRN.EXPLOSIVE EXPERT Work Phone: Hematology/Oncology Comment on above: Malignant neoplasm o f left breast in female, estrogen receptor positive, unspecified site of breast (HCC) (Primary Dx) Start: 04-04-2023 End: 04-04-2023 Patient encounter procedure Ana Castillo APRN.EXPLOSIVE EXPERT Work Phone: [facility] Start: 03-18-2023 End: 03-18-2023 Subsequent hospital visit by physician Magdiel Montilla MD Work Phone: [facility] Comment on above: Mass of upper inner quadrant of left breast Start: 03-05-2023 End: 03-05-[address] 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, estrogen receptor positive, unspecified site of breast (HCC) (Primary Dx) Start: 10-04-2022 End: 10-04-2022 Patient encounter procedure Ana Castillo APRN.EXPLOSIVE EXPERT Work Phone: [facility] Start: 09-12-2022 End: 09-12-2022 Orders Only Bibi Waldrop HALL MANAGER - EXPLOSIVE EXPERT Work Phone: [facility] [place] Comment on above: Mass of upper inner quadrant of left breast (Primary Dx) Mass of upper inner quadrant of left breast Start: 04-12-2022 End: 04-12-2022 ambulatory Ana Castillo APRN.EXPLOSIVE EXPERT Work Phone: Hematology/Oncology Comment on above: Malignant neoplasm o f left breast in female, estrogen receptor positive, unspecified site of breast (HCC) (Primary Dx) Start: 04-12-2022 End: 04-12-2022 Patient encounter procedure Ana Castillo APRN.EXPLOSIVE EXPERT Work Phone: [facility] Start: 03-26-2022 End: 03-26-[address] Magdiel Montilla Work Phone: [facility] Work Phone: Start: 03-26-2022 End: 03-26-[address] [facility] Start: 02-28-2022 End: 02-28-[address] Magdiel Montilla Work Phone: [facility] Start: 01-21-2022 End: 01-21-[address] Magdiel Montilla Work Phone: [facility] Work Phone: Start: 01-21-2022 End: 01-21-[address] [facility] Montilla [facility] Start: 12-31-2021 End: 12-31-[address] Magdiel Montilla Work Phone: [facility] Start: 11-05-2021 End: 11-05-[address] Magdiel Montilla Work Phone: [facility] Start: 10-10-2021 End: 10-10-[address] Magdiel Montilla Work Phone: [facility]/Neurology Start: 08-31-2021 End: 08-31-2021 ambulatory Ana Castillo APRN.EXPLOSIVE EXPERT Work Phone: Hematology/Oncology Comment on above: Malignant neoplasm o f left breast in female, estrogen receptor positive, unspecified site of breast (HCC) (Primary Dx) Start: 08-31-2021 End: 08-31-2021 Patient encounter procedure Ana Castillo HALL MANAGER.EXPLOSIVE EXPERT Work Phone: [facility] Start: 08-23-2021 End: 08-23-[address] [facility] Mont[facility] Start: 08-22-2021 Telephone encounter Ana guo HALL MANAGER.EXPLOSIVE EXPERT Work Phone: Hematology/Oncology Comment on above: Appointment Start: 06-26-2021 End: 06-26-[address] Magdiel Montilla Work Phone: [facility] Start: 06-08-2021 End: 06-08-[address] Magdiel Montilla Work Phone: [facility] Start: 05-24-2021 End: 05-24-[address] Magdiel Montilla Work Phone: [facility] Start: 02-06-2021 End: 02-06-2021 Subsequent hospital visit by physician Yanni Villalobos MD Work Phone: [facility] Comment on above: Mass of lower outer quadrant of left breast Start: 08-14-2020 End: 08-14-2020 Subsequent hospital visit by physician Wilmer Bello Work Phone: [facility] Comment on above: History of left diane st cancer Start: 08-03-2020 End: 08-03-2020 Subsequent hospital visit by physician Yanni Villalobos Work Phone: [facility] Comment on above: Mass of lower outer quadrant of left breast; Malignant neoplasm of central portion of left breast in female, estrogen receptor positive (HCC); Status post bilateral mastectomy Start: 07-27-2020 End: 07-27-2020 Subsequent hospital visit by physician Yanni Villalobos Work Phone: [facility] Comment on above: Mass of lower outer quadrant of left breast; H/O bilateral mastectomy; Malignant neoplasm of left breast in female, estrogen receptor positive, unspecified site of breast (HCC) Start: 10-07-2019 End: 10-12-2019 Evaluation and management of inpatient Carter Duarte Work Phone: [facility] Comment on above: S/P CABG x 4 (Primar y Dx) Start: 10-06-2019 End: 10-06-2019 Subsequent hospital visit by physician Alise Linda Work Phone: [facility] Start: 09-28-2019 End: 09-28-2019 Subsequent hospital visit by physician Carter Duarte Work Phone: [facility] Comment on above: Pre-op evaluation Procedures Date Procedure Procedure Detail Performing Clinician Start: 09-19-[address] Magdiel Montilla Work Phone: Start: 03-18-2023 Us breast uni real t cody with image limited Bibidawit Waldrop HALL MANAGER - EXPLOSIVE EXPERT Work Phone: Start: 09-12-2022 Us breast uni real t cody with image limited Bibi Waldrop HALL MANAGER - EXPLOSIVE EXPERT Work Phone: Start: 01-21-[address] Teena Montilla Work Phone: Start: 08-31-2021 Adult depression scr eening assessment Ana Castillo HALL MANAGER.EXPLOSIVE EXPERT Work Phone: Start: 02-06-2021 Us breast uni real t cody with image limited Yanni Villalobos MD Work Phone: Start: 08-14-2020 Chest x-ray 1 view frontal Shirleyeb Said Work Phone: Start: 08-14-2020 Basic metabolic pane l calcium total Moheb Said Work Phone: Start: 08-14-2020 Blood count complete auto&auto difrntl wbc [facility] [place] [place] Work Phone: Start: 08-14-2020 Hepatic function panel [facility] [place] [place] Work Phone: Start: 08-14-2020 PROTIME/INR & PTT [facility] [place] Work Phone: Start: 08-14-2020 Ecg routine ecg w/le ast 12 lds w/i&r Alise L Linda Work Phone: Start: 08-03-2020 US GUIDED LEFT BREAS T BIOPSY Yanni Villalobos Work Phone: Start: 07-27-2020 Us breast uni real t cody with image limited Yanni Villalobos Work Phone: Start: 03-30-2020 History of coronary artery bypass grafting History of coronary artery bypass surgery Bibi Waldrop HALL MANAGER - EXPLOSIVE EXPERT Work Phone: Start: 10-12-2019 Gluc bld gluc mntr d ev cleared fda spec home use Carter A Duarte Work Phone: Start: 10-12-2019 Radiologic exam ches t single view Carter A Duarte Work Phone: Start: 10-12-2019 Basic metabolic pane l calcium total Carter A Duarte Work Phone: Start: 10-12-2019 Blood count complete automated Carter A Duarte Work Phone: Start: 10-11-2019 Gluc bld gluc mntr d ev cleared fda spec home use Carter A Duarte Work Phone: Start: 10-11-2019 Gluc bld gluc mntr d ev cleared fda spec home use Carter A Duarte Work Phone: Start: 10-11-2019 Gluc bld gluc mntr d ev cleared fda spec home use Carter A Duarte Work Phone: Start: 10-11-2019 Radiologic exam ches t single view Carter A Duarte Work Phone: Start: 10-11-2019 Assay of magnesium Carter A Duaret Work Phone: Start: 10-11-2019 Basic metabolic pane l calcium total Carter A Duarte Work Phone: Start: 10-11-2019 Blood count complete automated Carter A Duarte Work Phone: Start: 10-10-2019 Gluc bld gluc mntr d ev cleared fda spec home use Carter A Duarte Work Phone: Start: 10-10-2019 Gluc bld gluc mntr d ev cleared fda spec home use Carter A Duarte Work Phone: Start: 10-10-2019 Gluc bld gluc mntr d ev cleared fda spec home use Carter A Duarte Work Phone: Start: 10-10-2019 Radiologic exam ches t single view Carter A Duarte Work Phone: Start: 10-10-2019 Assay of magnesium Carter A Duarte Work Phone: Start: 10-10-2019 Basic metabolic pane l calcium total Carter A Duarte Work Phone: Start: 10-10-2019 Blood count complete automated Carter A Duarte Work Phone: Start: 10-09-2019 Gluc bld gluc mntr d ev cleared fda spec home use Carter A Duarte Work Phone: Start: 10-09-2019 End: 10-09-2019 Gluc bld gluc mntr dev cleared fda spec home use Carter A Duarte Work Phone: Start: 10-09-2019 End: 10-09-2019 Gluc bld gluc mntr dev cleared fda spec home use Carter A Duarte Work Phone: Start: 10-09-2019 Gluc bld gluc mntr d ev cleared fda spec home use Carter A Duarte Work Phone: Start: 10-09-2019 End: 10-09-2019 Gluc bld gluc mntr dev cleared fda spec home use Carter A Duarte Work Phone: Start: 10-09-2019 Ecg routine ecg w/le ast 12 lds w/i&r Carter A Duarte Work Phone: Start: 10-09-2019 Radiologic exam ches t single view Carter A Duarte Work Phone: Start: 10-09-2019 Gluc bld gluc mntr d ev cleared fda spec home use Carter A Duarte Work Phone: Start: 10-09-2019 Gluc bld gluc mntr d ev cleared fda spec home use Carter A Duarte Work Phone: Start: 10-09-2019 End: 10-09-2019 Gluc bld gluc mntr dev cleared fda spec home use Carter A Duarte Work Phone: Start: 10-09-2019 Assay of magnesium Carter A Duarte Work Phone: Start: 10-09-2019 Basic metabolic pane l calcium total Carter A Duarte Work Phone: Start: 10-09-2019 Blood count complete automated Carter A Duarte Work Phone: Start: 10-08-2019 End: 10-08-2019 Gluc bld gluc mntr dev cleared fda spec home use Carter A Duarte Work Phone: Start: 10-08-2019 End: 10-08-2019 Gluc bld gluc mntr dev cleared fda spec home use Carter A Duarte Work Phone: Start: 10-08-2019 Gluc bld gluc mntr d ev cleared fda spec home use Carter A Duarte Work Phone: Start: 10-08-2019 Gluc bld gluc mntr d ev cleared fda spec home use Carter A Duarte Work Phone: Start: 10-08-2019 Gluc bld gluc mntr d ev cleared fda spec home use Carter A Duarte Work Phone: Start: 10-08-2019 End: 10-08-2019 Gluc bld gluc mntr dev cleared fda spec home use Carter A Duarte Work Phone: Start: 10-08-2019 Gluc bld gluc mntr d ev cleared fda spec home use Carter A Duarte Work Phone: Start: 10-08-2019 Gluc bld gluc mntr d ev cleared fda spec home use Carter A Duarte Work Phone: Start: 10-08-2019 Gluc bld gluc mntr d ev cleared fda spec home use Carter A Duarte Work Phone: Start: 10-08-2019 End: 10-08-2019 Gluc bld gluc mntr dev cleared fda spec home use Carter A Duarte Work Phone: Start: 10-08-2019 Gluc bld gluc mntr d ev cleared fda spec home use Carter A Duarte Work Phone: Start: 10-08-2019 End: 10-08-2019 Gluc bld gluc mntr dev cleared fda spec home use Carter A Duarte Work Phone: Start: 10-08-2019 Radiologic exam ches t single view Carter A Duarte Work Phone: Start: 10-08-2019 Gluc bld gluc mntr d ev cleared fda spec home use Carter A Duarte Work Phone: Start: 10-08-2019 Ecg routine ecg w/le ast 12 lds w/i&r Carter A Duarte Work Phone: Start: 10-08-2019 End: 10-08-2019 Gluc bld gluc mntr dev cleared fda spec home use Carter A Duarte Work Phone: Start: 10-08-2019 End: 10-08-2019 Gluc bld gluc mntr dev cleared fda spec home use Carter A Duarte Work Phone: Start: 10-08-2019 Assay of magnesium Carter A Duarte Work Phone: Start: 10-08-2019 Basic metabolic pane l calcium total Carter A Duarte Work Phone: Start: 10-08-2019 Blood count complete automated Carter A Duarte Work Phone: Start: 10-07-2019 End: 10-08-2019 Gluc bld gluc mntr dev cleared fda spec home use Carter A Duarte Work Phone: Start: 10-07-2019 End: 10-07-2019 Gluc bld gluc mntr dev cleared fda spec home use Carter A Duarte Work Phone: Start: 10-07-2019 Gluc bld gluc mntr d ev cleared fda spec home use Carter A Duarte Work Phone: Start: 10-07-2019 End: 10-07-2019 Gluc bld gluc mntr dev cleared fda spec home use Carter A Duarte Work Phone: Start: 10-07-2019 Gluc bld gluc mntr d ev cleared fda spec home use Carter A Duarte Work Phone: Start: 10-07-2019 End: 10-07-2019 Gluc bld gluc mntr dev cleared fda spec home use Carter A Duarte Work Phone: Start: 10-07-2019 EXTUBATION Bibi healy Start: 10-07-2019 Assay of free thyroxine Carter A Duarte Work Phone: Start: 10-07-2019 History of coronary artery bypass grafting S/P CABG x 4 Yanni Villalobos MD Work Phone: Start: 10-07-2019 RESPIRATORY THERAPY COMMUNICATION ORDER Denis Graff Dewey Work Phone: Start: 10-07-2019 Radiologic exam ches t single view Carter A Duarte Work Phone: Start: 10-07-2019 Gluc bld gluc mntr d ev cleared fda spec home use Carter A Duarte Work Phone: Start: 10-07-2019 OPERATIVE REPORT 3m Sca nning Start: 10-07-2019 Assay of magnesium Carter A Duarte Work Phone: Start: 10-07-2019 Assay of phosphorus inorganic Carter A Duarte Work Phone: Start: 10-07-2019 Assay of thyroid stimulating hormone tsh Carter A Duarte Work Phone: Start: 10-07-2019 Basic metabolic pane l calcium total Carter A Duarte Work Phone: Start: 10-07-2019 Blood count complete automated Carter A Duarte Work Phone: Start: 10-07-2019 BLOOD GAS, ARTERIAL Chhaya c A Duarte Work Phone: Start: 10-07-2019 Calcium ionized Carter A Duarte Work Phone: Start: 10-07-2019 PROTIME/INR & PTT Carter A Duarte Work Phone: Start: 10-07-2019 ECHOCARDIOGRAM TRANSESOPHAGEAL Carter A Duarte Work Phone: Start: 10-07-2019 End: 10-07-2019 Gluc bld gluc mntr dev cleared fda spec home use Carter A Duarte Work Phone: Start: 10-07-2019 Thyrotropin [Units/v olume] in Serum or Plasma Bibi Waldrop HALL MANAGER - EXPLOSIVE EXPERT Work Phone: Start: 10-06-2019 COVID-19 Alise zarate Work Phone: Start: 09-28-2019 Urnls dip stick/tabl et rgnt auto w/o microscopy Tereza R [place] Work Phone: Start: 09-28-2019 Blood typing serologic abo Bebe Vidhya Ventura Work Phone: Start: 09-28-2019 Comprehensive metabo lic panel Tereza R [place] Work Phone: Start: 09-28-2019 Hemoglobin glycosyla stephan a1c Tereza R [place] Work Phone: Start: 07-05-2019 Adult depression scr eening assessment Ana Castillo HALL MANAGER.EXPLOSIVE EXPERT Work Phone: Start: 10-18-2011 Mammography Ana guo HALL MANAGER.EXPLOSIVE EXPERT Work Phone: History of bilateral mastectomy S/P mastectomy, bilateral Bibi Nelsonppard HALL MANAGER - EXPLOSIVE EXPERT Work Phone: History of bilateral mastectomy S/P mastectomy, bilateral Bibi Waldrop HALL MANAGER - EXPLOSIVE EXPERT Work Phone: History of coronary artery bypass grafting S/P CABG x 4 Dr. Magdiel Montilla Work Phone: Comment on above: BENITEZ to LAD, SVG to First diagonal, SVG to first obtuse marginal, SVG to PDA 09/2019 Plan of Treatment Date Care Activity Detail Author Start: 2027 PNEUMOCOCCAL (3 - PP SV23 if available, else PCV20) PNEUMOCOCCAL (3 - PPSV23 if available, else PCV20) [facility] Start: 2027 Pneumococcal 0-64 ye ars Vaccine (2 of 2 - PPSV23) Pneumococcal 0-64 years Vaccine (2 of 2 - PPSV23) [facility] Work Phone: Start: 2027 Pneumococcal vaccination Pneum ococcal Vaccine (3 of 3 - PPSV23 or PCV20) [facility] Start: 2027 Pneumococcal Vaccine : Pediatrics (0 to 5 Years) and At-Risk Patients (6 to 64 Years) (3 - PPSV23 if available, else PCV20) Pneumococcal Vaccine: Pediatrics (0 to 5 Years) and At-Risk Patients (6 to 64 Years) (3 - PPSV23 if available, else PCV20) [facility] Start: 2027 Pneumococcal Vaccine : Pediatrics (0 to 5 Years) and At-Risk Patients (6 to 64 Years) (3 - PPSV23 or PCV20) Pneumococcal Vaccine: Pediatrics (0 to 5 Years) and At-Risk Patients (6 to 64 Years) (3 - PPSV23 or PCV20) [facility] Start: 2027 Pneumococcal Vaccine : Pediatrics (0 to 5 Years) and At-Risk Patients (6 to 64 Years) (3 of 3 - PPSV23 or PCV20) Pneumococcal Vaccine: Pediatrics (0 to 5 Years) and At-Risk Patients (6 to 64 Years) (3 of 3 - PPSV23 or PCV20) [facility] Start: 04-13-2025 End: 04-13-2025 ambulatory 04/13/2025 10:00 AM EST Visit (SP) Office Hematology/Oncology [address] [place] [address] Ana Castillo APRN.EXPLOSIVE EXPERT [address] [place] [address] 1 YR OV* Hematology/Oncolog y Comment on above: 1 YR OV* Start: 05-13-2024 End: 05-13-2024 Patient encounter procedure 05/13/2024 3:00 PM EST Office Visit [facility] [address] [place] [id number] Bibi Waldrop APRN - EXPLOSIVE EXPERT [address] [place] [address] [facility] Start: 04-12-2024 End: 04-12-2024 Follow-up encounter 04/12/2024 9:00 AM EST Visit (SP) Office Hematology/Oncology [address] [place] [address] Ana Castillo APRN.EXPLOSIVE EXPERT [address] [place] [address] 6 month follow up Hematology/Oncolog y Comment on above: 6 month follow up Start: 01-25-2024 Covid-19 Vaccine ( season) Covid-19 Vaccine () [facility] Start: 01-25-2024 Influenza vaccination [facility] Start: 10-05-2023 BP CONTROLLED (<130/80) BP CONTROLLE D (<130/80) [facility] Start: 05-26-2023 Behavioral Health Screening Behavioral Health Screening [facility] Start: 05-15-2023 End: 05-15-2023 Patient encounter procedure [facility] [place] Start: 04-12-2023 BP CONTROLLED (<130/80) BP CONTROLLE D (<130/80) [facility] Start: 01-24-2023 Covid-19 Vaccine ( season) Covid-19 Vaccine () [facility] Start: 01-24-2023 Influenza vaccination [facility] Start: 09-12-2022 End: 11-13-2023 US Breast - left limited Left breast US limited Imaging Routine Mass of upper inner quadrant of left breast Expected: 09/12/2022, Expires: 11/13/2023 [facility] Work Phone: Comment on above: Expected: 09/12/2022 , Expires: 11/13/2023 Start: 08-31-2022 Adult depression screening assessment DEPRESSION SCREENING [facility] Start: 05-26-2022 DEPRESSION ASSESSMENT DEPRESSION ASS ESSMENT [facility] Start: 02-28-2022 Patient referral [facility] Work Phone: Start: 2022 Hepatitis B Vaccines (1 of 3 - Risk 3-dose series) Hepatitis B Vaccines (1 of 3 - Risk 3-dose series) [facility] Start: 2022 RSV Immunization age d 60 or older (1 - 1-dose 60+ series) RSV Immunization aged 60 or older (1 - 1-dose 60+ series) [facility] Start: 2022 RSV Immunization for Adults (1 - Risk 60-74 years 1-dose series) RSV Immunization for Adults (1 - Risk 60-74 years 1-dose series) [facility] Start: 2022 RSV Vaccine (1 - 1-d ose 60+ series) RSV Vaccine (1 - 1-dose 60+ series) [facility] Start: 2022 RSV Vaccine (1 - Ris k 60-74 years 1-dose series) RSV Vaccine (1 - Risk 60-74 years 1-dose series) [facility] Start: 01-24-2022 Influenza vaccination C [facility] Start: 08-23-2021 Patient referral [facility] Work Phone: Start: 08-14-2021 Creatinine measurement Creatinine mo nitoring [facility] Work Phone: Start: 08-14-2021 Diabetes: Estimated Glomerular Filtration Rate for Kidney Health Diabetes: Estimated Glomerular Filtration Rate for Kidney Health [facility] Start: 08-14-2021 Potassium monitoring Potassium monit oring [facility] Work Phone: Start: 06-14-2021 COVID-19 VACCINE (4 - Booster for Pfizer series) COVID-19 VACCINE (4 - Booster for Pfizer series) [facility] Start: 05-26-2021 DEPRESSION ASSESSMENT DEPRESSION ASS ESSMENT [facility] Start: 05-09-2021 COVID-19 VACCINE (4 - Booster for Pfizer series) COVID-19 VACCINE (4 - Booster for Pfizer series) [facility] Start: 05-09-2021 COVID-19 Vaccine (4 - Pfizer series) COVID-19 Vaccine (4 - Pfizer series) [facility] Start: 04-25-2021 End: 04-25-2021 Patient encounter procedure 04/25/2021 Office Visit Plastic Surgery Wilmer Bello MD [address] [place] [address] [id number] [facility] [place] Start: 02-23-2021 Pneumococcal Vaccine : 50+ Years (3 of 3 - PCV20 or PCV21) Pneumococcal Vaccine: 50+ Years (3 of 3 - PCV20 or PCV21) [facility] Start: 01-24-2021 Influenza vaccination C [facility] Start: 10-11-2020 Creatinine measurement Creatinine mo [place], [place] Start: 10-11-2020 Potassium monitoring Potassium monit [place] Start: 10-06-2020 Thyroid stimulating hormone measurement [facility] Start: 10-06-2020 TSH Qn TSH testing [place], [place] Start: 09-27-2020 Creatinine measurement Creatinine mo [place], [place] Start: 09-27-2020 HbA1c (Bld) [Mass fraction] A1C test (Diabetic or Prediabetic) [place], [place] Start: 09-27-2020 Hemoglobin A1c measurement [facility] Start: 09-27-2020 Potassium monitoring Potassium monit [place] Start: 09-03-2020 COVID-19 VACCINE (3 - Pfizer risk 4-dose series) COVID-19 VACCINE (3 - Pfizer risk 4-dose series) [facility] Start: 08-25-2020 End: 08-25-2020 Office Visit 08/25/2020 Office Visit Plastic Surgery Wilmer Bello MD [address] [place] [address] [facility] Start: 08-21-2020 Hospital Encounter 08/21/2020 Hospital Encounter General Surgery Wilmer Bello MD [address] [place] [address] [place] [address] [facility] Start: 08-03-2020 COVID-19 Vaccine (2 - Pfizer 2-dose series) COVID-19 Vaccine (2 - Pfizer 2-dose series) [facility] Work Phone: Start: 08-03-2020 End: 08-03-2020 Office Visit [facility] Start: 07-05-2020 Adult depression screening assessment DEPRESSION SCREENING [facility] Start: 03-30-2020 Hemoglobin A1c measurement HbA1C [facility] Start: 03-30-2020 Hemoglobin A1c/Hemoglobin.total in Blood HBA1C [facility] Start: 01-25-2020 Influenza vaccination M [place] Start: 12-29-2019 Hemoglobin A1c measurement Diabetes: Hemoglobin A1C [facility] Start: 10-21-2019 End: 10-21-2019 Virtual Visit 10/21/2019 Virtual Visit Cardiothoracic Surgery Héctor Oneill, HALL MANAGER - SHEET METAL DUCT INSTALLER APPRENTICE [address] [place] [address] [phone] [facility] Start: 10-09-2019 Screening for malign ant neoplasm of breast Mammogram Screening [facility] Start: 10-07-2019 End: 10-07-2019 Appointment [facility] Start: 09-12-2017 Creatinine [facility] [place] Start: 09-12-2017 Potassium [facility] [place] Start: 03-29-2014 HPV TESTING HPV TESTING [facility] Start: 03-29-2014 PAP TESTING PAP TESTING [facility] Start: 03-29-2014 Screening for malign ant neoplasm of cervix [facility] Start: 10-17-2012 Mammography [facility] Start: 02-26-2012 Screening for malign ant neoplasm of colon Colon cancer screen [facility] [place] Start: 02-26-2012 Shingles Vaccine (1 of 2) Shingles V accine (1 of 2) [facility] [place] Start: 02-26-2012 SHINGRIX VACCINE (1 of 2) SHINGRIX V ACCINE (1 of 2) [facility] Start: 02-26-2012 Zoster Vaccines (1 of 2) Zoster Vacc carter (1 of 2) [facility] Start: 2007 COLOGUARD (FIT-DNA) COLOGUARD (FIT-D NA) [facility] Start: 2007 Colonoscopy COLONOSCOPY [facility] Start: 2007 COLORECTAL CANCER SCREENING COLORECTAL CANCER SCREENING [facility] Start: [address] COLONOGRAPHY [facility] Start: 2007 FECAL OCCULT BLOOD FECAL OCCULT BLOO D [facility] Start: 2007 Screening for malign ant neoplasm of colon [facility] Start: 2007 SIGMOIDOSCOPY SIGMOIDOSCOPY [facility] Start: 2002 Diabetes screen Diabetes screen [facility] Start: 2002 Screening for malign ant neoplasm of breast Mammogram [facility] Start: 02-26-1992 Screening for malign ant neoplasm of cervix [facility] Start: 1983 Screening for malign ant neoplasm of cervix [facility] Start: 1981 DTaP/Tdap/Td vaccine (1 - Tdap) DTaP/Tdap/Td vaccine (1 - Tdap) [place] Start: 1981 DTaP/Tdap/Td Vaccine s (1 - Tdap) DTaP/Tdap/Td Vaccines (1 - Tdap) [facility] Start: 1981 Hepatitis A Vaccines (1 of 2 - Risk 2-dose series) Hepatitis A Vaccines (1 of 2 - Risk 2-dose series) [facility] Start: 1981 Hepatitis B vaccine (1 of 3 - Risk 3-dose series) Hepatitis B vaccine (1 of 3 - Risk 3-dose series) [place] Start: 1981 Urine microalbumin profile [facility] Start: 1981 Urine screening for protein Diabetes: Urine Protein Screening [facility] Start: 02-26-1980 ANNUAL PCP TEAM TRAFFIC POLICE OFFICER DIPTI DISEASE VISIT ANNUAL PCP TEAM CHRONIC DISEASE VISIT [facility] Start: 02-26-1980 Anxiety Screening Anxiety Screening [facility] Start: 02-26-1980 BP CONTROLLED (<130/80) BP CONTROLLE D (<130/80) [facility] Start: 02-26-1980 Depression Screening Depression Scre ening [facility] Start: 02-26-1980 Diabetes: Urine Albumin-Creatinine Ratio for Kidney Health Diabetes: Urine Albumin-Creatinine Ratio for Kidney Health [facility] Start: 02-26-1980 Diabetic microalbumi kamran test Diabetic microalbuminuria test [place] Start: 02-26-1980 Hepatitis B surface antibody level LDL CHOLESTEROL [facility] Start: 02-26-1980 HEPATITIS C [facility] Start: 02-26-1980 Hepatitis C screening Hepatitis C Sc [facility] Start: 02-26-1980 HIV SCREENING HIV SCREENING [facility] Start: 02-26-1980 HIV screening HIV Screening [facility] Start: 1977 HIV screening HIV screen [place], [place] Start: 1974 Depression Screening Depression Scre ening [facility] Start: 02-26-1972 3 comp foot exam completed DIABETIC FOOT EXAM [facility] Start: 02-26-1972 Diabetic foot examination [facility] Start: 02-26-1972 Diabetic retinal exam [facility] Start: 02-26-1972 Glaucoma screening [facility] Start: 02-26-1972 Hepatitis B screening URINE AL BUMIN:CREATININE RATIO [facility] Start: 02-26-1972 Hepatitis C antibody , confirmatory test DILATED RETINAL EXAM [facility] Start: 02-26-1972 Lipid panel Lipid screen [facility] [place] Start: 02-26-1972 Preventive dental service Diabetes: Dental Exam [facility] Start: 1963 Hepatitis A Vaccines (1 of 2 - Risk 2-dose series) Hepatitis A Vaccines (1 of 2 - Risk 2-dose series) [facility] Start: 1963 MMR Vaccines (1 of 1 - Standard series) MMR Vaccines (1 of 1 - Standard series) [facility] Start: 1962 Examination of skin Derm Melanoma Sk in Check [facility] Start: 1962 Hepatitis C screening Hepatitis C sc reen [place], [place] Start: 1962 HIV screening HIV Screening [facility] Start: 1962 Lipid panel Lipid Panel [facility] Start: 1962 Screening for malign ant neoplasm of colon [facility] Start: 1962 Thyroid stimulating hormone measurement TSH Level [facility] Acapell Acapella Respira tory Care Routine Every 2hr while awake until discontinued starting 10/07/2019 [facility] Comment on above: Every 2hr while awak e until discontinued starting 10/07/2019 Basic metabolic 2000 panel Basic Metabolic Panel Lab Routine Daily until discontinued starting 10/07/2019, 5 completed [facility] Comment on above: Daily until disconti nued starting 10/07/2019, 5 completed CBC CBC Lab Routine Daily until discontinued starting 10/07/2019, 5 completed [facility] Comment on above: Daily until disconti nued starting 10/07/2019, 5 completed End: 10-06-2019 COVID-19 COVID-19 Lab STAT Once for 1 Occurrences starting 10/06/2019 until 10/06/2019 [facility] Comment on above: Once for 1 Occurrenc es starting 10/06/2019 until 10/06/2019 COVID-19 COVID-19 Lab STA T 10/06/2019 8:27 AM EDT [place] End: 09-28-2019 Culture, Staph Aureus Culture, Staph Aureus Microbiology Routine One Time for 1 Occurrences starting 09/28/2019 until 09/28/2019 [place] Comment on above: One Time for 1 Occur rences starting 09/28/2019 until 09/28/2019 Culture, Staph Aureus Culture, S taph Aureus Microbiology Routine 09/28/2019 1:00 PM EDT [place] EKG 12 Lead EKG 12 Lead ECG Routine 08/14/2020 9:52 AM EDT [facility] Work Phone: Hemoglobin A1c/Hemoglobin.total in Blood [facility] Incentive spirometry Incentive s pirometry Respiratory Care Routine Every 2hr while awake until discontinued starting 10/07/2019 [place] Comment on above: Every 2hr while awak e until discontinued starting 10/07/2019 Initiate Oxygen Ther apy Protocol Initiate Oxygen Therapy Protocol Respiratory Care Routine Daily until discontinued starting 10/07/2019 [place] Comment on above: Daily until disconti nued starting 10/07/2019 Lipid 1996 panel - S pily or Plasma [facility] Work Phone: Patient referral [facility] Work Phone: POCT Glucose [facility] Comment on above: As Needed until disc ontinued starting 10/07/2019 4X Daily (AC & HS) u ntil discontinued starting 10/09/2019 End: 09-28-2019 PREPARE RBC (CROSSMATCH), 2 Units PREPARE RBC (CROSSMATCH), 2 Units Blood Bank Routine Pre-op evaluation 1 Occurrences starting 09/28/2019 until 09/28/2019 [place] Comment on above: 1 Occurrences starti ng 09/28/2019 until 09/28/2019 PREPARE RBC (CROSSMA [facility]), 2 Units PREPARE RBC (CROSSMATCH), 2 Units Blood Bank Routine Pre-op evaluation 09/28/2019 12:58 PM EDT [place] Radionuclide imaging of perfusion of myocardium under exercise stress [facility] End: 08-03-2020 Surgical Pathology Surgical Pathology Lab STAT Once for 1 Occurrences starting 08/03/2020 until 08/03/2020 [facility] Work Phone: Comment on above: Once for 1 Occurrenc es starting 08/03/2020 until 08/03/2020 Surgical Pathology Surgical Path ology Lab STAT 08/03/2020 10:43 AM EST [facility] Work Phone: XR CHEST PORTABLE XR CHEST FARHANA BLE Imaging Routine Daily until discontinued starting 10/08/2019, 5 completed [facility], [place] Comment on above: Daily until disconti nued starting 10/08/2019, 5 completed [facility] Immunizations Immunization Date Immunization Notes Care Provider Micaela pompa 03-14-2021 Pfizer SARS-CoV-2 Vaccination Bibi Waldrop HALL MANAGER - EXPLOSIVE EXPERT Work Phone: [facility] 08-06-2020 Pfizer SARS-CoV-2 Vaccination Bibi Waldrop HALL MANAGER - EXPLOSIVE EXPERT Work Phone: [facility] 07-13-2020 Pfizer SARS-CoV-2 Vaccination Bibi Waldrop HALL MANAGER - EXPLOSIVE EXPERT Work Phone: [facility] 04-14-2019 influenza, seasonal, injectable Glen Wild Castillo HALL MANAGER.EXPLOSIVE EXPERT Work Phone: [facility] 04-14-2019 influenza virus vacc ine, unspecified formulation Bibi Waldrop HALL MANAGER - EXPLOSIVE EXPERT Work Phone: [facility] 02-24-2016 pneumococcal polysaccharide vaccine, 23 valent Glen Wild Castillo HALL MANAGER.EXPLOSIVE EXPERT Work Phone: [facility] 02-23-2015 pneumococcal conjuga te vaccine, 13 valent Glen Wild Castillo HALL MANAGER.EXPLOSIVE EXPERT Work Phone: [facility] Payers Date Payer Category Payer Unknown [id number] 2024 Self-pay [id number] 2023 Private Health Insurance AMBER HURD OAP [id number] 2023-Present [phone] [address] [place] [address] Open Access [id number] 2023 Private Health Insurance [id number] 2022 Blue Cross Blue Shie Managed Care - O ANTHEM BLUE CROSS [id number] 2022 Unknown [id number] 2021 Unknown [employer] [place] PRE ZONIA FULLY INSURED [id number] 2021-Present [phone] [address] [place] [address] PPO [id number] 2019 Unknown [id number] 2019 Unknown [facility] [employer] - COMMERICAL HEALTH PLAN xxxxxxxxxxx 2019-Present [phone] [address] [place] [address] xxxxxxxxxxx [id number] 2019 Unknown [id number] 2019 Unknown 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 2015 Unknown [id number] Unknown [id number] Unknown [id number] Unknown [id number] Unknown [id number] Unknown [id number] Unknown [id number] Social History Date Type Detail Facility Start: 09-28-2019 End: 09-03-2023 Tobacco smoking status NHIS Never smoker [facility] Start: 09-28-2019 End: 04-12-2024 Alcohol intake Current drinker of alcohol (finding) [place], [place] Start: 09-27-2019 Alcohol Comment Few times a month [place], [place] Start: 1960 Sex Assigned At Not on file M frank [facility] Start: 08-12-2021 End: 08-22-2021 Exposure to SARS-CoV-2 (event) Unable to assess [employer] [facility] CUEVA Start: 10-18-2011 End: 07-27-2020 Tobacco use and exposure Never used [employer] Work Phone: Start: 08-21-2021 End: 09-12-2022 Exposure to SARS-CoV-2 (event) Not sure [employer] Work Phone: Start: 08-14-2020 End: 05-13-2024 Alcohol intake Ex-drinker (finding) [employer] Phone: Start: 10-18-2011 History SDOH Alcohol Comment rarely 1-2 per month [facility] Start: 1960 Sex Assigned At Female C [facility] Start: 08-23-2021 End: 09-03-2023 Tobacco smoking status NHIS Unknown if ever smoked [facility] Start: 05-09-2022 End: 05-13-2024 History of Social function [facility] Start: 05-09-2022 End: 05-13-2024 Tobacco use panel [facility] Adult Depression Screening Assessment 0 [facility] Start: 03-15-2020 Gender identity Identifies as female gender (finding) [facility] Start: 03-15-2020 Sexual orientation Heterosexual (fin ding) [facility] Start: 12-24-2021 End: 08-05-2024 Sex Female (finding) [facility] Medical Equipment Procedure Code Equipment Code Equipment Origin al Text Equipment Identifier Dates Exp Tiss Smth Br st 700cc Mv - [id number] Start: 07-23-2019 Imp Brst 750cc S sx Kaur Inspr - [id number] Start: 11-02-2018 Imp Brst 750cc S sx Kaur Inspr - [id number] Start: 11-02-2018 Imp Brst 745cc S sf Kaur Inspr - [id number] Start: 02-22-2019 Imp Brst 750cc S sx Kaur Inspr - [id number] Start: 04-20-2019 Matrix Alloderm Tissue Medium Rectangular 07n37ch - [id number] Start: 11-02-2018 Matrix Alloderm Tissue Medium Rectangular 34w03pd - [id number] Start: 11-02-2018 Mesh Vicryl Flat Polyglactin 910 Woven 6x6in Surgical Knit Hernia Repair - [id number] Start: 07-23-2019 Mesh Vicryl Flat Polyglactin 910 Woven 6x6in Surgical Knit Hernia Repair - [id number] Start: 07-23-2019 Clinical Notes 03-07-2008 to 05-13-2024 Bibi Waldrop APRN - EXPLOSIVE EXPERT - 05/13/2024 3:00 PM EST Note Date & Type Note Facility 05-13-2024 History of Presen t illness Narrative Images from the original note were not included. HPI: Rama Baird is a 64 y.o. female who presents for survivorship visit. Breast History She was diagnosed with LEFT breast cancer in 09/2018. It was IDC, stage IA, T1, N0, M0, G2, ER+, CO+, HER2 - Treatments include: Surgery- She had bilateral nipple sparing mastectomies with immediate implant reconstruction with AlloDerm tkx-acppskjy-1/10/19 Chemotherapy- none, Oncotype was 5 Radiation therapy- none Endocrine therapy- Arimidex- started November 2018., Changed to femara, Stopped femara October 2020.Re-started femara end of 2020. Took inconsistently. Stopped again in January 2022. Stopped aromasin d/t leg cramping in October 2022. - She follows with Hem/Onc in [place] (Ana Castillo CNP & ) Last DEXA 11/08/18. Results: Osteopenia in the lumbar spine and left hip Genetics: Ambry cancer next-negative She had multiple implant infections on the prophylactic right side and she has had several implants replaced over the last 3 years. She had her RT breast implant replaced by Dr. Bello in July 2020. LEFT breast US guided biopsy 07/2020: -LEFT BREAST, 3:30 9 CM FROM NIPPLE, NEEDLE CORE BIOPSY - FIBROADIPOSE TISSUE WITH FAT NECROSIS AND ASSOCIATED CALCIFICATION Breast concerns: Denies new breast mass or skin change Body image: She is not satisfied with the cosmetic outcome but does not wish to have more surgery at this point in time. Lymphedema: none Musculoskeletal symptoms: No current concerns Menopausal symptoms/Fertility: Postmenopausal Nutrition: Tries to eat healthy. She is a diabetic. Exercise: She plans to start exercising soon. Weight: She has gained some weight, BMI 31.07 ETOH: Occasional Smoking: None She recently retired. S/p CABG x4 on October 07, 2019-Dr. Duarte LEFT BREAST US 03/18/23 Findings: SHORT-TERM FOLLOW-UP. 63-year-old. The patient is being followed for a mass on the left which was initially evaluated on 07/27/2020. The patient is status post BILATERAL mastectomy with implant reconstruction with a history of left breast malignancy. Multiple grayscale sonographic images were obtained of the left reconstructed breast by the electromechanical technologist with color and Doppler flow imaging. At the 2:30 position 5 cm from the nipple a resolving complicated cyst measures 0.5 x 0.4 x 0.1 cm with initial measurement on 07/27/2020 of 0.7 x 0.8 x 0.2 cm. No follow-up necessary. The patient's implant is visible posterior to this region. IMPRESSION: 1. Resolving LEFT breast complicated cyst. 2. Left breast mastectomy with implant reconstruction. ASSESSMENT: Category 2 Benign -No further follow-up is needed of her left breast. Medical History includes: has a past medical history of Abnormal stress test, Acute arthritis, Cancer (CMS/HCC) ([facility]), Chest pain, Coronary artery disease involving tlingit & haida coronary artery of tlingit & haida heart without angina pectoris, Diabetes mellitus ([facility]), Heart disease, History of left breast cancer, Hypercholesterolemia, Hypertension, Hypothyroidism, and Sleep apnea. She has no past medical history of History of blood transfusion, blood clots, or MDRO (multiple drug resistant organisms) resistance. Surgical History includes : Past Surgical History: Procedure Laterality Date BREAST BIOPSY CARDIAC CATHETERIZATION 09/24/2019 CHOLECYSTECTOMY CORONARY ARTERY BYPASS GRAFT N/A 09/2019 EYE SURGERY MASTECTOMY 11/02/2018 with reconstruction OTHER SURGICAL HISTORY mid urethral sling OTHER SURGICAL HISTORY Right 08/21/2020 Exchange Tissue Clinical Haematologist Right Breast SKIN BIOPSY TUBAL LIGATION Medications include: Current Outpatient Medications Medication Sig Dispense Refill amLODIPine (Norvasc) 2.5 MG tablet Take 2.5 mg by mouth daily. aspirin 81 MG EC tablet Take 81 mg by mouth in the morning. atenolol (Tenormin) 50 MG tablet Take 50 mg by mouth in the morning and 50 mg in the evening. Continuous Blood Gluc Sensor (FreeStyle Aarti 2 Sensor) [facility] USE 1 SENSOR EVERY 14 DAYS insulin lispro (HumaLOG) 100 UNIT/ML injection INJECT 40 UNITS SUBCUTANEOUSLY THREE TIMES DAILY levothyroxine (Synthroid, Levoxyl) 137 MCG tablet Take 137 mcg by mouth in the morning. lisinopril 20 MG tablet Take 1 tablet by mouth daily. modafinil (Provigil) 200 MG tablet Take 200 mg by mouth in the morning. Tresiba FlexTouch 100 UNIT/ML injection No current facility-administered medications for this visit. Allergies include: Allergies as of 05/13/2024 - Reviewed 05/13/2024 Allergen Reaction Noted Hydroxychloroquine Swelling 10/10/2010 Statins 03/05/2023 Penicillins Hives 02/16/2019 Family history includes: She does a family history of breast cancer in her mother at age 55, bilateral and her sister at age 45 who had a recurrence Review of Systems Constitutional: Negative for activity change, appetite change, chills, fatigue, fever and unexpected weight change. Eyes: Negative for visual disturbance. Respiratory: Negative for apnea and shortness of breath. Cardiovascular: Negative for chest pain. Gastrointestinal: Negative for nausea. Genitourinary: Negative for dyspareunia and vaginal bleeding. Musculoskeletal: Negative for arthralgias, back pain, gait problem and joint swelling. Skin: Negative for rash. Neurological: Negative for dizziness and headaches. Psychiatric/Behavioral: The patient is not nervous/anxious. BP 139/73 (BP Location: Right arm, Patient Position: Sitting, BP Cuff Size: Adult long) Pulse 64 Temp 36.9 C (98.4 F) (Temporal) Ht 5' 4 (1.626 m) Wt 181 lb (82.1 kg) BMI 31.07 kg/m Physical Exam Constitutional: General: She is not in acute distress. Appearance: Normal appearance. HENT: Head: Normocephalic and atraumatic. Pulmonary: Effort: Pulmonary effort is normal. No respiratory distress. Chest: Breasts: Right: No swelling. Left: No swelling. Comments: Bilateral nipple sparing mastectomy with bilateral implants Musculoskeletal: Cervical back: Neck supple. Lymphadenopathy: Cervical: Right cervical: No superficial cervical adenopathy. Left cervical: No superficial cervical adenopathy. Upper Body: Right upper body: No axillary adenopathy. Left upper body: No axillary adenopathy. Skin: General: Skin is warm and dry. Neurological: General: No focal deficit present. Mental Status: She is alert and oriented to person, place, and time. Psychiatric: Mood and Affect: Mood normal. Behavior: Behavior normal. ASSESSMENT/PLAN: Diagnosis Plan 1. S/P mastectomy, bilateral 2. Encounter for follow-up surveillance of breast cancer 3. Fat necrosis of right breast Continue follow up with medical oncology-next appointment March 2025 Follow-up in the breast center in June 2025 Encourage self breast awareness Breast Cancer Surveillance: History and physical exam 1-4 times per year for 5 years, then annually Encouraged physical activity, healthy diet, limiting alcohol intake, and achieving and maintaining a healthy body weight AMAURY Finnegan CNP Please disregard any typographical errors. This note was dictated using voice recognition software. I spent 20 minutes total on the day of the visit obtaining history, reviewing imaging and laboratory results, performing a physical exam and providing patient education and counseling and documenting. documented in this encounter [facility] 05-12-2024 Evaluation note Diagnosis Onset Date Resolution Diabetes chronic May 12, 2024 10:00am Essential hypertension chronic De cember 2023 10:00am Fatty liver chronic April 10:00am Hypothyroidism chronic April 252023 10:00am Mixed hyperlipidemia chronic Dece mber 2023 10:00am Obesity chronic May 12, 2024 10:00am Atherosclerosis of tlingit & ha[place] coronary artery of tlingit & ha[place] heart without angina chronic July 212024 10:53am Diabetes chronic July 21, 2024 10:53am Essential hypertension chronic Fe bruary 2024 10:53am Mixed hyperlipidemia chronic Febr uary 2024 10:53am [facility] Work Phone: 1(491) 557-283411-18-2024 NoteHNO ID: [id number] Author: ANA CASTILLO APRN.CNP Service: ? Author Type: Nurse Practitioner Type: Progress Notes Filed: 04/13/2024 09:32 Note Text: Chief Complaint Patient presents with: Established Patient HPI: Rama Baird is a 64 year old female who presents here today for follow up breast cancer. Per Dr. Silver's previous note: H/o essential hypertension, mixed hyperlipidemia, hypothyroidism, type 2 diabetes who was noted to have focal architectural distortion in the upper lateral aspect the left breast on a screening mammogram performed on 09/02/2018. Ultrasound demonstrated a 3 x 5 x 5 mm ill-defined nodular density at the 3:00 position of the left breast. It was approximately 8 cm from the nipple. Additionally there was probable 4 mm cyst at the 2:00 position 4 cm from the nipple. Ultrasound-guided core biopsy performed by Dr. Olguin on 09/22/2018 demonstrated an invasive ductal carcinoma, nuclear grade 1. ER 95%, CO 95%, HER-2 negative. Patient was seen by genetic counselor in 2012 based on her mother and sister's history of breast cancer. Sister was BRCA negative and therefore no further genetic testing was recommended for the patient. Patient underwent a left nipple sparing mastectomy along with sentinel lymph node biopsy and right prophylactic nipple sparing mastectomy along with immediate left breast reconstruction with implant and Acellular Dermal Matrix (ADM) sling (16 cm x 20 cm) Right breast reconstruction with implant and Acellular Dermal Matrix (ADM) sling (16 cm x 20 cm) Pre pectoral placement on 11/02/2018. Pathology: FINAL DIAGNOSIS 1. Left axillary sentinel lymph node, excision (A) - Two lymph nodes, negative for metastatic carcinoma ((0/2). 2. Left breast tissue, nipple-sparing mastectomy (B) - Invasive ductal carcinoma, See comment. - Ductal carcinoma in situ, solid type, nuclear grade 2. - Two biopsy sites and clips identified. - Unremarkable skin. 3. Right breast, nipple-sparing mastectomy (C) - Unremarkable skin and underlying breast parenchyma. SYNOPTIC REPORT OF HAN PATHOLOGIC FINDINGS LEFT BREAST TISSUE: BREAST INVASIVE CARCINOMA WORKSHEET Part: B Procedure: Total mastectomy (including nipple-sparing and skin-sparing mastectomy) Specimen Laterality: Left Tumor size: Size of largest invasive carcinoma: Greatest dimension of largest focus of invasion >1 mm: 18 mm Tumor Focality: Single focus of invasive carcinoma Histologic Type of Invasive Carcinoma: Invasive carcinoma of no special type (ductal, not otherwise specified) Histologic Grade: Glandular (Acinar) / Tubular Differentiation: Score 3 Nuclear Pleomorphism: Score 2 Mitotic Rate: Score 1 (<=3 mitosis per mm2) Overall Grade: Grade II Ductal Carcinoma In Situ: DCIS is present in specimen Architectural Patterns: Architectural Pattern:Solid DCIS Nuclear Grade: Grade II (intermediate) DCIS Necrosis: Present, central (expansive comedo necrosis) Tumor Extension: Skin: Uninvolved Nipple: Not applicable Skeletal muscle: Not applicable Invasive Carcinoma Margins: Margins uninvolved by invasive carcinoma Distance from closest margin: 7 mm Closest margin: superior radial DCIS Margins: Margins uninvolved by DCIS Distance from closest margin: 4 mm Closest margin: inferior radial Lymph Nodes: Uninvolved by tumor cells Number of lymph nodes examined: 2 Number of sentinel lymph nodes examined: 2 Treatment Effect: No known presurgical therapy Lymph-Vascular Invasion: Not identified Pathologic Stage Classification (pTNM,AJCC 8th ed) TNM Descriptor(s): Not applicable Primary Tumor (Invasive Carcinoma) (pT): pT1c Regional Lymph Nodes (pN): Modifier: (sn): [place] node(s) evaluated Category (pN): pN0 Distant metastasis: Distant Metastasis (pM) Not applicable/Not confirmed pathologically in this case Estrogen AND progesterone receptors: Previously performed and reported as follows: Estrogen receptor: 95% positive Progesterone receptor: 95% positive Specimen number #: [id number] (HER2) ERBB2 Status: Previously performed and reported as follows: HER2:negative 0 Mother--Breast cancer diagnosed age 55; had mastectomy followed by chemotherapy. New contralateral breast cancer at age 75 managed with lumpectomy and radiation. Alive now at age 81. Sister--Breast cancer diagnosed age 45; b/l mastectomy; chemotherapy. Developed metastatic disease ~10 years later; bone metastases. about 3-4 years later. Last menses about 7 years ago. No hot flashes. Current therapy:None Aromasin-pt. self discontinued October 2022. Previous therapy Arimidex-Began November 2018. Changed to femara Pt. self discontinued femara October 2020 Pt. 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 Hines. S/p CABG x4 on October 07, 2019-Dr. Duarte-[facility] Pt (more content not included)...[facility]11-18-2024 History of Present illness Narrative* Ana Castillo APRN.SHARLENE - 04/12/2024 9:26 AM EST Chief Complaint Patient presents with: Established Patient HPI: Rama Baird is a 64 year old female who presents here today for follow up breast cancer. Per Dr. Silver's previous note: H/o essential hypertension, mixed hyperlipidemia, hypothyroidism, type 2 diabetes who was noted to have focal architectural distortion in the upper lateral aspect the left breast on a screening mammogram performed on 09/02/2018. Ultrasound demonstrated a 3 x 5 x 5 mm ill-defined nodular density at the 3:00 position of the leftbreast. It was approximately 8 cm from the nipple. Additionally there was probable 4 mm cyst at the2:00 position 4 cm from the nipple. Ultrasound-guided core biopsy performed by Dr. Olguin on 09/22/2018 demonstrated an invasive ductalcarcinoma, nuclear grade 1. ER 95%, CO 95%, HER-2 negative. Patient was seen by genetic counselor in 2012 based on her mother and sister's history of breast cancer. Sister was BRCA negative and therefore no further genetic testing was recommended for the patient. Patient underwent a left nipple sparing mastectomy along with sentinel lymph node biopsy and right prophylactic nipple sparing mastectomy along with immediate left breast reconstruction with implant and Acellular Dermal Matrix (ADM) sling (16 cm x 20 cm) Right breast reconstruction with implant and Acellular Dermal Matrix (ADM) sling (16 cm x 20 cm) Pre pectoral placement on 11/02/2018. Pathology: FINAL DIAGNOSIS 1. Left axillary sentinel lymph node, excision (A) - Two lymph nodes, negative for metastatic carcinoma ((0/2). 2. Left breast tissue, nipple-sparing mastectomy (B) - Invasive ductal carcinoma, See comment. - Ductal carcinoma in situ, solid type, nuclear grade 2. - Two biopsy sites and clips identified. - Unremarkable skin. 3. Right breast, nipple-sparing mastectomy (C) - Unremarkable skin and underlying breast parenchyma. SYNOPTIC REPORT OF HAN PATHOLOGIC FINDINGS LEFT BREAST TISSUE: BREAST INVASIVE CARCINOMA WORKSHEET Part: B Procedure: Total mastectomy (including nipple-sparing and skin-sparing mastectomy) Specimen Laterality: Left Tumor size: Size of largest invasive carcinoma: Greatest dimension of largest focus of invasion >1 mm: 18 mm Tumor Focality: Single focus of invasive carcinoma Histologic Type of Invasive Carcinoma: Invasive carcinoma of no special type (ductal, not otherwise specified) Histologic Grade: Glandular (Acinar) / Tubular Differentiation: Score 3 Nuclear Pleomorphism: Score 2 Mitotic Rate: Score 1 (<=3 mitosis per mm2) Overall Grade: Grade II Ductal Carcinoma In Situ: DCIS is present in specimen Architectural Patterns: Architectural Pattern:Solid DCIS Nuclear Grade: Grade II (intermediate) DCIS Necrosis: Present, central (expansive comedo necrosis) Tumor Extension: Skin: Uninvolved Nipple: Not applicable Skeletal muscle: Not applicable Invasive Carcinoma Margins: Margins uninvolved by invasive carcinoma Distance from closest margin: 7 mm Closest margin: superior radial DCIS Margins: Margins uninvolved by DCIS Distance from closest margin: 4 mm Closest margin: inferior radial Lymph Nodes: Uninvolved by tumor cells Number of lymph nodes examined: 2 Number of sentinel lymph nodes examined: 2 Treatment Effect: No known presurgical therapy Lymph-Vascular Invasion: Not identified Pathologic Stage Classification (pTNM,AJCC 8th ed) TNM Descriptor(s): Not applicable Primary Tumor (Invasive Carcinoma) (pT): pT1c Regional Lymph Nodes (pN): Modifier: (sn): [place] node(s) evaluated Category (pN): pN0 Distant metastasis: Distant Metastasis (pM) Not applicable/Not confirmed pathologically in this case Estrogen & progesterone receptors: Previously performed and reported as follows: Estrogen receptor: 95% positive Progesterone receptor: 95% positive Specimen number #: [id number] (HER2) ERBB2 Status: Previously performed and reported as follows: HER2:negative 0 Mother--Breast cancer diagnosed age 55; had mastectomy followed by chemotherapy. New contralateral breast cancer at age 75 managed with lumpectomy and radiation. Alive now at age 81. Sister--Breast cancer diagnosed age 45; b/l mastectomy; chemotherapy. Developed metastatic disease ~10 years later; bone metastases. about 3-4 years later. Last menses about 7 years ago. No hot flashes. Current therapy:None Aromasin-pt. self discontinued October 2022. Previous therapy Arimidex-Began November 2018. Changed to femara Pt. self discontinued femara October 2020 Pt. 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 Hines. S/p CABG x4 on October 07, 2019-Dr. Duarte-[facility] Pt. began having L arm pain/fatigue in Jun. Stress test delayed d/t COVID-19. Cath showed blockage. S/p R implant exchange at [facility] July 2020. L US by Dr. Michelle 01/2021-small nodule noted-previously biopsied-Neg. No new concerns today. Appetite:It's good. Energy level:It's about the same. Denies fevers or recent illness. Resp:denies cough or sob, +seasonal allergies Cardiac:denies chest pain/palpitations GI:denies abd pain, +reflux, denies n/v, moving bowels regularly :denies dysuria/hematuria Extrem:denies pain Endo:denies hot flashes Skin:denies rashes/lesions Heme:denies bleeding The ROS is otherwise negative. Past medical history, appointments, medications, allergies reviewed. No changes. EXAM: BP 163/80 Pulse (!) 58 Temp (!) 28.3 C (83 F) (Temporal) Wt 81.9 kg (180 lb 8.9 oz) LMP 08/08/2011 SpO2 96% BMI 32.40 kg/m APPEARANCE Well appearing, alert, in no acute distress, well-hydrated, well nourished. HEART RRR with normal S1 and S2, no murmurs LUNG clear to auscultation BREAST FEMALE b/l recon b/l implants, no mass/nodule LYMPH NODES No cervical lymphadenopathy, No supraclavicular lymphadenopathy, and No axillary lymphadenopathy. ABDOMEN bowel sounds normoactive, soft, non-tender EXTREMITIES No edema NEURO Awake, alert and oriented x 3, Normal gait, and No involuntary motions. SKIN Skin color, texture, turgor normal, no suspicious rashes or lesions ASSESSMENT/PLAN: 1. Encounter for follow-up surveillance of breast cancer - ICD9: V67.9, V10.3, ICD10: Z08, Z85.3 pT1c pN0(sln) cM0 ER/CO positive, HER2 negative invasive ductal carcinoma the left breast. Oncotype: RS=5; 3% risk of distant recurrence over 9 years. Absolute benefit from chemotherapy predicted <1%. - No new concerning findings on exam. L small nodules overlying implant stable. - Over 5 years out from surgery. - Tolerated arimidex/femara poorly d/t joint pain/leg cramps. - Stopped femara October 2020.Re-started femara end of 2020. Took inconsistently. Stopped again in January 2022. - Stopped aromasin d/t leg cramping. October 2022. - Follow up with Dr. Michelle's COMPONENT LAB TECH as scheduled in April. - Follow up in one year. - Pt. aware to call office with any questions/concerns. The sensitive examination was discussed with the Patient or Patient's Authorized Body Line Finisher. Asapplicable, any other physician, advance practice provider, medical student, or other health professional student that will be observing or involved in the sensitive examination for educational or training purposes was discussed with the Patient or Authorized Body Line Finisher. The Patient or Authorized Body Line Finisher has agreed to proceed with the sensitive examination. (Sensitive examination includes inspection and/or palpation of the breasts, pelvis, prostate and anorectal regions) The patient indicates understanding of these issues and agrees with the plan. All documentation from previous visit of 10/10/23-Dr. Silver/myself was copied and pasted, documentation has been reviewed and edited as necessary for today's visit. Ana Castillo APRN.EXPLOSIVE EXPERT documented in this encounterTri[facility] NoteHNO ID: [id number] Author: ANA CASTILLO APRN.EXPLOSIVE EXPERT Service: ? Author Type: Nurse Practitioner Type: Progress Notes Filed: 10/10/2023 08:47 Note Text: Chief Complaint Patient presents with: Established Patient HPI: Rama Baird is a 63 year old female who presents here today for follow up breast cancer. Per Dr. Silver's previous note: H/o essential hypertension, mixed hyperlipidemia, hypothyroidism, type 2 diabetes who was noted to have focal architectural distortion in the upper lateral aspect the left breast on a screening mammogram performed on 09/02/2018. Ultrasound demonstrated a 3 x 5 x 5 mm ill-defined nodular density at the 3:00 position of the left breast. It was approximately 8 cm from the nipple. Additionally there was probable 4 mm cyst at the 2:00 position 4 cm from the nipple. Ultrasound-guided core biopsy performed by Dr. Olguin on 09/22/2018 demonstrated an invasive ductal carcinoma, nuclear grade 1. ER 95%, CO 95%, HER-2 negative. Patient was seen by genetic counselor in 2013 based on her mother and sister's history of breast cancer. Sister was BRCA negative and therefore no further genetic testing was recommended for the patient. Patient underwent a left nipple sparing mastectomy along with sentinel lymph node biopsy and right prophylactic nipple sparing mastectomy along with immediate left breast reconstruction with implant and Acellular Dermal Matrix (ADM) sling (16 cm x 20 cm) Right breast reconstruction with implant and Acellular Dermal Matrix (ADM) sling (16 cm x 20 cm) Pre pectoral placement on 11/02/2018. Pathology: FINAL DIAGNOSIS 1. Left axillary sentinel lymph node, excision (A) - Two lymph nodes, negative for metastatic carcinoma ((0/2). 2. Left breast tissue, nipple-sparing mastectomy (B) - Invasive ductal carcinoma, See comment. - Ductal carcinoma in situ, solid type, nuclear grade 2. - Two biopsy sites and clips identified. - Unremarkable skin. 3. Right breast, nipple-sparing mastectomy (C) - Unremarkable skin and underlying breast parenchyma. SYNOPTIC REPORT OF HAN PATHOLOGIC FINDINGS LEFT BREAST TISSUE: BREAST INVASIVE CARCINOMA WORKSHEET Part: B Procedure: Total mastectomy (including nipple-sparing and skin-sparing mastectomy) Specimen Laterality: Left Tumor size: Size of largest invasive carcinoma: Greatest dimension of largest focus of invasion >1 mm: 18 mm Tumor Focality: Single focus of invasive carcinoma Histologic Type of Invasive Carcinoma: Invasive carcinoma of no special type (ductal, not otherwise specified) Histologic Grade: Glandular (Acinar) / Tubular Differentiation: Score 3 Nuclear Pleomorphism: Score 2 Mitotic Rate: Score 1 (<=3 mitosis per mm2) Overall Grade: Grade II Ductal Carcinoma In Situ: DCIS is present in specimen Architectural Patterns: Architectural Pattern:Solid DCIS Nuclear Grade: Grade II (intermediate) DCIS Necrosis: Present, central (expansive comedo necrosis) Tumor Extension: Skin: Uninvolved Nipple: Not applicable Skeletal muscle: Not applicable Invasive Carcinoma Margins: Margins uninvolved by invasive carcinoma Distance from closest margin: 7 mm Closest margin: superior radial DCIS Margins: Margins uninvolved by DCIS Distance from closest margin: 4 mm Closest margin: inferior radial Lymph Nodes: Uninvolved by tumor cells Number of lymph nodes examined: 2 Number of sentinel lymph nodes examined: 2 Treatment Effect: No known presurgical therapy Lymph-Vascular Invasion: Not identified Pathologic Stage Classification (pTNM,AJCC 8th ed) TNM Descriptor(s): Not applicable Primary Tumor (Invasive Carcinoma) (pT): pT1c Regional Lymph Nodes (pN): Modifier: (sn): [place] node(s) evaluated Category (pN): pN0 Distant metastasis: Distant Metastasis (pM) Not applicable/Not confirmed pathologically in this case Estrogen AND progesterone receptors: Previously performed and reported as follows: Estrogen receptor: 95% positive Progesterone receptor: 95% positive Specimen number #: [id number] (HER2) ERBB2 Status: Previously performed and reported as follows: HER2:negative 0 Mother--Breast cancer diagnosed age 55; had mastectomy followed by chemotherapy. New contralateral breast cancer at age 75 managed with lumpectomy and radiation. Alive now at age 81. Sister--Breast cancer diagnosed age 45; b/l mastectomy; chemotherapy. Developed metastatic disease ~10 years later; bone metastases. about 3-4 years later. Last menses about 7 years ago. No hot flashes. Current therapy:None Aromasin-pt. self discontinued October 2022. Previous therapy Arimidex-Began November 2018. Changed to femara Pt. self discontinued femara October 2020 Pt. 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 Hines. S/p CABG x4 on October 07, 2019-Dr. Duarte-[facility] Pt (more content not included)...[facility]05-17-2024 History of Present illness Narrative* Ana Castillo APRN.EXPLOSIVE EXPERT - 10/10/2023 8:22 AM EDT Chief Complaint Patient presents with: Established Patient HPI: Rama Baird is a 63 year old female who presents here today for follow up breast cancer. Per Dr. Silver's previous note: H/o essential hypertension, mixed hyperlipidemia, hypothyroidism, type 2 diabetes who was noted to have focal architectural distortion in the upper lateral aspect the left breast on a screening mammogram performed on 09/02/2018. Ultrasound demonstrated a 3 x 5 x 5 mm ill-defined nodular density at the 3:00 position of the leftbreast. It was approximately 8 cm from the nipple. Additionally there was probable 4 mm cyst at the2:00 position 4 cm from the nipple. Ultrasound-guided core biopsy performed by Dr. Olguin on 09/22/2018 demonstrated an invasive ductalcarcinoma, nuclear grade 1. ER 95%, CO 95%, HER-2 negative. Patient was seen by genetic counselor in 2012 based on her mother and sister's history of breast cancer. Sister was BRCA negative and therefore no further genetic testing was recommended for the patient. Patient underwent a left nipple sparing mastectomy along with sentinel lymph node biopsy and right prophylactic nipple sparing mastectomy along with immediate left breast reconstruction with implant and Acellular Dermal Matrix (ADM) sling (16 cm x 20 cm) Right breast reconstruction with implant and Acellular Dermal Matrix (ADM) sling (16 cm x 20 cm) Pre pectoral placement on 11/02/2018. Pathology: FINAL DIAGNOSIS 1. Left axillary sentinel lymph node, excision (A) - Two lymph nodes, negative for metastatic carcinoma ((0/2). 2. Left breast tissue, nipple-sparing mastectomy (B) - Invasive ductal carcinoma, See comment. - Ductal carcinoma in situ, solid type, nuclear grade 2. - Two biopsy sites and clips identified. - Unremarkable skin. 3. Right breast, nipple-sparing mastectomy (C) - Unremarkable skin and underlying breast parenchyma. SYNOPTIC REPORT OF HAN PATHOLOGIC FINDINGS LEFT BREAST TISSUE: BREAST INVASIVE CARCINOMA WORKSHEET Part: B Procedure: Total mastectomy (including nipple-sparing and skin-sparing mastectomy) Specimen Laterality: Left Tumor size: Size of largest invasive carcinoma: Greatest dimension of largest focus of invasion >1 mm: 18 mm Tumor Focality: Single focus of invasive carcinoma Histologic Type of Invasive Carcinoma: Invasive carcinoma of no special type (ductal, not otherwise specified) Histologic Grade: Glandular (Acinar) / Tubular Differentiation: Score 3 Nuclear Pleomorphism: Score 2 Mitotic Rate: Score 1 (<=3 mitosis per mm2) Overall Grade: Grade II Ductal Carcinoma In Situ: DCIS is present in specimen Architectural Patterns: Architectural Pattern:Solid DCIS Nuclear Grade: Grade II (intermediate) DCIS Necrosis: Present, central (expansive comedo necrosis) Tumor Extension: Skin: Uninvolved Nipple: Not applicable Skeletal muscle: Not applicable Invasive Carcinoma Margins: Margins uninvolved by invasive carcinoma Distance from closest margin: 7 mm Closest margin: superior radial DCIS Margins: Margins uninvolved by DCIS Distance from closest margin: 4 mm Closest margin: inferior radial Lymph Nodes: Uninvolved by tumor cells Number of lymph nodes examined: 2 Number of sentinel lymph nodes examined: 2 Treatment Effect: No known presurgical therapy Lymph-Vascular Invasion: Not identified Pathologic Stage Classification (pTNM,AJCC 8th ed) TNM Descriptor(s): Not applicable Primary Tumor (Invasive Carcinoma) (pT): pT1c Regional Lymph Nodes (pN): Modifier: (sn): [place] node(s) evaluated Category (pN): pN0 Distant metastasis: Distant Metastasis (pM) Not applicable/Not confirmed pathologically in this case Estrogen & progesterone receptors: Previously performed and reported as follows: Estrogen receptor: 95% positive Progesterone receptor: 95% positive Specimen number #: [id number] (HER2) ERBB2 Status: Previously performed and reported as follows: HER2:negative 0 Mother--Breast cancer diagnosed age 55; had mastectomy followed by chemotherapy. New contralateral breast cancer at age 75 managed with lumpectomy and radiation. Alive now at age 81. Sister--Breast cancer diagnosed age 45; b/l mastectomy; chemotherapy. Developed metastatic disease ~10 years later; bone metastases. about 3-4 years later. Last menses about 7 years ago. No hot flashes. Current therapy:None Aromasin-pt. self discontinued October 2022. Previous therapy Arimidex-Began November 2018. Changed to femara Pt. self discontinued femara October 2020 Pt. 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 Hines. S/p CABG x4 on October 07, 2019-Dr. Duarte-[facility] Pt. began having L arm pain/fatigue in Jun. Stress test delayed d/t COVID-19. Cath showed blockage. S/p R implant exchange at [facility] July 2020. L US by Dr. Michelle 01/2021-small nodule noted-previously biopsied-Neg. No new concerns today. Appetite:It's good-I'm on mounjaro. Energy level:It's alright. +family stressors-mother in an AL. Denies fevers or recent illness. Resp:denies cough or sob, +seasonal allergies Cardiac:denies chest pain/palpitations GI:denies abd pain, +reflux, denies n/v, moving bowels regularly :denies dysuria/hematuria, recent UTI's-followed by PCP Extrem:denies pain Endo:denies hot flashes Skin:denies rashes/lesions Heme:denies bleeding The ROS is otherwise negative. Past medical history, appointments, medications, allergies reviewed. No changes. EXAM: BP 149/84 Pulse 69 Temp 36.9 C (98.5 F) (Temporal) Wt 80.1 kg (176 lb 8 oz) LMP 08/08/2011 SpO2 98% BMI 31.67 kg/m APPEARANCE Well appearing, alert, in no acute distress, well-hydrated, well nourished. HEART RRR with normal S1 and S2, no murmurs LUNG clear to auscultation BREAST FEMALE b/l recon b/l implants, L small BB sized nodules overlying implant-stable, no other mass/nodule LYMPH NODES No cervical lymphadenopathy, No supraclavicular lymphadenopathy, and No axillary lymphadenopathy. ABDOMEN bowel sounds normoactive, soft, non-tender EXTREMITIES No edema NEURO Awake, alert and oriented x 3, Normal gait, and No involuntary motions. SKIN Skin color, texture, turgor normal, no suspicious rashes or lesions ASSESSMENT/PLAN: 1. Malignant neoplasm of left breast in female, estrogen receptor positive, unspecified site of breast (HCC) - ICD9: 174.9, V86.0, ICD10: C50.912, Z17.0 pT1c pN0(sln) cM0 ER/CO positive, HER2 negative invasive ductal carcinoma the left breast. Oncotype: RS=5; 3% risk of distant recurrence over 9 years. Absolute benefit from chemotherapy predicted <1%. - No new concerning findings on exam. L small nodules overlying implant stable. - Tolerated arimidex/femara poorly d/t joint pain/leg cramps. - Stopped femara October 2020.Re-started femara end of 2020. Took inconsistently. Stopped again in January 2022. - Stopped aromasin d/t leg cramping. October 2022. - L breast US per Dr. Michelle. - Follow up with Dr. Michelle's COMPONENT LAB TECH as scheduled. - Follow up in 6 months. - Pt. aware to call office with any questions/concerns. The patient indicates understanding of these issues and agrees with the plan. All documentation from previous visit of 04/04/23-Dr. Silver/myself was copied and pasted, documentation has been reviewed and edited as necessary for today's visit. Ana Castillo APRN.SHARLENE documented in this encounterTri[facility]12-21-[facility]23 History of Present illness Narrative* Bibi Waldrop, AMAURY - SHARLENE - 05/15/2023 2:00 PM EST Images from the original note were not included. HPI: Rama Baird is a 63 y.o. female who presents for survivorship visit. Breast History She was diagnosed with LEFT breast cancer in 09/2018. It was IDC, stage IA, T1, N0, M0, G2, ER+, CO+, HER2 - Treatments include: Surgery- She had bilateral nipple sparing mastectomies with immediate implant reconstruction with AlloDerm [id number]-4/10/19 Chemotherapy- none, Oncotype was 5 Radiation therapy- none Endocrine therapy- Arimidex- started November 2018., Changed to femara, Stopped femara October 2020.Re-started femara end of 2020. Took inconsistently. Stopped again in January 2022. Stopped aromasin d/t leg cramping. October 2022. - She follows with Hem/Onc in [place] (Ana Castillo CNP & ) Last DEXA 11/08/18. Results: Osteopenia in the lumbar spine and left hip Genetics: Ambry cancer next-negative She had multiple implant infections on the prophylactic right side and she has had several implantsreplaced over the last 3 years. She had her RT breast implant replaced by Dr. Bello in July 2020. LEFT breast US guided biopsy 07/2020: -LEFT BREAST, 3:30 9 CM FROM NIPPLE, NEEDLE CORE BIOPSY - FIBROADIPOSE TISSUE WITH FAT NECROSIS AND ASSOCIATED CALCIFICATION LEFT BREAST US 03/18/23 Findings: SHORT-TERM FOLLOW-UP. 63-year-old. The patient is being followed for a mass on the left which was initially evaluated on 07/27/2020. The patient is status post BILATERAL mastectomy with implant reconstruction with a history of left breast malignancy. Multiple grayscale sonographic images were obtained of the left reconstructed breast by the electromechanical technologist with color and Doppler flow imaging. At the 2:30 position 5 cm from the nipple a resolving complicated cyst measures 0.5 x 0.4 x 0.1 cm with initial measurement on 07/27/2020 of 0.7 x 0.8 x 0.2 cm. No follow-up necessary. The patient's implant is visible posterior to this region. IMPRESSION: 1. Resolving LEFT breast complicated cyst. 2. Left breast mastectomy with implant reconstruction. ASSESSMENT: Category 2 Benign -No further follow-up is needed of her left breast. Breast concerns: Denies new breast mass, nipple change, nipple discharge or skin change. Body image: She is not satisfied with the cosmetic outcome but does not wish to have more surgery at this point in time. Lymphedema: none Musculoskeletal symptoms: No current concerns Menopausal symptoms/Fertility: Postmenopausal Nutrition: She tries to eat healthy. She is a diabetic. Exercise: She walks. Weight: BMI 29.3 ETOH: Occasional Smoking: None S/p CABG x4 on October 07, 2019-Dr. 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 Medical History includes: has a past medical history of Abnormal stress test, Acute arthritis, Cancer (CMS/HCC) (HCC), Chest pain, Coronary artery disease involving [place] coronary artery of [place] heart without angina pectoris, Diabetes mellitus (HCC), Heart disease, History of left breast cancer, Hypercholesterolemia, Hypertension, Hypothyroidism, and Sleep apnea. She has no past medical history of History of blood transfusion, blood clots, or MDRO (multiple drug resistant organisms) resistance. Surgical History includes : Past Surgical History: Procedure Laterality Date BREAST BIOPSY CARDIAC CATHETERIZATION 09/24/2019 CHOLECYSTECTOMY CORONARY ARTERY BYPASS GRAFT N/A 09/2019 EYE SURGERY MASTECTOMY 11/02/2018 with reconstruction OTHER SURGICAL HISTORY mid urethral sling OTHER SURGICAL HISTORY Right 08/21/2020 Exchange Tissue Clinical Haematologist Right Breast SKIN BIOPSY TUBAL LIGATION Medications include: Current Outpatient Medications Medication Sig Dispense Refill amLODIPine (Norvasc) 2.5 MG tablet Take 2.5 mg by mouth daily. aspirin 81 MG EC tablet Take 81 mg by mouth in the morning. atenolol (Tenormin) 50 MG tablet Take 50 mg by mouth in the morning and 50 mg in the evening. Continuous Blood Gluc Sensor (FreeStyle Aarti 2 Sensor) [facility] [place] USE 1 SENSOR EVERY 14 DAYS famotidine (Pepcid) 40 MG tablet Take 40 mg by mouth daily. insulin lispro (HumaLOG) 100 UNIT/ML injection INJECT 40 UNITS SUBCUTANEOUSLY THREE TIMES DAILY levothyroxine (Synthroid, Levoxyl) 137 MCG tablet Take 137 mcg by mouth in the morning. lisinopril 20 MG tablet Take 1 tablet by mouth daily. metFORMIN XR (Glucophage-XR) 500 MG 24 hr tablet Take 1 tablet by mouth daily. modafinil (Provigil) 200 MG tablet Take 200 mg by mouth in the morning. Tirzepatide (Mounjaro) 10 MG/0.5ML solution pen-injector 10 mg. Tresiba FlexTouch 100 UNIT/ML injection No current facility-administered medications for this visit. Allergies include: Allergies as of 05/15/2023 - Reviewed 05/15/2023 Allergen Reaction Noted Hydroxychloroquine Swelling 10/10/2010 Statins 03/05/2023 Penicillins Hives 02/16/2019 Family history includes: She does a family history of breast cancer in her mother at age 55, bilateral and her sister at age45 who had a recurrence Review of Systems Constitutional: Negative for activity change, appetite change, chills, diaphoresis, fatigue and unexpected weight change. Respiratory: Negative for chest tightness and shortness of breath. Cardiovascular: Negative for chest pain. Neurological: Negative for dizziness, weakness and headaches. Psychiatric/Behavioral: Negative. BP 116/66 Ht 5' 4 (1.626 m) Wt 171 lb (77.6 kg) BMI 29.35 kg/m Physical Exam Constitutional: General: She is not in acute distress. Appearance: Normal appearance. HENT: Head: Normocephalic and atraumatic. Pulmonary: Effort: Pulmonary effort is normal. No respiratory distress. Chest: Breasts: Right: No swelling, inverted nipple, mass or nipple discharge. Left: Normal. No swelling, inverted nipple, nipple discharge or skin change. Comments: Bilateral nipple sparing mastectomy with bilateral implants Musculoskeletal: Cervical back: Neck supple. Lymphadenopathy: Cervical: Right cervical: No superficial cervical adenopathy. Left cervical: No superficial cervical adenopathy. Upper Body: Right upper body: No axillary adenopathy. Left upper body: No axillary adenopathy. Skin: General: Skin is warm and dry. Neurological: General: No focal deficit present. Mental Status: She is alert and oriented to person, place, and time. Psychiatric: Mood and Affect: Mood normal. Behavior: Behavior normal. ASSESSMENT/PLAN: Diagnosis Plan 1. S/P mastectomy, bilateral 2. Encounter for follow-up surveillance of breast cancer 3. Fat necrosis of right breast Continue follow up with medical oncology Follow up in 1 year at the breast center Encourage self breast awareness Breast Cancer Surveillance: History and physical exam 1-4 times per year for 5 years, then annually Mammography every 12 months (routine imaging of reconstructed breast is not indicated) Encouraged physical activity, healthy diet, limiting alcohol intake, and achieving and maintaining a healthy body weight AMAURY Fry CNP Please disregard any typographical errors. This note was dictated using voice recognition software. I spent 30 minutes total on the day of the visit obtaining history, reviewing imaging and laboratory results, performing a physical exam and providing patient education and counseling and documenting. documented in this [facility]11-10-2023 History of Present illness Narrative* Ana Castillo APRN.CNP - 04/04/2023 8:10 AM EST Chief Complaint Patient presents with: Established Patient HPI: Rama Baird is a 63 year old female who presents here today for follow up breast cancer. Per Dr. Silver's previous note: H/o essential hypertension, mixed hyperlipidemia, hypothyroidism, type 2 diabetes who was noted to have focal architectural distortion in the upper lateral aspect the left breast on a screening mammogram performed on 09/02/2018. Ultrasound demonstrated a 3 x 5 x 5 mm ill-defined nodular density at the 3:00 position of the leftbreast. It was approximately 8 cm from the nipple. Additionally there was probable 4 mm cyst at the2:00 position 4 cm from the nipple. Ultrasound-guided core biopsy performed by Dr. Olguin on 09/22/2018 demonstrated an invasive ductalcarcinoma, nuclear grade 1. ER 95%, CO 95%, HER-2 negative. Patient was seen by genetic counselor in 2012 based on her mother and sister's history of breast cancer. Sister was BRCA negative and therefore no further genetic testing was recommended for the patient. Patient underwent a left nipple sparing mastectomy along with sentinel lymph node biopsy and right prophylactic nipple sparing mastectomy along with immediate left breast reconstruction with implant and Acellular Dermal Matrix (ADM) sling (16 cm x 20 cm) Right breast reconstruction with implant and Acellular Dermal Matrix (ADM) sling (16 cm x 20 cm) Pre pectoral placement on 11/02/2018. Pathology: FINAL DIAGNOSIS 1. Left axillary sentinel lymph node, excision (A) - Two lymph nodes, negative for metastatic carcinoma ((0/2). 2. Left breast tissue, nipple-sparing mastectomy (B) - Invasive ductal carcinoma, See comment. - Ductal carcinoma in situ, solid type, nuclear grade 2. - Two biopsy sites and clips identified. - Unremarkable skin. 3. Right breast, nipple-sparing mastectomy (C) - Unremarkable skin and underlying breast parenchyma. SYNOPTIC REPORT OF HAN PATHOLOGIC FINDINGS LEFT BREAST TISSUE: BREAST INVASIVE CARCINOMA WORKSHEET Part: B Procedure: Total mastectomy (including nipple-sparing and skin-sparing mastectomy) Specimen Laterality: Left Tumor size: Size of largest invasive carcinoma: Greatest dimension of largest focus of invasion >1 mm: 18 mm Tumor Focality: Single focus of invasive carcinoma Histologic Type of Invasive Carcinoma: Invasive carcinoma of no special type (ductal, not otherwise specified) Histologic Grade: Glandular (Acinar) / Tubular Differentiation: Score 3 Nuclear Pleomorphism: Score 2 Mitotic Rate: Score 1 (<=3 mitosis per mm2) Overall Grade: Grade II Ductal Carcinoma In Situ: DCIS is present in specimen Architectural Patterns: Architectural Pattern:Solid DCIS Nuclear Grade: Grade II (intermediate) DCIS Necrosis: Present, central (expansive comedo necrosis) Tumor Extension: Skin: Uninvolved Nipple: Not applicable Skeletal muscle: Not applicable Invasive Carcinoma Margins: Margins uninvolved by invasive carcinoma Distance from closest margin: 7 mm Closest margin: superior radial DCIS Margins: Margins uninvolved by DCIS Distance from closest margin: 4 mm Closest margin: inferior radial Lymph Nodes: Uninvolved by tumor cells Number of lymph nodes examined: 2 Number of sentinel lymph nodes examined: 2 Treatment Effect: No known presurgical therapy Lymph-Vascular Invasion: Not identified Pathologic Stage Classification (pTNM,AJCC 8th ed) TNM Descriptor(s): Not applicable Primary Tumor (Invasive Carcinoma) (pT): pT1c Regional Lymph Nodes (pN): Modifier: (sn): [place] node(s) evaluated Category (pN): pN0 Distant metastasis: Distant Metastasis (pM) Not applicable/Not confirmed pathologically in this case Estrogen & progesterone receptors: Previously performed and reported as follows: Estrogen receptor: 95% positive Progesterone receptor: 95% positive Specimen number #: [id number] (HER2) ERBB2 Status: Previously performed and reported as follows: HER2:negative 0 Mother--Breast cancer diagnosed age 55; had mastectomy followed by chemotherapy. New contralateral breast cancer at age 75 managed with lumpectomy and radiation. Alive now at age 81. Sister--Breast cancer diagnosed age 45; b/l mastectomy; chemotherapy. Developed metastatic disease ~10 years later; bone metastases. about 3-4 years later. Last menses about 7 years ago. No hot flashes. Current therapy:None Aromasin-pt. self discontinued October 2022. Previous therapy Arimidex-Began November 2018. Changed to femara Pt. self discontinued femara October 2020 Pt. 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 Hines. S/p CABG x4 on October 07, 2019-Dr. Duarte-[facility] Pt. began having L arm pain/fatigue in Jun. Stress test delayed d/t COVID-19. Cath showed blockage. S/p R implant exchange at [facility] July 2020. L US by Dr. Michelle 01/2021-small nodule noted-previously biopsied-Neg. Pt. had EGD/C-scope by Dr. Marie earlier this /spring. Pt. restarted aromasin in September-but stopped after a few weeks. Appetite:It's been a little bit decreased. Energy level:Some days are better than others. +family stressors-mother in an AL. Denies fevers or recent illness. Resp:denies cough or sob Cardiac:denies chest pain/palpitations GI:denies abd pain, +reflux, denies n/v, moving bowels regularly :denies dysuria/hematuria Extrem:denies pain Endo:denies hot flashes Skin:denies rashes/lesions Heme:denies bleeding The ROS is otherwise negative. Past medical history, appointments, medications, allergies reviewed. No changes. EXAM: BP 128/78 Pulse 74 Temp 37.7 C (99.8 F) Ht 159 cm (5' 2.6) Wt 78 kg (172 lb) LMP 08/08/2011 SpO2 99% BMI 30.86 kg/m APPEARANCE Well appearing, alert, in no acute distress, well-hydrated, well nourished. HEART RRR with normal S1 and S2, no murmurs LUNG clear to auscultation BREAST FEMALE b/l recon b/l implants, L small BB sized nodules overlying implant-stable, no other mass/nodule LYMPH NODES No cervical lymphadenopathy, No supraclavicular lymphadenopathy, and No axillary lymphadenopathy. ABDOMEN bowel sounds normoactive, soft, non-tender EXTREMITIES No edema NEURO Awake, alert and oriented x 3, Normal gait, and No involuntary motions. SKIN Skin color, texture, turgor normal, no suspicious rashes or lesions ASSESSMENT/PLAN: 1. Malignant neoplasm of left breast in female, estrogen receptor positive, unspecified site of breast (HCC) - ICD9: 174.9, V86.0, ICD10: C50.912, Z17.0 pT1c pN0(sln) cM0 ER/CO positive, HER2 negative invasive ductal carcinoma the left breast. Oncotype: RS=5; 3% risk of distant recurrence over 9 years. Absolute benefit from chemotherapy predicted <1%. - No new concerning findings on exam. L small nodules overlying implant stable. - Tolerated arimidex/femara poorly d/t joint pain/leg cramps. - Stopped femara October 2020.Re-started femara end of 2020. Took inconsistently. Stopped again in January 2022. - Stopped aromasin d/t leg cramping. October 2022. - L breast US per Dr. Michelle. - Follow up with Dr. Michelle as scheduled. - Follow up in 6 months. - Pt. aware to call office with any questions/concerns. The patient indicates understanding of these issues and agrees with the plan. All documentation from previous visit of 10/04/22-Dr. Silver/myself was copied and pasted, documentation has been reviewed and edited as necessary for today's visit. Ana Castillo APRN.SHARLENE * Ana Castillo APRN.SHARLENE - 04/04/2023 8:06 AM EST Opened in error. Ana Castillo CNP documented in this encounterTri[facility] History of Present illness Narrative* Ana Castillo APRN.CNP - 10/04/2022 8:13 AM EDT Chief Complaint Patient presents with: Established Patient HPI: Rama Baird is a 62 year old female who presents here today for follow up breast cancer. Per Dr. Silver's previous note: H/o essential hypertension, mixed hyperlipidemia, hypothyroidism, type 2 diabetes who was noted to have focal architectural distortion in the upper lateral aspect the left breast on a screening mammogram performed on 09/02/2018. Ultrasound demonstrated a 3 x 5 x 5 mm ill-defined nodular density at the 3:00 position of the leftbreast. It was approximately 8 cm from the nipple. Additionally there was probable 4 mm cyst at the2:00 position 4 cm from the nipple. Ultrasound-guided core biopsy performed by Dr. Olguin on 09/22/2018 demonstrated an invasive ductalcarcinoma, nuclear grade 1. ER 95%, CO 95%, HER-2 negative. Patient was seen by genetic counselor in 2012 based on her mother and sister's history of breast cancer. Sister was BRCA negative and therefore no further genetic testing was recommended for the patient. Patient underwent a left nipple sparing mastectomy along with sentinel lymph node biopsy and right prophylactic nipple sparing mastectomy along with immediate left breast reconstruction with implant and Acellular Dermal Matrix (ADM) sling (16 cm x 20 cm) Right breast reconstruction with implant and Acellular Dermal Matrix (ADM) sling (16 cm x 20 cm) Pre pectoral placement on 11/02/2018. Pathology: FINAL DIAGNOSIS 1. Left axillary sentinel lymph node, excision (A) - Two lymph nodes, negative for metastatic carcinoma ((0/2). 2. Left breast tissue, nipple-sparing mastectomy (B) - Invasive ductal carcinoma, See comment. - Ductal carcinoma in situ, solid type, nuclear grade 2. - Two biopsy sites and clips identified. - Unremarkable skin. 3. Right breast, nipple-sparing mastectomy (C) - Unremarkable skin and underlying breast parenchyma. SYNOPTIC REPORT OF HAN PATHOLOGIC FINDINGS LEFT BREAST TISSUE: BREAST INVASIVE CARCINOMA WORKSHEET Part: B Procedure: Total mastectomy (including nipple-sparing and skin-sparing mastectomy) Specimen Laterality: Left Tumor size: Size of largest invasive carcinoma: Greatest dimension of largest focus of invasion >1 mm: 18 mm Tumor Focality: Single focus of invasive carcinoma Histologic Type of Invasive Carcinoma: Invasive carcinoma of no special type (ductal, not otherwise specified) Histologic Grade: Glandular (Acinar) / Tubular Differentiation: Score 3 Nuclear Pleomorphism: Score 2 Mitotic Rate: Score 1 (<=3 mitosis per mm2) Overall Grade: Grade II Ductal Carcinoma In Situ: DCIS is present in specimen Architectural Patterns: Architectural Pattern:Solid DCIS Nuclear Grade: Grade II (intermediate) DCIS Necrosis: Present, central (expansive comedo necrosis) Tumor Extension: Skin: Uninvolved Nipple: Not applicable Skeletal muscle: Not applicable Invasive Carcinoma Margins: Margins uninvolved by invasive carcinoma Distance from closest margin: 7 mm Closest margin: superior radial DCIS Margins: Margins uninvolved by DCIS Distance from closest margin: 4 mm Closest margin: inferior radial Lymph Nodes: Uninvolved by tumor cells Number of lymph nodes examined: 2 Number of sentinel lymph nodes examined: 2 Treatment Effect: No known presurgical therapy Lymph-Vascular Invasion: Not identified Pathologic Stage Classification (pTNM,AJCC 8th ed) TNM Descriptor(s): Not applicable Primary Tumor (Invasive Carcinoma) (pT): pT1c Regional Lymph Nodes (pN): Modifier: (sn): [place] node(s) evaluated Category (pN): pN0 Distant metastasis: Distant Metastasis (pM) Not applicable/Not confirmed pathologically in this case Estrogen & progesterone receptors: Previously performed and reported as follows: Estrogen receptor: 95% positive Progesterone receptor: 95% positive Specimen number #: [id number] (HER2) ERBB2 Status: Previously performed and reported as follows: HER2:negative 0 Mother--Breast cancer diagnosed age 55; had mastectomy followed by chemotherapy. New contralateral breast cancer at age 75 managed with lumpectomy and radiation. Alive now at age 81. Sister--Breast cancer diagnosed age 45; b/l mastectomy; chemotherapy. Developed metastatic disease ~10 years later; bone metastases. about 3-4 years later. Last menses about 7 years ago. No hot flashes. Current therapy:Aromasin Previous therapy Arimidex-Began November 2018. Changed to femara Pt. self discontinued femara October 2020 Pt. 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 Hines. S/p CABG x4 on October 07, 2019-Dr. Duarte-[facility] Pt. began having L arm pain/fatigue in Jun. Stress test delayed d/t COVID-19. Cath showed blockage. S/p R implant exchange at [facility] July 2020. L US by Dr. Michelle 01/2021-small nodule noted-previously biopsied-Neg. I haven't been taking the pill. Appetite:It's been a little bit decreased. Energy level:Some days are better than others. +family stressors-mother in an AL. Denies fevers or recent illness. Resp:denies cough or sob Cardiac:denies chest pain/palpitations GI:denies abd pain, n/v, moving bowels regularly, recent EGD/Colonoscopy :denies dysuria/hematuria Extrem:denies pain Endo:denies hot flashes Skin:denies rashes/lesions Heme:denies bleeding The ROS is otherwise negative. Past medical history, appointments, medications, allergies reviewed. No changes. EXAM: BP 123/76 Pulse 63 Temp 36.8 C (98.2 F) (Temporal) Ht 160 cm (5' 3) Wt 81.2 kg (179 lb) LMP 08/08/2011 BMI 31.71 kg/m APPEARANCE Well appearing, alert, in no acute distress, well-hydrated, well nourished. HEART RRR with normal S1 and S2, no murmurs LUNG clear to auscultation BREAST FEMALE b/l recon b/l implants, L small BB sized nodules overlying implant-stable, no other mass/nodule LYMPH NODES No cervical lymphadenopathy, No supraclavicular lymphadenopathy, and No axillary lymphadenopathy. ABDOMEN bowel sounds normoactive, soft, non-tender EXTREMITIES No edema NEURO Awake, alert and oriented x 3, Normal gait, and No involuntary motions. SKIN Skin color, texture, turgor normal, no suspicious rashes or lesions ASSESSMENT/PLAN: 1. Malignant neoplasm of left breast in female, estrogen receptor positive, unspecified site of breast (HCC) - ICD9: 174.9, V86.0, ICD10: C50.912, Z17.0 pT1c pN0(sln) cM0 ER/CO positive, HER2 negative invasive ductal carcinoma the left breast. Oncotype: RS=5; 3% risk of distant recurrence over 9 years. Absolute benefit from chemotherapy predicted <1%. - No new concerning findings on exam. L small nodules overlying implant stable. - Tolerated arimidex/femara poorly d/t joint pain/leg cramps. - Stopped femara October 2020.Re-started femara end of 2020. Took inconsistently. Stopped again in January 2022. - Stopped aromasin 2 months ago d/t leg cramping. Pt. did not notice an improvement in her symptomswhile off. - L breast US per Dr. Michelle. - Discussed aromasin with pt. Pt. willing to restart. - Follow up with Dr. Michelle. - Follow up in 6 months. - Pt. aware to call office with any questions/concerns. The patient indicates understanding of these issues and agrees with the plan. All documentation from previous visit of 04/12/22-Dr. Silver/myself was copied and pasted, documentation has been reviewed and edited as necessary for today's visit. Ana Castillo APRN.CNP documented in this encounterTri[facility]11-18-[facility]22 History of Present illness Narrative* Ana Castillo APRN.CNP - 04/12/2022 11:46 AM EST Chief Complaint Patient presents with: Established Patient HPI: Rama Baird is a 62 year old female who presents here today for follow up breast cancer. Per Dr. Silver's previous note: H/o essential hypertension, mixed hyperlipidemia, hypothyroidism, type 2 diabetes who was noted to have focal architectural distortion in the upper lateral aspect the left breast on a screening mammogram performed on 09/02/2018. Ultrasound demonstrated a 3 x 5 x 5 mm ill-defined nodular density at the 3:00 position of the leftbreast. It was approximately 8 cm from the nipple. Additionally there was probable 4 mm cyst at the2:00 position 4 cm from the nipple. Ultrasound-guided core biopsy performed by Dr. Olguin on 09/22/2018 demonstrated an invasive ductalcarcinoma, nuclear grade 1. ER 95%, CO 95%, HER-2 negative. Patient was seen by genetic counselor in 2013 based on her mother and sister's history of breast cancer. Sister was BRCA negative and therefore no further genetic testing was recommended for the patient. Patient underwent a left nipple sparing mastectomy along with sentinel lymph node biopsy and right prophylactic nipple sparing mastectomy along with immediate left breast reconstruction with implant and Acellular Dermal Matrix (ADM) sling (16 cm x 20 cm) Right breast reconstruction with implant and Acellular Dermal Matrix (ADM) sling (16 cm x 20 cm) Pre pectoral placement on 11/02/2018. Pathology: FINAL DIAGNOSIS 1. Left axillary sentinel lymph node, excision (A) - Two lymph nodes, negative for metastatic carcinoma ((0/2). 2. Left breast tissue, nipple-sparing mastectomy (B) - Invasive ductal carcinoma, See comment. - Ductal carcinoma in situ, solid type, nuclear grade 2. - Two biopsy sites and clips identified. - Unremarkable skin. 3. Right breast, nipple-sparing mastectomy (C) - Unremarkable skin and underlying breast parenchyma. SYNOPTIC REPORT OF HAN PATHOLOGIC FINDINGS LEFT BREAST TISSUE: BREAST INVASIVE CARCINOMA WORKSHEET Part: B Procedure: Total mastectomy (including nipple-sparing and skin-sparing mastectomy) Specimen Laterality: Left Tumor size: Size of largest invasive carcinoma: Greatest dimension of largest focus of invasion >1 mm: 18 mm Tumor Focality: Single focus of invasive carcinoma Histologic Type of Invasive Carcinoma: Invasive carcinoma of no special type (ductal, not otherwise specified) Histologic Grade: Glandular (Acinar) / Tubular Differentiation: Score 3 Nuclear Pleomorphism: Score 2 Mitotic Rate: Score 1 (<=3 mitosis per mm2) Overall Grade: Grade II Ductal Carcinoma In Situ: DCIS is present in specimen Architectural Patterns: Architectural Pattern:Solid DCIS Nuclear Grade: Grade II (intermediate) DCIS Necrosis: Present, central (expansive comedo necrosis) Tumor Extension: Skin: Uninvolved Nipple: Not applicable Skeletal muscle: Not applicable Invasive Carcinoma Margins: Margins uninvolved by invasive carcinoma Distance from closest margin: 7 mm Closest margin: superior radial DCIS Margins: Margins uninvolved by DCIS Distance from closest margin: 4 mm Closest margin: inferior radial Lymph Nodes: Uninvolved by tumor cells Number of lymph nodes examined: 2 Number of sentinel lymph nodes examined: 2 Treatment Effect: No known presurgical therapy Lymph-Vascular Invasion: Not identified Pathologic Stage Classification (pTNM,AJCC 8th ed) TNM Descriptor(s): Not applicable Primary Tumor (Invasive Carcinoma) (pT): pT1c Regional Lymph Nodes (pN): Modifier: (sn): [place] node(s) evaluated Category (pN): pN0 Distant metastasis: Distant Metastasis (pM) Not applicable/Not confirmed pathologically in this case Estrogen & progesterone receptors: Previously performed and reported as follows: Estrogen receptor: 95% positive Progesterone receptor: 95% positive Specimen number #: [id number] (HER2) ERBB2 Status: Previously performed and reported as follows: HER2:negative 0 Mother--Breast cancer diagnosed age 55; had mastectomy followed by chemotherapy. New contralateral breast cancer at age 75 managed with lumpectomy and radiation. Alive now at age 81. Sister--Breast cancer diagnosed age 45; b/l mastectomy; chemotherapy. Developed metastatic disease ~10 years later; bone metastases. about 3-4 years later. Last menses about 7 years ago. No hot flashes. Current therapy:Femara Previous therapy Arimidex-Began November 2018. Changed to femara Pt. self discontinued femara October 2020 Pt. 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 Hines. S/p CABG x4 on October 07, 2019-Dr. Duarte-[facility] Pt. began having L arm pain/fatigue in Jun. Stress test delayed d/t COVID-19. Cath showed blockage. S/p R implant exchange at [facility] July 2020. L US by Dr. Michelle 01/2021-small nodule noted-previously biopsied-Neg. My leg cramps did get better after I stopped this pill. Pt. was advised to hold femara in Jan and call the office with an update on her symptoms. Pt. was seen by PCP yesterday for GI upset/epigastric pain/burping/gas. Has not been seen by Dr. Michelle-ordered L breast US in August 2021. Appetite:It's been a little bit decreased. Energy level:Eh. About a 5. Denies fevers or recent illness. Resp:denies cough or sob Cardiac:denies chest pain/palpitations GI:+epigastric pain-followed by PCP for this, occ. nausea, denies vomiting, moving bowels regularly, occ. diarrhea :denies dysuria/hematuria Extrem:denies pain currently, leg cramps improving Endo:denies hot flashes Skin:denies rashes/lesions Heme:denies bleeding The ROS is otherwise negative. Past medical history, appointments, medications, allergies reviewed. No changes. EXAM: BP 127/70 Pulse 72 Temp 37.1 C (98.7 F) (Temporal) Wt 82.3 kg (181 lb 8 oz) LMP 08/08/2011 BMI 31.37 kg/m APPEARANCE Well appearing, alert, in no acute distress, well-hydrated, well nourished. HEART RRR with normal S1 and S2, no murmurs LUNG clear to auscultation BREAST FEMALE b/l recon b/l implants, L small BB sized nodules overlying implant-stable, no other mass/nodule LYMPH NODES No cervical lymphadenopathy, No supraclavicular lymphadenopathy, and No axillary lymphadenopathy. ABDOMEN bowel sounds normoactive, soft, non-tender, non-distended, without organomegaly or palpablemasses EXTREMITIES No edema NEURO Awake, alert and oriented x 3, Normal gait, and No involuntary motions. SKIN Skin color, texture, turgor normal, no suspicious rashes or lesions ASSESSMENT/PLAN: 1. Malignant neoplasm of left breast in female, estrogen receptor positive, unspecified site of breast (HCC) - ICD9: 174.9, V86.0, ICD10: C50.912, Z17.0 pT1c pN0(sln) cM0 ER/CO positive, HER2 negative invasive ductal carcinoma the left breast. Oncotype: RS=5; 3% risk of distant recurrence over 9 years. Absolute benefit from chemotherapy predicted <1%. - No new concerning findings on exam. L small nodules overlying implant stable. - Pt. has been off of femara since January. She was to call the office with an update on her symptoms and did not. - Tolerated arimidex/femara poorly d/t joint pain/leg cramps. - Stopped femara October 2020.Re-started femara end of 2020. Took inconsistently. Stopped again in January 2022. - L breast US in August 2021-Impression:probably benign left breast mass. Pt. did not follow up withDr. Michelle. - Seen yesterday by PCP for Epigastric pain. - Discussed aromasin with pt. Pt. willing to try. Rx sent. - Pt. will call office with an update on her symptoms after starting aromasin. - Follow up with PCP re:epigastric pain. - Follow up with Dr. Michelle re:L breast US. - Follow up in 6 months. - Pt. aware to call office with any questions/concerns. The patient indicates understanding of these issues and agrees with the plan. All documentation from previous visit of 08/31/21-Dr. Silver/myself was copied and pasted, documentation has been reviewed and edited as necessary for today's visit. Ana Castillo APRN.CNP documented in this encounterTri[facility]04-[facility] History of Present illness Narrative* Ana Castillo APRN.CNP - 08/31/2021 8:28 AM EDT Chief Complaint Patient presents with: Established Patient HPI: Rama Baird is a 61 year old female who presents here today for follow up breast cancer. Per Dr. Silver's previous note: H/o essential hypertension, mixed hyperlipidemia, hypothyroidism, type 2 diabetes who was noted to have focal architectural distortion in the upper lateral aspect the left breast on a screening mammogram performed on 09/02/2018. Ultrasound demonstrated a 3 x 5 x 5 mm ill-defined nodular density at the 3:00 position of the leftbreast. It was approximately 8 cm from the nipple. Additionally there was probable 4 mm cyst at the2:00 position 4 cm from the nipple. Ultrasound-guided core biopsy performed by Dr. Olguin on 09/22/2018 demonstrated an invasive ductalcarcinoma, nuclear grade 1. ER 95%, CO 95%, HER-2 negative. Patient was seen by genetic counselor in 2012 based on her mother and sister's history of breast cancer. Sister was BRCA negative and therefore no further genetic testing was recommended for the patient. Patient underwent a left nipple sparing mastectomy along with sentinel lymph node biopsy and right prophylactic nipple sparing mastectomy along with immediate left breast reconstruction with implant and Acellular Dermal Matrix (ADM) sling (16 cm x 20 cm) Right breast reconstruction with implant and Acellular Dermal Matrix (ADM) sling (16 cm x 20 cm) Pre pectoral placement on 11/02/2018. Pathology: FINAL DIAGNOSIS 1. Left axillary sentinel lymph node, excision (A) - Two lymph nodes, negative for metastatic carcinoma ((0/2). 2. Left breast tissue, nipple-sparing mastectomy (B) - Invasive ductal carcinoma, See comment. - Ductal carcinoma in situ, solid type, nuclear grade 2. - Two biopsy sites and clips identified. - Unremarkable skin. 3. Right breast, nipple-sparing mastectomy (C) - Unremarkable skin and underlying breast parenchyma. SYNOPTIC REPORT OF HAN PATHOLOGIC FINDINGS LEFT BREAST TISSUE: BREAST INVASIVE CARCINOMA WORKSHEET Part: B Procedure: Total mastectomy (including nipple-sparing and skin-sparing mastectomy) Specimen Laterality: Left Tumor size: Size of largest invasive carcinoma: Greatest dimension of largest focus of invasion >1 mm: 18 mm Tumor Focality: Single focus of invasive carcinoma Histologic Type of Invasive Carcinoma: Invasive carcinoma of no special type (ductal, not otherwise specified) Histologic Grade: Glandular (Acinar) / Tubular Differentiation: Score 3 Nuclear Pleomorphism: Score 2 Mitotic Rate: Score 1 (<=3 mitosis per mm2) Overall Grade: Grade II Ductal Carcinoma In Situ: DCIS is present in specimen Architectural Patterns: Architectural Pattern:Solid DCIS Nuclear Grade: Grade II (intermediate) DCIS Necrosis: Present, central (expansive comedo necrosis) Tumor Extension: Skin: Uninvolved Nipple: Not applicable Skeletal muscle: Not applicable Invasive Carcinoma Margins: Margins uninvolved by invasive carcinoma Distance from closest margin: 7 mm Closest margin: superior radial DCIS Margins: Margins uninvolved by DCIS Distance from closest margin: 4 mm Closest margin: inferior radial Lymph Nodes: Uninvolved by tumor cells Number of lymph nodes examined: 2 Number of sentinel lymph nodes examined: 2 Treatment Effect: No known presurgical therapy Lymph-Vascular Invasion: Not identified Pathologic Stage Classification (pTNM,AJCC 8th ed) TNM Descriptor(s): Not applicable Primary Tumor (Invasive Carcinoma) (pT): pT1c Regional Lymph Nodes (pN): Modifier: (sn): [place] node(s) evaluated Category (pN): pN0 Distant metastasis: Distant Metastasis (pM) Not applicable/Not confirmed pathologically in this case Estrogen & progesterone receptors: Previously performed and reported as follows: Estrogen receptor: 95% positive Progesterone receptor: 95% positive Specimen number #: [id number] (HER2) ERBB2 Status: Previously performed and reported as follows: HER2:negative 0 Mother--Breast cancer diagnosed age 55; had mastectomy followed by chemotherapy. New contralateral breast cancer at age 75 managed with lumpectomy and radiation. Alive now at age 81. Sister--Breast cancer diagnosed age 45; b/l mastectomy; chemotherapy. Developed metastatic disease ~10 years later; bone metastases. about 3-4 years later. Last menses about 7 years ago. No hot flashes. Current therapy:Femara Previous therapy Arimidex-Began November 2018. Changed to femara Pt. self discontinued femara October 2020 Pt. 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 Hines. S/p CABG x4 on October 07, 2019-Dr. Duarte-[facility] Pt. began having L arm pain/fatigue in Jun. Stress test delayed d/t COVID-19. Cath showed blockage. S/p R implant exchange at [facility] July 2020. L US by Dr. Michelle 01/2021-small nodule noted-previously biopsied-Neg. Pt. cancelled follow up appt. with plastics [facility] 2020. Pt. admits that if her joints hurt she will not take femara for 3-4 days at a time. Has an appt. next week for L (Dr. Michelle) next week for nodules felt in skin overlying implant. Appetite:Oh good. Energy level:I have a lot of stress with my mom. She lives alone and has fallen a couple times. Denies fevers or recent illness. Resp:denies cough or sob Cardiac:denies chest pain/palpitations GI:denies abd pain, n/v, moving bowels regularly :denies dysuria/hematuria Extrem:denies pain currently, +joint pain Endo:hot flashes Not a huge amount. Had prior to AI. Skin:denies rashes/lesions Heme:denies bleeding The ROS is otherwise negative. Past medical history, appointments, medications, allergies reviewed. No changes. EXAM: BP 142/81 Pulse 61 Temp 36.7 C (98.1 F) (Temporal) Wt 83 kg (183 lb) LMP 08/08/2011 BMI 31.63 kg/m APPEARANCE Well appearing, alert, in no acute distress, well-hydrated, well nourished. HEART RRR with normal S1 and S2, no murmurs LUNG clear to auscultation BREAST FEMALE b/l recon b/l implants, L small BB sized nodules overlying implant @ 6 o'clock, no other mass/nodule LYMPH NODES No cervical lymphadenopathy, No supraclavicular lymphadenopathy and No axillary lymphadenopathy. ABDOMEN bowel sounds normoactive, soft, non-tender, non-distended, without organomegaly or palpablemasses EXTREMITIES No edema NEURO Awake, alert and oriented x 3, Normal gait and No involuntary motions. SKIN Skin color, texture, turgor normal, no suspicious rashes or lesions ASSESSMENT/PLAN: 1. Malignant neoplasm of left breast in female, estrogen receptor positive, unspecified site of breast (HCC) - ICD9: 174.9, V86.0, ICD10: C50.912, Z17.0 pT1c pN0(sln) cM0 ER/CO positive, HER2 negative invasive ductal carcinoma the left breast. Oncotype: RS=5; 3% risk of distant recurrence over 9 years. Absolute benefit from chemotherapy predicted <1%. - Nodule to L as above. - Tolerated arimidex poorly d/t joint pain. - Overall tolerating femara fair d/t joint pain. Stopped October 2020.Re-started femara end of 2020. Takes inconsistently. - Follow up with Dr. Michelle as scheduled for Gabriel next week. - Follow up in 6 months-pending above. - Pt. aware to call office with any questions/concerns. The patient indicates understanding of these issues and agrees with the plan. All documentation from previous visit of 02/22/21-Dr. Silver/myself was copied and pasted, documentation has been reviewed and edited as necessary for today's visit. Ana Castillo APRN.CNP [facility] encounter[facility] Miscellaneous Notes* Telephone Encounter - Ana Castillo APRN.CNP - 08/22/2021 10:07 AM EDT Noted. Thank you. Ana Castillo APRN.CNP * Telephone Encounter - Yudy Cummins LPN - 08/22/2021 9:37 AM EDT Yes, it was on my VM this morning when I arrived. I just didn't have a chance to listen to it rightaway. Yudy Cummins LPN * Telephone Encounter - Ana Castillo APRN.CNP - 08/22/2021 9:36 AM EDT Did pt. leave the message prior to her 8a.m. OV? If not she should be left on my schedule as a no show. Thank you. Ana Castillo APRN.SHARLENE * Telephone Encounter - Fatemeh Lakhani Pss - 08/22/2021 9:06 AM EDT Appt canceled. Patient has already rescheduled. * Telephone Encounter - Yudy Cummins LPN - 08/22/2021 8:57 AM EDT Patient left message on nurse line to cancel today's appointment with Ana. She will call back to reschedule. Yudy Cummins LPN documented in this encounterTri[facility] History of Past illness Narrative* Problem Noted Date Resolved Date Mastodynia 03/07/2008 10/10/2010 documented as of this encounter (statuses as of 08/22/2021) [facility] History of Past illness Narrative* Problem Noted Date Resolved Date Mastodynia 03/07/2008 10/10/2010 documented as of this encounter (statuses as of 08/31/2021) [facility] History of Past illness Narrative* Problem Noted Date Resolved Date Mastodynia 03/07/2008 10/10/2010 documented as of this encounter (statuses as of 04/12/2022) [facility] of Past illness Narrative* Problem Noted Date Resolved Date Mastodynia 03/07/2008 10/10/2010 documented as of this encounter (statuses as of 10/04/2022) [facility] of Past illness Narrative* Problem Noted Date Diagnosed Date Resolved Date Mastodynia 03/07/2008 10/10/2010 documented as of this encounter (statuses as of 04/04/2023) [facility]Reason for visit Narrative* Chief Complaint MUSCLE CRAMPING COVID-19 6 M FU LEFT ANKLE XRAY - PAIN Reason for Visit Acute sinusitis [id number] Essential hypertension Mixed hyperlipidemia S/P CABG x 4 [facility] Work Phone: Evaluation note* Diagnosis Mass of lower outer quadrant of left breast [facility]* Diagnosis Onset Date Resolution Status Viral illness acute [id number] chronic Essential hypertension chron ic Mixed hyperlipidemia chronic S/P CABG x 4 resolved Muscle cramping acute Hypothyroidism chronic Obesity chronic Type [address] diabetes [address] [facility] Work Phone: Evaluation note* Diagnosis Malignant neoplasm of left breast in female, estrogen receptor positive, unspecified site of breast (HCC)- Primary [facility] in this encounter [facility]* Diagnosis Onset Date Resolution Status Muscle cramping acute Hypothyroidism chronic Obesity chronic Type 2 diabetes mellitus [facility] Work Phone: Evaluation note* Diagnosis Onset Date Resolution Status Acute sinusitis acute [id number] chronic Essential hypertension chron ic Mixed hyperlipidemia chronic S/P CABG x 4 resolved [facility] Work Phone: Evaluation note* Diagnosis Onset Date Resolution Status [id number] chronic Essential hypertension chron ic Mixed hyperlipidemia chronic S/P CABG x 4 resolved Diabetes chronic Hypothyroidism chronic Muscle cramping chronic Obesity [facility] Work Phone: Evaluation note* Diagnosis Malignant neoplasm of left breast in female, estrogen receptor positive, unspecified site of breast (HCC)- Primary documented in this encounter [facility] note* Diagnosis Mass of upper inner quadrant of left breast- Primary documented in this encounter [facility] note* Diagnosis Mass of upper inner quadrant of left breast documented in this encounter [facility] note* Diagnosis Malignant neoplasm of left breast in female, estrogen receptor positive, unspecified site of breast (HCC)- Primary documented in this encounter [facility] note* Diagnosis Mass of upper inner quadrant of left breast documented in this encounter [facility] note* Diagnosis Malignant neoplasm of left breast in female, estrogen receptor positive, unspecified site of breast (HCC)- Primary documented in this encounter [facility] note* Diagnosis Onset Date Resolution Status Diabetes chronic Hypothyroidism chronic Obesity [facility] Work Phone: Evaluation note* Diagnosis S/P mastectomy, bilateral- Primary Encounter for follow-up surveillance of breast cancer Fat necrosis of right breast documented in this encounter [facility] note* Diagnosis Onset Date Resolution Status [id number] chronic Diabetes chronic Mixed hyperlipidemia chronic Diabetes chronic Essential hypertension chron ic Hypothyroidism chronic Obesity chronic [facility] Work Phone: Evaluation note* Diagnosis Onset Date Resolution Status [id number] chronic Diabetes chronic Mixed hyperlipidemia chronic Diabetes chronic Essential hypertension chron ic Hypothyroidism chronic Obesity chronic Cystitis acute [facility] Work Phone: Evaluation note* Diagnosis Malignant neoplasm of left breast in female, estrogen receptor positive, unspecified site of breast (HCC)- Primary documented in this encounter [facility] note* Diagnosis Pre-operative examination- Primary Preoperative examination, unspecified Malignant neoplasm of female breast, unspecified estrogen receptor status, unspecified laterality, unspecified site of breast (HCC) Essential hypertension Unspecified essential hypertension Mixed hyperlipidemia Type 2 diabetes mellitus without complication, with long-term current use of insulin (HCC) Hypothyroidism, unspecified type Hypersomnia Hypersomnia, unspecified Class 1 obesity due to excess calories with serious comorbidity and body mass index (BMI) of 32.0 to 32.9 in adult Encounter for follow-up surveillance of breast cancer- Primary Unspecified follow-up examination documented in this encounter [facility] note* Diagnosis S/P mastectomy, bilateral- Primary Encounter for follow-up surveillance of breast cancer Fat necrosis of right breast documented in this encounter [facility]* Diagnosis Onset Date Resolution Status Admit Date Atherosclerosis of [place] coronary artery of [place] heart without angina chronic December 13, 2024 10:02am Diabetes chronic December 13 10:02am Essential hypertension chronic Ju 2024 10:02am Mixed hyperlipidemia chronic December 13, 2024 10:02am [facility] Work Phone: Reason for referral (narrative)No reason for referral information availableWSelect Medical [facility] Work Phone: Discharge Instructions * Instructions* Mary Ann Lester RN - 09/28/2019 Do NOT take the following medications on the morning of surgery DULAGLUTIDE, HUMALOG, METFORMIN, AND LISINOPRIL TAKE the following medications the morning of your surgery NONE You may take your prescription pain medications. You may take Tylenol (Acetaminophen) if needed forpain. No Motrin, Ibuprofen, or Advil 24 hours prior to surgery, or longer if instructed by your surgeon. No Aleve or Naprosyn 3 days prior to surgery, or longer if instructed by your surgeon. If you are on BLOOD THINNERS or ASPIRIN, PATIENT STOPPED PLAVIX ON 09-24-2019 PER BUSINESS APPLICATIONS SPECIALIST INSTRUCTIONS PRIOR TO SURGERY. DO NOT TAKE ASPIRIN ON THE DAY OF SURGERY PER DR. DUARTE'S INSTRUCTIONS PRIOR TO SURGERY. Basal Insulin: If you are using long acting insulin at bedtime, take 32 units of LANTUS insulin thenight before the surgery. CHG cloths and instructions given to patient. Follow instructions on use of wipes, nasal ointment and mouth rinse as instructed. If you have specific questions, please call your surgeon. Additional instructions PLEASE FOLLOW ANY ADDITIONAL INSTRUCTIONS THAT DR. DUARTE MAY HAVE GIVEN YOU. You will receive a reminder call the day before surgery with your Same Day Surgery arrival time. If you have specific questions, please call your surgeon. Please bring your [facility] [employer] Surgical Information folder on the day of surgery. Please ariel the last dose taken (date and time ) on your Daily Medications List provided in your After Visit Summary. Please bring a photo ID and insurance information * Attachments The following attachments cannot be sent through Care Everywhere. * Coronary Artery Bypass Graft: Pre-op (Citizen Of [place]) * Coronary Artery Bypass Graft: Post-op (Citizen Of [place]) documented in this encounter* Discharge Instr - Diet* Carline Dalton RD, LD - 10/08/2019 10:37 AM EDT ? Good nutrition is important when healing from an illness, injury, or surgery. Follow any nutrition recommendations given to you during your hospital stay. ? If you have any questions about your diet or nutrition, you can reach a [facility] dietitian by phone at . Heart-Healthy Nutrition Therapy A heart-healthy diet is recommended to reduce your unhealthy blood cholesterol levels, manage high blood pressure, and lower your risk for heart disease. Tips To follow a heart-healthy diet, Eat a balanced diet with whole grains, fruits and vegetables, and lean protein sources. Achieve and maintain a healthy weight. Choose heart-healthy unsaturated fats. Limit saturated fats, trans fats, and cholesterol intake. Eat more plant-based or vegetarian meals using beans and soy foods for protein. Eat whole, unprocessed foods to limit the amount of sodium (salt) you eat. Limit refined carbohydrates especially sugar, sweets and sugar-sweetened beverages. If you drink alcohol, do so in moderation: one serving per day (women) and two servings per day (men). One serving is equivalent to 12 ounces beer, 5 ounces wine, or 1.5 ounces distilled spirits Tips for Choosing Heart-Healthy Fats Choose lean protein and low-fat dairy foods to reduce saturated fat intake. Saturated fat is usually found in animal-based protein and is associated with certain health risks.Saturated fat is the biggest contributor to raised low-density lipoprotein (LDL) cholesterol levels in the diet. Research shows that limiting saturated fat lowers unhealthy cholesterol levels. Eat no more than 7% of your total calories each day from saturated fat. Ask your RDN to help you determine how much saturated fat is right for you. There are many foods that do not contain large amounts of saturated fats. Swapping these foods to replace foods high in saturated fats will help you limit the saturated fat you eat and improve your cholesterol levels. You can also try eating more plant-based or vegetarian meals. Instead of Try: Whole milk, cheese, yogurt, and ice cream 1%, %, or skim milk, low-fat cheese, non-fat yogurt, and low-fat ice cream Fatty, marbled beef and pork Lean beef, pork, or venison Poultry with skin Poultry without skin Butter, stick margarine Reduced-fat, whipped, or liquid spreads Coconut oil, palm oil Liquid vegetable oils: corn, canola, olive, soybean and safflower oils Avoid trans fats. Trans fats increase levels of LDL-cholesterol. Hydrogenated fat in processed foods is the main source of trans fats in foods. Trans fats can be found in stick margarine, shortening, processed sweets, baked goods, some fried foods, and packaged foods made with hydrogenated oils. Avoid foods with partially hydrogenated oil on the ingredient list such as: cookies, pastries, baked goods, biscuits, crackers, microwave popcorn, and frozen dinners. Choose foods with heart healthy fats. Polyunsaturated and monounsaturated fat are unsaturated fats that may help lower your blood cholesterol level when used in place of saturated fat in your diet. Ask your RDN about taking a dietary supplement with plant sterols and stanols to help lower your cholesterol level. Research shows that substituting saturated fats with unsaturated fats is beneficial to cholesterol levels. Try these easy swaps: Instead of Try: Butter, stick margarine, or solid shortening Reduced-fat, whipped, or liquid spreads Beef, pork, or poultry with skin Fish and seafood Chips, crackers, snack foods Raw or unsalted nuts and seeds or nut butters Hummus with vegetables Avocado on toast Coconut oil, palm oil Liquid vegetable oils: corn, canola, olive, soybean and safflower oils Limit the amount of cholesterol you eat to less than 200 milligrams per day. Cholesterol is a substance carried through the bloodstream via lipoproteins, which are known as transporters of fat. Some body functions need cholesterol to work properly, but too much cholesterol in the bloodstream can damage arteries and build up blood vessel linings (which can lead to heart attack and stroke). You should eat less than 200 milligrams cholesterol per day. People respond differently to eating cholesterol. There is no test available right now that can figure out which people will respond more to dietary cholesterol and which will respond less. For individuals with high intake of dietary cholesterol, different types of increase (none, small, moderate, large) in LDL- cholesterol levels are all possible. Food sources of cholesterol include egg yolks and organ meats such as liver, gizzards. Limit egg yolks to two to four per week and avoid organ meats like liver and gizzards to control cholesterol intake. Tips for Choosing Heart-Healthy Carbohydrates Consume foods rich in viscous (soluble) fiber Viscous, or soluble, fiber is found in the shepard of plant cells. Viscous fiber is found only in plant-based foods animalbased foods like meat or dairy products do not contain fiber. In the stomach, viscous fibers absorb waterand swell to form a thick, jelly-like mass. This helps to lower your unhealthy cholesterol Rich sources of viscous fiber include asparagus, [place] sprouts, sweet potatoes, turnips, apricots, mangoes, oranges, legumes, barley, oats, and oat bran. Eat at least 5 to 10 grams of viscous fiber each day. As you increase your fiber intake gradually, also increase the amount of water you drink. This will help prevent constipation. If you have difficulty achieving this goal, ask your RDN about fiber laxatives. Choose fiber supplements made with viscous fibers such as psyllium seed husks or methylcellulose to help lower unhealthy cholesterol. Limit refined carbohydrates There are three types of carbohydrates: starches, sugar, and fiber. Some carbohydrates occur naturally in food, like the starches in rice or corn or the sugars in fruits and milk. Refined carbohydrates foods with high amounts of simple sugars can raise triglyceride levels. High triglyceride levels are associated with coronary heart disease. Some examples of refined carbohydrate foods are table sugar, sweets, and beverages sweetened with added sugar. Additional Lifestyle Tips Achieve and maintain a healthy weight. Talk with your RDN or your doctor about what is a healthy weight for you. Set goals to reach and maintain that weight. To lose weight, reduce your calorie intake along with increasing your physical activity. A weight loss of 10 to 15 pounds could reduce LDL-cholesterol by 5 milligrams per deciliter. Participate in physical activity. Talk with your health care team to find out what types of physical activity are best for you. Set aplan to get about 30 minutes of exercise on most days. Foods Recommended Food Group Foods Recommended Grains Whole grain breads and cereals, including whole wheat, barley, rye, buckwheat, corn, teff, quinoa, millet, amaranth, brown or wild rice, sorghum, and oats Pasta, especially whole wheat or other whole grain types Brown rice, quinoa or wild rice Whole grain crackers, bread, r olls, pitas Home-made bread with reduced-sodium baking soda Protein Foods Lean cuts of beef and pork (loin, leg, round, extra lean hamburger) Skinless poultry Fish Bobbi son and other wild game Dried beans and peas Nuts and nut butters (unsalted) Meat alternatives made with soy or textured vegetable protein Egg whites or egg substitute Cold cuts made with lean me at or soy protein Dairy Nonfat (skim), low-fat, or 1%-fat milk Nonfat or low-fat yogurt or cottage ch eese Fat-free and low-fat cheese Vegetables Fresh, frozen, or canned vegetables without added fat or salt Fruits Fresh, frozen, canned, or dried fruit Oils Unsaturated oils (corn, olive, peanut, soy, sunflower, canola) Soft or liquid margarines and vegetable oil spreads Salad dressings made from unsaturated fats Seeds and nuts Avocado Foods Not Recommended Food Group Foods Not Recommended Grains Breads or crackers topped with salt Cereals (hot or cold) with more than 300 mg sodium per serving Biscuits, cornbread, and other quick breads prepared with juan ing soda Bread crumbs or stuffing mix from a store High-fat bakery products, such as doughn uts, biscuits, croissants, lao pastries, pies, cookies Instant cooking foods to which you add hot water and stir potatoes, noodles, rice, etc. Packaged starchy foods seasoned noodle or rice dishes, stuffing mix, macaroni and augustus dale dinner Snacks made with partially hydrogenated oils, including chips, cheese puffs, snack mixes, regular crackers, butter-flavored popcorn Protein Foods Higher-fat cuts of meats (ribs, t-bone steak, regular hamburger) Khan, sausage, or hot dogs Cold cuts, such as salami or bologna, deli meats, cured meats, corned beef Organ meats (liver, brains, gizzards, sweetbreads) Poultry with skin Fried or smoked meat, poultry, and fish Whole eggs and egg yolks (more than 2 -4 per week) Salted legumes, nuts, seeds, or nut/seed butters Meat alternatives with high levels of sodium (>30 0 mg per serving) or saturated fat (>5 g per serving) Dairy Whole milk, 2% fat milk, buttermilk Whole milk yogurt or ice cream Cream Half-&- half Cream augustus dale Sour cream Cheese Vegetables Canned or frozen vegetables with salt, fresh vegetables prepared with salt, butter, cheese, or cream sauce Fried vegetables Pickled vegetabl es such as olives, pickles, or sauerkraut Fruits Fried fruits Fruits served with butter or cream Oils Butter, stick margarine, shortening Partially hydrogenated oils or trans fats Tropical oils (coconut, palm, palm kerne l oils) Other Candy, sugar sweetened soft drinks and desserts Salt, sea salt, garlic salt, and seasoning mixes con taining salt Bouillon cubes Ketchup, barbe cue sauce, Worcestershire sauce, soy sauce, teriyaki sauce Miso Salsa Pickle s, olives, relish Heart-Healthy Eating Sample 1-Day Menu Breakfast 1 cup oatmeal 1 cup fat-free milk 1 cup blueberries 1 cup brewed coffee 1 ounce almonds Lunch 2 slices whole-wheat bread 2 oz lean deli turkey breast 1 oz low-fat Gu[place]ian cheese 2 slices tomato 2 lettuce leaves 1 pear 1 cup skim milk Afternoon Snack 1 oz trail mix (with nuts, seeds, raisins) Evening Meal 3 oz broiled salmon 2/3 cup brown rice 1 tsp margarine 1/2 cup cooked broccoli 1/2 cup cooked carrots 1 cup tossed salad 1 teaspoon olive oil and vinegar dressing 1 small whole-wheat roll 1 tsp margarine 1 cup tea Evening Snack 1 banana Heart-Healthy Vegetarian (Lacto-Ovo) Sample 1-Day Menu Breakfast 1 cup cooked oatmeal 1 tablespoon ground flaxseed 1 cup blueberries 2 scrambled egg whites with 1 teaspoon canola oil 2 tablespoons salsa 1 cup fat-free milk 1 cup coffee Lunch 2 slices whole wheat bread 2 tablespoons peanut butter without salt 1 small banana 6 ounces fat-free plain yogurt 1 cup sliced red pepper 2 tablespoons hummus 1 cup fat-free milk Evening Meal Stir zavala made with: cup tofu 1 cup brown rice cup cooked broccoli cup cooked carrots cup cooked green beans 1 teaspoon peanut oil Evening Snack 1 slice low-fat mozzarella cheese 1 medium apple Heart-Healthy Vegan 1-Day Sample Menu Breakfast 1 slice whole wheat toast 2 tablespoons peanut butter without salt Tofu scramble made with: cup calcium-set tofu cup green pepper cup spinach cup tomatoes cup white mushrooms 1 cup soymilk fortified with calcium, vitamin B12, and vitamin D 1 teaspoon canola oil Lunch 1 cup reduced sodium split pea soup 1 whole wheat dinner roll 1 medium apple Dinner Salad made with: 1 cup lentils cup cooked broccoli cup cooked carrots 2 tablespoons hummus 1 cup sliced strawberries 1 cup soymilk fortified with calcium, vitamin B12, and vitamin D Evening Snack 1 cup soy yogurt cup mixed nuts Notes * Discharge Instr - Lab* Luz Marina Gentile LPN - 10/10/2019 2:32 PM EDT Your physician has ordered skilled home care services for you. Your home care will be provided by: [facility] [phone] * Discharge Instr - JEANCARLOS* Amy Alas RN - 10/12/2019 10:28 AM EDT Continuity of Care Form Patient Name: Rama Baird : 1960 Admit date: 10/07/2019 Discharge date: Code Status Order: Full Code Advance Directives: Advance Care Flowsheet Documentation Date/Time Healthcare Directive Type of Healthcare Directive Copy in Chart Healthcare Agent Appointed Healthcare Agent's Name Healthcare Agent's Phone Number 10/12/19 0700 No, patient does not have an advance directive for healthcare treatment -- -- -- -- -- Admitting Physician: Carter Duarte MD PCP: MAGDIEL MONTILLA MD Discharging Nurse: Discharging Hospital Unit/Room#: [id number] Discharging Unit Phone Number: Emergency Contact: Extended Emergency Contact Information Primary Emergency Contact: Marek Baird Relation: Spouse Secondary Emergency Contact: Elen Cortez Relation: Parent Past Surgical History: Past Surgical History: Procedure Laterality Date BREAST BIOPSY CARDIAC CATHETERIZATION 09/24/2019 CHOLECYSTECTOMY, LAPAROSCOPIC MASTECTOMY, BILATERAL 11/02/2018 with reconstruction OTHER SURGICAL HISTORY mid urethral sling TUBAL LIGATION Immunization History: There is no immunization history on file for this patient. Active Problems: Patient Active Problem List Diagnosis Code CAD, multiple vessel I25.10 CAD in [place] artery I25.10 Type 2 diabetes mellitus with hyperglycemia, with long-term current use of insulin (HCC) E11.65, Z79.4 S/P CABG x 4 Z95.1 Acquired hypothyroidism E03.9 Isolation/Infection: Isolation No Isolation Patient Infection Status Infection Onset Added Last Indicated Last Indicated By Review Planned Expiration Resolved Resolved By None active Resolved Other 10/07/19 10/07/19 Africa Michel RN 10/09/19 Carmela August RN 10/06/19 - COVID test for screening purposes. No isolation needed this time. Maintain standard precautions and follow current PPE guidelines. COVID-19 Rule Out 10/06/19 10/06/19 10/06/19 COVID-19 (Ordered) 10/07/19 Africa Michel RN Nurse Assessment: Last Vital Signs: BP 120/73 Pulse 91 Temp 98.9 F (37.2 C) (Oral) Resp 17 Ht 5' 4 (1.626 m) Wt 184 lb (83.5 kg) SpO2 97% BMI 31.58 kg/m Last documented pain score (0-10 scale): Pain Level: 0 Last Weight: Wt Readings from Last 1 Encounters: 10/10/19 184 lb (83.5 kg) Mental Status: {IP PT MENTAL STATUS:} IV Access: { JEANCARLOS IV ACCESS:391987904} Nursing Mobility/ADLs: Walking {CHP DME ADLs:966482832} Transfer {CHP DME ADLs:013802648} Bathing {CHP DME ADLs:576475767} Dressing {CHP DME ADLs:310733971} Toileting {CHP DME ADLs:704759268} Feeding {CHP DME ADLs:798467943} Wet Wheeler {P DME ADLs:689493898} Med Delivery { JEANCARLOS MED Delivery:880047766} Wound Care Documentation and Therapy: Elimination: Continence: Bowel: {YES / NO:} Bladder: {YES / NO:} Urinary Catheter: {Urinary Catheter:537955358} Colostomy/Ileostomy/Ileal Conduit: {YES / NO:} Date of Last BM: Intake/Output Summary (Last 24 hours) at 10/12/2019 1028 Last data filed at 10/12/2019 0900 Gross per 24 hour Intake 250 ml Output Net 250 ml I/O last 3 completed shifts: In: 200 [P.O.:200] Out: - Safety Concerns: { JEANCARLOS Safety Concerns:902115592} Impairments/Disabilities: { JEANCARLOS Impairments/Disabilities:958030911} Nutrition Therapy: Current Nutrition Therapy: { JEANCARLOS Diet List:051975622} Routes of Feeding: {CHP DME Other Feedings:400767809} Liquids: {Coc[employer] Bean Roaster Helper liquid thickness:40677} Daily Fluid Restriction: {CHP DME Yes amt example:868450302} Last Modified Barium Swallow with Video (Video Swallowing Test): {Done Not Done Date:} Treatments at the Time of Hospital Discharge: Respiratory Treatments: Oxygen Therapy: {Therapy; copd oxygen:85219} Ventilator: {[facility] Vent List:451493038} Rehab Therapies: {THERAPEUTIC INTERVENTION:4558432338} Weight Bearing Status/Restrictions: { CC Weight Bearin} Other Medical Equipment (for information only, NOT a DME order): {EQUIPMENT:153265715} Other Treatments: Patient's personal belongings (please select all that are sent with patient): {P DME Belongings:408366850} RN SIGNATURE: {Esignature:360534737} CASE MANAGEMENT/SOCIAL WORK SECTION Inpatient Status Date: Readmission Risk Assessment Score: Readmission Risk Risk of Unplanned Readmission: 11 Discharging to Facility/ Agency Name: Address: Phone: Fax: Dialysis Facility (if applicable) Name: Address: Dialysis Schedule: Phone: Fax: [facility] signature: {Esignature:658689826} PHYSICIAN SECTION Prognosis: {Prognosis:9564033927} Condition at Discharge: { Patient Condition:409776559} Rehab Potential (if transferring to Rehab): {Prognosis:2220105708} Recommended Labs or Other Treatments After Discharge: Physician Certification: I certify the above information and transfer of Rama Baird is necessary for the continuing treatment of the diagnosis listed and that she requires {Admit to Appropriate Level of Care:46112} for {GREATER/LESS:980224843} 30 days. Update Admission H&P: {CHP DME Changes in HandP:416493429} PHYSICIAN SIGNATURE: {Esignature:212258813} * Additional Instructions* Héctor Oneill APRN - SHEET METAL DUCT INSTALLER APPRENTICE - 10/12/2019 When to call the surgeon: If any symptoms concern you, call us: -Dr. Duarte/Dr. Higgins's office -Phone number [phone] [address] Notify us if the following occur: -Increased tenderness,redness, or swelling of your incisions. -Any drainage from the chest incision (clear or pink drainage from the leg incision or chest tube site is common). -Angina symptoms like those you had before surgery -Sharp pain in chest, neck or shoulder that is worse when taking a deep breath -Persistent fever greater than 100 degrees F or 38 degrees C -Flu-like symptoms-chills, aches, fever, increased fatigue -Heart rate faster than 150 beats/minute with shortness of breath or new irregular heart rate. -Any unusual bleeding -Shortness of breath not relieved by rest -Weight gain of three pounds in one day or five pounds over one week Activity Instructions: -Sternal Precautions for 6 weeks -Do not lift,push, or pull anything heavier than 10 pounds for 6 weeks( a gallon of milk weighs 8 pounds) -Do not drive for 3-4 weeks, until permission by your surgeon and until you are off pain medication -It is ok to sleep on your side if you prop pillows to support your back. Do not sleep on your stomach. -Walk at least 4 times a day, start with 5 minute intervals, increase minutes walked each day. Do not walk on a treadmill -Balance rest and activity during your recovery -Use the stairs,but go slowly,Use the handrail for balance but do not pull yourself up with your arms. -Shower daily. Do not take your heart medication right before you shower. You could become lightheaded from your blood pressure and heart medication. Always have someone near by to assist you when you shower for the first week you are home. -Do not take a tub bath or use a hot tub until all incision are completely healed (no scab). -Put stephan hose on in AM and remove at bedtime. Elevate your feet above level of heart when you are sitting. -Cough and deep breath and use incentive spirometer every hour(10x/hour while awake for two weeks. Other Instructions: -Weigh yourself daily at the same time (after you urinate but before breakfast) -Keep a record of your daily weight, and bring to your first post op office visit -Take all medications as prescribed. Bring all your medication bottles to the first post op office visit Incision Care -Wash your sternal incision with mild soap and warm water. Pat dry, and leave open to air. Do not use any lotions, or powders, or ointments. Ok to remove surgical tap from sternal incision in one week. Diabetes/Insulin instructions: Call bladder tier [phone] for questions Resume Metformin ER 500 mg 1 tablet daily Resume Trulicity 1.5 mg weekly Lantus 45 units at bedtime Humalog 18 units three times a day plus medium dose sliding scale as follows: Blood Sugar Extra short acting insulin Less than 150 0 151-200 2 201-250 4 251-300 6 301-350 8 More than 351 10 * Attachments The following attachments cannot be sent through Care Everywhere. * Healthy Diet: Heart (Citizen Of [place]) * Coronary Artery Bypass Graft: Post-op (Citizen Of [place]) documented in this encounter* Instructions* Hattie Adhikari, RN - 08/14/2020 Shower with an antibacterial soap such as Dial or Safeguard. Please bring your [facility] Surgical Information folder on the day of surgery. Please ariel the last dose taken (date and time ) on your Daily Medications List provided in your After Visit Summary. Please bring a photo ID and insurance information TAKE the following medications the morning of your surgery:ASPIRIN, ATENOLOL, LETROZOLE,LEVOTHYROXINE. You may take your prescription pain medications. You may take Tylenol (Acetaminophen) if needed forpain. No Motrin, Ibuprofen, or Advil 24 hours prior to surgery, or longer if instructed by your surgeon. No Aleve or Naprosyn 3 days prior to surgery, or longer if instructed by your surgeon. If you are on ASPIRIN: CONTINUE ASPIRIN. Follow all instructions given to you by Dr. Bello You will receive a reminder call the day before surgery with your Same Day Surgery arrival time. If you have specific questions, please call your surgeon. You may use the free school guidance counselor parking located at the main entrance on [address] [facility] and take the H elevator to the first floor for same day surgery. Take a left after exiting the elevator and checkin at the desk. documented in this encounter History of Present Illness * Mary Ann Lester RN - 09/28/2019 11:00 AM EDT Labs obtained on 1 attempt with 22 gauge needle at [facility] site. Patient tolerated well, site benign. documented in this encounter* Carline Dalton RD, LD - 10/12/2019 11:54 AM EDT Nutrition Assessment Type and Reason for Visit: Reassess Nutrition Recommendations: 1. Recommend adding CHO Control diet to currently ordered Cardiac diet 2. Pt declines ONS 3. RD provided verbal review of heart healthy diet education and additional reference materials with RD contact information 4. RD will continue to monitor and follow up weekly Nutrition Assessment: S/p CABG x4 10/06. Pt reports appetite came back yesterday, currently with adequate intake, did not like Ensure Plant, cancelled earlier today. She is planning for discharge today and is receptive to diet education. RD reviewed heart healthy diet and provided [facility] with [facility] contact information. Pt's questions were answered and pt verbalized understanding Malnutrition Assessment: Malnutrition Status: At risk for malnutrition Nutrition Risk Level: High Nutrient Needs: Estimated Daily Total Kcal: 3082-7145 Estimated Daily Protein (g): 65-76 Estimated Daily Total Fluid (ml/day): per MD Nutrition Diagnosis: Problem: Inadequate oral intake Etiology: related to (poor appetite after open heart surgery) ? Signs and symptoms: as evidenced by Intake 0-25% Objective Information: Nutrition-Focused Physical Findings: -I/O. Trace BLE edema. Bowel sounds active. Estevan = 21. Wound Type: Multiple, Surgical Wound Current Nutrition Therapies: Oral Diet Orders: Cardiac, Carb Control 5 Carbs/Meal Oral Diet intake: 76-100%(per pt) Oral Nutrition Supplement (ONS) Orders: None Anthropometric Measures: Ht: 5' 4 (162.6 cm) Current Body Wt: 184 lb (83.5 kg) Admission Body Wt: 187 lb (84.8 kg)(stated) Usual Body Wt: 187 lb (84.8 kg)(09/28/19) % Weight Change: , Pt reports stable weight [place] Body Wt: 120 lb (54.4 kg), % [place] Body 156% BMI Classification: BMI 30.0 - 34.9 Obese Class I Nutrition Interventions: Continue current diet, Start ONS Continued Inpatient Monitoring, Education Initiated Nutrition Evaluation: Evaluation: Goals set Goals: Pt to tolerate diet with po intake to meet >75% estimated energy and protein needs. Pt torecieve diet education as appropriate prior to discharge Monitoring: Meal Intake, Diet Tolerance, Skin Integrity, Wound Healing, I&O, Weight, Pertinent Labs, Patient/Family Education Contact Number: pager [phone] * Monica Escobar PTA - 10/12/2019 11:05 AM EDT Physical Therapy Facility/Department: [facility] Daily Treatment Note NAME: Rama Baird : 1960 Date of Service: 10/12/2019 Discharge Recommendations: Home with assist PRN PT Equipment Recommendations Equipment Needed: No Assessment Body structures, Functions, Activity limitations: Decreased functional mobility ;Decreased ROM;Decreased strength;Increased pain;Decreased endurance Assessment: Pt met two PT goals this session. Pt wanted to save some energy to go home today. Good ROM with exercises. Recommend home with PRN assist at discharge. REQUIRES PT FOLLOW UP: Yes Activity Tolerance Activity Tolerance: Patient Tolerated treatment well Patient Diagnosis(es): The encounter diagnosis was S/P CABG x 4. has a past medical history of Abnormal stress test, Acute arthritis, Chest pain, Diabetes mellitus (HCC), History of left breast cancer, Hypercholesterolemia, Hypertension, and Hypothyroidism. has a past surgical history that includes Mastectomy, bilateral (11/02/2018); Cholecystectomy, laparoscopic; Breast biopsy; Tubal ligation; other surgical history; and Cardiac catheterization (09/24/2019). Restrictions Restrictions/Precautions Restrictions/Precautions: Surgical Protocols, Weight Bearing Required Braces or Orthoses?: No Upper Extremity Weight Bearing Restrictions Other: sternal precautions Position Activity Restriction Sternal Precautions: No Pushing, 10# Lifting Restrictions, No Pulling Sternal Precautions: yes Subjective General Chart Reviewed: Yes Family / Caregiver Present: No Subjective Subjective: Pt supine in the bed, agrees to PT. Pt states that RN is coming back in soon to take line out of her neck so she needs to stay in bed. General Comment Comments: N95 mask, goggles, and gloves worn by RADIATOR TESTER entire session. Pain Screening Patient Currently in Pain: Denies Vital Signs Patient Currently in Pain: Denies Orientation Orientation Overall Orientation Status: Within Normal Limits Cognition Cognition Overall Cognitive Status: WNL Objective Exercises Comments: P&C exercises # 1-9 x 10 reps each. I.S. 1500 mL G-Code OutComes Score AM-PAC Score Goals Short term goals Time Frame for Short term goals: 10 days Short term goal 1: Bed mobility CGA, PARTIALLY MET Short term goal 2: Sit to stand modif indep, PROGRESSING Short term goal 3: Amb 400' or 5 minutes, RPE 14 or lower, indep, PROGRESSING Short term goal 4: Curb step supv, NOT ADDRESSED Short term goal 5: Indep P&C ex, MET Short term goal 6: Indep home walking program and managing secretions, MET Patient Goals Patient goals : 1) go back to work 2) gardening Plan Plan Times per week: 6 Plan weeks: 10 days Current Treatment Recommendations: ROM, Balance Training, Functional Mobility Training, Stair training, Gait Training, Transfer Training, Endurance Training, Home Exercise Program Plan Comment: strengthening for LEs only. Chest PT protocol prn Safety Devices Type of devices: Left in bed, Call light within reach, Nurse notified, All fall risk precautions inplace Restraints Initially in place: No Therapy Time Individual Concurrent Group Co-treatment Time In 1013 Time Out 1025 Minutes 12 Timed Code Treatment Minutes: (TP) Monica Escobar PTA * Matt Colon MD - 10/12/2019 10:[address] [facility] [address] [place] [id number] Dept: [phone] Loc: [phone] Visit Date: 10/12/2019 HPI: Rama Baird is a 59 y.o. female who presents today for: No chief complaint on file. HPI: Chief complaint: cp/sob reason for consult: dm2 Patient to be discharged later today. No shortness of breath She is active and up. Has been eating Home regimen Metformin er 500 daily lantus 40 bedtime hlog 30 meals and ss hlog trulicity 1.5 mg weekly Past Medical History: Diagnosis Date Abnormal stress test Acute arthritis Chest pain Diabetes mellitus (HCC) History of left breast cancer Hypercholesterolemia Hypertension Hypothyroidism Past Surgical History: Procedure Laterality Date BREAST BIOPSY CARDIAC CATHETERIZATION 09/24/2019 CHOLECYSTECTOMY, LAPAROSCOPIC MASTECTOMY, BILATERAL 11/02/2018 with reconstruction OTHER SURGICAL HISTORY mid urethral sling TUBAL LIGATION Current Facility-Administered Medications Medication Dose Route Frequency Provider Last Rate Last Dose metoprolol tartrate (LOPRESSOR) tablet 25 mg 25 mg Oral BID AMAURY Paul CNP 25 mg at 10/12/19 0834 oxyCODONE-acetaminophen (PERCOCET) 5-325 MG per tablet 1 tablet 1 tablet Oral Q6H PRN AMAURY Paul CNP Or oxyCODONE-acetaminophen (PERCOCET) 5-325 MG per tablet 2 tablet 2 tablet Oral Q6H PRN AMAURY Paul CNP 2 tablet at 10/12/19 0538 anastrozole (ARIMIDEX) tablet 1 mg 1 mg Oral Daily AMAURY Paul CNP 1 mg at 10/12/19 0834 modafinil (PROVIGIL) tablet 200 mg 200 mg Oral Daily AMAURY Paul CNP 200 mg at 10/11/19 1202 heparin (porcine) injection 5,000 Units 5,000 Units Subcutaneous BID AMAURY Paul CNP 5,000 Units at 10/12/19 0834 insulin glargine (LANTUS) injection vial 45 Units 45 Units Subcutaneous Nightly Forest Perez MD 45 Units at 10/11/19 204 melatonin ER tablet 2 mg 2 mg Oral Nightly AMAURY Paul CNP 2 mg at 10/11/19 204 levothyroxine (SYNTHROID) tablet 125 mcg 125 mcg Oral Daily AMAURY Osorio 125 mcg at 10/12/19 0712 insulin lispro (HUMALOG) injection vial 18 Units 18 Units Subcutaneous TID Forest Perez MD 18 Units at 10/12/19 0834 insulin lispro (HUMALOG) injection vial 0-12 Units 0-12 Units Subcutaneous TID Forest Perez MD 2 Units at 10/12/19 0701 lidocaine 4 % external patch 1 patch 1 patch Transdermal Daily Di Janeney, HALL MANAGER - EXPLOSIVE EXPERT 1 patch at10/12/19 0834 sodium chloride flush 0.9 % injection 10 mL 10 mL Intravenous 2 times per day Carter Duarte MD 10mL at 10/12/19 0840 sodium chloride flush 0.9 % injection 10 mL 10 mL Intravenous PRN Carter Duarte MD potassium chloride 20 mEq/50 mL IVPB (Central Line) 20 mEq Intravenous PRN Carter Duarte MD magnesium sulfate 2 g in 50 mL IVPB premix 2 g Intravenous PRN Carter Duarte MD calcium gluconate 2 g in sodium chloride 0.9 % 100 mL IVPB 2 g Intravenous PRN Carter Duarte MD sennosides-docusate sodium (SENOKOT-S) 8.6-50 MG tablet 2 tablet 2 tablet Oral Nightly Carter Duarte MD Stopped at 10/11/192028 magnesium hydroxide (MILK OF MAGNESIA) 400 MG/5ML suspension 30 mL 30 mL Oral Daily PRN Carter Duarte MD bisacodyl (DULCOLAX) suppository 10 mg 10 mg Rectal Daily PRN Carter Duarte MD ondansetron (ZOFRAN) injection 4 mg 4 mg Intravenous Q8H PRN Carter Duarte MD 4 mg at 10/08/19 0024 potassium chloride (KLOR-CON M) extended release tablet 20 mEq 20 mEq Oral PRN Carter Duarte MD atorvastatin (LIPITOR) tablet 80 mg 80 mg Oral Nightly Carter Duarte MD 80 mg at 10/11/192108 aspirin EC tablet 81 mg 81 mg Oral Daily Carter Duarte MD 81 mg at 10/12/19 0834 glucose (GLUTOSE) 40 % oral gel 15 g 15 g Oral PRN Carter Duarte MD dextrose 50 % IV solution 12.5 g Intravenous PRN Carter Duarte MD glucagon (rDNA) injection 1 mg 1 mg Intramuscular PRN Carter Duarte MD dextrose 5 % solution 100 mL/hr Intravenous PRN Carter Duarte MD lidocaine 4 % external patch 2 patch 2 patch Transdermal Daily Di Ferrell APRN - EXPLOSIVE EXPERT 2 patch at10/12/19 0839 Allergies Allergen Reactions Hydroxychloroquine Swelling From plaquenil/ Face and eye swelling Penicillins Family History Problem Relation Age of Onset Arthritis Mother Breast Cancer Mother Diabetes Mother Heart Disease Mother Hypertension Mother Thyroid Disease Mother High Cholesterol Mother Diabetes Father Heart Disease Father Hypertension Father Cancer Father Breast Cancer Sister Colon Cancer Maternal Grandmother Lung Cancer Paternal Grandfather Coronary Art Dis Other Thyroid Disease Maternal Aunt Social History Tobacco Use Smoking status: Never Smoker Smokeless tobacco: Never Used Substance Use Topics Alcohol use: Yes Comment: Few times a month Subjective: Review of Systems Constitutional: Negative for activity change and appetite change. Cardiovascular: Negative for chest pain and palpitations. Objective: BP 120/73 Pulse 91 Temp 98.9 F (37.2 C) (Oral) Resp 17 Ht 5' 4 (1.626 m) Wt 184 lb (83.5kg) SpO2 97% BMI 31.58 kg/m Physical Exam Today's visit was a telehealth visit occurring by phone during the COVID19 pandemic; therefore physical examination could not be completed. A physical examination will be completed at the time of the patient's next in person office visit. Diagnostic Workup: Results for RAMA BAIRD ( ) as of 10/12/2019 10:15 Ref. Range 10/11/2019 07:13 10/11/2019 11:44 10/11/2019 17:47 10/12/2019 00:12 10/12/2019 06:48 POC Glucose Latest Ref Range: 70 - 100 mg/dL 191 (H) 152 (H) 102 (H) 156 (H) Results for RAMA BAIRD ( ) as of 10/12/2019 10:15 Ref. Range 10/12/2019 00:12 Sodium Latest Ref Range: 135 - 145 mmol/L 136 Potassium Latest Ref Range: 3.5 - 5.1 mmol/L 3.9 Chloride Latest Ref Range: 98 - 107 mmol/L 100 CO2 Latest Ref Range: 22 - 30 mmol/L 27 BUN Latest Ref Range: 7 - 20 mg/dL 11 Creatinine Latest Ref Range: 0.52 - 1.25 mg/dL 0.57 Anion Gap Latest Units: NA 9 eGFR Latest Ref Range: >60 mL/min >90.0 EGFR IF NonAfrican [place]ian Latest Ref Range: >60 mL/min >90.0 Glucose Latest Ref Range: 70 - 100 mg/dL 137 (H) Results for RAMA BAIRD ( ) as of 10/12/2019 10:15 Ref. Range 09/28/2019 12:57 Hemoglobin A1C Latest Ref Range: 4.0 - 5.7 % 7.6 (H) Assessment: dm2 s/p cabg Home regimen Metformin er 500 daily lantus 40 bedtime hlog 30 meals and ss hlog trulicity 1.5 mg weekly Acquired hypothyroidism TSH is borderline elevated and Free T4 is normal Continue home dose levothyroxine Recheck in 4-6 weeks Plan: Explained all of recommendations below to patient/care team, reviewed all of labs above with them as well: Home going Diabetes regimen: (if there are any concerns regarding this plan please call Endocrinology team to discuss): Resume Metformin ER 500 mg 1 tablet daily Resume Trulicity 1.5 mg weekly Lantus 45 units at bedtime Humalog 18 units three times a day plus medium dose sliding scale as follows: Blood Sugar Extra short acting insulin Less than 150 0 151-200 2 201-250 4 251-300 6 301-350 8 More than 351 10 The patient will be following up with her pcp Time spent with patient 30 minutes with more than 51% of that time in counseling as documented in note. I have reviewed previous notes, referral note, andprevious workup. No follow-ups on file. Matt Colon MD * Héctor Oneill APRN - CNS - 10/12/2019 7:30 AM EDT Cardiothoracic Interval Progress Note 1. Heart surgery discharge education reviewed with patient. 2. Epicardial wires discontinued (cut) after skin retracted. Tolerated well * Yudy Ely RD, LD - 10/12/2019 6:46 AM EDT Contacted by diet office this am that patient does not like Ensure Plant Based. Per MNT protocol will discontinue oral nutrition supplement at lunch and dinner. * Héctor Oneill APRN - SHEET METAL DUCT INSTALLER APPRENTICE - 10/12/2019 6:13 AM EDT Cardiothoracic Surgery Progress Note 10/12/2019 Subjective: Admit Date: 10/07/2019 Interval History: S/P CABG x4- POD#5- No issues over night Subjective: Up in chair. States ready to go home Objective: Vitals: Temp (24hrs), Av.7 F (37.1 C), Min:98.4 F (36.9 C), Max:99.1 F (37.3 C) BP 107/72 Pulse 70 Temp 98.7 F (37.1 C) (Oral) Resp 18 Ht 5' 4 (1.626 m) Wt 184 lb (83.5kg) SpO2 91% BMI 31.58 kg/m I/O: Weights: Patient Vitals for the past 96 hrs (Last 3 readings): Weight 10/10/19 0500 184 lb (83.5 kg) 10/09/19 0600 188 lb 9.6 oz (85.5 kg) Labs: BMP: Recent Labs 10/10/19 0004 10/11/19 0006 10/12/19 0012 NA 135 136 136 K 4.2 4.1 3.9 CL 101 103 100 CO2 28 28 27 BUN 14 11 11 CREATININE 0.54 0.49* 0.57 GLUCOSE 145* 111* 137* . CBC: Recent Labs 10/10/19 0004 10/11/19 0006 10/12/19 0012 WBC 11.8* 9.9 10.9* RBC 3.13* 3.23* 3.15* HGB 9.8* 10.3* 10.0* HCT 28.8* 29.7* 28.9* MCV 92.1 91.9 91.8 MCH 31.3 31.9 31.8 MCHC 33.9 34.7 34.7 RDW 13.2 13.1 13.3 PLT 167 191 249 MPV 8.3 8.4 8.1 Hepatic: No results for input(s): AST, ALT, ALB, BILITOT, ALKPHOS in the last 72 hours. INR: Lab Results Component Value Date PROTIME 13.3 10/07/2019 INR 1.2 10/07/2019 Films: CXR portable: Reviewed Physical Exam: Physical Exam Constitutional: General: She is not in acute distress. Appearance: She is well-developed. She is not diaphoretic. HENT: Head: Normocephalic and atraumatic. Nose: Nose normal. Mouth/Throat: Mouth: Mucous membranes are moist. Eyes: Pupils: Pupils are equal, round, and reactive to light. Neck: Musculoskeletal: Normal range of motion and neck supple. Vascular: No JVD. Cardiovascular: Rate and Rhythm: Normal rate and regular rhythm. Heart sounds: Normal heart sounds. No murmur. No friction rub. No gallop. Pulmonary: Effort: Pulmonary effort is normal. No respiratory distress. Breath sounds: Normal breath sounds. No stridor. Abdominal: General: Bowel sounds are normal. There is no distension. Palpations: Abdomen is soft. Tenderness: There is no abdominal tenderness. Musculoskeletal: Normal range of motion. General: No tenderness. Skin: General: Skin is warm and dry. Comments: Sternotomy incision, old chest tube sites and leg incisions intact with no signs of infection Epicardial wires capped. Neurological: Mental Status: She is alert and oriented to person, place, and time. Psychiatric: Mood and Affect: Mood normal. Behavior: Behavior normal. Thought Content: Thought content normal. Judgment: Judgment normal. Medications: Scheduled Meds: metoprolol tartrate 25 mg Oral BID anastrozole 1 mg Oral Daily modafinil 200 mg Oral Daily heparin (porcine) 5,000 Units Subcutaneous BID insulin glargine 45 Units Subcutaneous Nightly melatonin 2 mg Oral Nightly levothyroxine 125 mcg Oral Daily insulin lispro 18 Units Subcutaneous TID WC insulin lispro 0-12 Units Subcutaneous TID WC lidocaine 1 patch Transdermal Daily sodium chloride flush 10 mL Intravenous 2 times per day sennosides-docusate sodium 2 tablet Oral Nightly atorvastatin 80 mg Oral Nightly aspirin 81 mg Oral Daily lidocaine 2 patch Transdermal Daily Continuous Infusions: dextrose Home Meds: Prior to Admission medications Medication Sig Start Date End Date Taking? Authorizing Provider isosorbide mononitrate (IMDUR) 30 MG extended release tablet Take 30 mg by mouth daily Yes Historical Provider, atenolol (TENORMIN) 50 MG tablet Take 50 mg by mouth 2 times daily Yes Historical Provider, insulin glargine (LANTUS) 100 UNIT/ML injection vial Inject 40 Units into the skin nightly Yes Historical Provider, insulin lispro (HUMALOG) 100 UNIT/ML injection vial Inject into the skin 3 times daily (before meals) Sliding Scale Yes Historical Provider, levothyroxine (SYNTHROID) 125 MCG tablet Take 125 mcg by mouth Daily Yes Historical Provider, lisinopril (PRINIVIL;ZESTRIL) 30 MG tablet Take 30 mg by mouth daily Yes Historical Provider, metFORMIN (GLUCOPHAGE) 500 MG tablet Take 500 mg by mouth daily (with breakfast) Yes Historical Provider, modafinil (PROVIGIL) 200 MG tablet Take 200 mg by mouth daily. Yes Historical Provider, anastrozole (ARIMIDEX) 1 MG tablet Take 1 mg by mouth daily Yes Historical Provider, pravastatin (PRAVACHOL) 80 MG tablet Take 80 mg by mouth daily Yes Historical Provider, aspirin 81 MG tablet Take 81 mg by mouth daily Yes Historical Provider, Dulaglutide 1.5 MG/0.5ML SOPN Inject 1.5 mg into the skin once a week On Sundays Historical Provider, traZODone (DESYREL) 50 MG tablet Take 50 mg by mouth nightly Patient states, no longer taking thismedication Historical Provider, clopidogrel (PLAVIX) 75 MG tablet Take 75 mg by mouth daily Patient stopped taking on September 23 priorto surgery. Historical Provider, Diet: Dietary Nutrition Supplements: Other Oral Supplement (see comment) DIET CARDIAC; Problem List: Active Problems: CAD, multiple vessel CAD in [place] artery Type 2 diabetes mellitus with hyperglycemia, with long-term current use of insulin (HCC) S/P CABG x 4 Acquired hypothyroidism Resolved Problems: * No resolved hospital problems. * Assessment and Plan: 1. CAD: Status post CABG X 4: BENITEZ to LAD, V to Diag, V to OM1, V to PDA of RCA; EVH, MAC on 10/07/19 -EF >55% % on MAC 10/07/19 -Core Medication: [x]ASA [x]BB [x] Statin [] ACEi/ARB EF>40% -Anticoagulation: n/a -Invasive Lines:Central Line: Day #5- discontinue prior to discharge today 2. Post op Pulm. Mgmt: (Normal post op course) on RA-97%. CXR: Reviewed by Dr. Duarte during rounds today. Continue C&DB, Enc use of IS. 3. Blood loss Anemia: Hgb:10.0 Stable. No s/s bleeding. Continue to monitor CBC 4. DM/Stress Hyperglycemia: A1C 7.6 Insulin per endocrine. Diabetic recommendation per endocrine note> Resume Metformin ER 500 mg 1 tablet daily,Trulicity 1.5 mg weekly, Lantus 45 units at bedtimeand Humalog 18 units three times a day plus medium dose sliding scale 5. Acute post op pain: On lidocaine patch and percocet prn 6. GI/DVT prophylaxis: PPI/SCD/Teds-sq heparin 7. Disposition: Plan discharge home later today with virtual visit follow up in CTS office in 7-10 days. Blood Conservation Initiative Log: - None to date * Forest Perez MD - 10/11/2019 3:06 PM EDT ENDOCRINOLOGY PROGRESS NOTE Patient: Rama Baird Unit/Bed:[address] Date of : 1960 Admit date: 10/07/2019 Subjective: The patient is being followed for: type 2 DM Duration: 1st diagnosed about 12 years ago Course since yesterday: patient feels overall better and appetite is improving. Tolerating meals Nopressors. No steroids. She didn't take the Lantus earlier this morning because she would like switched to bedtime since she takes it at bedtime at home and she thinks that controls her morning BS better. BS readings 100s. No hypoglycemia Severity: uncontrolled Associated with: CAD Aggravated by: post-op status; not eating well yet Relieved by: insulin given by nurses as inpatient; administered insulin doses are reviewed Patient is tolerating meals: [x] Yes [] No Diet: Dietary Nutrition Supplements: Other Oral Supplement (see comment) DIET CARDIAC; Review of Systems: Chest pain [] Yes [x] No Shortness of breath [] Yes [x] No Nausea [] Yes [x] No Vomiting [] Yes [x] No Past Medical/Surgical, Family, and Social History are reviewed and unchanged from current admissionother than CABG Medications: Scheduled Meds: ketamine rocuronium metoprolol tartrate 25 mg Oral BID anastrozole 1 mg Oral Daily modafinil 200 mg Oral Daily heparin (porcine) 5,000 Units Subcutaneous BID levothyroxine 125 mcg Oral Daily insulin glargine 56 Units Subcutaneous QAM insulin lispro 18 Units Subcutaneous TID WC insulin lispro 0-12 Units Subcutaneous TID WC lidocaine 1 patch Transdermal Daily sodium chloride flush 10 mL Intravenous 2 times per day sennosides-docusate sodium 2 tablet Oral Nightly atorvastatin 80 mg Oral Nightly aspirin 81 mg Oral Daily lidocaine 2 patch Transdermal Daily Continuous Infusions: dextrose PRN Meds:oxyCODONE-acetaminophen OR oxyCODONE-acetaminophen, sodium chloride flush, potassium chloride, magnesium sulfate, calcium gluconate IVPB, magnesium hydroxide, bisacodyl, ondansetron, potassium chloride, glucose, dextrose, glucagon (rDNA), dextrose Objective: HgbA1C: No results for input(s): LABA1C in the last 72 hours. BMP: Recent Labs 10/09/19 0004 10/10/19 0004 10/11/19 0006 NA 134* 135 136 K 4.2 4.2 4.1 CL 102 101 103 CO2 25 28 28 BUN 13 14 11 CREATININE 0.58 0.54 0.49* GLUCOSE 94 145* 111* Glucose: Recent Labs 10/09/19 1108 10/09/19 1154 10/09/19 1755 10/10/19 0648 10/10/19 1224 10/10/19 1831 10/11/19 0713 10/11/19 1144 POCGLU 144* 136* 162* 184* 120* 139* 191* 152* Physical Exam: Vitals: BP 125/69 Pulse 73 Temp 99.1 F (37.3 C) (Oral) Resp 18 Ht 5' 4 (1.626 m) Wt 184 lb (83.5 kg) SpO2 97% BMI 31.58 kg/m 24hour intake/output: Intake/Output Summary (Last 24 hours) at 10/11/2019 1506 Last data filed at 10/11/2019 0800 Gross per 24 hour Intake 320 ml Output Net 320 ml Physical Exam Vitals signs reviewed. Constitutional: Well developed. Sitting in chair Eyes: Conjunctiva clear, Pupils equal Neck: Nomasses, No thyromegaly Respiratory: No respiratory distress, Chest Clear to auscultation, symmetrical expansion, No deformity Cardiovascular System: Regular rate and rhythm, No murmurs, No rubs, No lower extremity edema. 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 Lab Results Component Value Date LABA1C 7.6 (H) 09/28/2019 S/p CABGx4 CTS team following Acquired hypothyroidism TSH is borderline elevated and Free T4 is normal Continue home dose levothyroxine Recheck in 4-6 weeks Plan: As outpatient prior to this admission: Pneumatic Tester: None Diabetes Medications/regimen: Metformin ER 500 mg daily lantus 40 units HS humalog- 30 units TID AC plus SSI Trulicity 1.5 mg weekly Recommendations/Changes As inpatient now: Continue Humalog 18 units AC meals Continue Humalog low dose SSI Stop Lantus in the morning (since patient didn't take it and she wants it moved to bedtime) Start Lantus 45 units at bedtime (using less than the dose that was given in last 2 days since BS readings are improving) Monitor BS AC HS Home going Diabetes regimen: (if there are any concerns regarding this plan please call Endocrinology team to discuss): Resume Metformin ER 500 mg 1 tablet daily Resume Trulicity 1.5 mg weekly Lantus 45 units at bedtime Humalog 18 units three times a day plus medium dose sliding scale as follows: Blood Sugar Extra short acting insulin Less than 150 0 151-200 2 201-250 4 251-300 6 301-350 8 More than 351 10 Counseling: Patient is counseled about symptoms of hypoglycemia and about importance of informing the RN if patient starts having such symptoms as inpatient Patient is counseled about plan Patient is counseled about blood sugar target Patient is counseled about effects of stress and surgery on blood sugar Follow up as outpatient after discharge: With PCP and or [facility] Patient lives in [place] and she prefers to just follow up with her PCP but she will check with herPCP if there is a local bladder tier to see * Monica Escobar PTA - 10/11/2019 2:52 PM EDT Physical Therapy Facility/Department: [facility] Daily Treatment Note NAME: Rama Baird : 1960 Date of Service: 10/11/2019 Discharge Recommendations: Home with assist PRN PT Equipment Recommendations Equipment Needed: No Assessment Body structures, Functions, Activity limitations: Decreased functional mobility ;Decreased ROM;Decreased strength;Increased pain;Decreased endurance Assessment: Pt at SBA to supervision level for most all mobility. Pt requires min assist for supineto sit. Pt is compliant with sternal precautions. Pt is progressing toward all PT goals. Recommend home with PRN assist at discharge. REQUIRES PT FOLLOW UP: Yes Activity Tolerance Activity Tolerance: Patient Tolerated treatment well Patient Diagnosis(es): There were no encounter diagnoses. has a past medical history of Abnormal stress test, Acute arthritis, Chest pain, Diabetes mellitus (HCC), History of left breast cancer, Hypercholesterolemia, Hypertension, and Hypothyroidism. has a past surgical history that includes Mastectomy, bilateral (11/02/2018); Cholecystectomy, laparoscopic; Breast biopsy; Tubal ligation; other surgical history; and Cardiac catheterization (09/24/2019). Restrictions Restrictions/Precautions Restrictions/Precautions: Surgical Protocols, Weight Bearing Required Braces or Orthoses?: No Upper Extremity Weight Bearing Restrictions Other: sternal precautions Position Activity Restriction Sternal Precautions: No Pushing, 10# Lifting Restrictions, No Pulling Sternal Precautions: yes Subjective General Chart Reviewed: Yes Family / Caregiver Present: No Subjective Subjective: Pt sitting up in chair. Agreeable to PT and would like to get back into bed when done with therapy. General Comment Comments: N95 mask, goggles, and gloves worn by RADIATOR TESTER entire session. Pt wore mask while in sigala. Pain Screening Patient Currently in Pain: Yes Pain Assessment Pain Assessment: 0-10 Pain Level: 2 Pain Type: Surgical pain Pain Location: Incision;Chest Vital Signs Patient Currently in Pain: Yes Orientation Orientation Overall Orientation Status: Within Normal Limits Cognition Cognition Overall Cognitive Status: WNL Objective Bed mobility Supine to Sit: Minimal assistance Sit to Supine: Stand by assistance Scooting: Stand by assistance Transfers Sit to Stand: Stand by assistance Stand to sit: Stand by assistance Comment: toilet transfer with SBA Ambulation Ambulation?: Yes Ambulation 1 Surface: level tile Device: No Device Assistance: Supervision Distance: ~400 ft Comments: one standing rest break, mask on pt in hallway Stairs/Curb Stairs?: Yes Stairs # Steps : 8 Rails: Right ascending Device: No Device Assistance: Stand by assistance Exercises Comments: P&C exercises # 1-9 x 10 reps each. G-Code OutComes Score AM-PAC Score Goals Short term goals Time Frame for Short term goals: 10 days Short term goal 1: Bed mobility CGA, PARTIALLY MET Short term goal 2: Sit to stand modif indep, PROGRESSING Short term goal 3: Amb 400' or 5 minutes, RPE 14 or lower, indep, PROGRESSING Short term goal 4: Curb step supv, NOT ADDRESSED Short term goal 5: Indep P&C ex, PROGRESSING Short term goal 6: Indep home walking program and managing secretions, PROGRESSING Patient Goals Patient goals : 1) go back to work 2) gardening Plan Plan Times per week: 6 Plan weeks: 10 days Current Treatment Recommendations: ROM, Balance Training, Functional Mobility Training, Stair training, Gait Training, Transfer Training, Endurance Training, Home Exercise Program Plan Comment: strengthening for LEs only. Chest PT protocol prn Safety Devices Type of devices: Left in bed, Call light within reach, Nurse notified, All fall risk precautions inplace Restraints Initially in place: No Therapy Time Individual Concurrent Group Co-treatment Time In 1409 Time Out 1435 Minutes 26 Timed Code Treatment Minutes: (GT, TP) Monica Escobar PTA * Shoaib Ford APRN - SHARLENE - 10/11/2019 6:09 AM EDT Cardiothoracic Surgery Progress Note Subjective: Interval History: CABG x4 (BENITEZ to LAD, V to Diag, V to OM1, V to PDA of RCA) EVH; MAC on 10/06 10/10-POD#4: Multiple loose stools. VSS; on RA I&Os Fluid balance for stay: -2.8L Subjective: Up in bed; multiple loose stools. Stopped miralax. Doesn't have a real appetite yet. Stated that she wants to eat but when her food comes she just doesn't feel like. Pain controlled. Objective: BP 139/68 Pulse 80 Temp 99.7 F (37.6 C) (Oral) Resp 18 Ht 5' 4 (1.626 m) Wt 184 lb (83.5kg) SpO2 96% BMI 31.58 kg/m Diagnostics: Reviewed in EMR Physical Exam Constitutional: No acute distress and well-nourished Psychiatric: Alert and oriented and mood and affect is appropriate Respiratory: Lungs are CTA, with no rales or wheezes noted, respiratory effort is normal and symmetrical and with good air movement bilaterally Heart/Vasc: Normal rate, regular rhythm, normal S1 S2, no murmur, gallop or friction rub noted and peripheral pulses equal, intact, bilaterally Abdomen/: Normal BS, abdomen soft, non-tender, non-distended and voids appropriately Skin: Skin color normal for ethnicity, warm to touch, well perfused, nails clean and free of pitting bilaterally, cap refill <2secs and BLE with no edema noted Incisions: Healing appropriately, well approximated, no drainage noted, and with no signs of infection Assessment/Plan: 1. CAD/HTN.HLP s/p CABG x4 (BENITEZ to LAD, V to Diag, V to OM1, V to PDA of RCA) EVH; MAC on 10/06 EF: >55%-10/06 Continue care per orders: Increased BB added home arimedex & modafimil. D/c miralax due to multiple BMs Cardiac Core Medications: ASA, Statin and BB Invasive Lines Management: Central Line: Inserted: 10/06 Blood Conservation: None noted in postoperatively period. DVT prophylaxis: TEDs, SCDs and Heprin SQ 2. DM type II Endo following recs per their note: Tx plan as of today continue same inpatient doses. Medications Prior to Admission: Prior to Admission medications Medication Sig Start Date End Date Taking? Authorizing Provider isosorbide mononitrate (IMDUR) 30 MG extended release tablet Take 30 mg by mouth daily Yes Historical Provider, atenolol (TENORMIN) 50 MG tablet Take 50 mg by mouth 2 times daily Yes Historical Provider, insulin glargine (LANTUS) 100 UNIT/ML injection vial Inject 40 Units into the skin nightly Yes Historical Provider, insulin lispro (HUMALOG) 100 UNIT/ML injection vial Inject into the skin 3 times daily (before meals) Sliding Scale Yes Historical Provider, levothyroxine (SYNTHROID) 125 MCG tablet Take 125 mcg by mouth Daily Yes Historical Provider, lisinopril (PRINIVIL;ZESTRIL) 30 MG tablet Take 30 mg by mouth daily Yes Historical Provider, metFORMIN (GLUCOPHAGE) 500 MG tablet Take 500 mg by mouth daily (with breakfast) Yes Historical Provider, modafinil (PROVIGIL) 200 MG tablet Take 200 mg by mouth daily. Yes Historical Provider, anastrozole (ARIMIDEX) 1 MG tablet Take 1 mg by mouth daily Yes Historical Provider, pravastatin (PRAVACHOL) 80 MG tablet Take 80 mg by mouth daily Yes Historical Provider, aspirin 81 MG tablet Take 81 mg by mouth daily Yes Historical Provider, Dulaglutide 1.5 MG/0.5ML SOPN Inject 1.5 mg into the skin once a week On Sundays Historical Provider, traZODone (DESYREL) 50 MG tablet Take 50 mg by mouth nightly Patient states, no longer taking thismedication Historical Provider, clopidogrel (PLAVIX) 75 MG tablet Take 75 mg by mouth daily Patient stopped taking on September 23 priorto surgery. Historical MD Fatemeh * Forest Perez MD - 10/10/2019 12:12 PM EDT ENDOCRINOLOGY PROGRESS NOTE Patient: Rama Baird Unit/Bed:[id number] Date of : 1960 Admit date: 10/07/2019 Subjective: The patient is being followed for: type 2 DM Duration: 1st diagnosed about 12 years ago Course since yesterday: patient feels overall better and appetite is improving Tolerating meals No pressors. No steroids. Switched to Sub-Q insulin yesterday as planned. BS readings high 100s. No hypoglycemia Severity: uncontrolled Associated with: CAD Aggravated by: post-op status; not eating well yet Relieved by: insulin given by nurses as inpatient; administered insulin doses are reviewed Patient is tolerating meals: [x] Yes [] No Diet: Dietary Nutrition Supplements: Other Oral Supplement (see comment) DIET CARDIAC; Review of Systems: Chest pain [x] Yes [] No Shortness of breath [] Yes [x] No Nausea [] Yes [x] No Vomiting [] Yes [x] No Past Medical/Surgical, Family, and Social History are reviewed and unchanged from current admissionother than CABG Medications: Scheduled Meds: levothyroxine 125 mcg Oral Daily insulin glargine 50 Units Subcutaneous QAM insulin lispro 18 Units Subcutaneous TID WC insulin lispro 0-12 Units Subcutaneous TID WC acetaminophen 1,000 mg Oral Q8H metoprolol tartrate 12.5 mg Oral BID lidocaine 1 patch Transdermal Daily sodium chloride flush 10 mL Intravenous 2 times per day polyethylene glycol 17 g Oral Daily sennosides-docusate sodium 2 tablet Oral Nightly pantoprazole 40 mg Intravenous Daily And sodium chloride (PF) 10 mL Intravenous Daily atorvastatin 80 mg Oral Nightly aspirin 81 mg Oral Daily lidocaine 2 patch Transdermal Daily Continuous Infusions: sodium chloride 50 mL/hr at 10/07/19 0630 sodium chloride 20 mL/hr at 10/07/19 1300 phenylephrine (STELLA-SYNEPHRINE) 50mg/250mL infusion nitroprusside (NIPRIDE) 50 mg in D5W infusion Stopped (10/07/19 1533) dextrose PRN Meds:oxyCODONE, sodium chloride flush, potassium chloride, magnesium sulfate, calcium gluconateIVPB, magnesium hydroxide, bisacodyl, ondansetron, potassium chloride, phenylephrine (STELLA-SYNEPHRINE) 50mg/250mL infusion, nitroprusside (NIPRIDE) 50 mg in D5W infusion, glucose, dextrose, glucagon (r DNA), dextrose, HYDROmorphone OR HYDROmorphone Objective: HgbA1C: No results for input(s): LABA1C in the last 72 hours. BMP: Recent Labs 10/08/19 0010 10/09/19 0004 10/10/19 0004 NA 135 134* 135 K 4.4 4.2 4.2 CL 106 102 101 CO2 22 25 28 BUN 10 13 14 CREATININE 0.48* 0.58 0.54 GLUCOSE 96 94 145* Glucose: Recent Labs 10/09/19 0656 10/09/19 0756 10/09/19 0908 10/09/19 0955 10/09/19 1108 10/09/19 1154 10/09/19 1755 10/10/19 0648 POCGLU 130* 132* 134* 149* 144* 136* 162* 184* Physical Exam: Vitals: BP 100/68 Pulse 77 Temp 99.3 F (37.4 C) (Oral) Resp 16 Ht 5' 4 (1.626 m) Wt 184 lb (83.5 kg) SpO2 98% BMI 31.58 kg/m 24hour intake/output: Intake/Output Summary (Last 24 hours) at 10/10/2019 1215 Last data filed at 10/10/2019 0815 Gross per 24 hour Intake 240 ml Output 350 ml Net -110 ml Physical Exam Vitals signs reviewed. Constitutional: Well developed. Sitting in chair Eyes: Conjunctiva clear, Pupils equal Neck: Nomasses, No thyromegaly Respiratory: No respiratory distress, Chest Clear to auscultation, symmetrical expansion, No deformity Cardiovascular System: Regular rate and rhythm, No murmurs, No rubs, No lower extremity edema. 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 hyperglycemia with fpc insulin use Lab Results Component Value Date LABA1C 7.6 (H) 09/28/2019 S/p CABGx4 CTS team following Acquired hypothyroidism TSH is borderline elevated and Free T4 is normal Continue home dose levothyroxine Recheck in 4-6 weeks Plan: As outpatient prior to this admission: Pneumatic Tester: None Diabetes Medications/regimen: Metformin 500 mg daily lantus 40 units HS humalog- 30 units TID AC plus SSI Recommendations/Changes As inpatient now: Lantus 6 units now Increase Lantus to 56 units every morning Continue Humalog 18 units AC meals Continue Humalog low dose SSI Monitor BS AC HS Home going Diabetes regimen: (if there are any concerns regarding this plan please call Endocrinology team to discuss): Unless otherwise indicated in this note, then when patient is ready for discharge, please dischargepatient on the same insulin types and doses patient is on as inpatient at time of discharge Counseling: Patient is counseled about symptoms of hypoglycemia and about importance of informing the RN if patient starts having such symptoms as inpatient Patient is counseled about plan Patient is counseled about blood sugar target Patient is counseled about effects of stress and surgery on blood sugar Follow up as outpatient after discharge: With PCP and or [facility] * Bebe Ventura, HALL MANAGER - SHEET METAL DUCT INSTALLER APPRENTICE - 10/10/2019 8:45 AM EDT Cardiothoracic Surgery Progress Note 10/10/2019 8:45 AM Subjective: Admit Date: 10/07/2019 PCP: MAGDIEL MONTILLA MD Interval History: POD #3 CABG x4. Episode of temp of 101.7, pt felt flushed, pt temp normalized this am to 98.8 and no spike in WBC this am Subjective: Patient states feels better today Objective: Vitals: Temp (24hrs), Av.2 F (37.3 C), Min:98.4 F (36.9 C), Max:101.7 F (38.7 C) BP 114/70 Pulse 85 Temp 98.8 F (37.1 C) (Temporal) Resp 16 Ht 5' 4 (1.626 m) Wt 184 lb (83.5 kg) SpO2 91% Comment: Simultaneous filing. User may not have seen previous data. BMI 31.58 kg/m I/O: Patient Vitals for the past 96 hrs (Last 3 readings): Weight 10/10/19 0500 184 lb (83.5 kg) 10/09/19 0600 188 lb 9.6 oz (85.5 kg) 10/07/19 0607 187 lb (84.8 kg) Labs and Diagnostics: (reviewed in EMR) BMP: Recent Labs 10/08/19 0010 10/09/19 0004 10/10/19 0004 NA 135 134* 135 K 4.4 4.2 4.2 CL 106 102 101 CO2 22 25 28 BUN 10 13 14 CREATININE 0.48* 0.58 0.54 GLUCOSE 96 94 145* . CBC: Recent Labs 10/09/19 0004 10/10/19 0004 WBC 14.2* 11.8* HGB 9.5* 9.8* PLT 147 167 Hepatic: No results for input(s): AST, ALT, ALB, BILITOT, ALKPHOS in the last 72 hours. INR: Lab Results Component Value Date PROTIME 13.3 10/07/2019 INR 1.2 10/07/2019 Medications: Scheduled Meds: insulin glargine 50 Units Subcutaneous QAM insulin lispro 18 Units Subcutaneous TID WC insulin lispro 0-12 Units Subcutaneous TID WC acetaminophen 1,000 mg Oral Q8H metoprolol tartrate 12.5 mg Oral BID lidocaine 1 patch Transdermal Daily sodium chloride flush 10 mL Intravenous 2 times per day polyethylene glycol 17 g Oral Daily sennosides-docusate sodium 2 tablet Oral Nightly pantoprazole 40 mg Intravenous Daily And sodium chloride (PF) 10 mL Intravenous Daily atorvastatin 80 mg Oral Nightly aspirin 81 mg Oral Daily lidocaine 2 patch Transdermal Daily Continuous Infusions: sodium chloride 50 mL/hr at 10/07/19 0630 sodium chloride 20 mL/hr at 10/07/19 1300 phenylephrine (STELLA-SYNEPHRINE) 50mg/250mL infusion nitroprusside (NIPRIDE) 50 mg in D5W infusion Stopped (10/07/19 1533) insulin Stopped (10/09/19 1315) dextrose Home Meds: Prior to Admission medications Medication Sig Start Date End Date Taking? Authorizing Provider isosorbide mononitrate (IMDUR) 30 MG extended release tablet Take 30 mg by mouth daily Yes Historical Provider, atenolol (TENORMIN) 50 MG tablet Take 50 mg by mouth 2 times daily Yes Historical Provider, insulin glargine (LANTUS) 100 UNIT/ML injection vial Inject 40 Units into the skin nightly Yes Historical Provider, insulin lispro (HUMALOG) 100 UNIT/ML injection vial Inject into the skin 3 times daily (before meals) Sliding Scale Yes Historical Provider, levothyroxine (SYNTHROID) 125 MCG tablet Take 125 mcg by mouth Daily Yes Historical Provider, lisinopril (PRINIVIL;ZESTRIL) 30 MG tablet Take 30 mg by mouth daily Yes Historical Provider, metFORMIN (GLUCOPHAGE) 500 MG tablet Take 500 mg by mouth daily (with breakfast) Yes Historical Provider, modafinil (PROVIGIL) 200 MG tablet Take 200 mg by mouth daily. Yes Historical Provider, anastrozole (ARIMIDEX) 1 MG tablet Take 1 mg by mouth daily Yes Historical Provider, pravastatin (PRAVACHOL) 80 MG tablet Take 80 mg by mouth daily Yes Historical Provider, aspirin 81 MG tablet Take 81 mg by mouth daily Yes Historical Provider, Dulaglutide 1.5 MG/0.5ML SOPN Inject 1.5 mg into the skin once a week On Sundays Historical Provider, traZODone (DESYREL) 50 MG tablet Take 50 mg by mouth nightly Patient states, no longer taking thismedication Historical Provider, clopidogrel (PLAVIX) 75 MG tablet Take 75 mg by mouth daily Patient stopped taking on September 23 priorto surgery. Historical Provider, Physical Exam Constitutional: General: She is not in acute distress. Appearance: She is well-developed. She is not diaphoretic. HENT: Head: Normocephalic and atraumatic. Eyes: Pupils: Pupils are equal, round, and reactive to light. Neck: Musculoskeletal: Normal range of motion and neck supple. Vascular: No JVD. Cardiovascular: Rate and Rhythm: Normal rate and regular rhythm. Heart sounds: Normal heart sounds. No murmur. No friction rub. No gallop. Pulmonary: Effort: Pulmonary effort is normal. No respiratory distress. Breath sounds: Normal breath sounds. No stridor. Abdominal: General: Bowel sounds are normal. There is no distension. Palpations: Abdomen is soft. Tenderness: There is no abdominal tenderness. Musculoskeletal: Normal range of motion. General: No tenderness. Skin: General: Skin is warm and dry. Comments: Sternal incision intact, no s/s of infection. Neurological: Mental Status: She is alert and oriented to person, place, and time. Psychiatric: Behavior: Behavior normal. Thought Content: Thought content normal. Judgment: Judgment normal. Diet: Dietary Nutrition Supplements: Other Oral Supplement (see comment) DIET CARDIAC; Problem List: Active Problems: CAD, multiple vessel CAD in [place] artery Type 2 diabetes mellitus with hyperglycemia, with long-term current use of insulin (HCC) S/P CABG x 4 Acquired hypothyroidism Resolved Problems: * No resolved hospital problems. * Assessment and Plan: - Multivessel/CAD: S/pCABG x 4 on 10/07/19: currently on ASA, BB, Statin -EF 60% on 09/23/19, Building [employer] Dr Wheeler from [facility]. Chest tubes dced yesterday -Core Medication: [x]?ASA [x]?BB [x]? Statin [x]? -Anticoagulation:n/a -Invasive Lines:Central Line: Day #3 2. Post op Pulm. Mgmt: (Normal post op course) currently on room air-95% Continue C&DB, Enc useof IS. 3. Blood loss Anemia: Hgb:9.8 Stable. No s/s bleeding. Continue to monitor CBC 4. Consumptive Thrombocytopenia: Platelets:167. Resolved. No s/s bleeding. Continue monitor CBC 5. Stress Hyperglycemia/Hx Type II DM: A1C 7.6, home meds included metformin and insulin, await home going recommendations from ENDO 6. Hx of HTN: B/p systolic 107-120s, home med of lisinopril not restarted 7. Hx of Breast Cancer: home med of Arimidex 1 mg daily, will d/w Duarte on rounds tomorrow if want to restart 8. Febrile Episode: spiked temp to 101.7 yesterday, no s/s of infection, pt felt flushed, placed onscheduled tylenol, temp this am 99.5, no WBC, will monitor 9. Acute post op pain: Pain mgmt followed On scheduled tylenol, lidocaine patch and oxycodone IR prn. 10. FEN: Increase diet as tolerated. On Miralax, senokot. No BM yet 11. Hx Hypothyroidism: restarted home dose of synthroid today 12. GI/DVT prophylaxis: PPI/SCD/Teds-sq heparin 13. Disposition: Continue progressive care in [facility]-possible home on Friday Disclaimers: ? INFORMED CONSENT: The nature and purpose of the proposed treatment and/or procedure have been discussed. The risks and benefits of the proposed treatment or procedures have been reviewed. Alternatives have been reviewed in addition to the risks and benefits of not receiving treatments or undergoing procedures. Pursuant to this discussion, the patient agrees to undergo the proposed treatment or procedure. ? Captured images seen in this note are not a substitute for a comprehensive interpretation of the entire data set as reflected by the interpreting physician with regard to radiology, echocardiography, and other diagnostic images. ? This note may have been dictated using xTV Practice Edition 2.6 and/or AssertID Voice Recognition Feature. The document was proofread; however, unrecognized voice recognition rocket engine component mechanic errors may be present. * Bebe Ventura APRN - CNS - 10/09/2019 2:[address] Surgery Interval Note: Nurse reported patient with a temp of 101.7, on room air, all other VS stable. D/w with ICU doctor and Dr Duarte, will treat with tylenol and repeat CBC and CXR in am. Increased tylenol to 1 gm q 8 hours and dced percocet and change to IR oxycodone prn for pain. * Stephanie Layton, RADIATOR TESTER - 10/09/2019 12:54 PM EDT Physical Therapy Facility/Department: [facility] Daily Treatment Note NAME: Rama Baird : 1960 Date of Service: 10/09/2019 Discharge Recommendations: Home with assist PRN PT Equipment Recommendations Equipment Needed: No Assessment Body structures, Functions, Activity limitations: Decreased functional mobility ;Decreased ROM;Decreased strength;Increased pain;Decreased endurance Assessment: Pt making nice progress with gait. Followed sternal precautions. Biggest challenge was bed mobility. Anticipate discharge to home once medically stable. Prognosis: Good Decision Making: Medium Complexity REQUIRES PT FOLLOW UP: Yes Activity Tolerance Activity Tolerance: Patient limited by endurance Patient Diagnosis(es): There were no encounter diagnoses. has a past medical history of Abnormal stress test, Acute arthritis, Chest pain, Diabetes mellitus (HCC), History of left breast cancer, Hypercholesterolemia, Hypertension, and Hypothyroidism. has a past surgical history that includes Mastectomy, bilateral (11/02/2018); Cholecystectomy, laparoscopic; Breast biopsy; Tubal ligation; other surgical history; and Cardiac catheterization (09/24/2019). Restrictions Restrictions/Precautions Restrictions/Precautions: Surgical Protocols, Weight Bearing Required Braces or Orthoses?: No Upper Extremity Weight Bearing Restrictions Other: sternal precautions Position Activity Restriction Sternal Precautions: No Pushing, 10# Lifting Restrictions, No Pulling Sternal Precautions: yes Subjective General Chart Reviewed: Yes Family / Caregiver Present: No Subjective Subjective: Pt sitting up in chair. Agreeable to PT and would like to get back into bed when done with therapy. General Comment Comments: tele, O2 via NC 2L. Pain Screening Patient Currently in Pain: Yes Pain Assessment Pain Assessment: 0-10 Pain Level: 3 Pain Type: Surgical pain Pain Location: Sternum Vital Signs Patient Currently in Pain: Yes Orientation Orientation Overall Orientation Status: Within Normal Limits Cognition Cognition Overall Cognitive Status: WNL Objective Bed mobility Sit to Supine: Moderate assistance Scooting: Moderate assistance Comment: bed flat, following sternal precautions Transfers Sit to Stand: Contact guard assistance Stand to sit: Contact guard assistance Ambulation Ambulation?: Yes Ambulation 1 Device: (NeGoGoVan) Other Apparatus: O2(IV) Assistance: Stand by assistance Gait Deviations: Slow Qiana Distance: ~400 ft Comments: two standing rest breaks, mask on pt in hallway Stairs/Curb Stairs?: No Exercises Comments: issued what to expect after heart surgery booklet and performed P&C ex's #1-9 x 5 reps each. IS ~500-750ml. Encouraged pt to do IS every hour while awake. Other exercises Other exercises?: No Goals Short term goals Time Frame for Short term goals: 10 days Short term goal 1: Bed mobility CGA, PROGRESSING Short term goal 2: Sit to stand modif indep, PROGRESSING Short term goal 3: Amb 400' or 5 minutes, RPE 14 or lower, indep, PROGRESSING Short term goal 4: Curb step supv, NOT ADDRESSED Short term goal 5: Indep P&C ex, PROGRESSING Short term goal 6: Indep home walking program and managing secretions, PROGRESSING Patient Goals Patient goals : 1) go back to work 2) gardening Plan Plan Times per week: 6 Plan weeks: 10 days Current Treatment Recommendations: ROM, Balance Training, Functional Mobility Training, Stair training, Gait Training, Transfer Training, Endurance Training, Home Exercise Program Plan Comment: strengthening for LEs only. Chest PT protocol prn Safety Devices Type of devices: Left in bed, Call light within reach, Nurse notified, All fall risk precautions inplace Restraints Initially in place: No Therapy Time Individual Concurrent Group Co-treatment Time In 1216 Time Out 1240 Minutes 24 Timed Code Treatment Minutes: 24 Minutes(gait, TP) *This RADIATOR TESTER wore N95, gloves and goggles during whole treatment session.* Stephanie Layton, RADIATOR TESTER * Fatemeh Arora, HALL MANAGER - EXPLOSIVE EXPERT - 10/09/2019 12:25 PM EDT PAGING: The Acute Pain Service providers are available by pager. Please reference [employer] and/or [facility] Phonebook for Pain Management Provider STARCH FACTORY LABORER and direct all questions to the provider listed. 10/09/2019 Referring Physician: Carter Duarte MD Subjective: We have been asked to see this 59 y.o. female for complex pain management s/p CABG X 4: BENITEZ to LAD, V to Diag, V to OM1, V to PDA of RCA; EVH; MAC on 10/07/2019 Thorough chart and nursing note review completed. Patient feels pain well controlled at this time, chest tubes removed. States she has been able to ambulate without difficulty. No further complaints. Due to the current efforts to prevent transmission of COVID-19, this visit is completed via Telehealth to help reduce rounding and preserve PPE during the COVID-19 pandemic. All relevant records and diagnostic tests were reviewed, including laboratory results and imaging. Care will be coordinated with the primary team as appropriate. Pain Severity: 3 on scale of 1-10, tolerable Pain Frequency: intermittent Pain Location: Chest/ back of lower neck Pain Radiation: nonradiating Pain Quality: sharp and tender Adverse effect to opioids: none Sedation score: 1: Awake and alert Timing: Intermittent Onset: : Post surgical. Aggravating Factors: Coughing Alleviating Factors: Pain medications Last BM was: No BM, + Flatus Social History Tobacco Use Smoking Status Never Smoker Smokeless Tobacco Never Used Social History Substance and Sexual Activity Alcohol Use Yes Comment: Few times a month Social History Substance and Sexual Activity Drug Use Never Pain Management: n/a The patient's medical history and physical assessment, medications, allergies, patient's current medical condition, and labs were reviewed as part ofthis consultation. [x] Patient's Medications have been reviewed. [x] Patient's OARRS report (PDMP) have been reviewed. 09/07/2019 1 06/30/2019 Modafinil 100 Mg Tablet 30.00 30 09/07/2019 1 06/30/2019 Modafinil 200 Mg Tablet 30.00 30 08/09/2019 1 06/30/2019 Modafinil 200 Mg Tablet 30.00 30 07/23/2019 2 07/23/2019 Oxycodone-Acetaminophen 5-325 28.00 7 07/12/2019 1 06/30/2019 Modafinil 100 Mg Tablet 30.00 30 Objective Findings: Height: 5' 4 (162.6 cm) Weight: 188 lb 9.6 oz (85.5 kg) BMI (Calculated): 32.4 Vital signs: Blood pressure 101/61, pulse 81, temperature 98.4 F (36.9 C), temperature source Temporal, resp. rate 16, height 5' 4 (1.626 m), weight 188 lb 9.6 oz (85.5 kg), SpO2 93 %. Lab Results Component Value Date/Time HGB 9.5 (L) 10/09/2019 12:04 AM HCT 28.2 (L) 10/09/2019 12:04 AM PLT 147 10/09/2019 12:04 AM WBC 14.2 (H) 10/09/2019 12:04 AM PROTIME 13.3 (H) 10/07/2019 12:15 PM INR 1.2 (H) 10/07/2019 12:15 PM APTT 22.0 10/07/2019 12:15 PM NA 134 (L) 10/09/2019 12:04 AM K 4.2 10/09/2019 12:04 AM BUN 13 10/09/2019 12:04 AM CREATININE 0.58 10/09/2019 12:04 AM GLUCOSE 94 10/09/2019 12:04 AM Allergies: Hydroxychloroquine and Penicillins Past Medical History: Diagnosis Date Abnormal stress test Acute arthritis Chest pain Diabetes mellitus (HCC) History of left breast cancer Hypercholesterolemia Hypertension Hypothyroidism Past Surgical History: Procedure Laterality Date BREAST BIOPSY CARDIAC CATHETERIZATION 09/24/2019 CHOLECYSTECTOMY, LAPAROSCOPIC MASTECTOMY, BILATERAL 11/02/2018 with reconstruction OTHER SURGICAL HISTORY mid urethral sling TUBAL LIGATION Family History Problem Relation Age of Onset Arthritis Mother Breast Cancer Mother Diabetes Mother Heart Disease Mother Hypertension Mother Thyroid Disease Mother High Cholesterol Mother Diabetes Father Heart Disease Father Hypertension Father Cancer Father Breast Cancer Sister Colon Cancer Maternal Grandmother Lung Cancer Paternal Grandfather Coronary Art Dis Other Thyroid Disease Maternal Aunt Patient Active Problem List Diagnosis CAD, multiple vessel CAD in [place] artery Type 2 diabetes mellitus with hyperglycemia, with long-term current use of insulin (HCC) S/P CABG x 4 Acquired hypothyroidism Review of Systems Constitutional: Negative for chills and fever. Respiratory: Negative for cough, chest tightness and shortness of breath. Cardiovascular: Positive for chest pain (incisional). Gastrointestinal: Negative for nausea and vomiting. Physical Exam Vitals signs and nursing note reviewed. Constitutional: General: She is awake. Neurological: Mental Status: She is alert and oriented to person, place, and time. Psychiatric: Attention and Perception: Attention normal. Mood and Affect: Mood normal. Mood is not anxious or depressed. Speech: Speech normal. Behavior: Behavior normal. Behavior is not agitated or aggressive. Behavior is cooperative. CHART PICKER: None Pain Management Adjuvants: 10/06 10/07 [id number] APAP 1g 0 Hydromorphone 1.25 0.5 Oxycodone 25 0 LP Ketorolac 15 15 Assessment: 1. Acute pain s/p CABG 10/07/2019 Pain Management Plan: Liver enzymes elevated, last checked: 09/28/2019. Recommend recheck prior to starting APAP, ordered 10/06, no results at this time. Oxycodone 5 - 10 mg po q4h prn moderate to severe breakthrough pain. Can move to Q6 hours PRN as tolerated. Hydromorphone 0.25 mg - 0.5 mg IVP q4h prn moderate to severe breakthrough pain. Please utilize oral medications first. Lidocaine patches x 2. Cut and place as needed. Order additional LP to back of neck. Ketorolac per CTS Patient currently receiving opioids for pain management necessitating a bowel regimen. Recommend initiating scheduled Sennakot-S 8.6/50mg, 1 tablet PO BID. Would also recommend Milk of Magnesia 400mg/5ml, administer 30mL by mouth daily PRN. Pain is well controlled at this time, we will sign off. Thank you for allowing us to participate inthe care of this patient. Plan discussed with patient who appears to understand and agrees. PAGING: The Acute Pain Service providers are available by pager. Please reference [facility] and/or [facility] Phonebook for Pain Management Provider STARCH FACTORY LABORER and direct all questions to the provider listed. * Forest Perez MD - 10/09/2019 11:59 AM EDT ENDOCRINOLOGY PROGRESS NOTE Patient: Rama Baird Unit/Bed:[id number] Date of : 1960 Admit date: 10/07/2019 Subjective: The patient is being followed for: type 2 DM Duration: 1st diagnosed about 12 years ago Course since yesterday: patient feels overall better but appetite is not back yet. Tolerating mealsbut eating only small amount. No pressors. No steroids. Still on Humulin R drip now about 9 units per hour but during the night mostly 3.35-6.75 units per hour Severity: uncontrolled Associated with: CAD Aggravated by: post-op status; not eating well yet Relieved by: insulin given by nurses as inpatient; administered insulin doses are reviewed Patient is tolerating meals: [x] Yes [] No Diet: DIET CARDIAC; Carb Control: 5 carb choices (75 gms)/meal Dietary Nutrition Supplements: Other Oral Supplement (see comment) Review of Systems: Chest pain [x] Yes [] No Shortness of breath [] Yes [x] No Nausea [] Yes [x] No Vomiting [] Yes [x] No Past Medical/Surgical, Family, and Social History are reviewed and unchanged from current admissionother than CABG Medications: Scheduled Meds: metoprolol tartrate 12.5 mg Oral BID lidocaine 1 patch Transdermal Daily sodium chloride flush 10 mL Intravenous 2 times per day polyethylene glycol 17 g Oral Daily sennosides-docusate sodium 2 tablet Oral Nightly pantoprazole 40 mg Intravenous Daily And sodium chloride (PF) 10 mL Intravenous Daily chlorhexidine 15 mL Mouth/Throat BID mupirocin Nasal BID atorvastatin 80 mg Oral Nightly aspirin 81 mg Oral Daily lidocaine 2 patch Transdermal Daily Continuous Infusions: sodium chloride 50 mL/hr at 10/07/19 0630 sodium chloride 20 mL/hr at 10/07/19 1300 phenylephrine (STELLA-SYNEPHRINE) 50mg/250mL infusion nitroprusside (NIPRIDE) 50 mg in D5W infusion Stopped (10/07/19 1533) insulin 7.25 Units/hr (10/09/19 0955) dextrose PRN Meds:perflutren lipid microspheres, sodium chloride flush, sodium chloride flush, potassium chloride, magnesium sulfate, calcium gluconate IVPB, acetaminophen, magnesium hydroxide, bisacodyl, ondansetron, potassium chloride, phenylephrine (STELLA-SYNEPHRINE) 50mg/250mL infusion, nitroprusside (NIPRIDE) 50 mg in D5W infusion, glucose, dextrose, glucagon (rDNA), dextrose, HYDROmorphone OR HYDROmorphone, oxyCODONE OR oxyCODONE Objective: HgbA1C: No results for input(s): LABA1C in the last 72 hours. BMP: Recent Labs 10/07/19 1215 10/08/19 0010 10/09/19 0004 NA 139 135 134* K 4.4 4.4 4.2 CL 109* 106 102 CO2 20* 22 25 BUN 9 10 13 CREATININE 0.61 0.48* 0.58 GLUCOSE 131* 96 94 Glucose: Recent Labs 10/09/19 0505 10/09/19 0607 10/09/19 0656 10/09/19 0756 10/09/19 0908 10/09/19 0955 10/09/19 1108 10/09/19 1154 POCGLU 86 110* 130* 132* 134* 149* 144* 136* Physical Exam: Vitals: BP (!) 143/64 Pulse 86 Temp 98.4 F (36.9 C) (Temporal) Resp 16 Ht 5' 4 (1.626 m) Wt 188 lb 9.6 oz (85.5 kg) SpO2 93% BMI 32.37 kg/m 24hour intake/output: Intake/Output Summary (Last 24 hours) at 10/09/2019 1205 Last data filed at 10/09/2019 1130 Gross per 24 hour Intake 1333 ml Output 2255 ml Net -922 ml Physical Exam Vitals signs reviewed. Constitutional: Well developed. Sitting in chair Eyes: Conjunctiva clear, Pupils equal Neck: [place], No thyromegaly Respiratory: No respiratory distress, Chest Clear to auscultation, symmetrical expansion, No deformity Cardiovascular System: Regular rate and rhythm, No murmurs, No rubs, No lower extremity edema. 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 Lab Results Component Value Date LABA1C 7.6 (H) 09/28/2019 S/p CABGx4 CTS team following Acquired hypothyroidism TSH is borderline elevated and Free T4 is normal Continue home dose levothyroxine Recheck in 4-6 weeks Plan: As outpatient prior to this admission: Pneumatic Tester: None Diabetes Medications/regimen: Metformin 500 mg daily lantus 40 units HS humalog- 30 units TID AC plus SSI Recommendations/Changes As inpatient now: Will switch Humulin R drip to Sub-Q insulin Administer Lantus 50 units Stat once and Humalog 10 units once now (giving less because she didn't eat well at lunch) Humalog 18 units AC meals Humalog low dose SSI Stop Humulin R drip 1 hour after administering Lantus Monitor BS AC HS instead of hourly once the insulin drip is discontinued Home going Diabetes regimen: (if there are any concerns regarding this plan please call Endocrinology team to discuss): Unless otherwise indicated in this note, then when patient is ready for discharge, please dischargepatient on the same insulin types and doses patient is on as inpatient at time of discharge Counseling: Patient is counseled about symptoms of hypoglycemia and about importance of informing the RN if patient starts having such symptoms as inpatient Patient is counseled about plan Patient is counseled about blood sugar target Patient is counseled about effects of stress and surgery on blood sugar Follow up as outpatient after discharge: With PCP and or [facility] * Bebe Ventura APRN - CNS - 10/09/2019 10:27 AM EDT Interval Note: Chest tubes removed without incident, patient tolerated well. * Carter Duarte MD - 10/09/2019 8:25 AM EDT Cardiothoracic Surgery Progress Note 10/09/2019 8:26 AM Subjective: Admit Date: 10/07/2019 PCP: MAGDIEL MONTILLA MD Interval History: POD 2 CABG X 4 - doing well Subjective: No complaints Objective: Vitals: Temp (24hrs), Av.2 F (36.8 C), Min:97.6 F (36.4 C), Max:98.8 F (37.1 C) BP (!) 98/58 Comment: Simultaneous filing. User may not have seen previous data. Pulse 79 Comment: Simultaneous filing. User may not have seen previous data. Temp 98.5 F (36.9 C) (Temporal) Resp 16 Ht 5' 4 (1.626 m) Wt 188 lb 9.6 oz (85.5 kg) SpO2 97% Comment: Simultaneous filing. Usermay not have seen previous data. BMI 32.37 kg/m I/O: Date 10/09/19 0000 - 10/09/19 2359 Shift 0128-0607 [id number] [id number] 24 Hour Total INTAKE I.V.(mL/kg) 483(5.6) 483(5.6) Shift Total(mL/kg) 483(5.6) 483(5.6) OUTPUT Urine(mL/kg/hr) 565(0.8) 565 Chest Tube 30 30 Shift Total(mL/kg) 595(7) 595(7) Weight (kg) 85.5 85.5 85.5 85.5 Patient Vitals for the past 96 hrs (Last 3 readings): Weight 10/09/19 0600 188 lb 9.6 oz (85.5 kg) 10/07/19 0607 187 lb (84.8 kg) Labs and Diagnostics: (reviewed in EMR) BMP: Recent Labs 10/07/19 1215 10/08/19 0010 10/09/19 0004 NA 139 135 134* K 4.4 4.4 4.2 CL 109* 106 102 CO2 20* 22 25 BUN 9 10 13 CREATININE 0.61 0.48* 0.58 GLUCOSE 131* 96 94 . CBC: Recent Labs 10/08/19 0010 10/09/19 0004 WBC 8.4 14.2* HGB 9.5* 9.5* PLT 95* 147 Hepatic: No results for input(s): AST, ALT, ALB, BILITOT, ALKPHOS in the last 72 hours. INR: Lab Results Component Value Date PROTIME 13.3 10/07/2019 INR 1.2 10/07/2019 Medications: Scheduled Meds: furosemide 40 mg Intravenous Once metoprolol tartrate 12.5 mg Oral BID lidocaine 1 patch Transdermal Daily sodium chloride flush 10 mL Intravenous 2 times per day polyethylene glycol 17 g Oral Daily sennosides-docusate sodium 2 tablet Oral Nightly pantoprazole 40 mg Intravenous Daily And sodium chloride (PF) 10 mL Intravenous Daily chlorhexidine 15 mL Mouth/Throat BID mupirocin Nasal BID atorvastatin 80 mg Oral Nightly aspirin 81 mg Oral Daily lidocaine 2 patch Transdermal Daily Continuous Infusions: sodium chloride 50 mL/hr at 10/07/19 0630 sodium chloride 20 mL/hr at 10/07/19 1300 phenylephrine (STELLA-SYNEPHRINE) 50mg/250mL infusion nitroprusside (NIPRIDE) 50 mg in D5W infusion Stopped (10/07/19 1533) insulin 4.25 Units/hr (10/09/19 0658) dextrose Home Meds: Prior to Admission medications Medication Sig Start Date End Date Taking? Authorizing Provider isosorbide mononitrate (IMDUR) 30 MG extended release tablet Take 30 mg by mouth daily Yes Historical Provider, atenolol (TENORMIN) 50 MG tablet Take 50 mg by mouth 2 times daily Yes Historical Provider, insulin glargine (LANTUS) 100 UNIT/ML injection vial Inject 40 Units into the skin nightly Yes Historical Provider, insulin lispro (HUMALOG) 100 UNIT/ML injection vial Inject into the skin 3 times daily (before meals) Sliding Scale Yes Historical Provider, levothyroxine (SYNTHROID) 125 MCG tablet Take 125 mcg by mouth Daily Yes Historical Provider, lisinopril (PRINIVIL;ZESTRIL) 30 MG tablet Take 30 mg by mouth daily Yes Historical Provider, metFORMIN (GLUCOPHAGE) 500 MG tablet Take 500 mg by mouth daily (with breakfast) Yes Historical Provider, modafinil (PROVIGIL) 200 MG tablet Take 200 mg by mouth daily. Yes Historical Provider, anastrozole (ARIMIDEX) 1 MG tablet Take 1 mg by mouth daily Yes Historical ProviderMD pravastatin (PRAVACHOL) 80 MG tablet Take 80 mg by mouth daily Yes Historical ProviderMD aspirin 81 MG tablet Take 81 mg by mouth daily Yes Historical Provider, Dulaglutide 1.5 MG/0.5ML SOPN Inject 1.5 mg into the skin once a week On Sundays Historical Provider, traZODone (DESYREL) 50 MG tablet Take 50 mg by mouth nightly Patient states, no longer taking thismedication Historical Provider, clopidogrel (PLAVIX) 75 MG tablet Take 75 mg by mouth daily Patient stopped taking on September 23 priorto surgery. Historical Provider, Physical Exam Constitutional: General: She is not in acute distress. Appearance: She is well-developed. She is not diaphoretic. HENT: Head: Normocephalic and atraumatic. Eyes: Extraocular Movements: Extraocular movements intact. Neck: Musculoskeletal: Normal range of motion and neck supple. Vascular: No JVD. Cardiovascular: Rate and Rhythm: Normal rate and regular rhythm. Heart sounds: Normal heart sounds. Pulmonary: Effort: Pulmonary effort is normal. No respiratory distress. Breath sounds: Normal breath sounds. No stridor. Abdominal: General: There is no distension. Palpations: Abdomen is soft. Tenderness: There is no abdominal tenderness. Musculoskeletal: Normal range of motion. General: No tenderness. Comments: Incision clean and dry Skin: General: Skin is warm and dry. Neurological: Mental Status: She is alert and oriented to person, place, and time. Psychiatric: Behavior: Behavior normal. Thought Content: Thought content normal. Judgment: Judgment normal. Diet: DIET CARDIAC; Carb Control: 5 carb choices (75 gms)/meal Dietary Nutrition Supplements: Other Oral Supplement (see comment) Problem List: Active Problems: CAD, multiple vessel CAD in [place] artery Type 2 diabetes mellitus with hyperglycemia, with long-term current use of insulin (HCC) S/P CABG x 4 Acquired hypothyroidism Resolved Problems: * No resolved hospital problems. * Assessment and Plan: Patient is doing well postoperative day #2 following coronary artery bypass graft surgery Add beta silvia Gentle diuresis Remove chest tubes Progressive activity Disclaimers: ? INFORMED CONSENT: The nature and purpose of the proposed treatment and/or procedure have been discussed. The risks and benefits of the proposed treatment or procedures have been reviewed. Alternatives have been reviewed in addition to the risks and benefits of not receiving treatments or undergoing procedures. Pursuant to this discussion, the patient agrees to undergo the proposed treatment or procedure. ? Captured images seen in this note are not a substitute for a comprehensive interpretation of the entire data set as reflected by the interpreting physician with regard to radiology, echocardiography, and other diagnostic images. ? This note may have been dictated using xTV Practice Edition 2.6 and/or AssertID Voice Recognition Feature. The document was proofread; however, unrecognized voice recognition rocket engine component mechanic errors may be present. * Poly Velazquez, HALL MANAGER - EXPLOSIVE EXPERT - 10/08/2019 11:28 AM EDT ENDOCRINOLOGY PROGRESS NOTE Visit Date: 10/08/2019 Patient:Rama Baird Unit/Bed:[id number] Date of : 1960 Admit date:10/07/2019 HPI: Rama Baird is a 59 y.o.female who is seen today as follow up for: stress hyperglycemia s/p CABG x4; DM2 with insulin use HPI: Patient presented 10/07/2019 for elective CABG x4 for CAD. Patient reports feeling well today but overall tired. Pain is controlled. She is sitting up in bedside chair currently. Endocrine team are consulted for Diabetes Mellitus management As far as Diabetes: Nature: type 2 Duration: 1st diagnosed about 12 years ago Context: n/a Severity: uncontrolled Course/quality: stable Associated with: CAD Aggravated by: no known specific micro/macrovascular complications at this time Relieved by: insulin via insulin gtt at 9 units/hr currently Diet as inpatient: DIET CARDIAC; Carb Control: 5 carb choices (75 gms)/meal Dietary Nutrition Supplements: Other Oral Supplement (see comment) Diabetes Medications patient has been on overtime: Patient does not remember any other DM meds Diabetes Medications as outpatient before this admission: Metformin 500 mg daily lantus 40 units HS humalog- 30 units TID AC plus SSI Diabetes Medications as inpatient during this admission: Insulin via gtt Outpatient Blood Sugar Readings Review: Reports FBS are her highest usually in the 200's Rest of the day is 100-180's Hypoglycemia is rare; she has good awareness Inpatient Blood sugar Readings Review: Results for RAMA BAIRD ( ) as of 10/08/2019 11:30 Ref. Range 10/08/2019 06:06 10/08/2019 06:47 10/08/2019 08:01 10/08/2019 09:00 10/08/2019 10:06 10/08/2019 10:43 10/08/2019 10:45 POC Glucose Latest Ref Range: 70 - 100 mg/dL 109 (H) 139 (H) 145 (H) 138 (H) 119 (H) 118 (H) 123 (H) Diabetic Complications: Cardiovascular:yes - CAD Kidney Complications: no Neurologic:no Ophthalmologic:no Feet: no History of DKA: n/a History of hospitalization for severe hypoglycemia including hypoglycemia coma or seizures: n/a Diet as inpatient: DIET CARDIAC; Carb Control: 5 carb choices (75 gms)/meal Dietary Nutrition Supplements: Other Oral Supplement (see comment) Outpatient Pneumatic Tester: n/a Records Reviewed include: EMR Past Medical History: Diagnosis Date Abnormal stress test Acute arthritis Chest pain Diabetes mellitus (HCC) History of left breast cancer Hypercholesterolemia Hypertension Hypothyroidism Past Surgical History: Procedure Laterality Date BREAST BIOPSY CARDIAC CATHETERIZATION 09/24/2019 CHOLECYSTECTOMY, LAPAROSCOPIC MASTECTOMY, BILATERAL 11/02/2018 with reconstruction OTHER SURGICAL HISTORY mid urethral sling TUBAL LIGATION Family History Problem Relation Age of Onset Arthritis Mother Breast Cancer Mother Diabetes Mother Heart Disease Mother Hypertension Mother Thyroid Disease Mother High Cholesterol Mother Diabetes Father Heart Disease Father Hypertension Father Cancer Father Breast Cancer Sister Colon Cancer Maternal Grandmother Lung Cancer Paternal Grandfather Coronary Art Dis Other Thyroid Disease Maternal Aunt Social History Tobacco Use Smoking status: Never Smoker Smokeless tobacco: Never Used Substance Use Topics Alcohol use: Yes Comment: Few times a month Drug use: Never Medications: Home Meds: Prior to Admission medications Medication Sig Start Date End Date Taking? Authorizing Provider isosorbide mononitrate (IMDUR) 30 MG extended release tablet Take 30 mg by mouth daily Yes Historical Provider, atenolol (TENORMIN) 50 MG tablet Take 50 mg by mouth 2 times daily Yes Historical Provider, insulin glargine (LANTUS) 100 UNIT/ML injection vial Inject 40 Units into the skin nightly Yes Historical Provider, insulin lispro (HUMALOG) 100 UNIT/ML injection vial Inject into the skin 3 times daily (before meals) Sliding Scale Yes Historical Provider, levothyroxine (SYNTHROID) 125 MCG tablet Take 125 mcg by mouth Daily Yes Historical Provider, lisinopril (PRINIVIL;ZESTRIL) 30 MG tablet Take 30 mg by mouth daily Yes Historical Provider, metFORMIN (GLUCOPHAGE) 500 MG tablet Take 500 mg by mouth daily (with breakfast) Yes Historical Provider, modafinil (PROVIGIL) 200 MG tablet Take 200 mg by mouth daily. Yes Historical Provider, anastrozole (ARIMIDEX) 1 MG tablet Take 1 mg by mouth daily Yes Historical Provider, pravastatin (PRAVACHOL) 80 MG tablet Take 80 mg by mouth daily Yes Historical Provider, aspirin 81 MG tablet Take 81 mg by mouth daily Yes Historical Provider, Dulaglutide 1.5 MG/0.5ML SOPN Inject 1.5 mg into the skin once a week On Sundays Historical Provider, traZODone (DESYREL) 50 MG tablet Take 50 mg by mouth nightly Patient states, no longer taking thismedication Historical Provider, clopidogrel (PLAVIX) 75 MG tablet Take 75 mg by mouth daily Patient stopped taking on September 23 priorto surgery. Historical Provider, Scheduled Meds: metoprolol tartrate 12.5 mg Oral BID ketorolac 15 mg Intravenous 4 times per day sodium chloride flush 10 mL Intravenous 2 times per day ceFAZolin (ANCEF) IVPB 2 g Intravenous Q8H polyethylene glycol 17 g Oral Daily sennosides-docusate sodium 2 tablet Oral Nightly pantoprazole 40 mg Intravenous Daily And sodium chloride (PF) 10 mL Intravenous Daily chlorhexidine 15 mL Mouth/Throat BID mupirocin Nasal BID atorvastatin 80 mg Oral Nightly aspirin 81 mg Oral Daily lidocaine 2 patch Transdermal Daily Continuous Infusions: sodium chloride 50 mL/hr at 10/07/19 0630 sodium chloride 20 mL/hr at 10/07/19 1300 phenylephrine (STELLA-SYNEPHRINE) 50mg/250mL infusion nitroprusside (NIPRIDE) 50 mg in D5W infusion Stopped (10/07/19 1533) insulin 10 Units/hr (10/08/19 1047) dextrose PRN Meds:perflutren lipid microspheres, sodium chloride flush, sodium chloride flush, potassium chloride, magnesium sulfate, calcium gluconate IVPB, acetaminophen, magnesium hydroxide, bisacodyl, ondansetron, potassium chloride, phenylephrine (STELLA-SYNEPHRINE) 50mg/250mL infusion, nitroprusside (NIPRIDE) 50 mg in D5W infusion, glucose, dextrose, glucagon (rDNA), dextrose, HYDROmorphone OR HYDROmorphone, oxyCODONE OR oxyCODONE Allergies: Allergies Allergen Reactions Hydroxychloroquine Swelling From plaquenil/ Face and eye swelling Penicillins Diet: DIET CARDIAC; Carb Control: 5 carb choices (75 gms)/meal Dietary Nutrition Supplements: Other Oral Supplement (see comment) Subjective: Review of Systems Constitutional: Positive for fatigue. HENT: Negative for trouble swallowing and voice change. Eyes: Negative for visual disturbance. Respiratory: Positive for shortness of breath. Cardiovascular: Positive for chest pain. Negative for palpitations and leg swelling. Gastrointestinal: Positive for constipation. Negative for diarrhea, nausea and vomiting. Endocrine: Negative for polydipsia, polyphagia and polyuria. Genitourinary: Negative for dysuria. Musculoskeletal: Negative. Neurological: Negative for numbness. Psychiatric/Behavioral: Positive for sleep disturbance. Negative for dysphoric mood. The patient isnot nervous/anxious. Objective: Vitals: BP 121/64 Pulse 79 Temp 98.1 F (36.7 C) (Axillary) Resp 18 Ht 5' 4 (1.626 m) Wt 187 lb (84.8 kg) SpO2 96% BMI 32.10 kg/m 24 hour intake/output: Intake/Output Summary (Last 24 hours) at 10/08/2019 1128 Last data filed at 10/08/2019 0700 Gross per 24 hour Intake 1700 ml Output 4147 ml Net -2447 ml Physical Exam HENT: Head: Normocephalic. Eyes: Conjunctiva/sclera: Conjunctivae normal. Cardiovascular: Rate and Rhythm: Normal rate and regular rhythm. Pulses: Normal pulses. Comments: Chest tube x2 in place Pulmonary: Effort: Pulmonary effort is normal. Breath sounds: Normal breath sounds. Abdominal: General: Bowel sounds are normal. Palpations: Abdomen is soft. Genitourinary: Comments: Voiding via hart Musculoskeletal: General: Swelling (generalized) present. Skin: General: Skin is warm and dry. Neurological: Mental Status: She is alert and oriented to person, place, and time. Psychiatric: Mood and Affect: Mood normal. Behavior: Behavior normal. Diagnostic Workup: BMP: Recent Labs 10/07/19 1215 10/08/19 0010 NA 139 135 K 4.4 4.4 CL 109* 106 CO2 20* 22 BUN 9 10 CREATININE 0.61 0.48* GLUCOSE 131* 96 Glucose: Recent Labs 10/08/19 0505 10/08/19 0606 10/08/19 0647 10/08/19 0801 10/08/19 0900 10/08/19 1006 10/08/19 1043 10/08/19 1045 POCGLU 109* 109* 139* 145* 138* 119* 118* 123* HgbA1C: No results for input(s): LABA1C in the last 72 hours. Hepatic: No results for input(s): ALKPHOS, ALT, AST, PROT, BILITOT, BILIDIR, LABALBU in the last 72hours. Lipids: No results for input(s): CHOL, TRIG, HDL, LDLCALC in the last 72 hours. Invalid input(s): LDL Radiology reports as per the Radiologist Radiology: Xr Chest Portable Result Date: 10/07/2019 Patient Name: RAMA BAIRD ---Diagnostic Radiology--- Exam Date/Time 10/07/2019 12:59:39 EDT Exam CR Chest Portable Ordering Physician CARTER DUARTE Accession Number [id number] CPT4 Codes 43572 () Reason For Exam ETT placement Report PORTABLE CHEST Clinical indication: ETT placement Comparison: None. Endotracheal tube tip projects about a centimeter above the paulette. Oral gastric tube extends below the diaphragm and off the lower margin of the image. Rightinternal jugular [place] catheter tip projects at the distal main pulmonary artery. Bilateral chest tubes are present at the thoracic base and there is a chest tube superimposed on the mediastinum. Sternotomy wires and surgical clips are present. Surgical clips and journeyman mechanic or prosthesis are noted in the right breast. The cardiac silhouette is upper normal in size. Postsurgical changes are noted in the mediastinum. There is mild atelectasis in the left lung diffusely and in the right lung base. Lung volumes overall are shallow. A tiny pneumothorax is present on the left. IMPRESSION: Multiple life support tubes following median sternotomy with postsurgical changes of the mediastinum and mild atelectasis Report Dictated on --- Final --- Dictated: 10/07/2019 1:50 pm Dictating Physician: MD BLUM DIANE Signed Date and Time: 10/07/2019 1:56 pm Signed by: Preran LARIOS MD, DIANE Transcribed Date and Time: 10/07/2019 1:50 Assessment: Stress hyperglycemia Type 2 DM with fpc insulin use CAD Unspecified hypothryoidism Results for RAMA BAIRD ( ) as of 10/07/2019 15:20 Ref. Range 10/07/2019 12:15 10/07/2019 14:03 TSH Latest Ref Range: 0.465 - 4.680 u[IU]/mL 7.937 (H) T4 Free Latest Ref Range: 0.78 - 2.19 ng/dL 1.04 Plan: As inpatient now: As of now the patient will be continued on Humulin R insulin drip per protocol after Blood sugar will be monitored every hour per protocol The insulin drip will be switched to subcutaneous insulin most likely in 24-48 Hours depending on patient's progress Home going Diabetes regimen: Can likely resume her previous home DM medications however doses will need to be determined closer to d/c TSH was slightly elevated prior to surgery. Continue current home dose of levothyroxine and recheckTFT in 4-6 weeks as outpatient. Follow up instructions after discharge: Patient would prefer to continue follow up with her PCP at discharge Counseling: Patient is counseled about the above plan Patient is counseled about the importance of blood sugar control after surgery Patient is counseled about symptoms of hypoglycemia and to call nursing staff if any symptoms of hypoglycemia Time spent with patient 20 minutes. I have reviewed previous records and previous workup. Associated attestation - Forest Perez MD - 10/08/2019 6:08 PM EDT I have personally performed a face to face diagnostic evaluation on this patient. In addition, I have reviewed the SHEET METAL DUCT INSTALLER APPRENTICE/COMPONENT LAB TECH's care plan and agree with those findings unless if otherwise stated in this attestation note My findings are as follows: Patient has been extubated Started eating but mainly liquids No nausea or vomiting No pressors No steroids Still on insulin drip with high requirements Vitals: BP 101/61 Pulse 80 Temp 98.1 F (36.7 C) (Axillary) Resp 18 Ht 5' 4 (1.626 m) Wt 187 lb (84.8 kg) SpO2 95% BMI 32.10 kg/m Constitutional: Well developed Respiratory: No respiratory distress, Chest Clear to auscultation, symmetrical expansion, No deformity Cardiovascular System: Regular rate and rhythm, No murmurs, No rubs, No lower extremity edema. Chest scar, chest tube(s) in Abdomen: soft, lax, non-tender, bowel sounds positive Psychiatric: Conscious Assessment and plan: Type 2 DM with hyperglycemia with intermodal dispatcher insulin use Lab Results Component Value Date LABA1C 7.6 (H) 09/28/2019 Lab Results Component Value Date EAG 171 09/28/2019 As of now the patient will be continued on Humulin R insulin drip per protocol after open heart surgery Blood sugar will be monitored every hour per protocol The insulin drip will be switched to subcutaneous insulin most likely in 24-48 Hours depending on patient's progress Patient is counseled about the above plan Patient is counseled about the importance of blood sugar control after surgery Patient is counseled about symptoms of hypoglycemia and to call nursing staff if any symptoms of hypoglycemia S/p CABGx4 CTS team following Acquired hypothyroidism TSH is borderline elevated and Free T4 is normal Continue home dose levothyroxine Recheck in 4-6 weeks Time spent with patient 10 minutes with more than 50% of that time in direct face to face counseling as documented in note LABs and/ or maging are reviewed as detailed in the SHEET METAL DUCT INSTALLER APPRENTICE/COMPONENT LAB TECH's note * Regan Ying, PT - 10/08/2019 10:12 AM EDT Physical Therapy Facility/Department: [facility] Initial Assessment NAME: Rama Baird : 1960 Date of Service: 10/08/2019 Discharge Recommendations: Home with assist PRN PT Equipment Recommendations Equipment Needed: No Assessment Body structures, Functions, Activity limitations: Decreased functional mobility ;Decreased ROM;Decreased strength;Increased pain;Decreased endurance Assessment: Pt's performance very typical for POD #1. Pt has realistic expectations about her mobility progress. Sit to stand min of 1. Spirometry 500 cc. Anticipate disch to home. Pt notes her plan is to have cardiac rehab at [facility]. Prognosis: Good Decision Making: Medium Complexity PT Education: Goals;Precautions;Weight-bearing Education;Disease Specific Education;Plan of Care;PTRole Patient Education: functional sequellae of sternal precautions REQUIRES PT FOLLOW UP: Yes Activity Tolerance Activity Tolerance: Treatment limited secondary to medical complications (free text);Patient limited by endurance;Patient limited by pain Patient Diagnosis(es): There were no encounter diagnoses. has a past medical history of Abnormal stress test, Acute arthritis, Chest pain, Diabetes mellitus (HCC), History of left breast cancer, Hypercholesterolemia, Hypertension, and Hypothyroidism. has a past surgical history that includes Mastectomy, bilateral (11/02/2018); Cholecystectomy, laparoscopic; Breast biopsy; Tubal ligation; other surgical history; and Cardiac catheterization (09/24/2019). Restrictions Restrictions/Precautions Restrictions/Precautions: Surgical Protocols, Weight Bearing Required Braces or Orthoses?: No Upper Extremity Weight Bearing Restrictions Other: sternal precautions Position Activity Restriction Sternal Precautions: No Pushing, 10# Lifting Restrictions, No Pulling Sternal Precautions: yes Vision/Hearing Vision: Within Functional Limits(reading glasses) Hearing: Within functional limits Subjective General Chart Reviewed: Yes Patient assessed for rehabilitation services?: Yes Family / Caregiver Present: No Diagnosis: CABG x4 Follows Commands: Within Functional Limits General Comment Comments: chest tube x3, Hart, telemetry, infuser Subjective Subjective: Pt in recliner and had just walked into hallway. Pt notes she is sleepy, but otherwise doing OK. Pt notes her endurance has been limited over past year because of aguilar with breast CA. Pain Screening Patient Currently in Pain: Yes Pain Assessment Pain Assessment: 0-10 Pain Level: 5 Pain Type: Surgical pain Pain Location: Sternum Vital Signs Patient Currently in Pain: Yes Orientation Orientation Overall Orientation Status: Within Normal Limits Social/Functional History Social/Functional History Lives With: Spouse Type of Home: House Home Layout: (has two levels, but will be staying on one) Home Access: Stairs to enter without rails Entrance Stairs - Number of Steps: 1 Bathroom Shower/Tub: Tub/Shower unit ADL Assistance: Independent Homemaking Assistance: Independent Homemaking Responsibilities: Yes Ambulation Assistance: Independent Transfer Assistance: Independent Active Navigation Teacher: Yes Mode of Transportation: Car 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 IADL Comments: very helpful with household ADLs--but she notes he does work a lot of hours.She worked [employer]. Typically very self-sufficient Cognition Cognition Overall Cognitive Status: WNL Objective Observation/Palpation Posture: Good(pt notes occaisonal h/o vertigo) Observation: spirometer 500 cc, cough fair (good splinting) Edema: no lymphedema in UEs resulting from breats surgery last year AROM RLE (degrees) RLE General AROM: some soreness with R hip flex, but full ROM AROM LLE (degrees) LLE AROM : WFL AROM RUE (degrees) RUE General AROM: limited shldr to 90 deg flex--no difficulty holding. AROM LUE (degrees) LUE AROM : WFL Strength Other Other: hip extn isometrics good bharath, knee extn 5/5 L, 4/5 R, ankles WFL Motor Control Gross Motor?: WNL Sensation Overall Sensation Status: WNL Bed mobility Comment: NT-pt in chair, noted need for assistance from RN Transfers Sit to Stand: Minimal Assistance Stand to sit: Minimal Assistance Comment: good forward flexion--han issue is inability to use abdominals to sit forward in chair Ambulation Ambulation?: (pt had just performed approx 30' with RN prior to PT arrival-thus PT deferred) Balance Sitting - Static: Good Sitting - Dynamic: Good;- Standing - Static: Good;- Standing - Dynamic: Fair Plan Plan Times per week: 6 Plan weeks: 10 days Current Treatment Recommendations: ROM, Balance Training, Functional Mobility Training, Stair training, Gait Training, Transfer Training, Endurance Training, Home Exercise Program Plan Comment: strengthening for LEs only. Chest PT protocol prn Safety Devices Type of devices: Left in chair, Call light within reach G-Code OutComes Score AM-PAC Score AM-PAC Inpatient Mobility Raw Score : 11 (10/08/19958) AM-PAC Inpatient T-Scale Score : 33.86 (10/08/19958) Mobility Inpatient CMS 0-100% Score: 72.57 (10/08/19958) Mobility Inpatient CMS G-Code Modifier : CL (10/08/19958) Goals Short term goals Time Frame for Short term goals: 10 days Short term goal 1: Bed mobility CGA Short term goal 2: Sit to stand modif indep Short term goal 3: Amb 400' or 5 minutes, RPE 14 or lower, indep Short term goal 4: Curb step supv Short term goal 5: Indep P&C ex Short term goal 6: Indep home walking program and managing secretions Patient Goals Patient goals : 1) go back to work 2) gardening Therapy Time Individual Concurrent Group Co-treatment Time In 919 Time Out 0952 Minutes 32 PT wore N95 mask, goggles, and gloves throughout entire session with patient. Patient s Physical Therapy Plan of Care supervision is transferred to [facility] Rehab Department Physical Therapist. Regan Ying PT * Mariaelena Di, HALL MANAGER - EXPLOSIVE EXPERT - 10/08/2019 10:03 AM EDT PAGING: The Acute Pain Service providers are available by pager. Please reference [facility] and/or [facility] Phonebook for Pain Management Provider STARCH FACTORY LABORER and direct all questions to the provider listed. 10/08/2019 Referring Physician: Carter Duarte MD Subjective: We have been asked to see this 59 y.o. female for complex pain management s/p CABG X 4: BENITEZ to LAD, V to Diag, V to OM1, V to PDA of RCA; EVH; MAC on 10/07/2019 Thorough chart and nursing note review completed. Spoke with Celestino RN, thank you for update. Patient sitting up in chair, states current pain regimen is effective, makes pain tolerable at thistime. Pt received hydromorphone and ketorolac together earlier and states she feels a lot better after that. Pt encouraged to take PO medication prior to IV moving forward to help with longer lastingpain control. Pain regimen reviewed with patient, able to verbalize back, no further questions at this time. Due to the current efforts to prevent transmission of COVID-19, this visit is completed via Telehealth to help reduce rounding and preserve PPE during the COVID-19 pandemic. All relevant records and diagnostic tests were reviewed, including laboratory results and imaging. Care will be coordinated with the primary team as appropriate. Pain Severity: 3 on scale of 1-10, tolerable Pain Frequency: intermittent Pain Location: Chest/ back of lower neck Pain Radiation: nonradiating Pain Quality: sharp and tender Adverse effect to opioids: none Sedation score: 1: Awake and alert Timing: Intermittent Onset: : Post surgical. Aggravating Factors: Coughing Alleviating Factors: Pain medications Last BM was: No BM, + Flatus Social History Tobacco Use Smoking Status Never Smoker Smokeless Tobacco Never Used Social History Substance and Sexual Activity Alcohol Use Yes Comment: Few times a month Social History Substance and Sexual Activity Drug Use Never Pain Management: n/a The patient's medical history and physical assessment, medications, allergies, patient's current medical condition, and labs were reviewed as part ofthis consultation. [x] Patient's Medications have been reviewed. [x] Patient's OARRS report (PDMP) have been reviewed. 09/07/2019 1 06/30/2019 Modafinil 100 Mg Tablet 30.00 30 09/07/2019 1 06/30/2019 Modafinil 200 Mg Tablet 30.00 30 08/09/2019 1 06/30/2019 Modafinil 200 Mg Tablet 30.00 30 07/23/2019 2 07/23/2019 Oxycodone-Acetaminophen 5-325 28.00 7 07/12/2019 1 06/30/2019 Modafinil 100 Mg Tablet 30.00 30 Objective Findings: Height: 5' 4 (162.6 cm) Weight: 187 lb (84.8 kg) BMI (Calculated): 32.2 Vital signs: Blood pressure 121/64, pulse 79, temperature 98.1 F (36.7 C), temperature source Axillary, resp. rate 18, height 5' 4 (1.626 m), weight 187 lb (84.8 kg), SpO2 96 %. Lab Results Component Value Date/Time HGB 9.5 (L) 10/08/2019 12:10 AM HCT 27.5 (L) 10/08/2019 12:10 AM PLT 95 (L) 10/08/2019 12:10 AM WBC 8.4 10/08/2019 12:10 AM PROTIME 13.3 (H) 10/07/2019 12:15 PM INR 1.2 (H) 10/07/2019 12:15 PM APTT 22.0 10/07/2019 12:15 PM NA 135 10/08/2019 12:10 AM K 4.4 10/08/2019 12:10 AM BUN 10 10/08/2019 12:10 AM CREATININE 0.48 (L) 10/08/2019 12:10 AM GLUCOSE 96 10/08/2019 12:10 AM Allergies: Hydroxychloroquine and Penicillins Past Medical History: Diagnosis Date Abnormal stress test Acute arthritis Chest pain Diabetes mellitus (HCC) History of left breast cancer Hypercholesterolemia Hypertension Hypothyroidism Past Surgical History: Procedure Laterality Date BREAST BIOPSY CARDIAC CATHETERIZATION 09/24/2019 CHOLECYSTECTOMY, LAPAROSCOPIC MASTECTOMY, BILATERAL 11/02/2018 with reconstruction OTHER SURGICAL HISTORY mid urethral sling TUBAL LIGATION Family History Problem Relation Age of Onset Arthritis Mother Breast Cancer Mother Diabetes Mother Heart Disease Mother Hypertension Mother Thyroid Disease Mother High Cholesterol Mother Diabetes Father Heart Disease Father Hypertension Father Cancer Father Breast Cancer Sister Colon Cancer Maternal Grandmother Lung Cancer Paternal Grandfather Coronary Art Dis Other Thyroid Disease Maternal Aunt Patient Active Problem List Diagnosis CAD, multiple vessel CAD in [place] artery Type 2 diabetes mellitus with hyperglycemia, with long-term current use of insulin (HCC) S/P CABG x 4 Acquired hypothyroidism Review of Systems Constitutional: Negative for chills and fever. Respiratory: Negative for cough, chest tightness and shortness of breath. Cardiovascular: Positive for chest pain (incisional). Gastrointestinal: Negative for nausea and vomiting. Physical Exam Vitals signs and nursing note reviewed. Constitutional: General: She is awake. Neurological: Mental Status: She is alert and oriented to person, place, and time. Psychiatric: Attention and Perception: Attention normal. Mood and Affect: Mood normal. Mood is not anxious or depressed. Speech: Speech normal. Behavior: Behavior normal. Behavior is not agitated or aggressive. Behavior is cooperative. CHART PICKER: None Pain Management Adjuvants: 10/06 10/07 [id number] APAP 1g 0 Hydromorphone 1.25 0.5 Oxycodone 25 0 LP Ketorolac 15 15 Assessment: 1. Acute pain s/p CABG 10/07/2019 Pain Management Plan: Liver enzymes elevated, last checked: 09/28/2019. Recommend recheck prior to starting APAP, ordered 10/06, no results at this time. Oxycodone 5 - 10 mg po q4h prn moderate to severe breakthrough pain. Hydromorphone 0.25 mg - 0.5 mg IVP q4h prn moderate to severe breakthrough pain. Please utilize oral medications first. Lidocaine patches x 2. Cut and place as needed. Order additional LP to back of neck. Ketorolac per CTS Patient currently receiving opioids for pain management necessitating a bowel regimen. Recommend initiating scheduled Sennakot-S 8.6/50mg, 1 tablet PO BID. Would also recommend Milk of Magnesia 400mg/5ml, administer 30mL by mouth daily PRN. Will follow. Plan discussed with patient who appears to understand and agrees. PAGING: The Acute Pain Service providers are available by pager. Please reference [facility] and/or [facility] Phonebook for Pain Management Provider STARCH FACTORY LABORER and direct all questions to the provider listed. * Alec Nava, AMAURY Mota EXPLOSIVE EXPERT - 10/08/2019 8:45 AM EDT CRITICAL CARE DAILY PROGRESS NOTE Admit Date: 10/07/2019 PCP: MAGDIEL MONTILLA MD Reason for ICU admission: 59yoF with hx of HTN, HPL, Hypothyroid, DM, Left breast cancer, OA presented on 10/07/19 for planned CABG having prior cardiac workup for CP and SOB- positive stress test, EF60%, multivessel CAD by cath. Pt now POD#1, progressing well. Subjective EVENTS OF LAST 24 HOURS: No new acute events overnight. On exam, pt sitting up in chair, appearing comfortable/ no distress. Pt states current pain regimen effective, denies SOB, N. Return demonstrates IS. IV: sodium chloride 50 mL/hr at 10/07/19 0630 sodium chloride 20 mL/hr at 10/07/19 1300 phenylephrine (STELLA-SYNEPHRINE) 50mg/250mL infusion nitroprusside (NIPRIDE) 50 mg in D5W infusion Stopped (10/07/19 1533) insulin 8.75 Units/hr (10/08/19 0700) dextrose MEDICATIONS Scheduled Meds: metoprolol tartrate 12.5 mg Oral BID sodium chloride flush 10 mL Intravenous 2 times per day ceFAZolin (ANCEF) IVPB 2 g Intravenous Q8H polyethylene glycol 17 g Oral Daily sennosides-docusate sodium 2 tablet Oral Nightly pantoprazole 40 mg Intravenous Daily And sodium chloride (PF) 10 mL Intravenous Daily chlorhexidine 15 mL Mouth/Throat BID mupirocin Nasal BID atorvastatin 80 mg Oral Nightly aspirin 81 mg Oral Daily lidocaine 2 patch Transdermal Daily PRN meds: perflutren lipid microspheres, sodium chloride flush, sodium chloride flush, potassium chloride, magnesium sulfate, calcium gluconate IVPB, acetaminophen, magnesium hydroxide, bisacodyl, ondansetron,potassium chloride, phenylephrine (STELLA-SYNEPHRINE) 50mg/250mL infusion, nitroprusside (NIPRIDE) 50 mg in D5W infusion, glucose, dextrose, glucagon (rDNA), dextrose, HYDROmorphone OR HYDROmorphone, oxyCODONE OR oxyCODONE Objective EXAM: VITALS: BP 103/64 Pulse 79 Temp 98.1 F (36.7 C) (Axillary) Resp 18 Ht 5' 4 (1.626 m) Wt 187 lb (84.8 kg) SpO2 95% BMI 32.10 kg/m Temp (24hrs), Av.4 F (37.4 C), Min:98.1 F (36.7 C), Max:100.2 F (37.9 C) 24HR INTAKE/OUTPUT: Intake/Output Summary (Last 24 hours) at 10/08/2019 0845 Last data filed at 10/08/2019 0700 Gross per 24 hour Intake 1700 ml Output 4147 ml Net -2447 ml CURRENT PULSE OXIMETRY: SpO2: 95 % Physical Exam Constitutional: General: She is not in acute distress. Appearance: She is ill-appearing. She is not toxic-appearing. HENT: Head: Normocephalic and atraumatic. Nose: Nose normal. No congestion. Mouth/Throat: Mouth: Mucous membranes are moist. Pharynx: Oropharynx is clear. No oropharyngeal exudate. Eyes: General: No scleral icterus. Conjunctiva/sclera: Conjunctivae normal. Pupils: Pupils are equal, round, and reactive to light. Neck: Musculoskeletal: Normal range of motion. No neck rigidity. Cardiovascular: Rate and Rhythm: Normal rate and regular rhythm. Pulses: Normal pulses. Pulmonary: Effort: Pulmonary effort is normal. No respiratory distress. Breath sounds: Normal breath sounds. No wheezing or rhonchi. Abdominal: General: Abdomen is flat. Bowel sounds are normal. There is no distension. Palpations: Abdomen is soft. Tenderness: There is no abdominal tenderness. Musculoskeletal: Normal range of motion. General: No swelling. Skin: General: Skin is warm and dry. Capillary Refill: Capillary refill takes less than 2 seconds. Coloration: Skin is not jaundiced. Neurological: General: No focal deficit present. Mental Status: She is alert and oriented to person, place, and time. Psychiatric: Mood and Affect: Mood normal. Behavior: Behavior normal. Thought Content: Thought content normal. RESULTS: CBC: Recent Labs 10/07/19 1215 10/08/19 0010 WBC 22.6* 8.4 HGB 10.3* 9.5* HCT 30.0* 27.5* PLT 184 95* BMP: Recent Labs 10/07/19 1215 10/08/19 0010 NA 139 135 K 4.4 4.4 CL 109* 106 CO2 20* 22 BUN 9 10 CREATININE 0.61 0.48* GLUCOSE 131* 96 CALCIUM 9.8 8.4 IONCA 5.00 -- MG 3.2* 1.9 PHOS 3.1 -- INR: Recent Labs 10/07/19 1215 INR 1.2* BLOOD GAS: Recent Labs 10/07/19 1215 PH 7.42 TSH: Recent Labs 10/07/19 1215 TSH 7.937* CXR Portable: Results for orders placed during the hospital encounter of 10/07/19 XR CHEST PORTABLE Narrative Patient Name: RAMA BAIRD ---Diagnostic Radiology--- Exam Date/Time 10/08/2019 06:00:09 EDT Exam CR Chest Portable Ordering Physician CARTER DUARTE Accession Number [id number] CPT4 Codes 94312 () Reason For Exam post op Report PORTABLE CHEST: INDICATION: Postop COMPARISON: 10/07/2019 Obtained at 0523 hours. A single portable AP radiograph of the chest was obtained. The heart is enlarged. The mediastinal silhouette is prominent, postsurgical in nature. There are changes associated with recent open heart surgery. Bilateral chest tubes are present as is a mediastinal tube. There is no pneumothorax. There is bibasal atelectasis. There is no pleural thickening. The osseous structures are unremarkable. A right internal jugular [place] catheter is present with the tip overlying the main pulmonary artery. IMPRESSION: Postoperative changes. Bibasal atelectasis. Report Dictated on Workstation: [id number] --- Final --- Dictated: 10/08/2019 5:52 am Dictating Physician: DO GONZALEZ ALFRED Signed Date and Time: 10/08/2019 5:54 am Signed by: DO GONZALEZ ALFRED Transcribed Date and Time: 10/08/2019 5:52 Assessment & Plan: 1. CAD, HTN, HPL, now s/p CABGx4 POD#1- Followed by CTS. Progressing well post op, extubated in window, off vasoactives. Chest tubes to sx, CTS mgmt. Continue ASA, BB, Statin as appropriate per CTS 2. Post op respiratory insufficiency/ atelectasis- extubated without difficulty yesterday. CXR withatelectasis. Continue to encourage C&DB, IS, Acapella, increase in activity. Pain mgmt to facilitate Deep breathing. Nebs PRN, daily CXR. 3. Stress hyperglycemia- insulin gtt with transition to SSI per endocrine 4. Acute blood loss anemia- H&H currently stable, follow chest tube output and daily trends. Transfuse PRN to goal Hgb>7 5. Hx of hypothyroid- resume home synthroid 6. FEN- progress diet as tolerated, monitor lytes, bowel regimen ICU PROPHYLAXIS: Stress ulcer: PPI Agent VTE: PCD Device:Bilat LE Dispo: Remain in HLU Discussed plan of care with Dr. Anne Marie Henderson Associated attestation - Bibi Henderson MD - 10/08/2019 4:39 PM EDT I have personally performed a [id number] diagnostic evaluation on this patient on date of service10/08/19. History, labs, imaging studies, and electronic medical record have been reviewed by me. This note documented by the []vat house laborer [x]RACHEL reflects my history, exam, and medical decision making. I have reviewed and agree with the care plan. Changes were made in the orders as necessary. ROSdocumentation was reviewed and negative unless otherwise stated in HPI. * Héctor Oneill APRN - SHEET METAL DUCT INSTALLER APPRENTICE - 10/08/2019 6:27 AM EDT Cardiothoracic Surgery Progress Note 10/08/2019 Subjective: Admit Date: 10/07/2019 Interval History: S/P CABGx4 on 10/07/19- Extubated yesterday. No issues overnight Subjective: Up in chair. Having lots of pain Objective: Vitals: Temp (24hrs), Av.7 F (37.6 C), Min:99 F (37.2 C), Max:100.2 F (37.9 C) BP 116/72 Pulse 79 Temp 100.2 F (37.9 C) (Oral) Resp 18 Ht 5' 4 (1.626 m) Wt 187 lb (84.8 kg) SpO2 96% BMI 32.10 kg/m I/O: Date 10/08/19 0000 - 10/08/19 2359 Shift 5715-6721 8900-2523 8783-0765 24 Hour Total INTAKE Shift Total(mL/kg) OUTPUT Urine(mL/kg/hr) 610 610 Chest Tube 75 75 Shift Total(mL/kg) 685(8.1) 685(8.1) Weight (kg) 84.8 84.8 84.8 84.8 Weights: Patient Vitals for the past 96 hrs (Last 3 readings): Weight 10/07/19 0607 187 lb (84.8 kg) Labs: BMP: Recent Labs 10/07/19 1215 10/08/19 0010 NA 139 135 K 4.4 4.4 CL 109* 106 CO2 20* 22 BUN 9 10 CREATININE 0.61 0.48* GLUCOSE 131* 96 . CBC: Recent Labs 10/07/19 1215 10/08/19 0010 WBC 22.6* 8.4 RBC 3.28* 3.00* HGB 10.3* 9.5* HCT 30.0* 27.5* MCV 91.5 91.5 MCH 31.3 31.5 MCHC 34.2 34.4 RDW 13.1 13.3 PLT 184 95* MPV 8.8 8.8 Hepatic: No results for input(s): AST, ALT, ALB, BILITOT, ALKPHOS in the last 72 hours. INR: Lab Results Component Value Date PROTIME 13.3 10/07/2019 INR 1.2 10/07/2019 Films: CXR portable: Reviewed Physical Exam: Physical Exam Constitutional: General: She is not in acute distress. Appearance: She is well-developed. She is not diaphoretic. HENT: Head: Normocephalic and atraumatic. Eyes: Pupils: Pupils are equal, round, and reactive to light. Neck: Musculoskeletal: Normal range of motion and neck supple. Vascular: No JVD. Cardiovascular: Rate and Rhythm: Normal rate and regular rhythm. Heart sounds: Normal heart sounds. No murmur. No friction rub. No gallop. Pulmonary: Effort: Pulmonary effort is normal. No respiratory distress. Breath sounds: Normal breath sounds. No stridor. Abdominal: General: Bowel sounds are normal. There is no distension. Palpations: Abdomen is soft. Tenderness: There is no abdominal tenderness. Musculoskeletal: Normal range of motion. General: No tenderness. Skin: General: Skin is warm and dry. Comments: Sternotomy incision intact with no signs of infection. Epicardial wires capped. Chest tubes to -20cm suction with serosang drainage. No air leaks. Hart to SD with clear angelo urine Neurological: Mental Status: She is alert and oriented to person, place, and time. Psychiatric: Mood and Affect: Mood normal. Behavior: Behavior normal. Thought Content: Thought content normal. Judgment: Judgment normal. Medications: Scheduled Meds: sodium chloride flush 10 mL Intravenous 2 times per day ceFAZolin (ANCEF) IVPB 2 g Intravenous Q8H polyethylene glycol 17 g Oral Daily sennosides-docusate sodium 2 tablet Oral Nightly pantoprazole 40 mg Intravenous Daily And sodium chloride (PF) 10 mL Intravenous Daily chlorhexidine 15 mL Mouth/Throat BID mupirocin Nasal BID atorvastatin 80 mg Oral Nightly aspirin 81 mg Oral Daily lidocaine 2 patch Transdermal Daily Continuous Infusions: sodium chloride 50 mL/hr at 10/07/19 0630 sodium chloride 20 mL/hr at 10/07/19 1300 phenylephrine (STELLA-SYNEPHRINE) 50mg/250mL infusion nitroprusside (NIPRIDE) 50 mg in D5W infusion Stopped (10/07/19 1533) insulin 6.75 Units/hr (10/08/19 0300) dextrose Home Meds: Prior to Admission medications Medication Sig Start Date End Date Taking? Authorizing Provider isosorbide mononitrate (IMDUR) 30 MG extended release tablet Take 30 mg by mouth daily Yes Historical Provider, atenolol (TENORMIN) 50 MG tablet Take 50 mg by mouth 2 times daily Yes Historical Provider, insulin glargine (LANTUS) 100 UNIT/ML injection vial Inject 40 Units into the skin nightly Yes Historical Provider, insulin lispro (HUMALOG) 100 UNIT/ML injection vial Inject into the skin 3 times daily (before meals) Sliding Scale Yes Historical Provider, levothyroxine (SYNTHROID) 125 MCG tablet Take 125 mcg by mouth Daily Yes Historical Provider, lisinopril (PRINIVIL;ZESTRIL) 30 MG tablet Take 30 mg by mouth daily Yes Historical Provider, metFORMIN (GLUCOPHAGE) 500 MG tablet Take 500 mg by mouth daily (with breakfast) Yes Historical Provider, modafinil (PROVIGIL) 200 MG tablet Take 200 mg by mouth daily. Yes Historical Provider, anastrozole (ARIMIDEX) 1 MG tablet Take 1 mg by mouth daily Yes Historical Provider, pravastatin (PRAVACHOL) 80 MG tablet Take 80 mg by mouth daily Yes Historical Provider, aspirin 81 MG tablet Take 81 mg by mouth daily Yes Historical Provider, Dulaglutide 1.5 MG/0.5ML SOPN Inject 1.5 mg into the skin once a week On Sundays Historical Provider, traZODone (DESYREL) 50 MG tablet Take 50 mg by mouth nightly Patient states, no longer taking thismedication Historical Provider, clopidogrel (PLAVIX) 75 MG tablet Take 75 mg by mouth daily Patient stopped taking on September 23 priorto surgery. Historical Provider, Diet: DIET CARDIAC; Carb Control: 5 carb choices (75 gms)/meal Problem List: Active Problems: CAD, multiple vessel CAD in [place] artery Type 2 diabetes mellitus with hyperglycemia, with long-term current use of insulin (HCC) S/P CABG x 4 Acquired hypothyroidism Resolved Problems: * No resolved hospital problems. * Assessment and Plan: 1. CAD: Status post CABG X 4: BENITEZ to LAD, V to Diag, V to OM1, V to PDA of RCA; EVH; MAC on 10/08/19 -EF % on MAC pending -Core Medication: [x]ASA [x]BB low dose added today [x] Statin [] ACEi/ARB -Anticoagulation: n/a -Invasive Lines:Central Line: Day #1- IJ introducer -Hart: Day# 1- discontinue later today 2. Post op Pulm. Mgmt: (Normal post op course) on 1 L NC-95% . CXR: Reviewed by Dr. Duarte during rounds today. Continue C&DB, Enc use of IS. Maintain chest tubes to waterseal. 3. Hemodynamics: CO/CI 7.3/3.8.[place] and art line already out per protocol 4. Blood loss Anemia: Hgb: 9.5 Stable. No s/s bleeding. Continue to monitor CBC 5. Consumptive Thrombocytopenia: Platelets: 95 No s/s bleeding. Continue to monitor labs 6. Leukocytosis: WBC:8.4 Resolved down from 22.6 Probable reactive. Afebrile. Continue to monitor labs 7. DM/Stress Hyperglycemia: A1C 7.6 Insulin per endocrine 8. Acute post op pain: Pain mgmt following. On lidocaine patch and oxycodone IR prn Will add toradol today. No tylenol yet per pain mgmt r/t AST/ALT elevated. 9. GI/DVT prophylaxis: PPI/SCD/Teds 10. Disposition: Continue progressive care in HLU Blood Conservation Initiative Log: - none to date * Mat Lynch RCP - 10/07/2019 2:44 PM EDT [facility] Respiratory Care Department Progress Note Spontaneous Breathing Trial (SBT) Start: 2-3 min to Stabilize After 15 min After 30 min HR 98 95 SpO2 (%) 99 100 RR 26 22 VT (L) 500 450 Total RSBI (RR/VT in Liters) 52 49 Pass SBT (RSBI must be?105 to pass) NA NA Yes SBT started at 1410 Extubated to 3L NC at 1506 Name of physician results were reported to: bibi henderson Thank you for involving Respiratory in the care of this patient, * Regan Ying, PT - 10/07/2019 1:15 PM EDT Physical Therapy PT order noted--pt immediate post-op; s/p CABG. Will initiate PT after pt has been extubated. * Sameera Doty OT - 10/07/2019 1:05 PM EDT Occupational Therapy Hold OT orders received, chart reviewed. Pt underwent CABG today. Hold OT. Will re- attempt as schedule permits. Sameera Doty OTR/L documented in this encounter Assessments Diagnosis Pre-op evaluation Preoperative examination, unspecified Diagnosis S/P CABG x 4 Postsurgical aortocoronary bypass status CAD, multiple vessel Coronary atherosclerosis of unspecified type of vessel, [place] or graft CAD in [place] artery Coronary atherosclerosis of [place] coronary artery Type 2 diabetes mellitus with hyperglycemia, with long-term current use of insulin (HCC) Acquired hypothyroidism Unspecified hypothyroidism Diagnosis Mass of lower outer quadrant of left breast H/O bilateral mastectomy Acquired absence of breast and nipple Malignant neoplasm of left breast in female, estrogen receptor positive, unspecified site of breast (HCC) Diagnosis Mass of lower outer quadrant of left breast Malignant neoplasm of central portion of left breast in female, estrogen receptor positive (HCC) Status post bilateral mastectomy Acquired absence of breast and nipple Diagnosis History of left breast cancer Advance Directives No Advanced Directives Records FoundDocuments on File Type Date Recorded Patient Body Line Finisher Expl anation Advance Directives and Living Will Power of Language Specialist Latest Code Status on File Code Status Date Activated Date Inactivated Comments Full Code 10/07/2019 12:40 PM Full Code 10/07/2019 6:07 AM 10/07/2019 9:38 AM Documents on File Type Date Recorded Patient Body Line Finisher Expl anation ACP-Advance Directive ACP-Power of Language Specialist Latest Code Status on File Code Status Date Activated Date Inactivated Comments Full Code 10/07/2019 12:40 PM 10/12/2019 2:38 PM Full Code 10/07/2019 6:07 AM 10/07/2019 9:38 AM Documents on File Type Date Recorded Patient Body Line Finisher Expl anation ACP-Advance Directive ACP-Power of Language Specialist Latest Code Status on File Code Status Date Activated Date Inactivated Comments Full Code 10/07/2019 12:40 PM 10/12/2019 2:38 PM Latest Code Status on File Code Status Date Activated Date Inactivated Comments Full Code 08/21/2020 8:37 AM 08/22/2020 10:39 AM Full Code 10/07/2019 12:40 PM 10/12/2019 2:38 PM Documents on File Type Date Recorded Patient Body Line Finisher Expl anation Advance Directive(s) 07/23/2019 8:18 AM Advance Directive(s) 05/04/2019 1:02 PM Advance Directive(s) 04/20/2019 9:55 AM Advance Directive(s) 04/06/2019 3:08 PM Advance Directive(s) 03/16/2019 8:35 AM Advance Directive(s) 02/22/2019 12:09 PM Advance Directive(s) 02/16/2019 5:59 PM Advance Directive(s) 11/02/2018 6:26 AM Advance Directive(s) 10/15/2018 8:49 AM Advance Directive Response Recorded Date/ Time Advance Directives No September 24, 2019 9:15am Living Will No November 04, 2019 8:33am Power of Language Specialist No November 03 0 8:33am Advance Directive Response Recorded Date/ Time Advance Directives No September 24, 2019 8:15am Living Will No November 04, 2019 7:33am Power of Language Specialist No November 03 0 7:33am Advance Directive Response Recorded Date/ Time Advance Directives No September 24, 2019 8:15am Living Will No August 07, 2022 1:23pm Power of Language Specialist No August 07 1:23pm Advance Directive Response Recorded Date/ Time Advance Directives No September 24, 2019 9:15am Living Will No August 07, 2022 2:23pm Power of Language Specialist No August 07 2:23pm Advance Directive Response Recorded Date/ Time Living Will No August 07, 2022 2:23pm Power of Language Specialist No August 07 2:23pm Advance Directives No September 24, 2019 9:15am Advance Directive Response Recorded Date/ Time Advance Directives No September 24, 2019 9:15am Hospital Course * Amy Alas RN - 10/12/2019 12:14 PM EDT Went over all discharge instructions. Pt verbalized understanding. Pt discharged to home with family at 1214. documented in this encounter Reason for Referral Status Reason Specialty Diagnoses / Procedures Referre d By Contact Referred To Contact [facility] Diagnoses Mass of lower outer quadrant of left breast H/O bilateral mastectomy Malignant neoplasm of left breast in female, estrogen receptor positive, unspecified site of breast (HCC) Procedures US Breast Limited Left Yanni Villalobos MD [address] [address] Status Reason Specialty Diagnoses / Procedures Referre d By Contact Referred To Contact [facility] Diagnoses Mass of lower outer quadrant of left breast Malignant neoplasm of central portion of left breast in female, estrogen receptor positive (HCC) Status post bilateral mastectomy Procedures US GUIDED LEFT BREAST BIOPSY Yanni Villalobos MD [address] [address] Status Reason Specialty Diagnoses / Procedures Referre d By Contact Referred To Contact [facility] Diagnoses Mass of lower outer quadrant of left breast Procedures US Breast Limited Left Yanni Villalobos MD [address] [address] Chief Complaint and Reason for Visit Chief Complaint FATIGUE, RUNNY NOSE 6 m fu 2 DRS/2 ORDERS 6 M FU Reason for Visit Viral illness [id number] Essential hypertension Mixed hyperlipidemia S/P CABG x 4 Muscle cramping Hypothyroidism Obesity Type 2 diabetes mellitus Chief Complaint 2 DRS/2 ORDERS 6 M FU MUSCLE CRAMPING Reason for Visit Muscle cramping Hypothyroidism Obesity Type 2 diabetes mellitus Chief Complaint 6 M FU LEFT ANKLE XRAY - PAIN 6 M FU EORDERS- CHIDI Reason for Visit [id number] Essential hypertension Mixed hyperlipidemia S/P CABG x 4 Diabetes Hypothyroidism Muscle cramping Obesity Chief Complaint 6 M FU Reason for Visit Diabetes Hypothyroidism Obesity Chief Complaint 6 m fu PREV PFM PT 6 M FU EORDER Reason for Visit [id number] Diabetes Mixed hyperlipidemia Diabetes Essential hypertension Hypothyroidism Obesity Chief Complaint 6 m fu PREV PFM PT 6 M FU EORDER Urinary tract infection Reason for Visit [id number] Diabetes Mixed hyperlipidemia Diabetes Essential hypertension Hypothyroidism Obesity Cystitis Chief Complaint Admit Date 3 M FU May 12, 2024 10:00am 1 Y FU July 21, 2024 10:53am Reason for Visit Admit Date Diabetes May 12, 2024 10:00am Essential hypertension May 12 10:00am Fatty liver May 12, 2024 10:00am Hypothyroidism May 12, 2024 10:00am Mixed hyperlipidemia May 12, 2024 10:00am Obesity May 12, 2024 10:00am Atherosclerosis of [place] co ronary artery of [place] heart without angina July 21, 2024 10:53am Diabetes July 21, 2024 10:53am Essential hypertension July 21 10:53am Mixed hyperlipidemia July 21, 2024 10:53am Chief Complaint Admit Date 2 M FU December 13, 2024 10:0 2am Reason for Visit Admit Date Atherosclerosis of [place] co ronary artery of [place] heart without angina December 13, 2024 10:02am Diabetes December 13, 2024 10:0 2am Essential hypertension December 13, 2024 1 0:02am Mixed hyperlipidemia December 13, 2024 10: 02am Family History No Family History Records Found Relationship Condition Age at Onset Recorded Date/T cody mother Arthritis Unknown Malignant neoplasm of breast Unknown Diabetes mellitus Unknown Cardiac disease Unknown Hypertension Unknown Disorder of thyroid Unknown High blood cholesterol Unknown sister Malignant neoplasm of breast Unknown grandmother Malignant neoplasm of colon Unknown father Diabetes mellitus Unknown Malignant neoplasm Unknown grandfather Malignant neoplasm Unknown sister Coronary artery disease Unknown Presence of stent in coronary artery Unkn own Summary Purpose Additional Source Comments Source Comments (unrecognize d section and content) In the event this informatio n is protected by the [facility] Confidentiality of Alcohol and Drug Abuse Patient Records regulations: The Federal rules restrict any use of the information to criminally investigate or prosecute any alcohol or drug abuse patient.[facility] the event this information is protected by the Federal Confidentiality of Alcohol and Drug Abuse Patient Records regulations: The Federal rules restrict any use of the information to criminally investigate or prosecute any alcohol or drug abuse patient.[facility] the event this information is protected by the Federal Confidentiality of Alcohol and Drug Abuse Patient Records regulations: The Federal rules restrict any use of the information to criminally investigate or prosecute any alcohol or drug abuse patient.[facility] the event this information is protected by the Federal Confidentiality of Alcohol and Drug Abuse Patient Records regulations: The Federal rules restrict any use of the information to criminally investigate or prosecute any alcohol or drug abuse patient.[facility] the event this information is protected by the Federal Confidentiality of Alcohol and Drug Abuse Patient Records regulations: The Federal rules restrict any use of the information to criminally investigate or prosecute any alcohol or drug abuse patient.[facility] the event this information is protected by the Federal Confidentiality of Alcohol and Drug Abuse Patient Records regulations: The Federal rules restrict any use of the information to criminally investigate or prosecute any alcohol or drug abuse patient.[facility] Hospital[facility] the event this information is protected by the Federal Confidentiality of Alcohol and Drug Abuse Patient Records regulations: The Federal rules restrict any use of the information to criminally investigate or prosecute any alcohol or drug abuse patient.[facility] Reason for Visit (unrecogniz ed section and content) Reason Comments Appointment Reason Comments Established Patient Reason Comments Annual Exam 1 year follow up Pt denies any breast concerns Reason Comments 1 Year Follow-up Survivorship Denies any new breas t concerns or pain today. Has questions regarding imaging tests Care Teams (unrecognized sec tion and content) [employer] Relationship Specialty Start Date End Date Magdiel Montilla MD [address] [place] [address] [address] [place] [address] PCP - General Family Practice 12/04/18 Angelo Atkins RN Specialty Mechanical Engineering Specialist Oncology 03/10/20 [employer] Relationship Specialty Start Date End Date Magdiel Montilla MD [address] [facility] [address] [place] [address] PCP - General Family Practice 12/04/18 Angelo Atkins RN Specialty Mechanical Engineering Specialist Oncology 03/10/20 [employer] Relationship Specialty Start Date End Date Magdiel Montilla MD [address] [facility] [address] [place] [address] PCP - General Family Medicine 12/04/18 Angelo Atkins RN Specialty Mechanical Engineering Specialist Oncology 03/10/20 [employer] Relationship Specialty Start Date End Date Magdiel Montilla MD [address] [facility] [address] [place] [address] PCP - General 09/27/19 [employer] Relationship Specialty Start Date End Date Magdiel Montilla MD [address] [facility] [address] [place] [address] PCP - General Family Medicine 12/04/18 Angelo Atkins RN Specialty Mechanical Engineering Specialist Oncology 03/10/20 [employer] Relationship Specialty Start Date End Date Magdiel Montilla MD [address] [facility] [address] [place] [address] PCP - General 09/27/19 [employer] Relationship Specialty Start Date End Date Magdiel Montilla MD [address] [facility] [address] [place] [address] PCP - General Family Medicine 12/04/18 Angelo Atkins RN Specialty Mechanical Engineering Specialist Oncology 03/10/20 Team Status: Active Member Role Status Dates Dr. Magdiel Montilla MD Family Provider Active Dr. Magdiel Montilla MD Primary Care Provider Active Team Status: Inactive Member Role Status Dates Dr. Magdiel Montilla MD Primary Care Provider, Referring Provider Active ALLY Mendez Attending Provider Active Team Status: Inactive Member Role Status Dates Dr. Magdiel Montilla MD Primary Care Provi nina, Attending Provider, Referring Provider Active Ernestine Santamaria NP, COMPONENT LAB TECH-C Other Provider Active [employer] Relationship Specialty Start Date End Date Magdiel Montilla MD [address] [facility] [address] [place] [id number] PCP - General 09/27/19 Team Status: Inactive Member Role Status Dates Dr. Magdiel Montilla MD Primary Care Provider, Referring Provider Active Dr. Tc Andres MD Attending Provider Active Team Status: Inactive Member Role Status Dates Dr. Magdiel Montilla MD Primary Care Provider Active ALLY Mendez Attending Provider, Referring Pr ovider Active Team Status: Inactive Member Role Status Dates Dr. Magdiel Montilla MD Primary Care Provider, Referring Provider Active ALLY Patterson Attending Provider Active Team Status: Inactive Member Role Status Dates Dr. Magdiel Montilla MD Primary Care Provider Active ALLY Patterson Attending Provider, Referring Pro vider Active [employer] Relationship Specialty Start Date End Date Magdiel Montilla MD [address] [facility] [address] [place] [address] PCP - General Family Medicine 12/04/18 Angelo Atkins RN Specialty Mechanical Engineering Specialist Oncology 03/10/20 [employer] Relationship Specialty Start Date End Date Magdiel Montilla MD [address] [facility] [address] [place] [address] PCP - General Family Medicine 12/04/18 Angelo Atkins RN Specialty Mechanical Engineering Specialist Oncology 03/10/20 [employer] Relationship Specialty Start Date End Date Magdiel Montilla MD [address] [facility] [address] [place] [phone] PCP - General 09/27/19 Team Status: Inactive Member Role Status Dates Dr. Magdiel Montilla MD Primary Care Provider Active Start: May 12, 2024 End: May 12, 2024 Dr. Magdiel Montilla MD Referring Provider Active Start: May 12, 2024 End: May 12, 2024 Fatemeh Gonzalez NP-C Attending Provider Active Start: May 12, 2024 End: May 12, 2024 Team Status: Inactive Member Role Status Dates Dr. Magdiel Montilla MD Primary Care Provider Active Start: July 21, 2024 End: July 21, 2024 Dr. Magdiel Montilla MD Referring Provider Active Start: July 21, 2024 End: July 21, 2024 Dr. Tc Andres MD Attending Provider Active Start: July 21, 2024 End: July 21, 2024 Team Status: Inactive Member Role Status Dates Dr. Magdiel Montilla MD Primary Care Provider Active Start: July 24, 2024 End: July 24, 2024 Dr. Magdiel Montilla MD Attending Provider Active Start: July 24, 2024 End: July 24, 2024 Dr. Magdiel Montilla MD Referring Provider Active Start: July 24, 2024 End: July 24, 2024 Team Status: Active Member Role/Relationship Status Dates Dr. Magdiel Montilla MD Primary Care Provider Active Team Status: Inactive Member Role/Relationship Status Dates Dr. Magdiel Montilla MD Primary Care Provider Active Start: December 13, 2024 End: December 13, 2024 Dr. Magdiel Montilla MD Referring Provider Active Start: December 13, 2024 End: December 13, 2024 Ernestine Santamaria NP, COMPONENT LAB TECH-C Attending Provider Active Start: December 13, 2024 End: December 13, 2024 Goals (unrecognized section and content) Goals may be documented in a n alternate sectionGoals may be documented in an alternate sectionGoals may be documented in an alternate sectionGoals may be documented in an alternate sectionGoals may be documented in an alternate sectionGoals may be documented in an alternate sectionGoals may be documented in an alternate sectionGoals may be documented in an alternate sectionGoals may be documented in an alternate section INFORMATION SOURCE (unrecogn ized section and content) DATE CREATED AUTHOR 09/12/2021 [facility] DATE CREATED AUTHOR AUTHOR'S ORGANIZ ATION 04/13/2024 [facility] DATE CREATED AUTHOR AUTHOR'S ORGANSHIRA ATION 05/17/2024 [facility] DATE CREATED AUTHOR AUTHOR'S ORGANSHIRA ATION 12/26/2024 [facility] FOR RECORDS PERTAINING TO PATIENTS WHO ARE OR HAVE BEEN ENROLLED IN A CHEMICAL DEPENDENCY/SUBSTANCEABUSE PROGRAM, SOME INFORMATION MAY BE OMITTED. This clinical summary was aggregated from multiple sources. Caution should be exercised in using it in the provision of clinical care. This summary normalizes information from multiple sources, and as a consequence, information in this document may materially change the coding, format and clinical context of patient data. In addition, data may be omitted in some cases. CLINICAL DECISIONS SHOULD BE BASED ON THE PRIMARY CLINICAL RECORDS. [employer] provides no warranty or guarantee of the accuracy or completeness of information in this document.
--- NOTE | 2025-01-06 07:18 | STRESSREP ---
Stress Test Report Exercise myocardial perfusion stress test. 64-year-old lady with a history of coronary artery disease Stress protocol: Resting EKG demonstrates sinus rhythm with a rate of 60 bpm resting blood pressure is 124/84 mmHg. The patient exercised according to the regular [facility]as protocol for a total duration of 9 minutes attaining a maximum heart rate of 142 bpm which was 89% of maximum predicted heart rate; the maximum workload was 10.1 metabolic equivalents. At rest there were no ST or T wave changes noted to suggest ischemia and at peak exercise upsloping ST changes only were noted which did not meet the criteria for ischemia. No clinical angina was noted the test was terminated due to the target heart rate being achieved/fatigue. The peak blood pressure was 164/70 mmHg. Rate-pressure product was 23,200. Myocardial perfusion protocol. 13.6 mCi of technetium 99m sestamibi was injected at rest. The patient exercised according to regular Arias protocol for total duration of 9 minutes and at peak exercise 41.8 mCi of technetium 99m sestamibi was injected stress images were obtained stress and rest images were reconstructed in comparing the short axis vertical long and horizontal long axis. Gated images were also obtained. Perfusion SPECT analysis: Review of the stress images demonstrate normal uptake of tracer noted in all areas of the myocardium. The resting images similarly demonstrate normal uptake of tracer noted in all areas of the myocardium. No areas of reversibility are noted to suggest ischemia no previous infarct was noted. Gated SPECT analysis: The gated ejection fraction is 88%. Conclusion: Normal exercise myocardial perfusion stress test at a high workload Preserved ejection fraction.
== END | disposition home or self-care (01) ==
LOC: CVS 06:51
PROVIDERS: PCP Family Medicine; Referring Provider Nurse Practitioner Gerontology; Visit Provider Nurse Practitioner Gerontology
DX: I25.10 Atherosclerotic heart disease of native coronary artery without angina pectoris (principal)
CPT/HCPCS: 78452; 93017; A9500; A4216

== ENCOUNTER → 2025-02-24 | Outpatient (CLI) | payer BC, SELFPAY ==
[2019-11-04 09:08] VITALS: BMI 31.9
== END | disposition home or self-care (01) ==
LOC: MTLAB 14:11
PROVIDERS: PCP Family Medicine; Referring Provider Surgery Plastic and Reconstructive Surgery; Visit Provider Surgery Plastic and Reconstructive Surgery
DX: E10.65 Type 1 diabetes mellitus with hyperglycemia (principal); M71.349 Other bursal cyst, unspecified hand
CPT/HCPCS: 36415; 83036

== ENCOUNTER → 2025-04-02 | Outpatient (CLI) | payer BC, SELFPAY ==
[2019-11-04 09:08] VITALS: BMI 31.9
[2025-04-02 08:45] LABS: AST(SGOT) 74 U/L (<=31); Alanine Aminotransfer ALT/SGPT 80 U/L (<=34); Albumin, Serum 4.5 g/dL (3.4-4.8); Alkaline Phosphatase 141 U/L (35-104); Anion Gap 9 (5-15); BUN 12 mg/dL (4-19); BUN/Creat Ratio 13.5 RATIO (10-20); Calcium,Total 9.8 mg/dL (7.6-11.0); Carbon Dioxide 27.4 mmol/L (21.0-32.0); Chloride 104 mmol/L (98-108); Globulin 3.0 g/dL (2.2-4.2); Glucose 153 mg/dL (70-99); Potassium 4.6 mmol/L (3.3-5.1)
[2025-04-02 08:45] LABS: AST(SGOT) 80 U/L (<=31); Alanine Aminotransfer ALT/SGPT 81 U/L (<=34); Albumin, Serum 4.6 g/dL (3.4-4.8); Alkaline Phosphatase 143 U/L (35-104); Bilirubin, Direct 0.22 mg/dL (0.00-0.30); Cholesterol 153 mg/dL (<=200); Globulin 3.1 g/dL (2.2-4.2); Low Density Lipoprotein Calc. 80 mg/dL; Triglycerides 187 mg/dL; Very Low Density Lipoprotein 37 mg/dL (5-40); cholesterol:hdl ratio screen 3.75
== END | disposition home or self-care (01) ==
LOC: LAB 07:52
PROVIDERS: PCP Family Medicine; Referring Provider Nurse Practitioner Gerontology; Visit Provider Nurse Practitioner Gerontology
DX: I10 Essential (primary) hypertension (principal); E78.2 Mixed hyperlipidemia
CPT/HCPCS: 36415; 80053; 80061; 80076